=== PATIENT | female | born 1965 | race Caucasian/White ===

== ENCOUNTER 2018-02-28 17:39 | Observation (INO) ==
--- NOTE | 2018-02-28 18:17 | Emergency Department Note ---
Disposition Clinical Impression: Abdominal distension, History of cirrhosis, Shortness of breath Disposition: Admitted As Inpatient Condition: Fair Referrals: Stepahni Garcia MD [Primary Care Provider] - Forms: ED Satisfaction Letter Time of Disposition: 20:27 SOB HPI - General Chief Complaint: ED Shortness of Breath/Dyspnea Stated Complaint: Extremities swelling/renal failure/chf Time Seen by Provider: 02/28/18 18:16 Source: patient Mode of arrival: ambulatory Limitations: no limitations Nursing Notes Reviewed: Yes Vital Signs Reviewed: Yes - History of Present Illness Patient is a 53-year-old female with past medical history of hypertension, hyperlipidemia, diabetes, previous VA, hepatitis, cirrhosis with history of multiple paracentesis. She was just recently discharged a few days ago from the hospital due to stay for SBP, hypokalemia, BERNARDA. According to noting, during that stay the patient required blood transfusion for anemia, had a GI evaluation and nephrology evaluation. She had improvement in her renal labs. She was treated with antibiotics for SBP. She was was recommended at that time to have hospice care for her worsening overall status. However, it was noted that the patient and refused home health services after discharge. She presents today due to concern for shortness of breath that is worse with exertion, lower extremity swelling. She says that this has occurred since Sunday. During that time she had a paracentesis and says that she also received IV fluids after having this procedure done. She thinks that maybe she was fluid overloaded during that time. Otherwise, and she denies any fevers, abdominal pain, overt chest pain, any calf pain, recent surgeries, any long car rides. She does state that she has worsened shortness breath when she is lying flat. She used to be on Lasix but states that it has been held recently. - Related Data Home Medications Medication Instructions Recorded Confirmed Metformin HCl [Metformin HCl ER] 500 mg PO QPM 10/06/16 02/12/18 TraZODone 50 - 100 mg PO HS 10/06/16 02/12/18 clonazePAM [Klonopin] 0.5 mg PO BID 10/06/16 02/12/18 Omeprazole [PriLOSEC] 40 mg PO DAILY 07/26/17 02/12/18 Ondansetron HCl [Zofran] 4 - 8 mg PO Q8H PRN 07/26/17 02/12/18 hydrOXYzine HCl [Hydroxyzine HCl] 50 mg PO QID 07/26/17 02/12/18 Buspirone HCl [Buspar] 5 mg PO TID PRN 09/07/17 02/12/18 Escitalopram [Lexapro] 20 mg PO DAILY 09/07/17 02/12/18 Atorvastatin [Lipitor] 40 mg PO HS 02/12/18 02/12/18 Ferrous Gluconate 240 mg PO DAILY 02/12/18 02/12/18 Lactulose 20 mg PO BID 02/12/18 02/12/18 Megestrol Acetate [Megace] 800 mg PO DAILY 02/12/18 02/12/18 Nadolol 20 mg PO DAILY 02/12/18 02/12/18 OxyCODONE Immed Rel [Roxicodone 5 5 mg PO BID PRN 02/12/18 02/12/18 MG] Tizanidine HCl 4 mg PO BID PRN 02/12/18 02/12/18 Allergies Allergy/AdvReac Type Severity Reaction Status Date / Time levofloxacin [From Levaquin] Allergy Hives Verified 02/12/18 10:32 Penicillins Allergy Rash Verified 02/12/18 10:32 Sulfa (Sulfonamide Allergy Rash Verified 02/12/18 10:32 Antibiotics) All systems ED: reviewed and negative except as stated. Constitutional: Denies: fever Cardiovascular: Reports: dyspnea on exertion. Denies: chest pain Respiratory: Reports: dyspnea Past Medical History - Past Medical History Attestation: Yes The following information was validated with the patient. Source: patient Medical history: Reports: cirrhosis, CHF, COPD, diabetes, hepatitis, hypertension, myocardial infarction, seizures Surgical history: Reports: Psychiatric history: Reports: anxiety, depression - Social History Smoking Status: Current every day smoker Smokeless Tobacco Status: No Alcohol use: Reports: none Drug use: Reports: none Physical Exam - General General appearance: cachectic, other (Mildly slow at answering questions, fatigued, but still awake and oriented 3) - Head Head exam: atraumatic, normocephalic, normal inspection - Eye Eye exam: Present: normal appearance, PERRL, EOMI - ENT ENT exam: normal exam, normal oropharynx, mucous membranes moist - Neck Neck exam: Present: normal inspection, full ROM, trachea midline - Chest Chest inspection: Present: normal inspection, symmetric chest wall rise - Respiratory Respiratory exam: Present: normal lung sounds bilaterally - Cardiovascular Cardiovascular exam: Present: regular rate, normal rhythm, normal heart sounds - Abdominal Exam Abdominal exam: Present: soft, Non-Tender, distention (generalize abd distention ). Absent: tenderness, guarding, rebound - Extremities Exam Extremities exam: Present: full ROM, pedal edema (pitting edema of bilateral LE up to knees; no erythema, calf pain). Absent: tenderness, calf tenderness - Neurological Exam Neurological exam: Present: alert, oriented X3 - Psychiatric Psychiatric exam: Present: normal affect, normal mood - Skin Skin exam: Present: warm, dry, intact, normal color Course Vital Signs Temperature 98.4 F 02/28/18 17:40 Pulse Rate 53 02/28/18 17:40 Respiratory Rate 18 02/28/18 17:40 Blood Pressure 111/71 02/28/18 17:40 O2 Sat by Pulse Oximetry 99 02/28/18 17:40 Temperature 98.4 F 02/28/18 17:40 Pulse Rate 52 02/28/18 19:04 Respiratory Rate 18 02/28/18 17:40 Blood Pressure 114/71 02/28/18 19:04 O2 Sat by Pulse Oximetry 99 02/28/18 19:04 Oxygen Delivery Oxygen Delivery Room Air Shortness of Breath/Dyspnea - [facility] Narrative Medical decision making narrative: Vitals are within normal limits at this time. Patient has significant abdominal distention but no pain with palpation. She does appear cachectic, somewhat answer questions. Family states that this is mildly worse from her baseline. Due to concern for possible worsening mental status, we will obtain an ammonia level. We will also check LFTs due to history of hepatitis and cirrhosis. Due to shortness of breath, we will obtain chest x-ray, troponin. EKG shows sinus bradycardia with low voltage. Otherwise no acute ST changes. Bedside ultrasound was performed due to low voltage and shortness of breath to assess for anything like pericardial effusion. Bedside ultrasound was negative for pericardial effusion. After lab results come back, patient will need to be admitted for shortness of breath, need for an additional paracentesis, shortness of breath, confusion above baseline. 20:20 labs are near baseline for the patient. No elevation white blood cell count. Chronic kidney disease is baseline for the patient. Ammonia level was not elevated. EKG shows no acute ST changes. No elevation in troponin leve. Chest x-ray shows no signs of any advocate edema. I discussed the findings with the hospitalist who is accepted the patient. Patient will require paracentesis, further workup for shortness of breath. Likely related to significant abd distention secondary to cirrhosis but ACS is not ruled out at this time. - Medical Records Medical records reviewed: Yes I reviewed the patient's medical records. - Lab Data Lab results reviewed: Yes I reviewed the patient's lab results. Result diagrams: 02/28/18 18:59 02/28/18 18:59 Lab Results 02/28/18 02/28/18 02/28/18 Range/Units 18:59 18:59 18:59 WBC 6.7 (4.3-11.1) K/mcL RBC 3.19 L (3.82-4.97) M/mcL Hgb 9.1 L (11.5-15.4) g/dL Hct 28.4 L (35.3-44.9) % MCV 89.0 (83.0-100.0) fL MCH 28.5 (28.0-33.3) pg MCHC 32.0 (31.6-35.5) g/dL RDW 15.8 H (11.5-14.5) % Plt Count 189 (140-400) K/mcL MPV 9.8 (9.4-12.4) fL Immature Gran % 0.4 (0-4) % Seg Neutrophils % 61.6 % Lymphocytes % 25.2 % Monocytes % 11.6 % Eosinophils % 0.0 % Basophils % 1.2 % Neutrophils # 4.1 (1.6-8.9) K/mcL Lymphocytes # 1.7 (0.6-4.6) K/mcL Monocytes # 0.8 (0.0-1.3) K/mcL Eosinophils # 0.0 (0.0-0.6) K/mcL Basophils # 0.1 (0.0-0.2) K/mcL Sodium 138 (136-145) mEq/L Potassium 3.3 L (3.5-5.1) mEq/L Chloride 115 H (98-107) mEq/L Carbon Dioxide 18 L (23-29) mEq/L BUN 36 H (6-20) mg/dL Creatinine 2.31 H (0.60-1.20) mg/dL Est GFR ( Amer) 27 L (> 60) Est GFR (Non-Af Amer) 22 L (> 60) BUN/Creatinine Ratio 16 (6-26) Glucose 120 H (70-105) mg/dL Calculated Osmolality 296 (280-300) Lactic Acid 1.6 (0.5-2.2) mmol/L Calcium 8.9 (8.6-10.3) mg/dL Total Bilirubin 0.4 (0.3-1.0) mg/dL Direct Bilirubin 0.2 (0.0-0.2) mg/dL Indirect Bilirubin 0.2 (0.0-1.2) mg/dL AST 56 H (13-39) Units/L ALT 39 (7-52) Units/L Alkaline Phosphatase 117 H (34-104) Units/L Ammonia (16-53) mcmol/L Troponin I < 0.03 (< 0.04) ng/mL Serum Total Protein 5.9 L (6.4-8.9) g/dL Albumin 4.1 (3.5-5.7) g/dL Globulin 1.8 L (2.4-3.5) g/dL Albumin/Globulin Ratio 2.3 H (1.1-2.2) Lipase 25 (11-82) Units/L // Range/Units 19:02 WBC (4.3-11.1) K/mcL RBC (3.82-4.97) M/mcL Hgb (11.5-15.4) g/dL Hct (35.3-44.9) % MCV (83.0-100.0) fL MCH (28.0-33.3) pg MCHC (31.6-35.5) g/dL RDW (11.5-14.5) % Plt Count (140-400) K/mcL MPV (9.4-12.4) fL Immature Gran % (0-4) % Seg Neutrophils % % Lymphocytes % % Monocytes % % Eosinophils % % Basophils % % Neutrophils # (1.6-8.9) K/mcL Lymphocytes # (0.6-4.6) K/mcL Monocytes # (0.0-1.3) K/mcL Eosinophils # (0.0-0.6) K/mcL Basophils # (0.0-0.2) K/mcL Sodium (136-145) mEq/L Potassium (3.5-5.1) mEq/L Chloride (98-107) mEq/L Carbon Dioxide (23-29) mEq/L BUN (6-20) mg/dL Creatinine (0.60-1.20) mg/dL Est GFR ( Amer) (> 60) Est GFR (Non-Af Amer) (> 60) BUN/Creatinine Ratio (6-26) Glucose (70-105) mg/dL Calculated Osmolality (280-300) Lactic Acid (0.5-2.2) mmol/L Calcium (8.6-10.3) mg/dL Total Bilirubin (0.3-1.0) mg/dL Direct Bilirubin (0.0-0.2) mg/dL Indirect Bilirubin (0.0-1.2) mg/dL AST (13-39) Units/L ALT (7-52) Units/L Alkaline Phosphatase (34-104) Units/L Ammonia 38 (16-53) mcmol/L Troponin I (< 0.04) ng/mL Serum Total Protein (6.4-8.9) g/dL Albumin (3.5-5.7) g/dL Globulin (2.4-3.5) g/dL Albumin/Globulin Ratio (1.1-2.2) Lipase (11-82) Units/L - Radiology Data Radiology results reviewed: Yes I reviewed the patient's radiology results. Chest X-Ray 02/28/18 18:51 IMPRESSION: 1. No active pulmonary disease. D/ / Robbie Sanchez MD / Robbie Sanchez MD Interpreting Provider: Robbie Sanchez MD - EKG Data EKG attestation: Yes I reviewed and interpreted this EKG. EKG results narrative: 02/28/2018 18:20. Sinus bradycardia. Rate 57. KS 191. QRS 61. QTC 391. Normal axis. No acute ST elevation or depression.. Low voltage. S.B.A.R. - S.B.A.R. Situation: Demographics, MOA Background: Presenting Complaint, Relevant PMH, Meds, & Allergies Assessment: Vital Signs, Course and respsone to treatment, Exam Concerns, Patient/Family Expectation, Pertinant Lab Results Recommendation: Barrier(s) to disposition, Recommendation based on pending studies, treatments, or consults [email or web address] Report Given to: Dr. Niraj Person Repor Time: 20:26
--- NOTE | 2018-02-28 18:34 | Emergency Department Note ---
Disposition Clinical Impression: Abdominal distension, History of cirrhosis, Shortness of breath Disposition: Admitted As Inpatient Condition: Fair General Adult HPI - General Chief complaint: ED Shortness of Breath/Dyspnea Stated complaint: Extremities swelling/renal failure/chf Time Seen by Provider: 02/28/18 18:16 Source: patient Mode of arrival: ambulatory Limitations: no limitations - History of Present Illness Pain Scale: 8 - Related Data Home Medications Medication Instructions Recorded Confirmed Metformin HCl [Metformin HCl ER] 500 mg PO QPM 10/06/16 02/28/18 TraZODone 50 - 100 mg PO HS 10/06/16 02/28/18 clonazePAM [Klonopin] 0.5 mg PO BID 10/06/16 02/28/18 Omeprazole [PriLOSEC] 40 mg PO DAILY 07/26/17 02/28/18 Ondansetron HCl [Zofran] 4 - 8 mg PO Q8H PRN 07/26/17 02/28/18 hydrOXYzine HCl [Hydroxyzine HCl] 50 mg PO QID 07/26/17 02/28/18 Buspirone HCl [Buspar] 5 mg PO TID PRN 09/07/17 02/28/18 Escitalopram [Lexapro] 20 mg PO DAILY 09/07/17 02/28/18 Atorvastatin [Lipitor] 40 mg PO HS 02/12/18 02/28/18 Ferrous Gluconate 240 mg PO DAILY 02/12/18 02/28/18 Lactulose 20 mg PO BID 02/12/18 02/28/18 Megestrol Acetate [Megace] 800 mg PO DAILY 02/12/18 02/28/18 Nadolol 20 mg PO DAILY 02/12/18 02/28/18 OxyCODONE Immed Rel [Roxicodone 5 5 mg PO BID PRN 02/12/18 02/28/18 MG] Tizanidine HCl 4 mg PO BID PRN 02/12/18 02/28/18 Lactose-Reduced Food [Ensure High 1 bottle PO 2-3XD 02/28/18 02/28/18 Protein] Allergies Allergy/AdvReac Type Severity Reaction Status Date / Time levofloxacin [From Levaquin] Allergy Hives Verified 02/12/18 10:32 Penicillins Allergy Rash Verified 02/12/18 10:32 Sulfa (Sulfonamide Allergy Rash Verified 02/12/18 10:32 Antibiotics) Past Medical History - Past Medical History Medical history: Reports: cirrhosis, CHF, COPD, diabetes, hepatitis, hypertension, myocardial infarction, seizures Surgical history: Reports: Psychiatric history: Reports: anxiety, depression - Social History Smoking Status: Current every day smoker Smokeless Tobacco Status: No Alcohol use: Reports: none Drug use: Reports: none Physical Exam - General Limitations: no limitations General appearance: alert, in no apparent distress Course Vital Signs Temperature 98.4 F 02/28/18 17:40 Pulse Rate 53 02/28/18 17:40 Respiratory Rate 18 02/28/18 17:40 Blood Pressure 111/71 02/28/18 17:40 O2 Sat by Pulse Oximetry 99 02/28/18 17:40 Temperature 98.4 F 02/28/18 17:40 Pulse Rate 52 02/28/18 19:04 Respiratory Rate 18 02/28/18 17:40 Blood Pressure 114/71 02/28/18 19:04 O2 Sat by Pulse Oximetry 99 02/28/18 19:04 Oxygen Delivery Oxygen Delivery Room Air Medical Decision Making - Lab Data Result diagrams: 02/28/18 18:59 02/28/18 18:59 Lab Results 02/28/18 02/28/18 02/28/18 Range/Units 18:59 18:59 18:59 WBC 6.7 (4.3-11.1) K/mcL RBC 3.19 L (3.82-4.97) M/mcL Hgb 9.1 L (11.5-15.4) g/dL Hct 28.4 L (35.3-44.9) % MCV 89.0 (83.0-100.0) fL MCH 28.5 (28.0-33.3) pg MCHC 32.0 (31.6-35.5) g/dL RDW 15.8 H (11.5-14.5) % Plt Count 189 (140-400) K/mcL MPV 9.8 (9.4-12.4) fL Immature Gran % 0.4 (0-4) % Seg Neutrophils % 61.6 % Lymphocytes % 25.2 % Monocytes % 11.6 % Eosinophils % 0.0 % Basophils % 1.2 % Neutrophils # 4.1 (1.6-8.9) K/mcL Lymphocytes # 1.7 (0.6-4.6) K/mcL Monocytes # 0.8 (0.0-1.3) K/mcL Eosinophils # 0.0 (0.0-0.6) K/mcL Basophils # 0.1 (0.0-0.2) K/mcL PT (9.4-12.1) Seconds INR Sodium 138 (136-145) mEq/L Potassium 3.3 L (3.5-5.1) mEq/L Chloride 115 H (98-107) mEq/L Carbon Dioxide 18 L (23-29) mEq/L BUN 36 H (6-20) mg/dL Creatinine 2.31 H (0.60-1.20) mg/dL Est GFR ( Amer) 27 L (> 60) Est GFR (Non-Af Amer) 22 L (> 60) BUN/Creatinine Ratio 16 (6-26) Glucose 120 H (70-105) mg/dL Calculated Osmolality 296 (280-300) Lactic Acid 1.6 (0.5-2.2) mmol/L Calcium 8.9 (8.6-10.3) mg/dL Total Bilirubin 0.4 (0.3-1.0) mg/dL Direct Bilirubin 0.2 (0.0-0.2) mg/dL Indirect Bilirubin 0.2 (0.0-1.2) mg/dL AST 56 H (13-39) Units/L ALT 39 (7-52) Units/L Alkaline Phosphatase 117 H (34-104) Units/L Ammonia (16-53) mcmol/L Troponin I < 0.03 (< 0.04) ng/mL Serum Total Protein 5.9 L (6.4-8.9) g/dL Albumin 4.1 (3.5-5.7) g/dL Globulin 1.8 L (2.4-3.5) g/dL Albumin/Globulin Ratio 2.3 H (1.1-2.2) Lipase 25 (11-82) Units/L 02/28/18 02/28/18 Range/Units 18:59 19:02 WBC (4.3-11.1) K/mcL RBC (3.82-4.97) M/mcL Hgb (11.5-15.4) g/dL Hct (35.3-44.9) % MCV (83.0-100.0) fL MCH (28.0-33.3) pg MCHC (31.6-35.5) g/dL RDW (11.5-14.5) % Plt Count (140-400) K/mcL MPV (9.4-12.4) fL Immature Gran % (0-4) % Seg Neutrophils % % Lymphocytes % % Monocytes % % Eosinophils % % Basophils % % Neutrophils # (1.6-8.9) K/mcL Lymphocytes # (0.6-4.6) K/mcL Monocytes # (0.0-1.3) K/mcL Eosinophils # (0.0-0.6) K/mcL Basophils # (0.0-0.2) K/mcL PT 14.8 H (9.4-12.1) Seconds INR 1.4 Sodium (136-145) mEq/L Potassium (3.5-5.1) mEq/L Chloride (98-107) mEq/L Carbon Dioxide (23-29) mEq/L BUN (6-20) mg/dL Creatinine (0.60-1.20) mg/dL Est GFR ( Amer) (> 60) Est GFR (Non-Af Amer) (> 60) BUN/Creatinine Ratio (6-26) Glucose (70-105) mg/dL Calculated Osmolality (280-300) Lactic Acid (0.5-2.2) mmol/L Calcium (8.6-10.3) mg/dL Total Bilirubin (0.3-1.0) mg/dL Direct Bilirubin (0.0-0.2) mg/dL Indirect Bilirubin (0.0-1.2) mg/dL AST (13-39) Units/L ALT (7-52) Units/L Alkaline Phosphatase (34-104) Units/L Ammonia 38 (16-53) mcmol/L Troponin I (< 0.04) ng/mL Serum Total Protein (6.4-8.9) g/dL Albumin (3.5-5.7) g/dL Globulin (2.4-3.5) g/dL Albumin/Globulin Ratio (1.1-2.2) Lipase (11-82) Units/L Attestation Statement - Attestation Attestation: I examined this patient and my medical decision-making was reviewed with the DROSOPHERE OPERATOR/PA/Advanced Practice Nurse/Resident Physician. I agree with the documented findings, disposition and treatment plan as described except to the extent set forth below. The patient does have a history of multiple medical problems and I did review her records and she presents because of swelling and also shortness of breath. Had some abdominal pain earlier which is now resolved. She is cachectic in appearance a chronically ill in appearance and was just discharged from the hospital 2 days ago. Did have paracentesis 2 while she was here. Workup will be initiated, I do not think she has spontaneous bacterial peritonitis that she has no fever or abdominal pain and her exam is benign. She denies any fever or use of antipyretics recently. EKG did not was done which does locate a poor tracing with some artifact although possibly low voltage and we will do a bedside cardiac ultrasound to further evaluate for pericardial effusion or tamponade. Labs will be started. 1833 Bedside cardiac ultrasound did not show evidence of significant pericardial effusion or any evidence of pericardial tamponade. Patient will be admitted. 2019
[2018-02-28 19:16] LABS: Basophils # 0.1 K/mcL (0.0-0.2); Basophils % 1.2 %; Hematocrit 28.4 % (35.3-44.9); Hemoglobin 9.1 g/dL (11.5-15.4); Immature Granulocytes % 0.4 % (0-4); Lymphocytes # 1.7 K/mcL (0.6-4.6); Lymphocytes % 25.2 %; Mean Corpuscular Hemoglobin 28.5 pg (28.0-33.3); Mean Platelet Volume 9.8 fL (9.4-12.4); Monocytes # 0.8 K/mcL (0.0-1.3); Monocytes % 11.6 %; Neutrophils # 4.1 K/mcL (1.6-8.9); Platelet Count 189 K/mcL (140-400); Red Blood Count 3.19 M/mcL (3.82-4.97); Red Cell Distribution Width 15.8 % (11.5-14.5); Segmented Neutrophils % 61.6 %
[2018-02-28 19:35] LABS: Alanine Aminotransferase 39 Units/L (7-52); Albumin 4.1 g/dL (3.5-5.7); Albumin/Globulin Ratio 2.3 (1.1-2.2); Alkaline Phosphatase 117 Units/L (34-104); Aspartate Amino Transferase 56 Units/L (13-39); BUN/Creatinine Ratio 16 (6-26); Bilirubin,Direct 0.2 mg/dL (0.0-0.2); Bilirubin,Indirect 0.2 mg/dL (0.0-1.2); Bilirubin,Total 0.4 mg/dL (0.3-1.0); Blood Urea Nitrogen 36 mg/dL (6-20); Calcium 8.9 mg/dL (8.6-10.3); Carbon Dioxide 18 mEq/L (23-29); Chloride 115 mEq/L (98-107); Globulin 1.8 g/dL (2.4-3.5); Glucose 120 mg/dL (70-105); Lipase 25 Units/L (11-82); Osmolality,Calculated 296 (280-300); Potassium 3.3 mEq/L (3.5-5.1); Sodium 138 mEq/L (136-145); Total Protein 5.9 g/dL (6.4-8.9); Troponin I < 0.03 ng/mL (< 0.04); eGFR For African Americans 27 (> 60); eGFR For Non-African Americans 22 (> 60)
[2018-02-28] MEDS ORDERED: Naloxone 0.4 MG/ML INJ IVP PRN (20:27)
[2018-02-28] MEDS ORDERED: traMADol 50 MG TABLET PO PRN (20:30)
--- NOTE | 2018-02-28 20:40 | Internal Med History&Physical ---
Date of Encounter: 02/28/18 Time of Encounter: 20:32 Internal Medicine - H&P: HPI Chief complaint: Shortness of breath Admitted From: Emergency Dept Plans for Post Hospital Care: Home History of present illness: Ms. De Paz is a 53 year old female with PMH of liver cirrhosis, hepatitis C, DM, CKD, COPD, HTN, anxiety and depression who was admitted last month into earlier this month and discharged a couple days ago after stay for which she was treated for BERNARDA suspected to be secondary to hepatorenal syndrome versus some volume loss from large volume paracentesis, and was treated for SBP, and had multiple paracentesis done during her stay. She also required PRBCs transfusion while she was hospitalized with GI evaluating the patient and recommending outpatient follow-up. The patient was also evaluated by palliative and her CODE STATUS was changed to DNR CCA. Throughout her stay she was being followed by nephrology as well and they did not think that she was a candidate for HD given her overall comorbidities. Of note, I know this patient while she was here and took care of her for a few days and at that time while talking to her family including her sister was a nurse and was told that the patient was given a prognosis for about one year because of her liver cirrhosis. Either way she comes back with abdominal distention and shortness of breath. She also has significant lower extremity swelling that was not present when she was here according to the mother. The patient "feels suffocating" from her abdominal distention. As I mentioned the patient was only discharged a couple days ago and the day prior to her discharge on 02/25 she had a 6.3 L paracentesis done. 5 days prior to that she had another paracentesis where 6.4 L. Prior to that on 02/11 she had a paracentesis where 4.25 L were drained. For the most part the patient has been getting periodic paracentesis since January 2017. In the emergency department she was hemodynamically stable. She was satting 99% on room air. Labs were mostly unremarkable with her anemia stable with a hemoglobin of 9.1. Her creatinine is 2.31 and is actually better than her discharge creatinine of 2.53. Her creatinine was as high as 4.94 back with 02/11. Potassium was 3.3. AST and alkaline phosphatase are mildly elevated. Patient reports abdominal pain. Denies fever, chills, headache, blurry vision, nausea, vomiting, chest pain, urinary symptoms, or neurological symptoms. Past Med Surg Social Fam HX - Past Medical History Medical history: cirrhosis, CHF, COPD, diabetes, hepatitis, hypertension, myocardial infarction, seizures Psychiatric history: anxiety, depression - Past Surgical History Surgical History: - Social History Smoking Status: Current every day smoker Smokeless Tobacco Status: No Alcohol use: none Drug use: none - Family History Father Living Status: Hx Family Cardiac Disorders: Yes Hx Family Respiratory Disorders: No Hx Family Cancer: Yes Hx Family GI Disorders: No Hx Family Endocrine Disorder: No Hx Family Neuromuscular Disorders: No Hx Family Neurologic Disorders: No Hx Family HEENT Disorders: No Hx Family Autoimmune Disorders: No Mother Living Status: Still Living Hx Family Respiratory Disorders: Yes Hx Family Endocrine Disorder: Yes (diabetes) Brother Hx Family Endocrine Disorder: Yes (diabetes) Internal Medicine - H&P: Meds Metformin HCl [Metformin HCl ER] 500 mg PO QPM 10/06/16 [History] TraZODone 50 - 100 mg PO HS 10/06/16 [History] clonazePAM [Klonopin] 0.5 mg PO BID 10/06/16 [History] Omeprazole [PriLOSEC] 40 mg PO DAILY 07/26/17 [History] Ondansetron HCl [Zofran] 4 - 8 mg PO Q8H PRN 07/26/17 [History] hydrOXYzine HCl [Hydroxyzine HCl] 50 mg PO QID 07/26/17 [History] Buspirone HCl [Buspar] 5 mg PO TID PRN 09/07/17 [History] Escitalopram [Lexapro] 20 mg PO DAILY 09/07/17 [History] Atorvastatin [Lipitor] 40 mg PO HS 02/12/18 [History] Ferrous Gluconate 240 mg PO DAILY 02/12/18 [History] Lactulose 20 mg PO BID 02/12/18 [History] Megestrol Acetate [Megace] 800 mg PO DAILY 02/12/18 [History] Nadolol 20 mg PO DAILY 02/12/18 [History] OxyCODONE Immed Rel [Roxicodone 5 MG] 5 mg PO BID PRN 02/12/18 [History] Tizanidine HCl 4 mg PO BID PRN 02/12/18 [History] Lactose-Reduced Food [Ensure High Protein] 1 bottle PO 2-3XD 02/28/18 [History] 3 Allergy/AdvReac Type Severity Reaction Status Date / Time levofloxacin [From Levaquin] Allergy Hives Verified 02/12/18 10:32 Penicillins Allergy Rash Verified 02/12/18 10:32 Sulfa (Sulfonamide Allergy Rash Verified 02/12/18 10:32 Antibiotics) All Systems PM: A 10-system review of systems was performed and is negative for pertinent findings except as documented above in the HPI. Review of systems: All systems reviewed are negative except for as mentioned above - Constitutional Vitals: Temp Pulse Resp BP Pulse Ox 98.4 F 52 18 114/71 99 02/28/18 17:40 02/28/18 19:04 02/28/18 17:40 02/28/18 19:04 02/28/18 19:04 Exam: GEN: NAD, cachectic HEENT: AT, NC, No cyanosis, oral mucosa is moist, No JVD Lymphatics: No lymphadenoapthy Eyes: Extrocular muscles intact, anicteric CVS:RRR. S1, S2, No m/r/g RESP: CTAB ABD: Soft, mild flank tenderness, abdominal distention noted and to the back. + BS EXT: 2+ edema, No rashes, 2+ DP NEURO: Nonfocal, CN II-XII intact, No focal motor or sensory deficits Psych: Cooperative, Not anxious or depressed Internal Med - H&P Results - Labs CBC & Chem 7: 02/28/18 18:59 02/28/18 18:59 Labs: Short CBC 02/28/18 Range/Units 18:59 WBC 6.7 (4.3-11.1) K/mcL Hgb 9.1 L (11.5-15.4) g/dL Hct 28.4 L (35.3-44.9) % Plt Count 189 (140-400) K/mcL Neutrophils # 4.1 (1.6-8.9) K/mcL BMP 02/28/18 18:59 Sodium 138 Potassium 3.3 L Chloride 115 H Carbon Dioxide 18 L BUN 36 H Creatinine 2.31 H Glucose 120 H Calcium 8.9 Cardiac Enzymes 02/28/18 Range/Units 18:59 Troponin I < 0.03 (< 0.04) ng/mL Liver Function 02/28/18 Range/Units 18:59 Total Bilirubin 0.4 (0.3-1.0) mg/dL Direct Bilirubin 0.2 (0.0-0.2) mg/dL AST 56 H (13-39) Units/L ALT 39 (7-52) Units/L Alkaline Phosphatase 117 H (34-104) Units/L Albumin 4.1 (3.5-5.7) g/dL - Impressions ITS Impressions Chest X-Ray 02/28/18 18:51 IMPRESSION: 1. No active pulmonary disease. D/ / Robbie Sanchez MD / Robbie Sanchez MD Interpreting Provider: Robbie Sanchez MD - Assessment and plan (1) Ascites Current Visit: Yes Status: Acute Assessment and plan: This is recurrent. I see that the patient was not discharged on spironolactone/ Lasix. I presume this was done to prevent worsening kidney function. Will put the patient in for a paracentesis tomorrow. albumin to be given after paracentesis. I will give the patient 40 mg of IV Lasix now for some symptom relief and she feels short of breath and has a feeling of suffocation. Consider adding Lasix/spironolactone to prevent further accumulation of ascites in the future although I am not so sure that this would help completely. Also if we do that we may have to consider worsening kidney function in the future as well. Overall the a poor prognosis and a vicious cycle that we are in. Possibly need to have another discussion with the patient/family about hospice. She refused hospice last stay. Qualifiers: Ascites type: other type Qualified Code(s): R18.8 - Other ascites (2) Lower extremity edema Current Visit: Yes Status: Acute Assessment and plan: 40 mg IV Lasix now. Consider re-adding Lasix at discharge as explained above. (3) CKD (chronic kidney disease) stage 3, GFR 30-59 ml/min Current Visit: Yes Status: Acute Assessment and plan: This is stable and actually better than her discharge a couple days ago. We will continue to monitor. She may have some worsening of her kidney function after paracentesis. (4) Cirrhosis Current Visit: No Status: Chronic Assessment and plan: The patient's overall prognosis is poor. Follows up with GI. Qualifiers: Hepatic cirrhosis type: other cirrhosis Qualified Code(s): K74.69 - Other cirrhosis of liver (5) Diabetes Current Visit: No Status: Chronic Assessment and plan: Insulin sliding scale. Accu-Cheks. Qualifiers: Diabetes mellitus type: type 2 Diabetes mellitus residential insulin use: without residential use Diabetes mellitus complication status: with kidney complications Diabetes mellitus complication detail: with chronic kidney disease Chronic kidney disease stage: unspecified stage Qualified Code(s): E11.22 - Type 2 diabetes mellitus with diabetic chronic kidney disease (6) Severe protein-calorie malnutrition Current Visit: No Status: Acute Assessment and plan: Dietary consult. (7) DVT prophylaxis Current Visit: No Status: Acute Assessment and plan: SCDs - Time Spent With Patient Total time spent is greater than 50% in coordination of care (as documented) at patient's floor/unit and/or counseling patient:
[2018-02-28] MEDS ORDERED: Dextrose Gel 15 GM/37.5 ML TUBE PO PRN ×2 (20:41)
[2018-02-28] MEDS ORDERED: D5% in Water 1,000 ML IVC PRN (20:41)
[2018-02-28] MEDS ORDERED: *HR* Dextrose 50 % in Water (Syg) 50 ML SYRINGE IVP PRN (20:41)
[2018-02-28] MEDS ORDERED: tiZANidine 4 MG TABLET PO PRN (20:45)
[2018-02-28 20:47] LABS: INR 1.4; Prothrombin Time 14.8 Seconds (9.4-12.1)
[2018-02-28] MEDS ORDERED: Furosemide 40 MG/4 ML VIAL IVP ONE (21:02)
[2018-02-28] MEDS ORDERED: Albumin 25% 25gram/100mL 25 GM/100 ML IV.SOLN IVPB ONE ×2 (21:03→21:04)
[2018-02-28] MEDS: hydrOXYzine pamoate 25 MG CAPSULE PO SCH (22:53)
[2018-02-28] MEDS: traZODone 50 MG TABLET PO SCH (22:53)
[2018-02-28] MEDS: clonazePAM 0.5 MG TABLET PO SCH (22:53)
[2018-02-28] MEDS: Insulin LISPRO 300 UNITS/3 ML VIAL SQ SCH (22:53)
[2018-02-28] MEDS: *HR* OxyCODONE Immed Rel 5 MG TABLET PO PRN (23:05)
[2018-03-01 05:14] LABS: Basophils # 0.1 K/mcL (0.0-0.2); Basophils % 1.8 %; Hematocrit 27.8 % (35.3-44.9); Hemoglobin 8.9 g/dL (11.5-15.4); Immature Granulocytes % 0.4 % (0-4); Lymphocytes # 1.6 K/mcL (0.6-4.6); Lymphocytes % 27.6 %; Mean Corpuscular Hemoglobin 27.9 pg (28.0-33.3); Mean Corpuscular Volume 87.1 fL (83.0-100.0); Mean Platelet Volume 9.8 fL (9.4-12.4); Monocytes # 0.7 K/mcL (0.0-1.3); Neutrophils # 3.3 K/mcL (1.6-8.9); Platelet Count 189 K/mcL (140-400); Red Blood Count 3.19 M/mcL (3.82-4.97); Red Cell Distribution Width 15.8 % (11.5-14.5); Segmented Neutrophils % 58.2 %
[2018-03-01 05:32] LABS: Calcium 8.9 mg/dL (8.6-10.3); Magnesium 1.3 mg/dL (1.6-2.6); Potassium 3.5 mEq/L (3.5-5.1)
[2018-03-01] MEDS: Insulin LISPRO 300 UNITS/3 ML VIAL SQ SCH ×4 (07:51→21:11)
[2018-03-01] MEDS ORDERED: Albumin 25% 25gram/100mL 25 GM/100 ML IV.SOLN IVPB SCH (08:00)
[2018-03-01] MEDS: hydrOXYzine pamoate 25 MG CAPSULE PO SCH ×4 (08:27→23:37)
[2018-03-01] MEDS: Spironolactone 25 MG TABLET PO SCH (08:28)
[2018-03-01] MEDS: clonazePAM 0.5 MG TABLET PO SCH ×2 (08:28→22:23)
[2018-03-01] MEDS: Furosemide 20 MG TABLET PO SCH ×2 (08:28→17:17)
[2018-03-01] MEDS: Megestrol Acetate 400 MG/10 ML UDC PO SCH (08:30)
[2018-03-01] MEDS: *HR* OxyCODONE Immed Rel 5 MG TABLET PO PRN (11:29)
--- NOTE | 2018-03-01 12:44 | Palliative - Consult Note ---
Date of Encounter: 03/01/18 Time of Encounter: 11:00 - Assessment and Plan (1) Cirrhosis Current Visit: No Status: Chronic Assessment and plan: Chronic condition related to hep c and alcohol. Overall prognosis is poor. Patient is eligible for hospice should she decide to accept the service; patient refusing at this time. Qualifiers: Hepatic cirrhosis type: other cirrhosis Qualified Code(s): K74.69 - Other cirrhosis of liver (2) Abdominal distension Current Visit: Yes Status: Acute Assessment and plan: Abdominal distension present. Gastroenterology and IR working to place pleural catheter to allow for continued drainage post hospital stay. (3) History of cirrhosis Current Visit: Yes Status: Acute Assessment and plan: Continued poor prognosis; GI managing. (4) Shortness of breath Current Visit: Yes Status: Acute Assessment and plan: Patient not exhibiting shortness of breath during assessment. Patient reports shortness of breath due to edema; Lasix and Spirolactone has been reordered for edema management. (5) CKD (chronic kidney disease) stage 3, GFR 30-59 ml/min Current Visit: Yes Status: Acute (6) Ascites Current Visit: Yes Status: Acute Assessment and plan: GI plans to place Pleural catheter to manage recurrent Ascites. Lasix and Spironolactone ordered to prevent further accumulation of ascites in the future. Qualifiers: Ascites type: other type Qualified Code(s): R18.8 - Other ascites (7) Lower extremity edema Current Visit: Yes Status: Acute Assessment and plan: Patient remains edematous 3+ BLE. Lasix and Spironolactone has been reordered. Patient voiding at end of assessment. (8) Goals of care, counseling/discussion Current Visit: No Status: Acute Assessment and plan: Spoke with patient and Alejandrina, sister/secondary MPOA, regarding plan of care at discharge. Patient wishes to return home and family care for. Expressed concern over family's ability to care for and monitor new pleural catheter. Explained need to monitor for new s/s of infection to reduce returns to hospital. Verbalized understanding. Patient continues to refuse HH and Hospice ; however, Alejandrina verbalizes understanding of necessity for ensuring adequate supplies and will discuss with primary MPOA and patient to decide HH versus Hospice post discharge. Explained benefits of both, Alejandrina acknowledged. Alejandrina expressed concern over previous poor experience with other family members with hospice; Alejandrina also reports she is POLICE RESERVES COMMANDER with IV certification and patient's mother was a MEMBERSHIP COORDINATOR. Alejandrina was unsure why family could not care for; expressed concern for new issues that may come up after hours and unable to contact providers to get care and would have to return to hospital. Alejandrina verbalized understanding and expresses desire to continue discussing HH versus Hospice over the weekend. Will follow up on Sunday. Palliative-CN HPI - Data of Consult Patient: known to practice within the last 3 years Consult date: 03/01/18 Requesting Physician: Marce Gomes MD Primary Care Provider: Stephani Garcia, - Consult Narrative Palliative Care/Comfort Measures: Palliative care Reason for consult: Evaluation for hospice care. History of present illness: Ms. De Paz is a 53 year old female presenting to [place] ER for significant water extremity swelling and abdominal distention; patient reports feeling of suffocation. Frequent rehospitalizations occurring due to hepatorenal syndrome requiring multiple paracentesis. Patient discharged from [facility] 2 days ago per patient report. Patient has past medical history of liver cirrhosis, hepatitis C, diabetes mellitus, chronic kidney disease, COPD, hypertension, anxiety and depression. Liver cirrhosis chronic condition occurring for the last 2-3 years. Regarding hep C patient took her hervonie for 12 months and recheck was told gone, previous alcohol consumption ceased 3 years ago. During last day palliative consult completed by Dr. Yi and CODE STATUS changed to DNR CCA. Patient lying in bed looking over at sister Alejandrina during time of assessment. Patient remained very distant during conversation/assessment. Patient agitated regarding NPO status and asked gastroenterology doctor when she could eat during her evaluation. Patient reported bilateral leg pain to be currently an 8 out of 10, reports pain worsens when walking. Pain is described as intermittent but on able to describe quality. Patient is requesting pain medication at this time, Anjelica FORD was notified and is bringing pain medication at this time. Patient has had 1 dose Roxicodone 5 mg in last 24 hours, 0 doses of tizanidine, and 0 doses of Ultram. Patient also reports increased shortness of breath when lying flat, reports last night's dose of Lasix in ER assisted and shortness of breath management. Alejandrina reports at last hospital stay order for Lasix was discontinued, feels that may have been cause of increasing fluid resulting in this visit. Patient reports had not been able to void while at home and just continued to swell. New order has been written for Lasix 20 mg by mouth twice a day by primary team. Denies anxiety, nausea, or any other needs at time of assessment. Confirmed current CODE STATUS with patient acknowledged understanding, no change to CODE STATUS. Alejandrina reports plan to put pleural catheter and to decrease returns to Hospital. Patient reports increased shortness of breath prior to coming to hospital and resulting chest pain; patient would not right chest pain on scale as reported cause is shortness of breath. Patient has been cared for by patient's mother and sister. Patient's MPOA is Catie Sauer mother, secondary is Alejandrina sister. Alejandrina reports 2 previous poor experiences with hospice from other family members; family remains hesitant to discuss bringing another hospice agency into the home. Alejandrina shares that she is a POLICE RESERVES COMMANDER with IV therapy certification and mother is home health aide and is able to perform vital signs , family is unsure of need for additional nursing personnel to home. Explain necessity if receiving new pleural drain for continued assessment of drain, medical supplies, and monitoring for new signs of infection post hospital discharge and necessary training for family to care for drain. Discussed advantages of hospice and home health, patient refuses both at this time; however, family is willing to consider over the coming days. Alejandrina reports she is going to talk to her mother regarding additional supportive care in the home for after patient's discharged. CC: Marce Gomes MD Past Med Surg Social Fam HX - Past Medical History Medical history: cirrhosis, CHF, COPD, diabetes, hepatitis, hypertension, myocardial infarction, seizures Psychiatric history: anxiety, depression - Past Surgical History Surgical History: - Social History Smoking Status: Current every day smoker Packs per day: 0.5 Smokeless Tobacco Status: No Alcohol use: none Drug use: none - Family History Father Living Status: Hx Family Cardiac Disorders: Yes Hx Family Respiratory Disorders: No Hx Family Cancer: Yes Hx Family GI Disorders: No Hx Family Endocrine Disorder: No Hx Family Neuromuscular Disorders: No Hx Family Neurologic Disorders: No Hx Family HEENT Disorders: No Hx Family Autoimmune Disorders: No Mother Living Status: Still Living Hx Family Respiratory Disorders: Yes Hx Family Endocrine Disorder: Yes (diabetes) Brother Hx Family Endocrine Disorder: Yes (diabetes) Medications and Allergies Metformin HCl [Metformin HCl ER] 500 mg PO QPM 10/06/16 [History] TraZODone 50 - 100 mg PO HS 10/06/16 [History] clonazePAM [Klonopin] 0.5 mg PO BID 10/06/16 [History] Omeprazole [PriLOSEC] 40 mg PO DAILY 07/26/17 [History] Ondansetron HCl [Zofran] 4 - 8 mg PO Q8H PRN 07/26/17 [History] hydrOXYzine HCl [Hydroxyzine HCl] 50 mg PO QID 07/26/17 [History] Buspirone HCl [Buspar] 5 mg PO TID PRN 09/07/17 [History] Escitalopram [Lexapro] 20 mg PO DAILY 09/07/17 [History] Atorvastatin [Lipitor] 40 mg PO HS 02/12/18 [History] Ferrous Gluconate 240 mg PO DAILY 02/12/18 [History] Lactulose 20 mg PO BID 02/12/18 [History] Megestrol Acetate [Megace] 800 mg PO DAILY 02/12/18 [History] Nadolol 20 mg PO DAILY 02/12/18 [History] OxyCODONE Immed Rel [Roxicodone 5 MG] 5 mg PO BID PRN 02/12/18 [History] Tizanidine HCl 4 mg PO BID PRN 02/12/18 [History] Lactose-Reduced Food [Ensure High Protein] 1 bottle PO 2-3XD 02/28/18 [History] 3 Allergy/AdvReac Type Severity Reaction Status Date / Time levofloxacin [From Levaquin] Allergy Hives Verified 02/12/18 10:32 Penicillins Allergy Rash Verified 02/12/18 10:32 Sulfa (Sulfonamide Allergy Rash Verified 02/12/18 10:32 Antibiotics) - Constitutional Constitutional ROS PAL: as per HPI, no fever(s), no frequent falls - Cardiovascular Cardiovascular ROS: chest pain, edema, leg edema - Respiratory Respiratory: dyspnea - Gastrointestinal Gastrointestinal: abdominal pain, bloating, no change in bowel habits, no change in stool character, no coffee ground emesis, no diarrhea, no loose stools - Genitourinary Palliative ROS female: difficulty voiding, dysuria, no urinary frequency, no urinary hesitancy, no urinary incontinence, no urinary urgency - Neurological Neurological ROS: no abnormal movements, no abnormal speech - Psychiatric Psychiatric general PM: irritability Palliative Care-Exam - Constitutional Vitals: Temp Pulse Resp BP Pulse Ox 98.3 F 53 12 112/69 96 03/01/18 11:02 03/01/18 11:02 03/01/18 11:02 03/01/18 11:02 03/01/18 11:02 General appearance: Present: disheveled, mild distress - Head Head Exam: Present: atraumatic, normal inspection - Eye Eye exam: Present: normal appearance. Absent: nystagmus - ENT ENT exam: Present: mucous membranes dry, normal external ear exam - Neck Neck exam: Present: full ROM, normal inspection - Respiratory Respiratory exam: Present: wheezes. Absent: accessory muscle use - Expanded Respiratory Exam Location: wheezes: Right, Upper - Cardiovascular Cardiovascular exam: Present: +S1, +S2 - GI/Abdominal Exam GI/Abdominal exam: Present: distended, firm, normal bowel sounds - Expanded GI/Abdominal Exam GI/Abdominal exam: Present: ascites - Rectal Rectal exam: Present: deferred - Extremities Exam Extremities exam: Present: calf tenderness, pedal edema, tenderness - Neurological Exam Neurological exam: Present: alert, oriented X3. Absent: facial droop, speech deficit - Expanded Neurological Exam Coma Scale Eye Opening: Spontaneous Coma Scale Motor Response: Obeys Commands Coma Scale Verbal Response: Oriented Coma Scale Total: 15 - Psychiatric Psychiatric exam: Present: agitated, flat affect - Skin Skin exam: Present: intact Internal Medicine - CN: Reslt - Labs CBC & Chem 7: 03/01/18 04:38 03/01/18 04:38 Labs: Short CBC 03/01/18 Range/Units 04:38 WBC 5.7 (4.3-11.1) K/mcL Hgb 8.9 L (11.5-15.4) g/dL Hct 27.8 L (35.3-44.9) % Plt Count 189 (140-400) K/mcL Neutrophils # 3.3 (1.6-8.9) K/mcL BMP 03/01/18 04:38 Sodium 139 Potassium 3.5 Chloride 110 H Carbon Dioxide 19 L BUN 37 H Creatinine 2.27 H Glucose 74 Calcium 8.9 - ABG Interpretation ABG results: PT/INR, D-dimer PT 14.8 Seconds (9.4-12.1) H 02/28/18 18:59 Consult Discharge Plan - Plan Referrals: Stephani Garcia MD [Primary Care Provider] - 03/04/18 2:20 pm Palliative Quality Palliative Quality: Screen for Code Status: Yes, Screen for Goals of Care: Yes, Screen for Pain: Yes, If Pain Regimen Started, Initiate Bowel Regimen: NA, Screen for Nausea/Vomitting: Yes
--- NOTE | 2018-03-01 12:50 | Gastroenterology Consult Note ---
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 Patient with moderate to severe recurrent ascites requiring recurrent large volume drainage. -After prolonged discussion with patient and her sister who is at the bedside, we made the decision to place a peritoneal catheter to make drainage of ascitic fluid more convenient. We discussed patient's poor prognosis. All questions were answered and concerns were addressed. -IR has been consulted for peritoneal catheter placement. -Palliative is on board with home health planning. Qualifiers: Hepatic cirrhosis type: other cirrhosis Qualified Code(s): K74.69 - Other cirrhosis of liver (2) Ascites Status: Acute Assessment and plan: See management as per above. Qualifiers: Ascites type: other type Qualified Code(s): R18.8 - Other ascites - Time Spent With Patient Total time spent is greater than 50% in coordination of care (as documented) at patient's floor/unit and/or counseling patient: GI History of Present Illness - Data of Consult Patient: known to practice within the last 3 years Consult date: 03/01/18 Requesting Physician: Marce Gomes MD - Consult Narrative Reason for consult: liver failure, recurrent ascites History of present illness: Ms. De Paz is a 53 year old female with PMHx of hep C, alcoholic cirrhosis, esophageal varices, s/p TIPS procedure September 2017, DM2, COPD, HTN, and CKD presenting to [facility] on 03/01/2018 with complaints of feeling like she is suffocating, bilateral lower extremity edema, and abdominal pain and swelling. Patient was recently discharged home 3 days ago. At that time, her aldactone and lasix were held secondary to worsening kidney function. Patient is well known to our clinic and service for liver failure and Child class C cirrhosis. During last hospitalization, discussions were initiated with patient, her sister , and her mother regarding her assisted prognosis and hospice care. Patient reports abstinence from alcohol for 3 years. She reports completing [facility] treatment for Hepatitis C. She denies recent fevers, chills, night sweats, or, palpitations. She denies melena, hematochezia, or hemetemesis. She does report chronic weight loss. She states her shortness of breath is alleviated by sitting upwards. Last EGD in July of 2017 with non-bleeding esophageal varices. Patient has been undergoing large volume drainage of ascitis fluid during hospitalization and as an outpatient. EGD: June 2017 Past Med Surg Social Fam HX - Past Medical History Attestation: Yes The following information was validated with the patient. Source: patient, old records reviewed, obtained from family Medical history: cirrhosis, CHF, COPD, diabetes, hepatitis, hypertension, myocardial infarction, seizures Psychiatric history: anxiety, depression - Past Surgical History Surgical History: - Social History Smoking Status: Current every day smoker Packs per day: 0.5 Smokeless Tobacco Status: No Alcohol use: none Drug use: none - Family History Father Living Status: Hx Family Cardiac Disorders: Yes Hx Family Respiratory Disorders: No Hx Family Cancer: Yes Hx Family GI Disorders: No Hx Family Endocrine Disorder: No Hx Family Neuromuscular Disorders: No Hx Family Neurologic Disorders: No Hx Family HEENT Disorders: No Hx Family Autoimmune Disorders: No Mother Living Status: Still Living Hx Family Respiratory Disorders: Yes Hx Family Endocrine Disorder: Yes (diabetes) Brother Hx Family Endocrine Disorder: Yes (diabetes) - Gastrointestinal Gastrointestinal: Present: abdominal pain. Absent: bloating, change in bowel habits, coffee ground emesis, constipation, diarrhea, hematemesis, hematochezia , melena, nausea, vomiting - Constitutional Constitutional: fatigue, weight loss, no fever(s) - EENT Nose, mouth and throat: Absent: hoarseness - Cardiovascular Cardiovascular ROS: Absent: chest pain, irregular heart rhythm, palpitations - Respiratory Respiratory IM: Absent: cough, dyspnea - Genitourinary Genitourinary: Absent: Urinary frequency - Neurological ROS Neurological GI: Absent: confusion, headache(s) - Hematologic/Lymphatic Hematologic/Lymphatic pediatric: Absent: easy bleeding - Musculoskeletal Musculoskeletal ROS GI: Absent: back pain - Integumentary Integumentary GI: Absent: jaundice, pruritis, rash - Psychiatric ROS Psychiatric GI: Present: depression - Constitutional Vitals: Temp Pulse Resp BP Pulse Ox 98.3 F 53 12 112/69 96 03/01/18 11:02 03/01/18 11:02 03/01/18 11:02 03/01/18 11:02 03/01/18 11:02 General appearance: Present: cachectic, cooperative, A&O X 3, thin, answers questions appropriately - Head Head exam: Present: atraumatic - Eye Eye exam: Present: normal appearance, sclera anicteric - Neck Neck exam general surgery: Present: normal inspection, trachea midline - Respiratory Respiratory exam: Present: CTAB - Cardiovascular Cardiovascular exam: Present: RRR, +S1, +S2 - GI/Abdominal GI/Abdominal exam: Present: normal bowel sounds, soft, tenderness (mild diffuse) , no peritoneal signs. Absent: guarding - Expanded GI/Abdominal Exam GI/Abdominal exam expanded: Present: ascites - Rectal Rectal exam: Present: deferred - Extremities Exam Extremities exam: Present: pedal edema (2+ pitting), warm. Absent: calf tenderness - Neurological Exam Neurological exam: Present: no focal deficits - Psychiatric Psychiatric exam: Present: depressed, normal mood - Skin Skin exam: Present: dry, intact, normal color, warm Results - Labs CBC & Chem 7: 03/01/18 04:38 03/01/18 04:38 Labs: Last Result Calcium 8.9 mg/dL (8.6-10.3) 03/01/18 04:38 Troponin I < 0.03 ng/mL (< 0.04) 02/28/18 18:59 Entire Visit Hgb 8.9 g/dL (11.5-15.4) L 03/01/18 04:38 Hct 27.8 % (35.3-44.9) L 03/01/18 04:38 PT 14.8 Seconds (9.4-12.1) H 02/28/18 18:59 Total Bilirubin 0.4 mg/dL (0.3-1.0) 02/28/18 18:59 AST 56 Units/L (13-39) H 02/28/18 18:59 ALT 39 Units/L (7-52) 02/28/18 18:59 Ammonia 38 mcmol/L (16-53) 02/28/18 19:02 Lipase 25 Units/L (11-82) 02/28/18 18:59 - ABG ABG results: PT/INR, D-dimer PT 14.8 Seconds (9.4-12.1) H 02/28/18 18:59 Consult Discharge Plan - Plan Instructions: Heart Failure (DC), Cirrhosis (DC), Chronic Kidney Disease (DC), Cigarette Smoking and Your Health (GEN), Diabetes Mellitus Type 2 in Adults (DC) Additional Instructions: Please follow up with your primary care physician within five days after your discharge from the hospital. Please follow up with GI and nephrology within one to two weeks after your discharge from the hospital. Lasix and spironolactone have been added to your home medications. Please take these medications as prescribed. Please closely monitor your Heart rate at home. Hold your home dose of Nodalol for heart rate less than 50. Resume all other home medications as prescribed by your primary care physician. Referrals: Stephani Garcia MD [Primary Care Provider] - 03/04/18 2:20 pm <Michele Stephens - Last Filed: 03/20/18 05:19> Date of Encounter: 03/01/18 - Time Spent With Patient Total time spent is greater than 50% in coordination of care (as documented) at patient's floor/unit and/or counseling patient: GI History of Present Illness - Data of Consult Requesting Physician: Marce Gomes MD - Consult Narrative History of present illness: Ms. De Paz is a 53 year old female - Constitutional Vitals: Temp Pulse Resp BP Pulse Ox 98.5 F 48 16 112/68 97 03/03/18 11:30 03/03/18 11:30 03/03/18 11:30 03/03/18 11:30 03/03/18 11:30 Results - Labs CBC & Chem 7: 03/03/18 03:57 03/03/18 03:57 Labs: Last Result Calcium 8.5 mg/dL (8.6-10.3) L 03/03/18 03:57 Troponin I < 0.03 ng/mL (< 0.04) 02/28/18 18:59 Entire Visit Hgb 8.4 g/dL (11.5-15.4) L 03/03/18 03:57 Hct 25.9 % (35.3-44.9) L 03/03/18 03:57 PT 14.8 Seconds (9.4-12.1) H 02/28/18 18:59 Total Bilirubin 0.4 mg/dL (0.3-1.0) 02/28/18 18:59 AST 56 Units/L (13-39) H 02/28/18 18:59 ALT 39 Units/L (7-52) 18 18:59 Ammonia 38 mcmol/L (16-53) 02/28/18 19:02 Lipase 25 Units/L (11-82) 02/28/18 18:59 - ABG ABG results: PT/INR, D-dimer PT 14.8 Seconds (9.4-12.1) H 02/28/18 18:59 - Attending Attestation Very unfortunate 53 year old lady with advanced decompensated cirrhosis and attendant complications with terminal disease and marked wasting. We have discussed with patient and sister. Hospice care is most appropriate at this time. I examined this patient and my medical decision-making was reviewed with the Resident Physician. I agree with the documented findings, disposition and treatment plan as described except to the extent set forth below.
--- NOTE | 2018-03-01 13:17 | Internal Med Progress Note ---
Date of Encounter: 03/01/18 Time of Encounter: 15:10 - Assessment and plan (1) Diabetes Current Visit: Yes Status: Chronic Qualifiers: Diabetes mellitus type: type 2 Diabetes mellitus rat exterminator insulin use: without rat exterminator use Diabetes mellitus complication status: with kidney complications Diabetes mellitus complication detail: with chronic kidney disease Chronic kidney disease stage: unspecified stage Qualified Code(s): E11.22 - Type 2 diabetes mellitus with diabetic chronic kidney disease (2) DVT prophylaxis Current Visit: No Status: Acute (3) Severe protein-calorie malnutrition Current Visit: No Status: Acute (4) Cirrhosis Current Visit: Yes Status: Chronic Qualifiers: Hepatic cirrhosis type: other cirrhosis Qualified Code(s): K74.69 - Other cirrhosis of liver (5) CKD (chronic kidney disease) stage 3, GFR 30-59 ml/min Current Visit: Yes Status: Acute (6) Ascites Current Visit: Yes Status: Acute Qualifiers: Ascites type: other type Qualified Code(s): R18.8 - Other ascites (7) Lower extremity edema Current Visit: Yes Status: Acute - Time Spent With Patient Total time spent is greater than 50% in coordination of care (as documented) at patient's floor/unit and/or counseling patient: - Subjective Interval history: Patient seen and examined with family present at bedside. Pt is s/p abdominal pleurx catheter placement and paracentesis with 4.5L ascites fluid removed. Pt reports of improvement in her symptoms. Will restart low dose lasix and spironolactone. - Assessment and plan (1) Ascites Current Visit: Yes Status: Acute Assessment and plan: GI input appreciated s/p abdominal pleurx catheter placement by IR with drainage of 4.5L ascites fluid pt's family educated on care of the pleurx catheter pt tolerated the procedure and reports of improvement in her symptoms from previous day Qualifiers: Ascites type: other type Qualified Code(s): R18.8 - Other ascites (2) Lower extremity edema Current Visit: Yes Status: Acute Assessment and plan: started lasix 40mg PO BID and spironolactone (3) CKD (chronic kidney disease) stage 3, GFR 30-59 ml/min Current Visit: Yes Status: Acute Assessment and plan: renal function improved from previous day nephrology input appreciated started on lasix and spironolactone will closely monitor renal function (4) Cirrhosis Current Visit: No Status: Chronic Assessment and plan: GI input appreciated overall prognosis remains poor Qualifiers: Hepatic cirrhosis type: other cirrhosis Qualified Code(s): K74.69 - Other cirrhosis of liver (5) Diabetes Current Visit: No Status: Chronic Assessment and plan: Insulin sliding scale. monitor FS and BG ADA diet Qualifiers: Diabetes mellitus type: type 2 Diabetes mellitus skilled nursing insulin use: without rat exterminator use Diabetes mellitus complication status: with kidney complications Diabetes mellitus complication detail: with chronic kidney disease Chronic kidney disease stage: unspecified stage Qualified Code(s): E11.22 - Type 2 diabetes mellitus with diabetic chronic kidney disease (6) Severe protein-calorie malnutrition Current Visit: No Status: Acute Assessment and plan: Dietary consult requested (7) DVT prophylaxis Current Visit: No Status: Acute Assessment and plan: SCDs (8) Hypomagensemia Current Visit: No Status: Acute Mg supplemented continue to monitor electrolytes and replace as needed - Constitutional Vitals: Temp Pulse Resp BP Pulse Ox 98.3 F 53 12 112/69 96 03/01/18 11:02 03/01/18 11:02 03/01/18 11:02 03/01/18 11:02 03/01/18 11:02 General appearance: Present: cachectic, A&O X 3, no acute distress - Head Head exam: Present: atraumatic, normocephalic - Eye Eye exam: Present: conjuntiva pink, sclera anicteric - Respiratory Respiratory exam: Absent: respiratory distress, wheezes Additional comments: minimal bibasilar rales - Cardiovascular Cardiovascular exam: Present: RRR, +S1, +S2. Absent: diastolic murmur, gallop, rubs, systolic murmur - GI/Abdominal GI/Abdominal exam: Present: distended (ascites, pleurx cath in place), normal bowel sounds, soft, no peritoneal signs. Absent: tenderness - Extremities Exam Extremities exam: Present: warm, radial pulses palpable and symmetrical. Absent : calf tenderness - Neurological Exam Neurological exam: Present: oriented X3 Internal Medicine: Result - Labs CBC & Chem 7: 03/01/18 04:38 03/01/18 04:38 Labs: Short CBC 03/01/18 Range/Units 04:38 WBC 5.7 (4.3-11.1) K/mcL Hgb 8.9 L (11.5-15.4) g/dL Hct 27.8 L (35.3-44.9) % Plt Count 189 (140-400) K/mcL Neutrophils # 3.3 (1.6-8.9) K/mcL BMP 03/01/18 04:38 Sodium 139 Potassium 3.5 Chloride 110 H Carbon Dioxide 19 L BUN 37 H Creatinine 2.27 H Glucose 74 Calcium 8.9 - ABG Interpretation ABG results: PT/INR, D-dimer PT 14.8 Seconds (9.4-12.1) H 02/28/18 18:59 Consult Discharge Plan - Plan Referrals: Stephani Garcia MD [Primary Care Provider] - 03/04/18 2:20 pm
[2018-03-01] MEDS ORDERED: *HR* FentaNYL (PF) 100 MCG/2 ML VIAL IVP ONE (13:48)
[2018-03-01] MEDS ORDERED: *HR* Midazolam HCl 2 MG/2 ML VIAL IVP ONE (13:48)
[2018-03-01] MEDS ORDERED: Clindamycin 600 MG/50 ML 600 MG/50 ML IV.SOLN IVPB STA (13:48)
--- NOTE | 2018-03-01 13:48 | Nephrology Consult Note ---
Date of Encounter: 03/01/18 Time of Encounter: 13:48 Assessment and Plan (1) BERNARDA (acute kidney injury) Current Visit: No Status: Acute Patient's Cr on last discharge was 2.53 which was 3 days prior to this admission. On this admission her Cr continues to improve. BERNARDA is likely resolving, and occurred in the setting of Cirrhosis/ascites. Will continue to monitor renal function. GATHERING WORKER not recommended at this time. Patient receiving PleurX today, and will have paracentesis. - avoid nephrotoxins if possible - renal dosing - renal diet - strict I/O (2) Ascites Current Visit: Yes Status: Acute per primary team Qualifiers: Ascites type: other type Qualified Code(s): R18.8 - Other ascites (3) Cirrhosis Current Visit: Yes Status: Chronic per primary team Qualifiers: Hepatic cirrhosis type: other cirrhosis Qualified Code(s): K74.69 - Other cirrhosis of liver (4) Diabetes Current Visit: Yes Status: Chronic per primary team Qualifiers: Diabetes mellitus type: type 2 Diabetes mellitus penitentiary insulin use: without intermission coordinator use Diabetes mellitus complication status: with kidney complications Diabetes mellitus complication detail: with chronic kidney disease Chronic kidney disease stage: unspecified stage Qualified Code(s): E11.22 - Type 2 diabetes mellitus with diabetic chronic kidney disease (5) Abdominal distension Current Visit: Yes Status: Acute per primary team History of Present Illness - Reason for Consult Consult date: 03/01/18 Acute Kidney Injury (t) Requesting physician: Marce Gomes - Chief Complaint cirrhosis/ascites - History of Present Illness Ms De Paz is a 53 yo F w/ pmh of liver cirrhosis, hep c, DM, CKD, COPD, HTN, and recent hospitalization with 17 L of fluid drained within a 5 day period d/c' ed 2 days prior to this admission. Patient presents with abdominal distension which has caused her to feel like she's "suffocating". Patient was seen and examined in the IR right before she was to get a PleurX. Patient admits to SOB , and abd pain but denies CP, f, c, n, v. Past Med Surg Social Fam HX - Past Medical History Medical history: cirrhosis, CHF, COPD, diabetes, hepatitis, hypertension, myocardial infarction, seizures Psychiatric history: anxiety, depression - Past Surgical History Surgical History: - Social History Smoking Status: Current every day smoker Packs per day: 0.5 Smokeless Tobacco Status: No Alcohol use: none Drug use: none - Family History Father Living Status: Hx Family Cardiac Disorders: Yes Hx Family Respiratory Disorders: No Hx Family Cancer: Yes Hx Family GI Disorders: No Hx Family Endocrine Disorder: No Hx Family Neuromuscular Disorders: No Hx Family Neurologic Disorders: No Hx Family HEENT Disorders: No Hx Family Autoimmune Disorders: No Mother Living Status: Still Living Hx Family Respiratory Disorders: Yes Hx Family Endocrine Disorder: Yes (diabetes) Brother Hx Family Endocrine Disorder: Yes (diabetes) Medications and Allergies Metformin HCl [Metformin HCl ER] 500 mg PO QPM 10/06/16 [History] TraZODone 50 - 100 mg PO HS 10/06/16 [History] clonazePAM [Klonopin] 0.5 mg PO BID 10/06/16 [History] Omeprazole [PriLOSEC] 40 mg PO DAILY 07/26/17 [History] Ondansetron HCl [Zofran] 4 - 8 mg PO Q8H PRN 07/26/17 [History] hydrOXYzine HCl [Hydroxyzine HCl] 50 mg PO QID 07/26/17 [History] Buspirone HCl [Buspar] 5 mg PO TID PRN 09/07/17 [History] Escitalopram [Lexapro] 20 mg PO DAILY 09/07/17 [History] Atorvastatin [Lipitor] 40 mg PO HS 02/12/18 [History] Ferrous Gluconate 240 mg PO DAILY 02/12/18 [History] Lactulose 20 mg PO BID 02/12/18 [History] Megestrol Acetate [Megace] 800 mg PO DAILY 02/12/18 [History] Nadolol 20 mg PO DAILY 02/12/18 [History] OxyCODONE Immed Rel [Roxicodone 5 MG] 5 mg PO BID PRN 02/12/18 [History] Tizanidine HCl 4 mg PO BID PRN 02/12/18 [History] Lactose-Reduced Food [Ensure High Protein] 1 bottle PO 2-3XD 02/28/18 [History] 3 Allergy/AdvReac Type Severity Reaction Status Date / Time levofloxacin [From Levaquin] Allergy Hives Verified 02/12/18 10:32 Penicillins Allergy Rash Verified 02/12/18 10:32 Sulfa (Sulfonamide Allergy Rash Verified 02/12/18 10:32 Antibiotics) Review of Systems All Systems: reviewed and no additional remarkable complaints except as stated Exam - Vital Signs Vital signs: Initial Vital Signs Temp Pulse Resp BP Pulse Ox 98.4 F 53 18 111/71 99 02/28/18 17:40 02/28/18 17:40 02/28/18 17:40 02/28/18 17:40 02/28/18 17:40 Vital Signs - Last 8 Hours Temp Pulse Resp BP Pulse Ox 03/01/18 11:02 98.3 F 53 12 112/69 96 03/01/18 06:42 98.7 F 53 12 93/54 95 Intake and Output 02/28/18 03/01/18 03/01/18 23:59 07:59 15:59 Intake Total 0 / 0 0 / 0 Output Total 0 / 0 Balance 0 / 0 0 / 0 Intake: Oral 0 / 0 0 / 0 Output: Urine 0 / 0 Other: Meal npo Percent of Meal Consumed 0% # Voids 0 Weight 53.07 kg Blood Glucose* 88 70 78 - General Appearance General appearance: appears started age, moderate distress, chronically ill, fatigue Neck: supple Cardiology: edema, regular rate, regular rhythm Gastrointestinal: tenderness, distended Neurologic: alert and oriented x3 Results - Lab Results 03/01/18 04:38 03/01/18 04:38 Most recent lab results Calcium 8.9 mg/dL (8.6-10.3) 03/01/18 04:38 Magnesium 1.3 mg/dL (1.6-2.6) L 03/01/18 04:38 Consult Discharge Plan - Plan Referrals: Stephani Garcia MD [Primary Care Provider] - 03/04/18 2:20 pm
[2018-03-01] MEDS ORDERED: 0.9 % Sodium Chloride 500 ML ONE (13:53)
--- NOTE | 2018-03-01 14:15 | IR Procedure Note ---
Date of procedure: 03/01/18 Consent Obtained: Verbal consent, Written consent Timeout: Correct patient and procedure verified, Correct site verified, Time out performed, Skin prep completed Local anesthetic: Lidocaine 1% Indications: Recurrent abdominal ascites Procedure Performed: Tunneled Pleurx catheter insertion Was there an expanded function dental assistant present: No Site/Technique: Tunneled abdominal pleurx catheter placed Results/Findings: Catheter in place Estimated blood loss (cc): 2 Complications: None; Tolerated procedure well Post Procedure Treatment Plan: May use Pleurx catheter now Specimen: Moderate ascites
[2018-03-01] MEDS: traZODone 50 MG TABLET PO SCH (22:23)
[2018-03-02] MEDS: *HR* OxyCODONE Immed Rel 5 MG TABLET PO PRN (05:31)
--- NOTE | 2018-03-02 07:41 | Palliative Progress Note ---
<Cynthia Michelle - Last Filed: 03/02/18 07:36> Date of Encounter: 03/02/18 Time of Encounter: 07:36 - Assessment and plan (1) Goals of care, counseling/discussion Current Visit: No Status: Acute Assessment and plan: Had extensive conversation with patient regarding goals of care. 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 She states that she has been upset recently because her mother has been making remarks with regards to taking care of her, and patient feels as if her mother is not as willing to take care of her and she expressed before. I brought up the option of hospice and home health again. I expressed to her that she will need more help at home as she continues to debilitate, and will come to a point where she will need 24/7 care. Patient expressed that her ultimate goal is to go back to her own home and live by herself. However, I stated that this was likely never going to be an option with her worsening health. Plan: patient expressed that at the very least she is willing to go home with home health, however, she will take the rest of the day to think about hospice and we will talk about this again tomorrow. I educated her on the different hospice services that are available in this area. 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 Was told this past May that she had about a one year life expectancy. Qualifiers: Hepatic cirrhosis type: other cirrhosis Qualified Code(s): K74.69 - Other cirrhosis of liver (6) Abdominal distension Current Visit: Yes Status: Acute Assessment and plan: s/P placement of pleurx catheter - Time Spent With Patient Total time spent is greater than 50% in coordination of care (as documented) at patient's floor/unit and/or counseling patient: - Subjective Interval history: 53-year-old female evaluated at bedside. She denies nausea, vomiting. Reports diarrhea. Denies fevers, chills, chest pain, shortness of breath. No new problems today. - Constitutional Vitals: Abnormal lab results RBC 3.19 M/mcL (3.82-4.97) L 03/01/18 04:38 Hgb 8.9 g/dL (11.5-15.4) L 03/01/18 04:38 Hct 27.8 % (35.3-44.9) L 03/01/18 04:38 MCH 27.9 pg (28.0-33.3) L 03/01/18 04:38 RDW 15.8 % (11.5-14.5) H 03/01/18 04:38 PT 14.8 Seconds (9.4-12.1) H 02/28/18 18:59 Chloride 110 mEq/L (98-107) H 03/01/18 04:38 Carbon Dioxide 19 mEq/L (23-29) L 03/01/18 04:38 BUN 37 mg/dL (6-20) H 03/01/18 04:38 Creatinine 2.27 mg/dL (0.60-1.20) H 03/01/18 04:38 Est GFR ( Amer) 27 (> 60) L 03/01/18 04:38 Est GFR (Non-Af Amer) 22 (> 60) L 03/01/18 04:38 POC Glucose 65 mg/dL (70-99) L 03/01/18 10:58 Magnesium 1.3 mg/dL (1.6-2.6) L 03/01/18 04:38 AST 56 Units/L (13-39) H 02/28/18 18:59 Alkaline Phosphatase 117 Units/L (34-104) H 02/28/18 18:59 Serum Total Protein 5.9 g/dL (6.4-8.9) L 02/28/18 18:59 Globulin 1.8 g/dL (2.4-3.5) L 02/28/18 18:59 Albumin/Globulin Ratio 2.3 (1.1-2.2) H 02/28/18 18:59 General appearance: Present: thin Exam: Patient sitting up in bed in no acute distress, appears comfortable. She is very thin and frail, appears malnourished - Head Head exam: Present: atraumatic, normocephalic - Respiratory Respiratory exam: Present: decreased breath sounds, wheezes (Inspiratory weasing present.) - Cardiovascular Cardiovascular exam: Present: RRR, +S1, +S2 - GI/Abdominal Additional comments: Soft, distended, tenderness present diffusely. pleurx catheter in place with gauze over it. - Extremities Exam Additional comments: +1 bilateral lower extremity pitting edema - Neurological Exam Neurological exam: Present: alert, oriented X3, no focal deficits - Psychiatric Psychiatric exam: Present: depressed Palliative Quality Palliative Quality: Screen for Code Status: Yes, Screen for Goals of Care: Yes, Screen for Pain: Yes, If Pain Regimen Started, Initiate Bowel Regimen: NA, Screen for Nausea/Vomitting: Yes - Labs CBC & Chem 7: 03/01/18 04:38 03/01/18 04:38 Labs: Laboratory Results - last 24 hr 02/28/18 03/01/18 03/01/18 22:31 06:46 10:58 POC Glucose 88 70 65 L - Impressions Impressions Guidance Needle Placement Ultrasound 03/01/18 00:00 IMPRESSION: Placement of a tunneled abdominal PleurX catheter secondary to recurrent abdominal ascites. No immediate complications. D/ / 03/01/2018 14:55:17 Edward Salinas MD / eva Interpreting Provider: Edward Salinas MD Insertion Tunneled Catheter 03/01/18 08:49 IMPRESSION: Placement of a tunneled abdominal PleurX catheter secondary to recurrent abdominal ascites. No immediate complications. D/ / 03/01/2018 14:55:17 Edward Salinas MD / eva Interpreting Provider: Edward Salinas MD - ABG Interpretation ABG results: PT/INR, D-dimer PT 14.8 Seconds (9.4-12.1) H 02/28/18 18:59 Consult Discharge Plan - Plan Referrals: Stephani Garcia MD [Primary Care Provider] - 03/04/18 2:20 pm <Trace Yi L - Last Filed: 03/02/18 07:59> Date of Encounter: 03/02/18 - Time Spent With Patient Total time spent is greater than 50% in coordination of care (as documented) at patient's floor/unit and/or counseling patient: - Constitutional Vitals: Abnormal lab results RBC 3.19 M/mcL (3.82-4.97) L 03/01/18 04:38 Hgb 8.9 g/dL (11.5-15.4) L 03/01/18 04:38 Hct 27.8 % (35.3-44.9) L 03/01/18 04:38 MCH 27.9 pg (28.0-33.3) L 03/01/18 04:38 RDW 15.8 % (11.5-14.5) H 03/01/18 04:38 PT 14.8 Seconds (9.4-12.1) H 02/28/18 18:59 Chloride 110 mEq/L (98-107) H 03/01/18 04:38 Carbon Dioxide 19 mEq/L (23-29) L 03/01/18 04:38 BUN 37 mg/dL (6-20) H 03/01/18 04:38 Creatinine 2.27 mg/dL (0.60-1.20) H 03/01/18 04:38 Est GFR ( Amer) 27 (> 60) L 03/01/18 04:38 Est GFR (Non-Af Amer) 22 (> 60) L 03/01/18 04:38 Magnesium 1.3 mg/dL (1.6-2.6) L 03/01/18 04:38 AST 56 Units/L (13-39) H 02/28/18 18:59 Alkaline Phosphatase 117 Units/L (34-104) H 02/28/18 18:59 Serum Total Protein 5.9 g/dL (6.4-8.9) L 02/28/18 18:59 Globulin 1.8 g/dL (2.4-3.5) L 02/28/18 18:59 Albumin/Globulin Ratio 2.3 (1.1-2.2) H 04/05/18 18:59 - Attending Attestation I examined this patient and my medical decision-making was reviewed with the Resident Physician. I agree with the documented findings, disposition and treatment plan as described except to the extent set forth below. - Labs CBC & Chem 7: 03/01/18 04:38 03/01/18 04:38 Labs: Laboratory Results - last 24 hr 02/28/18 03/01/18 03/01/18 22:31 06:46 10:58 POC Glucose 88 70 65 L 03/01/18 03/01/18 12:51 16:16 POC Glucose 78 84 - Impressions Impressions Guidance Needle Placement Ultrasound 03/01/18 00:00 IMPRESSION: Placement of a tunneled abdominal PleurX catheter secondary to recurrent abdominal ascites. No immediate complications. D/ / 03/01/2018 14:55:17 Edward Salinas MD / eva Interpreting Provider: Edward Salinas MD Insertion Tunneled Catheter 03/01/18 08:49
[2018-03-02] MEDS: Megestrol Acetate 400 MG/10 ML UDC PO SCH ×2 (08:21→08:26)
[2018-03-02] MEDS: hydrOXYzine pamoate 25 MG CAPSULE PO SCH ×4 (08:21→21:31)
[2018-03-02] MEDS: clonazePAM 0.5 MG TABLET PO SCH ×2 (08:21→21:31)
[2018-03-02] MEDS: Spironolactone 25 MG TABLET PO SCH (08:22)
[2018-03-02] MEDS: Furosemide 20 MG TABLET PO SCH ×2 (08:22→16:18)
[2018-03-02] MEDS: Insulin LISPRO 300 UNITS/3 ML VIAL SQ SCH ×4 (08:22→21:18)
[2018-03-02 09:21] LABS: Basophils # 0.1 K/mcL (0.0-0.2); Basophils % 0.9 %; Hematocrit 27.9 % (35.3-44.9); Hemoglobin 9.1 g/dL (11.5-15.4); Immature Granulocytes % 0.4 % (0-4); Lymphocytes # 1.5 K/mcL (0.6-4.6); Lymphocytes % 19.7 %; Mean Corpuscular HGB Conc 32.6 g/dL (31.6-35.5); Mean Corpuscular Hemoglobin 28.5 pg (28.0-33.3); Mean Corpuscular Volume 87.5 fL (83.0-100.0); Mean Platelet Volume 9.9 fL (9.4-12.4); Monocytes # 0.8 K/mcL (0.0-1.3); Monocytes % 10.8 %; Neutrophils # 5.2 K/mcL (1.6-8.9); Platelet Count 205 K/mcL (140-400); Red Blood Count 3.19 M/mcL (3.82-4.97); Red Cell Distribution Width 15.5 % (11.5-14.5); Segmented Neutrophils % 68.2 %
[2018-03-02 09:38] LABS: Calcium 8.6 mg/dL (8.6-10.3); Magnesium 1.6 mg/dL (1.6-2.6); Phosphorous 3.8 mg/dL (2.7-4.5); Potassium 4.1 mEq/L (3.5-5.1)
--- NOTE | 2018-03-02 10:34 | Nephrology Progress Note ---
Date of Encounter: 03/02/18 Time of Encounter: 10:32 - Assessment and Plan (1) CKD (chronic kidney disease) stage 3, GFR 30-59 ml/min Current Visit: Yes Status: Acute Patient with BERNARDA and a creatinine that is improving. Will continue to monitor. s/p paracentesis. Renal function improving with diuretics. (2) Ascites Current Visit: Yes Status: Acute s/p paracentesis. Qualifiers: Ascites type: other type Qualified Code(s): R18.8 - Other ascites Subjective Principal diagnosis: Cirrhosis Interval history: Patient seen, but she was asleep. Objective - Vital Signs Vital signs: Vital Signs Temp Pulse Resp BP Pulse Ox 03/02/18 07:15 98.5 F 54 18 121/62 97 03/02/18 04:25 98.8 F 54 16 102/58 95 03/01/18 23:54 98.9 F 54 16 91/55 96 03/01/18 18:53 98.6 F 55 16 96/57 98 03/01/18 16:13 97.9 F 54 15 102/61 96 03/01/18 14:05 53 15 117/60 99 03/01/18 11:02 98.3 F 53 12 112/69 96 Intake and Output 03/01/18 03/02/18 03/02/18 23:59 07:59 15:59 Intake Total 300 / 300 360 / 360 Output Total 900 / 900 Balance -600 / -600 360 / 360 Intake: Oral 300 / 300 360 / 360 Output: Urine 900 / 900 Other: Meal Breakfast Percent of Meal Consumed 100% Weight 46.901 kg Blood Glucose* 158 111 Patient Weight 03/02/18 23:59 Weight 46.901 kg - General Appearance General appearance: Present: well-developed, chronically ill, frail Cardiology: Present: regular rate - Lab 03/02/18 08:58 03/02/18 08:58 Most recent lab results Calcium 8.6 mg/dL (8.6-10.3) 03/02/18 08:58 Phosphorus 3.8 mg/dL (2.7-4.5) 03/02/18 08:58 Magnesium 1.6 mg/dL (1.6-2.6) 03/02/18 08:58 Consult Discharge Plan - Plan Referrals: Stephani Garcia MD [Primary Care Provider] - 03/04/18 2:20 pm
--- NOTE | 2018-03-02 12:26 | Internal Med Progress Note ---
Date of Encounter: 03/02/18 Time of Encounter: 12:15 - Assessment and plan (1) Diabetes Current Visit: Yes Status: Chronic Qualifiers: Diabetes mellitus type: type 2 Diabetes mellitus terminal manager insulin use: without terminal manager use Diabetes mellitus complication status: with kidney complications Diabetes mellitus complication detail: with chronic kidney disease Chronic kidney disease stage: unspecified stage Qualified Code(s): E11.22 - Type 2 diabetes mellitus with diabetic chronic kidney disease (2) DVT prophylaxis Current Visit: No Status: Acute (3) Severe protein-calorie malnutrition Current Visit: No Status: Acute (4) Cirrhosis Current Visit: Yes Status: Chronic Qualifiers: Hepatic cirrhosis type: other cirrhosis Qualified Code(s): K74.69 - Other cirrhosis of liver (5) CKD (chronic kidney disease) stage 3, GFR 30-59 ml/min Current Visit: Yes Status: Acute (6) Ascites Current Visit: Yes Status: Acute Qualifiers: Ascites type: other type Qualified Code(s): R18.8 - Other ascites (7) Lower extremity edema Current Visit: Yes Status: Acute - Time Spent With Patient Total time spent is greater than 50% in coordination of care (as documented) at patient's floor/unit and/or counseling patient: - Subjective Interval history: Patient seen and examined at bedside. Resting in bed eating lunch. Denies any discomfort at this time. Pt reports of living with her mother however there is a concern if the mother would like to continue with pt's caretaking. preparation room worker evaluation requested. Pt refusing ECF placement (which was the same during her last hospitalization) however does not have home health services. Tentative d/c in am once discharge disposition is arranged (will communicate with family about discharge planning) - Assessment and plan (1) Ascites Current Visit: Yes Status: Acute Assessment and plan: GI input appreciated s/p abdominal pleurx catheter placement by IR with drainage of 4.5L ascites fluid (03/01/18) pt's family educated on care of the pleurx catheter awaiting home health and nursing care services arrangement tentative d/c in am Qualifiers: Ascites type: other type Qualified Code(s): R18.8 - Other ascites (2) Lower extremity edema Current Visit: Yes Status: Acute Assessment and plan: continue lasix 40mg PO BID and spironolactone (3) CKD (chronic kidney disease) stage 3, GFR 30-59 ml/min Current Visit: Yes Status: Acute Assessment and plan: renal function improved from previous day nephrology input appreciated continue lasix and spironolactone will closely monitor renal function (4) Cirrhosis Current Visit: No Status: Chronic Assessment and plan: GI input appreciated overall prognosis remains poor Qualifiers: Hepatic cirrhosis type: other cirrhosis Qualified Code(s): K74.69 - Other cirrhosis of liver (5) Diabetes Current Visit: No Status: Chronic Assessment and plan: Insulin sliding scale. monitor FS and BG ADA diet Qualifiers: Diabetes mellitus type: type 2 Diabetes mellitus custodial insulin use: without terminal manager use Diabetes mellitus complication status: with kidney complications Diabetes mellitus complication detail: with chronic kidney disease Chronic kidney disease stage: unspecified stage Qualified Code(s): E11.22 - Type 2 diabetes mellitus with diabetic chronic kidney disease (6) Severe protein-calorie malnutrition Current Visit: No Status: Acute Assessment and plan: Dietary consult (7) DVT prophylaxis Current Visit: No Status: Acute Assessment and plan: SCDs (8) Hypomagensemia Current Visit: No Status: Acute Resolved continue to monitor electrolytes and replace as needed - Constitutional Vitals: Temp Pulse Resp BP Pulse Ox 99.0 F 52 16 114/59 98 03/02/18 11:28 03/02/18 11:28 03/02/18 11:28 03/02/18 11:28 03/02/18 11:28 General appearance: Present: cachectic, A&O X 3, no acute distress - Head Head exam: Present: atraumatic, normocephalic - Eye Eye exam: Present: conjuntiva pink, sclera anicteric - Respiratory Respiratory exam: Present: CTAB. Absent: respiratory distress, wheezes - Cardiovascular Cardiovascular exam: Present: RRR, +S1, +S2 - GI/Abdominal GI/Abdominal exam: Present: distended (ascites with abd pleurx cath in place( dressing intact around the catheter)), normal bowel sounds, soft. Absent: tenderness - Extremities Exam Extremities exam: Present: warm, radial pulses palpable and symmetrical. Absent : calf tenderness, tenderness - Neurological Exam Neurological exam: Present: oriented X3 Internal Medicine: Result - Labs CBC & Chem 7: 03/02/18 08:58 03/02/18 08:58 Labs: Short CBC 03/02/18 Range/Units 08:58 WBC 7.7 (4.3-11.1) K/mcL Hgb 9.1 L (11.5-15.4) g/dL Hct 27.9 L (35.3-44.9) % Plt Count 205 (140-400) K/mcL Neutrophils # 5.2 (1.6-8.9) K/mcL BMP 03/02/18 08:58 Sodium 137 Potassium 4.1 Chloride 110 H Carbon Dioxide 19 L BUN 36 H Creatinine 2.13 H Glucose 169 H Calcium 8.6 - ABG Interpretation ABG results: PT/INR, D-dimer PT 14.8 Seconds (9.4-12.1) H 02/28/18 18:59 - Impressions Impressions Guidance Needle Placement Ultrasound 03/01/18 00:00 IMPRESSION: Placement of a tunneled abdominal PleurX catheter secondary to recurrent abdominal ascites. No immediate complications. D/ : / 03/01/2018 14:55:17 Edward Salinas MD / eva Interpreting Provider: Edward Salinas MD Insertion Tunneled Catheter 03/01/18 08:49 IMPRESSION: Placement of a tunneled abdominal PleurX catheter secondary to recurrent abdominal ascites. No immediate complications. D/ / 03/01/2018 14:55:17 Edward Salinas MD / eva Interpreting Provider: Edward Salinas MD Consult Discharge Plan - Plan Referrals: Stephani Garcia MD [Primary Care Provider] - 03/04/18 2:20 pm
--- NOTE | 2018-03-02 13:17 | Electrocardiograph Report ---
[place] [id number] Test Date: 2018-02-28 Pat Name: Ivet De Paz Department: 102 Room: 2A24 Gender: F [employer] Reviewer: Alexandre : 1965 Requested By: Juan Jose Olivares Order Number: [id number] Reading MD: Fatou Ferris Measurements Intervals [place] Rate: 57 P: 74 MI: 191 QRS: 39 QRSD: 61 T: 94 QT: 398 QTc: 391 Interpretive Statements [employer] LIMITS INTERPRETATION RECOMMEND REPEAT ECG Electronically Signed On 03-02-2018 13:16:07 EDT by Fatou Ferris
[2018-03-02] MEDS: traZODone 50 MG TABLET PO SCH (21:31)
[2018-03-03 04:36] LABS: Basophils # 0.1 K/mcL (0.0-0.2); Basophils % 1.1 %; Hematocrit 25.9 % (35.3-44.9); Hemoglobin 8.4 g/dL (11.5-15.4); Immature Granulocytes % 0.3 % (0-4); Lymphocytes # 1.6 K/mcL (0.6-4.6); Lymphocytes % 25.8 %; Mean Corpuscular HGB Conc 32.4 g/dL (31.6-35.5); Mean Corpuscular Hemoglobin 27.7 pg (28.0-33.3); Mean Corpuscular Volume 85.5 fL (83.0-100.0); Mean Platelet Volume 10.3 fL (9.4-12.4); Monocytes # 0.9 K/mcL (0.0-1.3); Monocytes % 13.4 %; Neutrophils # 3.8 K/mcL (1.6-8.9); Platelet Count 182 K/mcL (140-400); Red Blood Count 3.03 M/mcL (3.82-4.97); Red Cell Distribution Width 15.3 % (11.5-14.5); Segmented Neutrophils % 59.4 %
[2018-03-03 04:48] LABS: Calcium 8.5 mg/dL (8.6-10.3); Magnesium 1.5 mg/dL (1.6-2.6); Phosphorous 3.7 mg/dL (2.7-4.5); Potassium 4.1 mEq/L (3.5-5.1)
--- NOTE | 2018-03-03 07:17 | Palliative Progress Note ---
<Cynthia Michelle - Last Filed: 03/03/18 07:20> Date of Encounter: 03/03/18 Time of Encounter: 07:15 - Assessment and plan (1) Goals of care, counseling/discussion Current Visit: No Status: Acute Assessment and plan: At this time, patient states that she is not interested in hospice. She is willing to do home health but states that she needs to talk with her mother regarding what days of the week are okay. (2) Lower extremity edema Current Visit: Yes Status: Acute Assessment and plan: Management per primary team (3) Ascites Current Visit: Yes Status: Acute Qualifiers: Ascites type: other type Qualified Code(s): R18.8 - Other ascites (4) CKD (chronic kidney disease) stage 3, GFR 30-59 ml/min Current Visit: Yes Status: Acute Assessment and plan: Suspect possible hepato renal syndrome (5) Cirrhosis Current Visit: Yes Status: Chronic Assessment and plan: Follows with gastroenterology outpatient. Was told this past May that she had about a one year life expectancy. Qualifiers: Hepatic cirrhosis type: other cirrhosis Qualified Code(s): K74.69 - Other cirrhosis of liver (6) Abdominal distension Current Visit: Yes Status: Acute Assessment and plan: s/P placement of pleurx catheter - Time Spent With Patient Total time spent is greater than 50% in coordination of care (as documented) at patient's floor/unit and/or counseling patient: - Subjective Interval history: 53-year-old female evaluated at bedside. she denies any new problems today. - Constitutional Vitals: Abnormal lab results RBC 3.03 M/mcL (3.82-4.97) L 03/03/18 03:57 Hgb 8.4 g/dL (11.5-15.4) L 03/03/18 03:57 Hct 25.9 % (35.3-44.9) L 03/03/18 03:57 MCH 27.7 pg (28.0-33.3) L 03/03/18 03:57 RDW 15.3 % (11.5-14.5) H 03/03/18 03:57 PT 14.8 Seconds (9.4-12.1) H 02/28/18 18:59 Chloride 112 mEq/L (98-107) H 03/03/18 03:57 Carbon Dioxide 19 mEq/L (23-29) L 03/03/18 03:57 BUN 35 mg/dL (6-20) H 03/03/18 03:57 Creatinine 2.06 mg/dL (0.60-1.20) H 03/03/18 03:57 Est GFR ( Amer) 30 (> 60) L 03/03/18 03:57 Est GFR (Non-Af Amer) 25 (> 60) L 03/03/18 03:57 Glucose 134 mg/dL (70-105) H 03/03/18 03:57 POC Glucose 144 mg/dL (70-99) H 03/02/18 16:38 Calcium 8.5 mg/dL (8.6-10.3) L 03/03/18 03:57 Magnesium 1.5 mg/dL (1.6-2.6) L 03/03/18 03:57 AST 56 Units/L (13-39) H 02/28/18 18:59 Alkaline Phosphatase 117 Units/L (34-104) H 02/28/18 18:59 Serum Total Protein 5.9 g/dL (6.4-8.9) L 02/28/18 18:59 Globulin 1.8 g/dL (2.4-3.5) L 02/28/18 18:59 Albumin/Globulin Ratio 2.3 (1.1-2.2) H 02/28/18 18:59 General appearance: Present: no acute distress, thin Exam: alert and oriented x3, pleasant, no acute distress, patient was resting in bed comfortably sleeping. - Head Head exam: Present: atraumatic - Respiratory Respiratory exam: Present: CTAB - Cardiovascular Cardiovascular exam: Present: RRR, +S1, +S2 - GI/Abdominal GI/Abdominal exam: Present: distended Additional comments: Distended, pleurx catheter in place. - Extremities Exam Extremities exam: Absent: pedal edema, tenderness - Neurological Exam Neurological exam: Present: alert, oriented X3, no focal deficits - Skin Skin exam: Absent: cyanosis Palliative Quality Palliative Quality: Screen for Code Status: Yes, Screen for Goals of Care: Yes, Screen for Pain: Yes, If Pain Regimen Started, Initiate Bowel Regimen: NA, Screen for Nausea/Vomitting: Yes - Labs CBC & Chem 7: 03/03/18 03:57 03/03/18 03:57 Labs: Laboratory Results - last 24 hr 03/01/18 03/01/18 03/01/18 06:46 10:58 12:51 WBC RBC Hgb Hct MCV MCH MCHC RDW Plt Count MPV Immature Gran % Seg Neutrophils % Lymphocytes % Monocytes % Eosinophils % Basophils % Neutrophils # Lymphocytes # Monocytes # Eosinophils # Basophils # Sodium Potassium Chloride Carbon Dioxide BUN Creatinine Est GFR ( Amer) Est GFR (Non-Af Amer) BUN/Creatinine Ratio Glucose POC Glucose 70 65 L 78 Calculated Osmolality Calcium Phosphorus Magnesium 03/01/18 03/01/18 03/02/18 16:16 21:09 07:17 WBC RBC Hgb Hct MCV MCH MCHC RDW Plt Count MPV Immature Gran % Seg Neutrophils % Lymphocytes % Monocytes % Eosinophils % Basophils % Neutrophils # Lymphocytes # Monocytes # Eosinophils # Basophils # Sodium Potassium Chloride Carbon Dioxide BUN Creatinine Est GFR ( Amer) Est GFR (Non-Af Amer) BUN/Creatinine Ratio Glucose POC Glucose 84 158 H 111 H Calculated Osmolality Calcium Phosphorus Magnesium 03/02/18 03/02/18 03/02/18 08:58 08:58 11:31 WBC 7.7 RBC 3.19 L Hgb 9.1 L Hct 27.9 L MCV 87.5 MCH 28.5 MCHC 32.6 RDW 15.5 H Plt Count 205 MPV 9.9 Immature Gran % 0.4 Seg Neutrophils % 68.2 Lymphocytes % 19.7 Monocytes % 10.8 Eosinophils % 0.0 Basophils % 0.9 Neutrophils # 5.2 Lymphocytes # 1.5 Monocytes # 0.8 Eosinophils # 0.0 Basophils # 0.1 Sodium 137 Potassium 4.1 Chloride 110 H Carbon Dioxide 19 L BUN 36 H Creatinine 2.13 H Est GFR ( Amer) 29 L Est GFR (Non-Af Amer) 24 L BUN/Creatinine Ratio 17 Glucose 169 H POC Glucose 138 H Calculated Osmolality 296 Calcium 8.6 Phosphorus 3.8 Magnesium 1.6 03/02/18 03/03/18 03/03/18 16:38 03:57 03:57 WBC 6.4 RBC 3.03 L Hgb 8.4 L Hct 25.9 L MCV 85.5 MCH 27.7 L MCHC 32.4 RDW 15.3 H Plt Count 182 MPV 10.3 Immature Gran % 0.3 Seg Neutrophils % 59.4 Lymphocytes % 25.8 Monocytes % 13.4 Eosinophils % 0.0 Basophils % 1.1 Neutrophils # 3.8 Lymphocytes # 1.6 Monocytes # 0.9 Eosinophils # 0.0 Basophils # 0.1 Sodium 138 Potassium 4.1 Chloride 112 H Carbon Dioxide 19 L BUN 35 H Creatinine 2.06 H Est GFR ( Amer) 30 L Est GFR (Non-Af Amer) 25 L BUN/Creatinine Ratio 17 Glucose 134 H POC Glucose 144 H Calculated Osmolality 296 Calcium 8.5 L Phosphorus 3.7 Magnesium 1.5 L - ABG Interpretation ABG results: PT/INR, D-dimer PT 14.8 Seconds (9.4-12.1) H 02/28/18 18:59 Consult Discharge Plan - Plan Referrals: Stephani Garcia MD [Primary Care Provider] - 03/04/18 2:20 pm <Trace Yi - Last Filed: 03/03/18 07:23> Date of Encounter: 03/03/18 - Time Spent With Patient Total time spent is greater than 50% in coordination of care (as documented) at patient's floor/unit and/or counseling patient: - Constitutional Vitals: Abnormal lab results RBC 3.03 M/mcL (3.82-4.97) L 03/03/18 03:57 Hgb 8.4 g/dL (11.5-15.4) L 03/03/18 03:57 Hct 25.9 % (35.3-44.9) L 03/03/18 03:57 MCH 27.7 pg (28.0-33.3) L 03/03/18 03:57 RDW 15.3 % (11.5-14.5) H 03/03/18 03:57 PT 14.8 Seconds (9.4-12.1) H 02/28/18 18:59 Chloride 112 mEq/L (98-107) H 03/03/18 03:57 Carbon Dioxide 19 mEq/L (23-29) L 03/03/18 03:57 BUN 35 mg/dL (6-20) H 03/03/18 03:57 Creatinine 2.06 mg/dL (0.60-1.20) H 03/03/18 03:57 Est GFR ( Amer) 30 (> 60) L 03/03/18 03:57 Est GFR (Non-Af Amer) 25 (> 60) L 03/03/18 03:57 Glucose 134 mg/dL (70-105) H 03/03/18 03:57 POC Glucose 144 mg/dL (70-99) H 03/02/18 16:38 Calcium 8.5 mg/dL (8.6-10.3) L 03/03/18 03:57 Magnesium 1.5 mg/dL (1.6-2.6) L 03/03/18 03:57 AST 56 Units/L (13-39) H 02/28/18 18:59 Alkaline Phosphatase 117 Units/L (34-104) H 02/28/18 18:59 Serum Total Protein 5.9 g/dL (6.4-8.9) L 02/28/18 18:59 Globulin 1.8 g/dL (2.4-3.5) L 02/28/18 18:59 Albumin/Globulin Ratio 2.3 (1.1-2.2) H 02/28/18 18:59 - Attending Attestation I examined this patient and my medical decision-making was reviewed with the Resident Physician. I agree with the documented findings, disposition and treatment plan as described except to the extent set forth below. - Labs CBC & Chem 7: 03/03/18 03:57 03/03/18 03:57 Labs: Laboratory Results - last 24 hr 03/01/18 03/01/18 03/01/18 06:46 10:58 12:51 WBC RBC Hgb Hct MCV MCH MCHC RDW Plt Count MPV Immature Gran % Seg Neutrophils % Lymphocytes % Monocytes % Eosinophils % Basophils % Neutrophils # Lymphocytes # Monocytes # Eosinophils # Basophils # Sodium Potassium Chloride Carbon Dioxide BUN Creatinine Est GFR ( Amer) Est GFR (Non-Af Amer) BUN/Creatinine Ratio Glucose POC Glucose 70 65 L 78 Calculated Osmolality Calcium Phosphorus Magnesium 03/01/18 03/01/18 03/02/18 16:16 21:09 07:17 WBC RBC Hgb Hct MCV MCH MCHC RDW Plt Count MPV Immature Gran % Seg Neutrophils % Lymphocytes % Monocytes % Eosinophils % Basophils % Neutrophils # Lymphocytes # Monocytes # Eosinophils # Basophils # Sodium Potassium Chloride Carbon Dioxide BUN Creatinine Est GFR ( Amer) Est GFR (Non-Af Amer) BUN/Creatinine Ratio Glucose POC Glucose 84 158 H 111 H Calculated Osmolality Calcium Phosphorus Magnesium 03/02/18 03/02/18 03/02/18 08:58 08:58 11:31 WBC 7.7 RBC 3.19 L Hgb 9.1 L Hct 27.9 L MCV 87.5 MCH 28.5 MCHC 32.6 RDW 15.5 H Plt Count 205 MPV 9.9 Immature Gran % 0.4 Seg Neutrophils % 68.2 Lymphocytes % 19.7 Monocytes % 10.8 Eosinophils % 0.0 Basophils % 0.9 Neutrophils # 5.2 Lymphocytes # 1.5 Monocytes # 0.8 Eosinophils # 0.0 Basophils # 0.1 Sodium 137 Potassium 4.1 Chloride 110 H Carbon Dioxide 19 L BUN 36 H Creatinine 2.13 H Est GFR ( Amer) 29 L Est GFR (Non-Af Amer) 24 L BUN/Creatinine Ratio 17 Glucose 169 H POC Glucose 138 H Calculated Osmolality 296 Calcium 8.6 Phosphorus 3.8 Magnesium 1.6 03/02/18 03/03/18 03/03/18 16:38 03:57 03:57 WBC 6.4 RBC 3.03 L Hgb 8.4 L Hct 25.9 L MCV 85.5 MCH 27.7 L MCHC 32.4 RDW 15.3 H Plt Count 182 MPV 10.3 Immature Gran % 0.3 Seg Neutrophils % 59.4 Lymphocytes % 25.8 Monocytes % 13.4 Eosinophils % 0.0 Basophils % 1.1 Neutrophils # 3.8 Lymphocytes # 1.6 Monocytes # 0.9 Eosinophils # 0.0 Basophils # 0.1 Sodium 138 Potassium 4.1 Chloride 112 H Carbon Dioxide 19 L BUN 35 H Creatinine 2.06 H Est GFR ( Amer) 30 L Est GFR (Non-Af Amer) 25 L BUN/Creatinine Ratio 17 Glucose 134 H POC Glucose 144 H Calculated Osmolality 296 Calcium 8.5 L Phosphorus 3.7 Magnesium 1.5 L - ABG Interpretation ABG results: PT/INR, D-dimer PT 14.8 Seconds (9.4-12.1) H 02/28/18 18:59
[2018-03-03] MEDS: clonazePAM 0.5 MG TABLET PO SCH (07:54)
[2018-03-03] MEDS: Insulin LISPRO 300 UNITS/3 ML VIAL SQ SCH ×2 (07:55→11:48)
[2018-03-03] MEDS: Spironolactone 25 MG TABLET PO SCH (07:55)
[2018-03-03] MEDS: hydrOXYzine pamoate 25 MG CAPSULE PO SCH ×2 (07:55→11:49)
[2018-03-03] MEDS: Furosemide 20 MG TABLET PO SCH (07:55)
[2018-03-03] MEDS: Megestrol Acetate 400 MG/10 ML UDC PO SCH (07:56)
--- NOTE | 2018-03-03 10:28 | Nephrology Progress Note ---
Date of Encounter: 03/03/18 Time of Encounter: 10:26 - Assessment and Plan (1) CKD (chronic kidney disease) stage 3, GFR 30-59 ml/min Current Visit: Yes Status: Acute Patient with BERNARDA and a creatinine that is improving. Will continue to monitor. s/p paracentesis. Renal function improving with diuretics. (2) Ascites Current Visit: Yes Status: Acute s/p paracentesis. Qualifiers: Ascites type: other type Qualified Code(s): R18.8 - Other ascites Subjective Principal diagnosis: Cirrhosis Interval history: Patient seen. She has no complaint. She wants to go home. Objective - Vital Signs Vital signs: Vital Signs Temp Pulse Resp BP Pulse Ox 03/03/18 07:44 98.8 F 54 16 104/60 95 03/03/18 03:49 98.4 F 55 16 101/36 96 03/03/18 00:24 98.5 F 58 16 97/59 95 03/02/18 19:23 98.3 F 58 16 107/62 96 03/02/18 16:35 99.5 F 56 16 104/57 99 03/02/18 11:28 99.0 F 52 16 114/59 98 Intake and Output 03/02/18 03/03/18 03/03/18 23:59 07:59 15:59 Other: Blood Glucose* 167 102 - General Appearance General appearance: Present: well-developed, chronically ill, frail Cardiology: Present: no edema Additional Comments: bradycardic and regular Gastrointestinal: Absent: distended Additional Comments: soft abdomen Integumentary: Present: warm and dry Neurologic: Present: alert and oriented x3 Psychiatric: Present: mood/affect appropriate - Lab 03/03/18 03:57 03/03/18 03:57 Most recent lab results Calcium 8.5 mg/dL (8.6-10.3) L 03/03/18 03:57 Phosphorus 3.7 mg/dL (2.7-4.5) 03/03/18 03:57 Magnesium 1.5 mg/dL (1.6-2.6) L 03/03/18 03:57 Consult Discharge Plan - Plan Referrals: Stephani Garcia MD [Primary Care Provider] - 03/04/18 2:20 pm
--- NOTE | 2018-03-03 11:25 | Discharge Summary ---
- NOTES TO OUTPATIENT PROVIDER Notes to Outpatient Provider: Patient was restarted on low dose of lasix and spironolactone. Titrate up therapy as per renal function. Date of Encounter: 03/03/18 Time of Encounter: 11:23 - Discharge Diagnosis (1) Diabetes Priority: Secondary Status: Chronic Qualifiers: Diabetes mellitus type: type 2 Diabetes mellitus local [employer] insulin use: without [facility] use Diabetes mellitus complication status: with kidney complications Diabetes mellitus complication detail: with chronic kidney disease Chronic kidney disease stage: unspecified stage Qualified Code(s): E11.22 - Type 2 diabetes mellitus with diabetic chronic kidney disease (2) DVT prophylaxis Priority: Secondary Status: Acute (3) Severe protein-calorie malnutrition Priority: Secondary Status: Chronic (4) Cirrhosis Priority: Secondary Status: Chronic Qualifiers: Hepatic cirrhosis type: other cirrhosis Qualified Code(s): K74.69 - Other cirrhosis of liver (5) Ascites Priority: Primary Status: Acute Qualifiers: Ascites type: other type Qualified Code(s): R18.8 - Other ascites (6) CKD (chronic kidney disease) stage 3, GFR 30-59 ml/min Priority: Secondary Status: Chronic (7) Shortness of breath Priority: Primary Status: Resolved Hospital course: Ms. De Paz is a 53 year old female with PMH of liver cirrhosis, hep C, DM, CKD , COPD, HTN, Anxiety who was admitted for shortness of breath secondary to diffuse ascites. Pt was recently hospitalized and was discharged after receiving therapeutic paracentesis. Given pt's poor prognosis, hospice care has been recommended to the patient but she has refused. She was evaluated by GI and decision to place a permanent abd pleurx catheter was made. Pt was also started on low dose lasix and spironolactone. Nephrology was involved due to recent history of hepatorenal syndrome due to which her home dose of lasix and spironolactone were discontinued. Pt tolerated the procedure well and is back to her baseline respiratory status. Her mother will be taking care of the patient after discharge and she has been educated on how to take care of the pleurx catheter. Pt's sister is also a nurse who will be helping the patient at home. Pt has continuously refused physical therapy and does not want any home health services after discharge. At this time, she is medically stable for her discharge to home with follow up with her pcp, GI, and nephrology. Discharge discussed with: patient, nurse - Time Spent with Patient Total time spent providing and/or coordinating discharge services: Greater than 30 minutes - Discharge Medications Prescriptions: RX: Furosemide [Lasix] 20 mg PO BIDDIURETIC #60 tablet RX: Spironolactone [Aldactone] 12.5 mg PO DAILY #30 tablet Home Medications: RX: Metformin HCl [Metformin HCl ER] 500 mg PO QPM 10/06/16 [History] RX: TraZODone 50 - 100 mg PO HS 10/06/16 [History] RX: clonazePAM [Klonopin] 0.5 mg PO BID 10/06/16 [History] RX: Omeprazole [PriLOSEC] 40 mg PO DAILY 07/26/17 [History] RX: Ondansetron HCl [Zofran] 4 - 8 mg PO Q8H PRN 07/26/17 [History] RX: hydrOXYzine HCl [Hydroxyzine HCl] 50 mg PO QID 07/26/17 [History] RX: Buspirone HCl [Buspar] 5 mg PO TID PRN 09/07/17 [History] RX: Escitalopram [Lexapro] 20 mg PO DAILY 09/07/17 [History] RX: Atorvastatin [Lipitor] 40 mg PO HS 02/12/18 [History] RX: Ferrous Gluconate 240 mg PO DAILY 02/12/18 [History] RX: Lactulose 20 mg PO BID 02/12/18 [History] RX: Megestrol Acetate [Megace] 800 mg PO DAILY 02/12/18 [History] RX: Nadolol 20 mg PO DAILY 02/12/18 [History] RX: OxyCODONE Immed Rel [Roxicodone 5 MG] 5 mg PO BID PRN 02/12/18 [History] RX: Tizanidine HCl 4 mg PO BID PRN 02/12/18 [History] RX: Lactose-Reduced Food [Ensure High Protein] 1 bottle PO 2-3XD 02/28/18 [ History] RX: Furosemide [Lasix] 20 mg PO BIDDIURETIC #60 tablet 03/03/18 [Rx] RX: Spironolactone [Aldactone] 12.5 mg PO DAILY #30 tablet 03/03/18 [Rx] Allergies/Adverse Reactions: 3 Allergy/AdvReac Type Severity Reaction Status Date / Time levofloxacin [From Levaquin] Allergy Hives Verified 02/12/18 10:32 Penicillins Allergy Rash Verified 02/12/18 10:32 Sulfa (Sulfonamide Allergy Rash Verified 02/12/18 10:32 Antibiotics) Date of admission: 02/28/18 20:59 Primary care physician: Stephani Garcia, Consults: 03/01/18 08:05 Consult to Nephrology [CONS] Routine Consulting Provider: [facility] Ledy/ABBIE/BETH/JEAN-PAUL Reason for Consult: CKD, recently treated for hepatorenal syndrome Call Completed: Yes Consult to Palliative Care [CONS] Routine Comment: Consulting Provider: [facility] [place] Reason for Consult: needs evaluation for hospice care Call Completed: Yes 03/01/18 08:49 Consult to Gastroenterology [CONS] Routine Consulting Provider: [facility] [place] Reason for Consult: liver failure, recurrent ascites Call Completed: Yes Consult to Interventional Radiology [CONS] Stat Consulting Provider: Radiology Interventional [place] Reason for Consult: paracentesis and peritoneal drainage catheter Call Completed: Yes Discharging clinician: Marce Gomes Anticipated date of discharge: 03/03/18 - Constitutional Vitals: Temp Pulse Resp BP Pulse Ox 98.8 F 54 16 104/60 95 03/03/18 07:44 03/03/18 07:44 03/03/18 07:44 03/03/18 07:44 03/03/18 07:44 General appearance: Present: cachectic, A&O X 3, no acute distress - Head Head exam: Present: atraumatic, normocephalic - Eye Eye exam: Present: conjuntiva pink, sclera anicteric - Respiratory Respiratory exam: Present: CTAB. Absent: respiratory distress, wheezes - Cardiovascular Cardiovascular exam: Present: bradycardia, +S1, +S2. Absent: diastolic murmur, gallop, rubs, systolic murmur - GI/Abdominal GI/Abdominal exam: Present: distended (ascites, abd pleurx catheter in place), normal bowel sounds, soft, no peritoneal signs. Absent: tenderness - Extremities Exam Extremities exam: Present: warm, radial pulses palpable and symmetrical. Absent : calf tenderness, tenderness - Neurological Exam Neurological exam: Present: oriented X3 - Patient Status Disposition: Home, Self-Care Condition: Good Functional capacity at discharge: uses cane/walker Overall status at discharge: patient is back to baseline - Discharge Instructions Follow Up With: Stephani Garcia MD [Primary Care Provider] - 03/04/18 2:20 pm Additional Instructions: Please follow up with your primary care physician within five days after your discharge from the hospital. Please follow up with GI and nephrology within one to two weeks after your discharge from the hospital. Lasix and spironolactone have been added to your home medications. Please take these medications as prescribed. Please closely monitor your Heart rate at home. Hold your home dose of Nodalol for heart rate less than 50. Resume all other home medications as prescribed by your primary care physician. - Diet and Activity Activity: increase activity as tolerated Diet: diabetic diet, low fat, low cholesterol, low salt diet
[2018-03-03 11:37] VITALS: BP 112/68
[2018-03-03] MEDS: *HR* OxyCODONE Immed Rel 5 MG TABLET PO PRN (11:48)
== END 2018-03-03 14:32 | disposition home or self-care (01) ==
LOC: EMEROO 17:39 → 2ANU 17:39
PROVIDERS: ADMIT Family Medicine; ATTEND Internal Medicine

== ENCOUNTER 2018-03-19 16:31 | Inpatient (IN) ==
[~2018-03-19 16:31] MED LIST: *HR* Etomidate 20 MG/10 ML AMPUL IVP ONE; *HR* Rocuronium Bromide 50 MG/5 ML VIAL IVC ONE
[2018-03-19] MEDS ORDERED: 0.9 % Sodium Chloride 1,000 ML IVC ONE (16:40)
[2018-03-19] MEDS ORDERED: *HR* FentaNYL (PF) 100 MCG/2 ML VIAL IVP ONE (16:52)
--- NOTE | 2018-03-19 16:52 | Emergency Department Note ---
Disposition Clinical Impression: Pneumonia Qualifiers: Pneumonia type: due to unspecified organism Laterality: left Lung location: unspecified part of lung Qualified Code(s): J18.9 - Pneumonia, unspecified organism Disposition: Admitted As Inpatient Condition: Good Referrals: Stephani Garcia MD [Primary Care Provider] - Forms: ED Satisfaction Letter, Work/School Release Time of Disposition: 18:33 SOB HPI - General Chief Complaint: ED Shortness of Breath/Dyspnea Stated Complaint: Shortness of Breath Time Seen by Provider: 03/19/18 16:32 - Related Data Home Medications Medication Instructions Recorded Confirmed Metformin HCl [Metformin HCl ER] 500 mg PO QPM 10/06/16 02/28/18 TraZODone 50 - 100 mg PO HS 10/06/16 02/28/18 clonazePAM [Klonopin] 0.5 mg PO BID 10/06/16 02/28/18 Omeprazole [PriLOSEC] 40 mg PO DAILY 07/26/17 02/28/18 Ondansetron HCl [Zofran] 4 - 8 mg PO Q8H PRN 07/26/17 02/28/18 hydrOXYzine HCl [Hydroxyzine HCl] 50 mg PO QID 07/26/17 02/28/18 Buspirone HCl [Buspar] 5 mg PO TID PRN 09/07/17 02/28/18 Escitalopram [Lexapro] 20 mg PO DAILY 09/07/17 02/28/18 Atorvastatin [Lipitor] 40 mg PO HS 02/12/18 02/28/18 Ferrous Gluconate 240 mg PO DAILY 02/12/18 02/28/18 Lactulose 20 mg PO BID 02/12/18 02/28/18 Megestrol Acetate [Megace] 800 mg PO DAILY 02/12/18 02/28/18 Nadolol 20 mg PO DAILY 02/12/18 02/28/18 OxyCODONE Immed Rel [Roxicodone 5 5 mg PO BID PRN 02/12/18 02/28/18 MG] Tizanidine HCl 4 mg PO BID PRN 02/12/18 02/28/18 Lactose-Reduced Food [Ensure High 1 bottle PO 2-3XD 02/28/18 02/28/18 Protein] Previous Rx's Medication Instructions Recorded Furosemide [Lasix] 20 mg PO BIDDIURETIC #60 tablet 03/03/18 Spironolactone [Aldactone] 12.5 mg PO DAILY #30 tablet 03/03/18 Allergies Allergy/AdvReac Type Severity Reaction Status Date / Time levofloxacin [From Levaquin] Allergy Hives Verified 02/12/18 10:32 Penicillins Allergy Rash Verified 02/12/18 10:32 Sulfa (Sulfonamide Allergy Rash Verified 02/12/18 10:32 Antibiotics) Past Medical History - Past Medical History Medical history: Reports: cirrhosis, CHF, COPD, diabetes, hepatitis, hypertension, myocardial infarction, seizures Surgical history: Reports: Psychiatric history: Reports: anxiety, depression - Social History Smoking Status: Current every day smoker Smokeless Tobacco Status: No Alcohol use: Reports: none Drug use: Reports: none Physical Exam - General General appearance: alert Course Vital Signs Temperature 100.1 F H 03/19/18 16:32 Pulse Rate 67 03/19/18 16:32 Respiratory Rate 26 03/19/18 16:32 Blood Pressure 125/64 03/19/18 16:32 O2 Sat by Pulse Oximetry 99 03/19/18 16:32 Temperature 100.1 F H 03/19/18 16:32 Pulse Rate 67 03/19/18 18:15 Respiratory Rate 22 03/19/18 18:15 Blood Pressure 119/76 03/19/18 18:15 O2 Sat by Pulse Oximetry 96 03/19/18 18:15 Oxygen Delivery Oxygen Delivery Nasal Cannula Shortness of Breath/Dyspnea - Lab Data Result diagrams: 03/19/18 16:46 03/19/18 16:46 Lab Results 03/19/18 03/19/18 03/19/18 Range/Units 16:46 16:46 16:46 WBC 35.4 H* D (4.3-11.1) K/mcL RBC 4.16 (3.82-4.97) M/mcL Hgb 11.5 (11.5-15.4) g/dL Hct 35.2 L (35.3-44.9) % MCV 84.6 (83.0-100.0) fL MCH 27.6 L (28.0-33.3) pg MCHC 32.7 (31.6-35.5) g/dL RDW 15.3 H (11.5-14.5) % Plt Count 313 (140-400) K/mcL MPV 10.1 (9.4-12.4) fL Immature Gran % 1.2 (0-4) % Seg Neutrophils % 93.1 % Lymphocytes % 1.7 % Monocytes % 3.8 % Eosinophils % 0.0 % Basophils % 0.2 % Neutrophils # 33.0 H (1.6-8.9) K/mcL Lymphocytes # 0.6 (0.6-4.6) K/mcL Monocytes # 1.4 H (0.0-1.3) K/mcL Eosinophils # 0.0 (0.0-0.6) K/mcL Basophils # 0.1 (0.0-0.2) K/mcL Platelet Estimate Normal (Normal) PT 11.6 (9.4-12.1) Seconds INR 1.1 APTT 31.4 (26.0-36.0) Seconds Sodium Cancelled Potassium Cancelled Chloride Cancelled Carbon Dioxide Cancelled BUN Cancelled Creatinine Cancelled Est GFR ( Amer) Cancelled Est GFR (Non-Af Amer) Cancelled BUN/Creatinine Ratio Cancelled Glucose Cancelled Calculated Osmolality Cancelled Lactic Acid (0.5-2.2) mmol/L Calcium Cancelled Phosphorus Cancelled Magnesium Cancelled Total Bilirubin Cancelled Direct Bilirubin Cancelled Indirect Bilirubin Cancelled AST Cancelled ALT Cancelled Alkaline Phosphatase Cancelled Troponin I < 0.03 (< 0.04) ng/mL Serum Total Protein Cancelled Albumin Cancelled Globulin Cancelled Albumin/Globulin Ratio Cancelled Urine Color (Yellow) Urine Clarity (Clear) Urine pH (5.0-8.0) pH Units Ur Specific [place] (1.010-1.025) Urine Protein (Neg-Trace) mg/dL Urine Glucose (UA) (Normal) mg/dL Urine Ketones (Negative) mg/dL Urine Blood (Negative) Urine Nitrite (Negative) Urine Bilirubin (Negative) Urine Urobilinogen (Normal) mg/dL Ur Leukocyte Esterase (Negative) Urine Microscopic RBC (0-3) per hpf Ur Squamous Epith Cells (None-Few) per lpf Urine Bacteria (None-Few) per hpf Hyaline Casts (None-Few) per lpf Ur Culture Indicated? (NO) Specimen Rejected 03/19/18 03/19/18 03/19/18 Range/Units 16:46 16:46 18:15 WBC (4.3-11.1) K/mcL RBC (3.82-4.97) M/mcL Hgb (11.5-15.4) g/dL Hct (35.3-44.9) % MCV (83.0-100.0) fL MCH (28.0-33.3) pg MCHC (31.6-35.5) g/dL RDW (11.5-14.5) % Plt Count (140-400) K/mcL MPV (9.4-12.4) fL Immature Gran % (0-4) % Seg Neutrophils % % Lymphocytes % % Monocytes % % Eosinophils % % Basophils % % Neutrophils # (1.6-8.9) K/mcL Lymphocytes # (0.6-4.6) K/mcL Monocytes # (0.0-1.3) K/mcL Eosinophils # (0.0-0.6) K/mcL Basophils # (0.0-0.2) K/mcL Platelet Estimate (Normal) PT (9.4-12.1) Seconds INR APTT (26.0-36.0) Seconds Sodium Potassium Chloride Carbon Dioxide BUN Creatinine Est GFR ( Amer) Est GFR (Non-Af Amer) BUN/Creatinine Ratio Glucose Calculated Osmolality Lactic Acid 2.0 (0.5-2.2) mmol/L Calcium Phosphorus Magnesium Total Bilirubin Direct Bilirubin Indirect Bilirubin AST ALT Alkaline Phosphatase Troponin I (< 0.04) ng/mL Serum Total Protein Albumin Globulin Albumin/Globulin Ratio Urine Color Yellow (Yellow) Urine Clarity Slightly Hazy (Clear) Urine pH 5.0 (5.0-8.0) pH Units Ur Specific [place] 1.023 (1.010-1.025) Urine Protein Negative (Neg-Trace) mg/dL Urine Glucose (UA) Normal (Normal) mg/dL Urine Ketones Negative (Negative) mg/dL Urine Blood Negative (Negative) Urine Nitrite Negative (Negative) Urine Bilirubin Negative (Negative) Urine Urobilinogen Normal (Normal) mg/dL Ur Leukocyte Esterase Negative (Negative) Urine Microscopic RBC 0-3 (0-3) per hpf Ur Squamous Epith Cells Many H (None-Few) per lpf Urine Bacteria None Seen (None-Few) per hpf Hyaline Casts None Seen (None-Few) per lpf Ur Culture Indicated? NO (NO) Specimen Rejected Hemolyzed Attestation Statement - Attestation Attestation: I examined this patient and my medical decision-making was reviewed with the Resident Physician. I agree with the documented findings, disposition and treatment plan as described except to the extent set forth below. 53 year old female presents to the ED with complaints per patient of shortness of breath, productive cough. She meets SIRS criteria and appears to have pneumonia on chest xr. Naz barreto She has refused hospice care and is DNR- CC. We will admit to medicine.
[2018-03-19 17:05] LABS: Basophils # 0.1 K/mcL (0.0-0.2); Basophils % 0.2 %; Hematocrit 35.2 % (35.3-44.9); Hemoglobin 11.5 g/dL (11.5-15.4); Immature Granulocytes % 1.2 % (0-4); Lymphocytes # 0.6 K/mcL (0.6-4.6); Lymphocytes % 1.7 %; Mean Corpuscular HGB Conc 32.7 g/dL (31.6-35.5); Mean Corpuscular Hemoglobin 27.6 pg (28.0-33.3); Mean Corpuscular Volume 84.6 fL (83.0-100.0); Mean Platelet Volume 10.1 fL (9.4-12.4); Monocytes # 1.4 K/mcL (0.0-1.3); Monocytes % 3.8 %; Platelet Count 313 K/mcL (140-400); Red Blood Count 4.16 M/mcL (3.82-4.97); Red Cell Distribution Width 15.3 % (11.5-14.5); Segmented Neutrophils % 93.1 %
[2018-03-19 17:11] LABS: INR 1.1; Prothrombin Time 11.6 Seconds (9.4-12.1)
[2018-03-19 17:13] LABS: Activated Partial Thrombo Time 31.4 Seconds (26.0-36.0)
[2018-03-19] MEDS ORDERED: Cefepime HCl 2,000 MG in Water for inj. (sterile) 20 ML IVP ONE (17:20)
[2018-03-19 17:26] LABS: Platelet Estimate Normal (Normal)
[2018-03-19 18:25] LABS: Bilirubin,Urine Negative (Negative); Blood,Urine Negative (Negative); Color,Urine Yellow (Yellow); Glucose,Urine (UA) Normal (Normal); Ketones,Urine Negative (Negative); Leukocyte Esterase,Urine Negative (Negative); Nitrite,Urine Negative (Negative); Protein,Urine Negative (Neg-Trace); Specific Gravity,Urine 1.023 (1.010-1.025); Urobilinogen,Urine Normal (Normal)
[2018-03-19 18:27] LABS: Bacteria,Urine None Seen per hpf (None-Few); Hyaline Casts,Urine None Seen per lpf (None-Few); RBC,Urine 0-3 per hpf (0-3); Squamous Epithelial Cell,Urine Many per lpf (None-Few)
[2018-03-19 18:28] LABS: Clarity,Urine Slightly Hazy (Clear)
--- NOTE | 2018-03-19 18:48 | Emergency Department Note ---
Disposition Clinical Impression: Healthcare-associated pneumonia, Decompensation of cirrhosis of liver, Hyperkalemia, Metabolic acidosis Acute renal failure Qualifiers: Acute renal failure type: unspecified Qualified Code(s): N17.9 - Acute kidney failure, unspecified Sepsis Qualifiers: Sepsis type: sepsis due to unspecified organism Qualified Code(s): A41.9 - Sepsis, unspecified organism Disposition: Admitted As Inpatient Condition: Critical Referrals: Stephani Garcia MD [Primary Care Provider] - Forms: ED Satisfaction Letter, Work/School Release Time of Disposition: 19:00 SOB HPI - General Chief Complaint: ED Shortness of Breath/Dyspnea Stated Complaint: Shortness of Breath Time Seen by Provider: 03/19/18 16:32 Source: patient, family Mode of arrival: private vehicle Limitations: altered mental status Nursing Notes Reviewed: Yes Vital Signs Reviewed: Yes - History of Present Illness 53-year-old female history of liver cirrhosis secondary to alcoholism and Hep C (reportedly completed treatment) presents to emergency department for difficulty breathing. We had to have staff come out to the car to place her on the stretcher to be evaluated in the emergency department. She is present with her sister and [id number] who assists with the history. Patient was recently admitted and discharged for her renal failure. She was seen by Dr. Leyva and was diagnosed with renal failure. On discharge patient was made do not resuscitate comfort care arrest. The sister verifies this. The patient lives at home with mother who is POA as well as with sister. They report in the past 24 hours patient has been gradually more short of breath with a productive cough. She is felt warm and had a temperature of 99.6. She follows with gastroenterology here and at [facility] and has been told that she is not a great candidate for liver transplant. At one point she was given 3 months to live. She was seen by palliative care and was offered hospice but patient refused. Patient has a low-grade temperature 100.1. She appears slightly confused. Septic workup initiated. Patient will likely require admission. Pt Subjective Complaint: shortness of breath - Related Data Home Medications Medication Instructions Recorded Confirmed Metformin HCl [Metformin HCl ER] 500 mg PO QPM 10/06/16 03/19/18 clonazePAM [Klonopin] 0.5 mg PO BID 10/06/16 03/19/18 Omeprazole [PriLOSEC] 40 mg PO DAILY 07/26/17 03/19/18 Ondansetron HCl [Zofran] 4 - 8 mg PO Q8H PRN 07/26/17 03/19/18 hydrOXYzine HCl [Hydroxyzine HCl] 50 mg PO QID 07/26/17 03/19/18 Buspirone HCl [Buspar] 5 mg PO TID PRN 09/07/17 03/19/18 Escitalopram [Lexapro] 20 mg PO DAILY 09/07/17 03/19/18 Atorvastatin [Lipitor] 40 mg PO HS 02/12/18 03/19/18 Ferrous Gluconate 240 mg PO DAILY 02/12/18 03/19/18 Nadolol 20 mg PO DAILY 02/12/18 03/19/18 OxyCODONE Immed Rel [Roxicodone 5 5 mg PO BID PRN 02/12/18 03/19/18 MG] Tizanidine HCl 4 mg PO BID PRN 02/12/18 03/19/18 Lactose-Reduced Food [Ensure High 1 bottle PO 2-3XD 02/28/18 03/19/18 Protein] Allergies Allergy/AdvReac Type Severity Reaction Status Date / Time levofloxacin [From Levaquin] Allergy Hives Verified 03/19/18 19:06 Penicillins Allergy Rash Verified 03/19/18 19:06 Sulfa (Sulfonamide Allergy Rash Verified 03/19/18 19:06 Antibiotics) All systems ED: reviewed and negative except as stated. Review of Systems: As Per HPI Constitutional: Reports: fever, weakness, weight change. Denies: chills ENT ED: Reports: congestion Cardiovascular: Denies: chest pain Respiratory: Reports: cough, dyspnea Gastrointestinal: Denies: abdominal pain, nausea, vomiting Genitourinary: Denies: urgency, dysuria Neurological: Reports: weakness. Denies: headache Past Medical History - Past Medical History Attestation: Yes The following information was validated with the patient. Source: patient, old records reviewed, obtained from family Medical history: Reports: cirrhosis, CHF, COPD, diabetes, hepatitis, hypertension, myocardial infarction, seizures Surgical history: Reports: Psychiatric history: Reports: anxiety, depression - Social History Smoking Status: Current every day smoker Smokeless Tobacco Status: No Alcohol use: Reports: none Drug use: Reports: none Physical Exam - General Limitations: altered mental status General appearance: alert, cachectic, other (Muscle wasting to the temporal region, slightly confused but knows where she is at her name) - Head Head exam: atraumatic, normocephalic, normal inspection - Eye Eye exam: Present: normal appearance, PERRL, EOMI, scleral icterus (mild) - ENT ENT exam: normal exam, normal oropharynx, mucous membranes dry - Neck Neck exam: Present: normal inspection, full ROM, trachea midline - Chest Chest inspection: Present: normal inspection, symmetric chest wall rise, other ( muscle wasting) - Respiratory Respiratory exam: Present: respiratory distress (Mild) - Expanded Respiratory Exam Location: rales: Left, Right (L > R) - Cardiovascular Cardiovascular exam: Present: regular rate, normal rhythm, normal heart sounds - Abdominal Exam Abdominal exam: Present: soft, tenderness, ascites, other (PleurX catheter in RUQ). Absent: distention, guarding, rebound, rigidity Abdominal tenderness: Present: diffuse - Extremities Exam Extremities exam: Present: normal inspection, full ROM, other (severe muscle wasting). Absent: tenderness, pedal edema - Neurological Exam Neurological exam: Present: alert - Expanded Neurological Exam Patient oriented to: Present: person, place. Absent: time (2012, she knows her birthday) - Psychiatric Psychiatric exam: Present: normal mood, flat affect - Skin Skin exam: Present: warm, dry, intact, other (jaundice) Course Course Narrative: On initial presentation patient is skipped tactic and appears weak. She has a low-grade temperature. She is not tachycardic or hypotensive. On examination she is answering questions appropriately. She has bilateral rails on auscultation. Her abdomen is mildly tender. She has a Pleurx catheter in place. Septic workup was initiated. Chest x-ray confirmed pneumonia in the left lung. She has a large leukocytosis 35. Lactate is too. She is not hypotensive to require aggressive fluid resuscitation at this time. The EKG had read acute MA but we disagree it appears to be sinus rhythm without ischemic changes. The chemistry is pending. Given these chest x-ray findings patient will require admission and IV antibiotics for healthcare associated pneumonia. Patient and family are in agreement with this plan. Given her allergies penicillin will treat her with finca myosin and cefepime. - Reevaluation(s) Reevaluation #1: Her initial chemistries had heme allies. The result showed creatinine of 8 as well as a potassium 6.5. Review of her prior EKG did not show PT waves or prolonged QRS, QRS duration 67. We will repeat the potassium but given the renal failure suspect this is likely accurate. Will treat her with continuous albuterol, bicarb, dextrose and insulin. Given the severity of her presentation she will require intensive care admission. At the request of the hospitalist I have spoke with the family to confirm code status. The power of business relationship manager is have been asked to stay with the patient until evaluated by the hospitalist. Impression is of care associated pneumonia, acute renal failure, hyperkalemia, history of liver cirrhosis, decompensated and metabolic acidosis. Patient will likely require palliative care consultation again on the floor to discuss further aggressive care including possible dialysis. - Consultations Consultation #1: Spoke with on-call hospitalist destiny Healy to admit for HCAP. No further orders at this time. I had a deep discussion with the patient and family present in the room regarding code status. On her initial evaluation the family had stated she was DNR comfort care. Review for records showed that she was DNR comfort care arrest. For further clarification had co-status discussion with the patient and the family. The patient was able to answer my questions appropriately and appear to have medical decision capability. She was able to reiterate that she has pneumonia and will require admission. Initially we talked about chest compressions which she wish to have done. I then spoke about possible intubation which she also wished to have done if needed. This was to the surprise of the mother and sister who are power of business relationship manager. I later with the presence of nurse had the discussion to confirm and she changed her mind. Given her septic appearance I believe she is too confused to make medical decisions. I said it was imperative that the mother and sister be with her to help make these decisions. At this time the patient is do not resuscitate comfort care arrest with the possibility of intubation if needed. The entire family is in agreement with this code status. Vital Signs Temperature 100.1 F H 03/19/18 16:32 Pulse Rate 67 03/19/18 16:32 Respiratory Rate 26 03/19/18 16:32 Blood Pressure 125/64 03/19/18 16:32 O2 Sat by Pulse Oximetry 99 03/19/18 16:32 Temperature 100.1 F H 03/19/18 16:32 Pulse Rate 62 03/19/18 20:04 Respiratory Rate 20 03/19/18 20:04 Blood Pressure 113/67 03/19/18 20:04 O2 Sat by Pulse Oximetry 96 03/19/18 20:04 Oxygen Delivery Oxygen Delivery Nasal Cannula Shortness of Breath/Dyspnea - MDM Narrative Medical decision making narrative: Patient was discussed with my attending physician who agrees with ED management and final disposition. They independently evaluated the patient. Please refer to their attestation to this encounter for additional information. This note was generated by [email or web address] voice recognition software and as a result grammatical or spelling errors may occur using this program. - Medical Records Medical records reviewed: Yes I reviewed the patient's medical records. - Lab Data Lab results reviewed: Yes I reviewed the patient's lab results. Result diagrams: 03/19/18 16:46 03/19/18 18:30 Lab Results 03/19/18 03/19/18 03/19/18 Range/Units 16:46 16:46 16:46 WBC 35.4 H* D (4.3-11.1) K/mcL RBC 4.16 (3.82-4.97) M/mcL Hgb 11.5 (11.5-15.4) g/dL Hct 35.2 L (35.3-44.9) % MCV 84.6 (83.0-100.0) fL MCH 27.6 L (28.0-33.3) pg MCHC 32.7 (31.6-35.5) g/dL RDW 15.3 H (11.5-14.5) % Plt Count 313 (140-400) K/mcL MPV 10.1 (9.4-12.4) fL Immature Gran % 1.2 (0-4) % Seg Neutrophils % 93.1 % Lymphocytes % 1.7 % Monocytes % 3.8 % Eosinophils % 0.0 % Basophils % 0.2 % Neutrophils # 33.0 H (1.6-8.9) K/mcL Lymphocytes # 0.6 (0.6-4.6) K/mcL Monocytes # 1.4 H (0.0-1.3) K/mcL Eosinophils # 0.0 (0.0-0.6) K/mcL Basophils # 0.1 (0.0-0.2) K/mcL Platelet Estimate Normal (Normal) PT 11.6 (9.4-12.1) Seconds INR 1.1 APTT 31.4 (26.0-36.0) Seconds Sodium Cancelled Potassium Cancelled Chloride Cancelled Carbon Dioxide Cancelled BUN Cancelled Creatinine Cancelled Est GFR ( Amer) Cancelled Est GFR (Non-Af Amer) Cancelled BUN/Creatinine Ratio Cancelled Glucose Cancelled Calculated Osmolality Cancelled Lactic Acid (0.5-2.2) mmol/L Calcium Cancelled Phosphorus Cancelled Magnesium Cancelled Total Bilirubin Cancelled Direct Bilirubin Cancelled Indirect Bilirubin Cancelled AST Cancelled ALT Cancelled Alkaline Phosphatase Cancelled Troponin I < 0.03 (< 0.04) ng/mL Serum Total Protein Cancelled Albumin Cancelled Globulin Cancelled Albumin/Globulin Ratio Cancelled Urine Color (Yellow) Urine Clarity (Clear) Urine pH (5.0-8.0) pH Units Ur Specific [place] (1.010-1.025) Urine Protein (Neg-Trace) mg/dL Urine Glucose (UA) (Normal) mg/dL Urine Ketones (Negative) mg/dL Urine Blood (Negative) Urine Nitrite (Negative) Urine Bilirubin (Negative) Urine Urobilinogen (Normal) mg/dL Ur Leukocyte Esterase (Negative) Urine Microscopic RBC (0-3) per hpf Ur Squamous Epith Cells (None-Few) per lpf Urine Bacteria (None-Few) per hpf Hyaline Casts (None-Few) per lpf Ur Culture Indicated? (NO) Specimen Rejected 03/19/18 03/19/18 03/19/18 Range/Units 16:46 16:46 18:15 WBC (4.3-11.1) K/mcL RBC (3.82-4.97) M/mcL Hgb (11.5-15.4) g/dL Hct (35.3-44.9) % MCV (83.0-100.0) fL MCH (28.0-33.3) pg MCHC (31.6-35.5) g/dL RDW (11.5-14.5) % Plt Count (140-400) K/mcL MPV (9.4-12.4) fL Immature Gran % (0-4) % Seg Neutrophils % % Lymphocytes % % Monocytes % % Eosinophils % % Basophils % % Neutrophils # (1.6-8.9) K/mcL Lymphocytes # (0.6-4.6) K/mcL Monocytes # (0.0-1.3) K/mcL Eosinophils # (0.0-0.6) K/mcL Basophils # (0.0-0.2) K/mcL Platelet Estimate (Normal) PT (9.4-12.1) Seconds INR APTT (26.0-36.0) Seconds Sodium Potassium Chloride Carbon Dioxide BUN Creatinine Est GFR ( Amer) Est GFR (Non-Af Amer) BUN/Creatinine Ratio Glucose Calculated Osmolality Lactic Acid 2.0 (0.5-2.2) mmol/L Calcium Phosphorus Magnesium Total Bilirubin Direct Bilirubin Indirect Bilirubin AST ALT Alkaline Phosphatase Troponin I (< 0.04) ng/mL Serum Total Protein Albumin Globulin Albumin/Globulin Ratio Urine Color Yellow (Yellow) Urine Clarity Slightly Hazy (Clear) Urine pH 5.0 (5.0-8.0) pH Units Ur Specific [place] 1.023 (1.010-1.025) Urine Protein Negative (Neg-Trace) mg/dL Urine Glucose (UA) Normal (Normal) mg/dL Urine Ketones Negative (Negative) mg/dL Urine Blood Negative (Negative) Urine Nitrite Negative (Negative) Urine Bilirubin Negative (Negative) Urine Urobilinogen Normal (Normal) mg/dL Ur Leukocyte Esterase Negative (Negative) Urine Microscopic RBC 0-3 (0-3) per hpf Ur Squamous Epith Cells Many H (None-Few) per lpf Urine Bacteria None Seen (None-Few) per hpf Hyaline Casts None Seen (None-Few) per lpf Ur Culture Indicated? NO (NO) Specimen Rejected Hemolyzed 03/19/18 Range/Units 18:30 WBC (4.3-11.1) K/mcL RBC (3.82-4.97) M/mcL Hgb (11.5-15.4) g/dL Hct (35.3-44.9) % MCV (83.0-100.0) fL MCH (28.0-33.3) pg MCHC (31.6-35.5) g/dL RDW (11.5-14.5) % Plt Count (140-400) K/mcL MPV (9.4-12.4) fL Immature Gran % (0-4) % Seg Neutrophils % % Lymphocytes % % Monocytes % % Eosinophils % % Basophils % % Neutrophils # (1.6-8.9) K/mcL Lymphocytes # (0.6-4.6) K/mcL Monocytes # (0.0-1.3) K/mcL Eosinophils # (0.0-0.6) K/mcL Basophils # (0.0-0.2) K/mcL Platelet Estimate (Normal) PT (9.4-12.1) Seconds INR APTT (26.0-36.0) Seconds Sodium 132 L Potassium 6.5 H* Chloride 105 Carbon Dioxide 9 L* BUN 91 H Creatinine 8.48 H Est GFR ( Amer) 6 L Est GFR (Non-Af Amer) 5 L BUN/Creatinine Ratio 11 Glucose 116 H Calculated Osmolality 303 H Lactic Acid (0.5-2.2) mmol/L Calcium 8.7 Phosphorus 9.7 H Magnesium 1.5 L Total Bilirubin 0.5 Direct Bilirubin 0.1 Indirect Bilirubin 0.4 AST 30 ALT 18 Alkaline Phosphatase 191 H Troponin I (< 0.04) ng/mL Serum Total Protein 6.6 Albumin 3.8 Globulin 2.8 Albumin/Globulin Ratio 1.4 Urine Color (Yellow) Urine Clarity (Clear) Urine pH (5.0-8.0) pH Units Ur Specific [place] (1.010-1.025) Urine Protein (Neg-Trace) mg/dL Urine Glucose (UA) (Normal) mg/dL Urine Ketones (Negative) mg/dL Urine Blood (Negative) Urine Nitrite (Negative) Urine Bilirubin (Negative) Urine Urobilinogen (Normal) mg/dL Ur Leukocyte Esterase (Negative) Urine Microscopic RBC (0-3) per hpf Ur Squamous Epith Cells (None-Few) per lpf Urine Bacteria (None-Few) per hpf Hyaline Casts (None-Few) per lpf Ur Culture Indicated? (NO) Specimen Rejected - Radiology Data Radiology results reviewed: Yes I reviewed the patient's radiology results. Chest X-Ray 03/19/18 16:40 IMPRESSION: Interval development of patchy alveolar densities left parahilar lung concerning for pneumonia. D/ / Clay Au / Clay Au Interpreting Provider: Clay Au - EKG Data EKG attestation: Yes I reviewed and interpreted this EKG. EKG results narrative: EKG performed 1641 sinus rhythm 65 beats per minute, baseline artifact, no ST elevation or depression, no STEMI. Compared to prior EKG performed 02/28/2018 shows similar consistent findings with baseline artifact. No acute ischemic changes.
[2018-03-19 19:20] LABS: Albumin 3.8 g/dL (3.5-5.7); Albumin/Globulin Ratio 1.4 (1.1-2.2); Bilirubin,Direct 0.1 mg/dL (0.0-0.2); Bilirubin,Indirect 0.4 mg/dL (0.0-1.2); Bilirubin,Total 0.5 mg/dL (0.3-1.0); Calcium 8.7 mg/dL (8.6-10.3); Globulin 2.8 g/dL (2.4-3.5); Magnesium 1.5 mg/dL (1.6-2.6); Phosphorous 9.7 mg/dL (2.7-4.5); Potassium 6.5 mEq/L (3.5-5.1); Total Protein 6.6 g/dL (6.4-8.9)
[2018-03-19] MEDS ORDERED: *HR* Dextrose 50 % in Water (Syg) 50 ML SYRINGE IVP ONE (20:01)
[2018-03-19] MEDS ORDERED: Sodium Bicarbonate 50 MEQ/50 ML VIAL IVP ONE (20:01)
[2018-03-19] MEDS ORDERED: Insulin Human Regular 10 UNIT in 0.9 % Sodium Chloride 10 ML IV ONE (20:02)
[2018-03-19] MEDS ORDERED: Albuterol 2.5 MG/3 ML NEBULIZER IH ONE (20:03)
--- NOTE | 2018-03-19 20:27 | Internal Med History&Physical ---
Date of Encounter: 03/19/18 Time of Encounter: 20:27 Internal Medicine - H&P: HPI Chief complaint: loss of consciousness Admitted From: Emergency Dept Plans for Post Hospital Care: Home History of present illness: Ms. De Paz is a 53 year old female Patient with history of IV drug abuse heroin use in the past but stopped about 5 years ago, hepatitis C, brain tumor underwent craniotomy 2006, cirrhosis an DM . Patient says following the brain tumor surgery has seizure two episode and has not had any more seizures since then. Patient has been feeling dizzy in the last 3-4 days patient apparently got up to go to the bathroom but then found on the floor sure how long patient was unresponsive and then brought to the emergency room awake and not confused no incontinence or tongue bite . had some neck stiffness when he arrived head CT which is unremarkable except for postsurgical changes blood pressure was 100/61 because increased d-dimer underwent VQ scan which showed low probability. Neck CT was also negative white count mildly elevated with acute kidney injury. Patient admitted for further evaluation denies any chest pain no prior cardiac event 2-D echo was done in the emergency room while I was thre which shows LV dysfunction EF probably 35% global right ventricle and left ventricular dysfunction Past Med Surg Social Fam HX - Past Medical History Medical history: cirrhosis, CHF, COPD, diabetes, hepatitis, hypertension, myocardial infarction, seizures Psychiatric history: anxiety, depression - Past Surgical History Surgical History: - Social History Smoking Status: Current every day smoker Smokeless Tobacco Status: No Alcohol use: none Drug use: none - Family History Father Living Status: Hx Family Cardiac Disorders: Yes Hx Family Respiratory Disorders: No Hx Family Cancer: Yes Hx Family GI Disorders: No Hx Family Endocrine Disorder: No Hx Family Neuromuscular Disorders: No Hx Family Neurologic Disorders: No Hx Family HEENT Disorders: No Hx Family Autoimmune Disorders: No Mother Living Status: Still Living Hx Family Respiratory Disorders: Yes Hx Family Endocrine Disorder: Yes (diabetes) Brother Hx Family Endocrine Disorder: Yes (diabetes) Internal Medicine - H&P: Meds Metformin HCl [Metformin HCl ER] 500 mg PO QPM 10/06/16 [History] clonazePAM [Klonopin] 0.5 mg PO BID 10/06/16 [History] Omeprazole [PriLOSEC] 40 mg PO DAILY 07/26/17 [History] Ondansetron HCl [Zofran] 4 - 8 mg PO Q8H PRN 07/26/17 [History] hydrOXYzine HCl [Hydroxyzine HCl] 50 mg PO QID 07/26/17 [History] Buspirone HCl [Buspar] 5 mg PO TID PRN 09/07/17 [History] Escitalopram [Lexapro] 20 mg PO DAILY 09/07/17 [History] Atorvastatin [Lipitor] 40 mg PO HS 02/12/18 [History] Ferrous Gluconate 240 mg PO DAILY 02/12/18 [History] Nadolol 20 mg PO DAILY 02/12/18 [History] OxyCODONE Immed Rel [Roxicodone 5 MG] 5 mg PO BID PRN 02/12/18 [History] Tizanidine HCl 4 mg PO BID PRN 02/12/18 [History] Lactose-Reduced Food [Ensure High Protein] 1 bottle PO 2-3XD 02/28/18 [History] 3 Allergy/AdvReac Type Severity Reaction Status Date / Time levofloxacin [From Levaquin] Allergy Hives Verified 03/19/18 19:06 Penicillins Allergy Rash Verified 03/19/18 19:06 Sulfa (Sulfonamide Allergy Rash Verified 03/19/18 19:06 Antibiotics) All Systems PM: A 10-system review of systems was performed and is negative for pertinent findings except as documented above in the HPI. - Constitutional Vitals: Temp Pulse Resp BP Pulse Ox 100.1 F H 62 20 113/67 96 03/19/18 16:32 03/19/18 20:04 03/19/18 20:04 03/19/18 20:04 03/19/18 20:04 - Head Head exam: Present: atraumatic, normocephalic - Eye Eye exam: Present: PERRL, conjuntiva pink, sclera anicteric Pupils: Present: PERRL - Neck Neck exam general surgery: Present: supple, trachea midline. Absent: lymphadenopathy - Respiratory Respiratory exam: Present: CTAB. Absent: accessory muscle use, rales, rhonchi, wheezes - Cardiovascular Cardiovascular exam: Present: RRR, +S1, +S2. Absent: diastolic murmur, gallop, rubs, systolic murmur - GI/Abdominal GI/Abdominal exam: Present: normal bowel sounds, soft, no peritoneal signs. Absent: distended, tenderness - Extremities Exam Extremities exam: Present: warm, radial pulses palpable and symmetrical. Absent : calf tenderness, cyanotic, pedal edema Internal Med - H&P Results - Labs CBC & Chem 7: 03/19/18 16:46 03/19/18 18:30 Labs: Short CBC 03/19/18 Range/Units 16:46 WBC 35.4 H* D (4.3-11.1) K/mcL Hgb 11.5 (11.5-15.4) g/dL Hct 35.2 L (35.3-44.9) % Plt Count 313 (140-400) K/mcL Neutrophils # 33.0 H (1.6-8.9) K/mcL BMP 03/19/18 03/19/18 16:46 18:30 Sodium Cancelled 132 L Potassium Cancelled 6.5 H* Chloride Cancelled 105 Carbon Dioxide Cancelled 9 L* BUN Cancelled 91 H Creatinine Cancelled 8.48 H Glucose Cancelled 116 H Calcium Cancelled 8.7 Cardiac Enzymes 03/19/18 Range/Units 16:46 Troponin I < 0.03 (< 0.04) ng/mL Liver Function 03/19/18 03/19/18 Range/Units 16:46 18:30 Total Bilirubin Cancelled 0.5 Direct Bilirubin Cancelled 0.1 AST Cancelled 30 ALT Cancelled 18 Alkaline Phosphatase Cancelled 191 H Albumin Cancelled 3.8 Urine 03/19/18 Range/Units 18:15 Urine Color Yellow (Yellow) Urine Clarity Slightly Hazy (Clear) Urine pH 5.0 (5.0-8.0) pH Units Ur Specific [place] 1.023 (1.010-1.025) Urine Protein Negative (Neg-Trace) mg/dL Urine Glucose (UA) Normal (Normal) mg/dL - Impressions ITS Impressions Chest X-Ray 03/19/18 16:40 IMPRESSION: Interval development of patchy alveolar densities left parahilar lung concerning for pneumonia. D/ / Clay Au / Clay Au Interpreting Provider: Clay Au
[2018-03-19 20:40] LABS: ABG Base Excess -15 mEq/L (-2 to 3); ABG HCO3 11 mEq/L (21-27); ABG Oxygen Saturation 85 % (95-98); ABG PCO2 27 mmHg (35-45); ABG PH 7.23 pH Units (7.32-7.45); ABG PO2 58 mmHg (85-104); ABG TCO2 12 mEq/L (20-26)
[2018-03-19] MEDS ORDERED: Sodium Bicarbonate 150 MEQ in D5% in Water 1,000 ML IVC SCH (21:15)
[2018-03-19] MEDS ORDERED: Naloxone 0.4 MG/ML INJ IVP PRN (21:16)
[2018-03-19] MEDS ORDERED: D5% in Water 1,000 ML IVC PRN (21:20)
[2018-03-19] MEDS ORDERED: Dextrose Gel 15 GM/37.5 ML TUBE PO PRN ×2 (21:20)
[2018-03-19] MEDS ORDERED: *HR* Dextrose 50 % in Water (Syg) 50 ML SYRINGE IVP PRN (21:20)
[2018-03-19] MEDS ORDERED: Lacri-Lube 3.5 GM TUBE BOTH EYES PRN (21:23)
[2018-03-19] MEDS ORDERED: Propofol 500 MG/50 ML INFUS..BTL ONE (21:25)
--- NOTE | 2018-03-19 21:27 | Internal Med History&Physical ---
<Brandon Saeed - Last Filed: 03/19/18 23:55> Date of Encounter: 03/19/18 Time of Encounter: 21:26 Assessment and Plan (1) Healthcare-associated pneumonia Current visit: Yes Status: Acute Recent admission to the hospital. Chest x-ray with left perihilar opacity. Leukocytosis greater than 30. Cover with vancomycin and cefepime. Blood cultures obtained. Legionella, strep pneumo and respiratory panel ordered. Continue mechanical ventilation. (2) Toxic metabolic encephalopathy Current visit: Yes Status: Acute Patient presents encephalopathic with the inability to guard her airway. Patient intubated. Elevated ammonia level with a history of cirrhosis. Suspect concomitant uremic encephalopathy. Discussed with nephrology. Potential dialysis if she does not improve with noninvasive management. (3) Hyperkalemia Current visit: No Status: Acute Initial potassium of 6.5 in the setting of renal insufficiency. Patient received 1 amp of bicarbonate, 10 units of insulin and 20 mg of albuterol upon presentation. Case discussed with nephrology. Patient placed on bicarbonate drip at 150 per hour. Kayexalate 30 mg given. Plan to repeat labs at midnight. Potential dialysis if refractory given her acidosis. (4) Leukocytosis Current visit: No Status: Acute Leukocytosis of 35. Continue broad-spectrum antibiotics. In the setting of healthcare associated pneumonia. Qualifiers: Leukocytosis type: unspecified Qualified Code(s): D72.829 - Elevated white blood cell count, unspecified (5) Metabolic acidosis Current visit: No Status: Acute Initial bicarbonate of 9. Anion gap of 18. Patient currently on bicarbonate infusion. Nephrology consulted. (6) Renal failure Current visit: No Status: Acute Presenting serum creatinine of 8.48. Hyperkalemia of 6.5. Follows with nephrology however no history of dialysis. Nephrology consulted recommended a bicarbonate drip and Kayexalate. Dialysis of refractory to medical management. Qualifiers: Renal failure chronicity: acute Acute renal failure type: unspecified Qualified Code(s): N17.9 - Acute kidney failure, unspecified (7) Diabetes Current visit: No Status: Chronic Sliding-scale insulin coverage Qualifiers: Diabetes mellitus type: type 2 Diabetes mellitus custodial insulin use: without custodial use Diabetes mellitus complication status: with kidney complications Diabetes mellitus complication detail: with chronic kidney disease Chronic kidney disease stage: unspecified stage Qualified Code(s): E11.22 - Type 2 diabetes mellitus with diabetic chronic kidney disease (8) 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 De Paz is a 53 year old female cirrhosis secondary to alcohol abuse with an indwelling tunneled catheter for drainage, hepatitis C, end-stage renal disease never previously on dialysis, hypertension, depression, diabetes who presented to the emergency department on 03/19/18 with a complaint of shortness of breath. History is obtained by family as the patient is encephalopathic and unable to provide history. They report that she has felt unwell lately. She has had a cough for the last few days. States today that she seemed like she was having more trouble breathing. It appears in the emergency department the patient had to be helped out of her vehicle and appeared ill upon arrival. It was confirmed at that time that the patient was DNR [facility]. Through discussion prior to my evaluation it was elected that the patient would want to be intubated however no compression should be performed. In the emergency department the patient's initial workup demonstrated a WBC 35, hemoglobin 11.5, platelets 313. INR 1.1. Noted to have multiple metabolic derangements with a potassium of 6.5, bicarbonate of 9, BUN/creatinine 91, creatinine 8.48. Initial lactic acid of 2.0. LFTs normal. Patient initially received 20 of albuterol, 50 mg once of bicarbonate, 10 units of insulin and an amp of D50. A recheck after homolysis confirmed a potassium of 6.3. EKG demonstrates sinus rhythm without ischemic changes nor findings of hyperacute T waves. She had a chest x-ray demonstrating left perihilar opacification concerning for pneumonia. Patient seen and examined at bedside in the emergency department. Upon examination she appears encephalopathic with concern that she is not able to guard her airway. It was determined at this time the patient would be intubated for airway securement in the setting of her encephalopathy. Also given her metabolic derangements I spoke emergently with the on-call firestopper installer and relayed concerns given her acidosis, renal failure and hyperkalemia. Recommendations at that time were made to start the patient on a sodium bicarbonate drip at 150 per hour as well as to give her a dose of Kayexalate. Should her treatment remain refractory to medical intervention I am to call nephrology back with plans for HD catheter placement and dialysis. Patient given vancomycin and cefepime in the emergency department after cultures obtained. Legionella, strep pneumo as well as respiratory panel added. The patient is admitted under the hospitalist service to the intensive care unit for further management and evaluation. Past Med Surg Social Fam HX - Past Medical History Attestation: Yes The following information was validated with the patient. Source: old records reviewed, obtained from family Medical history: cirrhosis, CHF, COPD, diabetes, hepatitis, hypertension, myocardial infarction, seizures Psychiatric history: anxiety, depression - Past Surgical History Surgical History: - Social History Smoking Status: Current every day smoker Smokeless Tobacco Status: No Alcohol use: none Drug use: none - Family History Father Living Status: Hx Family Cardiac Disorders: Yes Hx Family Respiratory Disorders: No Hx Family Cancer: Yes Hx Family GI Disorders: No Hx Family Endocrine Disorder: No Hx Family Neuromuscular Disorders: No Hx Family Neurologic Disorders: No Hx Family HEENT Disorders: No Hx Family Autoimmune Disorders: No Mother Living Status: Still Living Hx Family Respiratory Disorders: Yes Hx Family Endocrine Disorder: Yes (diabetes) Brother Hx Family Endocrine Disorder: Yes (diabetes) Internal Medicine - H&P: Meds Metformin HCl [Metformin HCl ER] 500 mg PO QPM 10/06/16 [History] clonazePAM [Klonopin] 0.5 mg PO BID 10/06/16 [History] Omeprazole [PriLOSEC] 40 mg PO DAILY 07/26/17 [History] Ondansetron HCl [Zofran] 4 - 8 mg PO Q8H PRN 07/26/17 [History] hydrOXYzine HCl [Hydroxyzine HCl] 50 mg PO QID 07/26/17 [History] Buspirone HCl [Buspar] 5 mg PO TID PRN 09/07/17 [History] Escitalopram [Lexapro] 20 mg PO DAILY 09/07/17 [History] Atorvastatin [Lipitor] 40 mg PO HS 02/12/18 [History] Ferrous Gluconate 240 mg PO DAILY 02/12/18 [History] Nadolol 20 mg PO DAILY 02/12/18 [History] OxyCODONE Immed Rel [Roxicodone 5 MG] 5 mg PO BID PRN 02/12/18 [History] Tizanidine HCl 4 mg PO BID PRN 02/12/18 [History] Lactose-Reduced Food [Ensure High Protein] 1 bottle PO 2-3XD 02/28/18 [History] 3 Allergy/AdvReac Type Severity Reaction Status Date / Time levofloxacin [From Levaquin] Allergy Hives Verified 03/19/18 19:06 Penicillins Allergy Rash Verified 03/19/18 19:06 Sulfa (Sulfonamide Allergy Rash Verified 03/19/18 19:06 Antibiotics) ROS unobtainable: due to endotracheal tube All Systems PM: A 10-system review of systems was performed and is negative for pertinent findings except as documented above in the HPI. - Constitutional Vitals: Temp Pulse Resp BP Pulse Ox 100.1 F H 71 16 110/65 100 03/19/18 16:32 03/19/18 21:06 03/19/18 21:06 03/19/18 21:06 03/19/18 21:06 General appearance: Present: cachectic Exam: Unable to obtain history. Encephalopathic. Labored breathing. - Head Head exam: Present: atraumatic, normal inspection - Eye Eye exam: Present: normal appearance - Neck Neck exam general surgery: Present: normal inspection - Respiratory Respiratory exam: Present: rhonchi (Course breath sounds bilaterally with moderate respiratory distress.) - Cardiovascular Cardiovascular exam: Present: RRR, +S1, +S2 - GI/Abdominal GI/Abdominal exam: Present: soft. Absent: guarding, tenderness Additional comments: There is a right sided tunneled catheter - Extremities Exam Extremities exam: Present: normal inspection - Neurological Exam Additional comments: Obtunded. Does not follow commands. Opens eyes to voice. - Skin Skin exam: Present: dry, intact Internal Med - H&P Results - Labs CBC & Chem 7: 03/19/18 16:46 03/19/18 20:10 Labs: Short CBC 03/19/18 Range/Units 16:46 WBC 35.4 H* D (4.3-11.1) K/mcL Hgb 11.5 (11.5-15.4) g/dL Hct 35.2 L (35.3-44.9) % Plt Count 313 (140-400) K/mcL Neutrophils # 33.0 H (1.6-8.9) K/mcL BMP 03/19/18 03/19/18 03/19/18 16:46 18:30 20:10 Sodium Cancelled 132 L Potassium Cancelled 6.5 H* 6.3 H Chloride Cancelled 105 Carbon Dioxide Cancelled 9 L* BUN Cancelled 91 H Creatinine Cancelled 8.48 H Glucose Cancelled 116 H Calcium Cancelled 8.7 Cardiac Enzymes 03/19/18 Range/Units 16:46 Troponin I < 0.03 (< 0.04) ng/mL Liver Function 03/19/18 03/19/18 Range/Units 16:46 18:30 Total Bilirubin Cancelled 0.5 Direct Bilirubin Cancelled 0.1 AST Cancelled 30 ALT Cancelled 18 Alkaline Phosphatase Cancelled 191 H Albumin Cancelled 3.8 Urine 03/19/18 Range/Units 18:15 Urine Color Yellow (Yellow) Urine Clarity Slightly Hazy (Clear) Urine pH 5.0 (5.0-8.0) pH Units Ur Specific [place] 1.023 (1.010-1.025) Urine Protein Negative (Neg-Trace) mg/dL Urine Glucose (UA) Normal (Normal) mg/dL - ABG Interpretation ABG results: 03/19/18 20:27 ABG pH 7.23 L ABG pCO2 27 L ABG pO2 58 L ABG HCO3 11 L ABG Total CO2 12 L ABG O2 Saturation 85 L ABG Base Excess -15 L - Impressions ITS Impressions Chest X-Ray 03/19/18 16:40 IMPRESSION: Interval development of patchy alveolar densities left parahilar lung concerning for pneumonia. D/ / Clay Au / Clay Au Interpreting Provider: Clay Au <Yann Velez - Last Filed: 03/20/18 01:10> Date of Encounter: 03/20/18 Internal Medicine - H&P: HPI History of present illness: Ms. De Paz is a 53 year old female All Systems PM: A 10-system review of systems was performed and is negative for pertinent findings except as documented above in the HPI. - Constitutional Vitals: Temp Pulse Resp BP Pulse Ox 98.6 F 68 19 126/76 91 03/20/18 00:00 03/20/18 01:00 03/20/18 01:00 03/20/18 01:00 03/20/18 01:00 Internal Med - H&P Results - Labs CBC & Chem 7: 03/19/18 23:55 03/19/18 23:55 Labs: Short CBC 03/19/18 Range/Units 23:55 WBC 51.5 H* (4.3-11.1) K/mcL Hgb 11.7 (11.5-15.4) g/dL Hct 36.9 (35.3-44.9) % Plt Count 379 (140-400) K/mcL Neutrophils # 39.1 H (1.6-8.9) K/mcL BMP 03/19/18 23:55 Sodium 135 L Potassium 5.6 H Chloride 103 Carbon Dioxide 14 L BUN 92 H Creatinine 8.48 H Glucose 191 H Calcium 8.7 - Attending Attestation I examined this patient and my medical decision-making was reviewed with the Resident Physician. I agree with the documented findings, disposition and treatment plan as described except to the extent set forth below.
[2018-03-19] MEDS: Propofol 500 MG/50 ML INFUS..BTL IVC SCH (21:30)
[2018-03-19] MEDS ORDERED: NON-FORMULARY MEDICATION 1 EACH EACH (Lactose-Reduced Food [Ensure High Protein] 1 BOTTLE) PO SCH (21:30)
[2018-03-19] MEDS ORDERED: *HR* Etomidate 40 MG/20 ML VIAL IVP ONE (22:12)
[2018-03-19] MEDS ORDERED: *HR* Rocuronium Bromide 50 MG/5 ML VIAL IVP ONE (22:13)
--- NOTE | 2018-03-19 22:30 | Emergency Department Note ---
Disposition Clinical Impression: Healthcare-associated pneumonia, Decompensation of cirrhosis of liver, Acute renal failure, Hyperkalemia, Sepsis, Metabolic acidosis Disposition: Admitted As Inpatient Condition: Critical General Adult HPI - General Chief complaint: ED Shortness of Breath/Dyspnea Stated complaint: Shortness of Breath Time Seen by Provider: 03/19/18 16:32 Source: patient, family Mode of arrival: private vehicle Limitations: altered mental status - History of Present Illness Pain Scale: 0 - Related Data Home Medications Medication Instructions Recorded Confirmed Metformin HCl [Metformin HCl ER] 500 mg PO QPM 10/06/16 03/19/18 clonazePAM [Klonopin] 0.5 mg PO BID 10/06/16 03/19/18 Omeprazole [PriLOSEC] 40 mg PO DAILY 07/26/17 03/19/18 Ondansetron HCl [Zofran] 4 - 8 mg PO Q8H PRN 07/26/17 03/19/18 hydrOXYzine HCl [Hydroxyzine HCl] 50 mg PO QID 07/26/17 03/19/18 Buspirone HCl [Buspar] 5 mg PO TID PRN 09/07/17 03/19/18 Escitalopram [Lexapro] 20 mg PO DAILY 09/07/17 03/19/18 Atorvastatin [Lipitor] 40 mg PO HS 02/12/18 03/19/18 Ferrous Gluconate 240 mg PO DAILY 02/12/18 03/19/18 Nadolol 20 mg PO DAILY 02/12/18 03/19/18 OxyCODONE Immed Rel [Roxicodone 5 5 mg PO BID PRN 02/12/18 03/19/18 MG] Tizanidine HCl 4 mg PO BID PRN 02/12/18 03/19/18 Lactose-Reduced Food [Ensure High 1 bottle PO 2-3XD 02/28/18 03/19/18 Protein] Allergies Allergy/AdvReac Type Severity Reaction Status Date / Time levofloxacin [From Levaquin] Allergy Hives Verified 03/19/18 19:06 Penicillins Allergy Rash Verified 03/19/18 19:06 Sulfa (Sulfonamide Allergy Rash Verified 03/19/18 19:06 Antibiotics) Constitutional: Reports: fever, weakness, weight change. Denies: chills ENT ED: Reports: congestion Cardiovascular: Denies: chest pain Respiratory: Reports: cough, dyspnea Gastrointestinal: Denies: abdominal pain, nausea, vomiting Genitourinary: Denies: urgency, dysuria Neurological: Reports: weakness. Denies: headache Past Medical History - Past Medical History Medical history: Reports: cirrhosis, CHF, COPD, diabetes, hepatitis, hypertension, myocardial infarction, seizures Surgical history: Reports: Psychiatric history: Reports: anxiety, depression - Social History Smoking Status: Current every day smoker Smokeless Tobacco Status: No Alcohol use: Reports: none Drug use: Reports: none Physical Exam - General Limitations: altered mental status General appearance: alert, cachectic, other (Muscle wasting to the temporal region, slightly confused but knows where she is at her name) Course Vital Signs Temperature 100.1 F H 03/19/18 16:32 Pulse Rate 67 03/19/18 16:32 Respiratory Rate 26 03/19/18 16:32 Blood Pressure 125/64 03/19/18 16:32 O2 Sat by Pulse Oximetry 99 03/19/18 16:32 Temperature 100.1 F H 03/19/18 16:32 Pulse Rate 85 03/19/18 21:36 Respiratory Rate 14 03/19/18 21:37 Blood Pressure 151/91 03/19/18 21:37 O2 Sat by Pulse Oximetry 98 03/19/18 21:37 Oxygen Delivery Oxygen Delivery Ventilator Procedures - Intubation sedative: Etomidate Mg Given: 20 paralytic: Rocuronium Mg Given: 50 Laryngoscope: Mk ET Tube Size: 7 ET Tube Uncuffed: No Tube Secured Depth (cm): 21 Tube Secured Location: lips Tube Placement Confirmation: visualized tube passing through cords, equal breath sounds bilaterally, no breath sounds over epigastrium, confirmation by capnometry Patient Tolerated Procedure: well Intubation Complications: none Medical Decision Making - Lab Data Result diagrams: 03/19/18 16:46 03/19/18 20:10 Lab Results 03/19/18 03/19/18 03/19/18 Range/Units 16:46 16:46 16:46 WBC 35.4 H* D (4.3-11.1) K/mcL RBC 4.16 (3.82-4.97) M/mcL Hgb 11.5 (11.5-15.4) g/dL Hct 35.2 L (35.3-44.9) % MCV 84.6 (83.0-100.0) fL MCH 27.6 L (28.0-33.3) pg MCHC 32.7 (31.6-35.5) g/dL RDW 15.3 H (11.5-14.5) % Plt Count 313 (140-400) K/mcL MPV 10.1 (9.4-12.4) fL Immature Gran % 1.2 (0-4) % Seg Neutrophils % 93.1 % Lymphocytes % 1.7 % Monocytes % 3.8 % Eosinophils % 0.0 % Basophils % 0.2 % Neutrophils # 33.0 H (1.6-8.9) K/mcL Lymphocytes # 0.6 (0.6-4.6) K/mcL Monocytes # 1.4 H (0.0-1.3) K/mcL Eosinophils # 0.0 (0.0-0.6) K/mcL Basophils # 0.1 (0.0-0.2) K/mcL Platelet Estimate Normal (Normal) PT 11.6 (9.4-12.1) Seconds INR 1.1 APTT 31.4 (26.0-36.0) Seconds Sample Site ABG pH (7.32-7.45) pH Units ABG pCO2 (35-45) mmHg ABG pO2 (85-104) mmHg ABG HCO3 (21-27) mEq/L ABG Total CO2 (20-26) mEq/L ABG O2 Saturation (95-98) % ABG Base Excess (-2 to 3) mEq/L Davide Test O2 Delivery Device Inspired O2 (1-15=lpm [id number]=%) Sodium Cancelled Potassium Cancelled Chloride Cancelled Carbon Dioxide Cancelled BUN Cancelled Creatinine Cancelled Est GFR ( Amer) Cancelled Est GFR (Non-Af Amer) Cancelled BUN/Creatinine Ratio Cancelled Glucose Cancelled Calculated Osmolality Cancelled Lactic Acid (0.5-2.2) mmol/L Calcium Cancelled Phosphorus Cancelled Magnesium Cancelled Total Bilirubin Cancelled Direct Bilirubin Cancelled Indirect Bilirubin Cancelled AST Cancelled ALT Cancelled Alkaline Phosphatase Cancelled Troponin I < 0.03 (< 0.04) ng/mL Serum Total Protein Cancelled Albumin Cancelled Globulin Cancelled Albumin/Globulin Ratio Cancelled Urine Color (Yellow) Urine Clarity (Clear) Urine pH (5.0-8.0) pH Units Ur Specific [place] (1.010-1.025) Urine Protein (Neg-Trace) mg/dL Urine Glucose (UA) (Normal) mg/dL Urine Ketones (Negative) mg/dL Urine Blood (Negative) Urine Nitrite (Negative) Urine Bilirubin (Negative) Urine Urobilinogen (Normal) mg/dL Ur Leukocyte Esterase (Negative) Urine Microscopic RBC (0-3) per hpf Ur Squamous Epith Cells (None-Few) per lpf Urine Bacteria (None-Few) per hpf Hyaline Casts (None-Few) per lpf Ur Culture Indicated? (NO) Specimen Rejected 03/19/18 03/19/18 03/19/18 Range/Units 16:46 16:46 18:15 WBC (4.3-11.1) K/mcL RBC (3.82-4.97) M/mcL Hgb (11.5-15.4) g/dL Hct (35.3-44.9) % MCV (83.0-100.0) fL MCH (28.0-33.3) pg MCHC (31.6-35.5) g/dL RDW (11.5-14.5) % Plt Count (140-400) K/mcL MPV (9.4-12.4) fL Immature Gran % (0-4) % Seg Neutrophils % % Lymphocytes % % Monocytes % % Eosinophils % % Basophils % % Neutrophils # (1.6-8.9) K/mcL Lymphocytes # (0.6-4.6) K/mcL Monocytes # (0.0-1.3) K/mcL Eosinophils # (0.0-0.6) K/mcL Basophils # (0.0-0.2) K/mcL Platelet Estimate (Normal) PT (9.4-12.1) Seconds INR APTT (26.0-36.0) Seconds Sample Site ABG pH (7.32-7.45) pH Units ABG pCO2 (35-45) mmHg ABG pO2 (85-104) mmHg ABG HCO3 (21-27) mEq/L ABG Total CO2 (20-26) mEq/L ABG O2 Saturation (95-98) % ABG Base Excess (-2 to 3) mEq/L Davide Test O2 Delivery Device Inspired O2 (1-15=lpm [id number]=%) Sodium Potassium Chloride Carbon Dioxide BUN Creatinine Est GFR ( Amer) Est GFR (Non-Af Amer) BUN/Creatinine Ratio Glucose Calculated Osmolality Lactic Acid 2.0 (0.5-2.2) mmol/L Calcium Phosphorus Magnesium Total Bilirubin Direct Bilirubin Indirect Bilirubin AST ALT Alkaline Phosphatase Troponin I (< 0.04) ng/mL Serum Total Protein Albumin Globulin Albumin/Globulin Ratio Urine Color Yellow (Yellow) Urine Clarity Slightly Hazy (Clear) Urine pH 5.0 (5.0-8.0) pH Units Ur Specific [place] 1.023 (1.010-1.025) Urine Protein Negative (Neg-Trace) mg/dL Urine Glucose (UA) Normal (Normal) mg/dL Urine Ketones Negative (Negative) mg/dL Urine Blood Negative (Negative) Urine Nitrite Negative (Negative) Urine Bilirubin Negative (Negative) Urine Urobilinogen Normal (Normal) mg/dL Ur Leukocyte Esterase Negative (Negative) Urine Microscopic RBC 0-3 (0-3) per hpf Ur Squamous Epith Cells Many H (None-Few) per lpf Urine Bacteria None Seen (None-Few) per hpf Hyaline Casts None Seen (None-Few) per lpf Ur Culture Indicated? NO (NO) Specimen Rejected Hemolyzed 03/19/18 03/19/18 03/19/18 Range/Units 18:30 20:10 20:27 WBC (4.3-11.1) K/mcL RBC (3.82-4.97) M/mcL Hgb (11.5-15.4) g/dL Hct (35.3-44.9) % MCV (83.0-100.0) fL MCH (28.0-33.3) pg MCHC (31.6-35.5) g/dL RDW (11.5-14.5) % Plt Count (140-400) K/mcL MPV (9.4-12.4) fL Immature Gran % (0-4) % Seg Neutrophils % % Lymphocytes % % Monocytes % % Eosinophils % % Basophils % % Neutrophils # (1.6-8.9) K/mcL Lymphocytes # (0.6-4.6) K/mcL Monocytes # (0.0-1.3) K/mcL Eosinophils # (0.0-0.6) K/mcL Basophils # (0.0-0.2) K/mcL Platelet Estimate (Normal) PT (9.4-12.1) Seconds INR APTT (26.0-36.0) Seconds Sample Site R Brach ABG pH 7.23 L (7.32-7.45) pH Units ABG pCO2 27 L (35-45) mmHg ABG pO2 58 L (85-104) mmHg ABG HCO3 11 L (21-27) mEq/L ABG Total CO2 12 L (20-26) mEq/L ABG O2 Saturation 85 L (95-98) % ABG Base Excess -15 L (-2 to 3) mEq/L Davide Test N/A O2 Delivery Device Cannula Inspired O2 32.0 (1-15=lpm [id number]=%) Sodium 132 L Potassium 6.5 H* 6.3 H Chloride 105 Carbon Dioxide 9 L* BUN 91 H Creatinine 8.48 H Est GFR ( Amer) 6 L Est GFR (Non-Af Amer) 5 L BUN/Creatinine Ratio 11 Glucose 116 H Calculated Osmolality 303 H Lactic Acid (0.5-2.2) mmol/L Calcium 8.7 Phosphorus 9.7 H Magnesium 1.5 L Total Bilirubin 0.5 Direct Bilirubin 0.1 Indirect Bilirubin 0.4 AST 30 ALT 18 Alkaline Phosphatase 191 H Troponin I (< 0.04) ng/mL Serum Total Protein 6.6 Albumin 3.8 Globulin 2.8 Albumin/Globulin Ratio 1.4 Urine Color (Yellow) Urine Clarity (Clear) Urine pH (5.0-8.0) pH Units Ur Specific [place] (1.010-1.025) Urine Protein (Neg-Trace) mg/dL Urine Glucose (UA) (Normal) mg/dL Urine Ketones (Negative) mg/dL Urine Blood (Negative) Urine Nitrite (Negative) Urine Bilirubin (Negative) Urine Urobilinogen (Normal) mg/dL Ur Leukocyte Esterase (Negative) Urine Microscopic RBC (0-3) per hpf Ur Squamous Epith Cells (None-Few) per lpf Urine Bacteria (None-Few) per hpf Hyaline Casts (None-Few) per lpf Ur Culture Indicated? (NO) Specimen Rejected
[2018-03-20] MEDS: Lacri-Lube 3.5 GM TUBE BOTH EYES SCH ×6 (00:04→20:39)
[2018-03-20] MEDS: Insulin LISPRO 300 UNITS/3 ML VIAL SQ SCH ×4 (00:05→17:18)
[2018-03-20 00:06] LABS: Nucleated Red Blood Cells 0.1 /100 WBC (0)
[2018-03-20 00:07] LABS: Hematocrit 36.9 % (35.3-44.9); Hemoglobin 11.7 g/dL (11.5-15.4); Mean Corpuscular HGB Conc 31.7 g/dL (31.6-35.5); Mean Corpuscular Hemoglobin 27.5 pg (28.0-33.3); Mean Corpuscular Volume 86.6 fL (83.0-100.0); Mean Platelet Volume 10.1 fL (9.4-12.4); Platelet Count 379 K/mcL (140-400); Red Blood Count 4.26 M/mcL (3.82-4.97); Red Cell Distribution Width 15.5 % (11.5-14.5)
[2018-03-20 00:08] LABS: VBG Ionized Calcium 1.01 mmol/L (1.15-1.35)
[2018-03-20 00:23] LABS: Calcium 8.7 mg/dL (8.6-10.3); Magnesium 1.7 mg/dL (1.6-2.6); Potassium 5.6 mEq/L (3.5-5.1)
[2018-03-20 00:41] LABS: Anisocytosis 1+ (Not Present); Lymphocytes # 6.2 K/mcL (0.6-4.6); Monocytes # 6.2 K/mcL (0.0-1.3); Neutrophils # 39.1 K/mcL (1.6-8.9); Platelet Estimate Normal (Normal)
[2018-03-20 00:42] LABS: Macrocytosis Present (Not Present); Microcytosis Present (Not Present)
[2018-03-20] MEDS: Sodium Bicarbonate 50 MEQ in D5% in Water 1,000 ML IVC SCH ×2 (02:05→08:40)
[2018-03-20 03:19] LABS: Adenovirus Not Detected (Not Detect); Bordetella Pertussis Not Detected (Not Detect); Chlamydophila pneumoniae Not Detected (Not Detect); Coronavirus 229E Not Detected (Not Detect); Coronavirus HKU1 Not Detected (Not Detect); Coronavirus NL63 Not Detected (Not Detect); Coronavirus OC43 Not Detected (Not Detect); Human Metapneumovirus Not Detected (Not Detect); Human Rhinovirus/Enterovirus Not Detected (Not Detect); Influenza A Subtype 2009 H1 Not Detected (Not Detect); Influenza A Untypeable Not Detected (Not Detect); Influenza B Not Detected (Not Detect); Mycoplasma pneumoniae Not Detected (Not Detect); Parainfluenza Virus 1 Not Detected (Not Detect); Parainfluenza Virus 2 Not Detected (Not Detect); Parainfluenza Virus 3 Not Detected (Not Detect); Parainfluenza Virus 4 Not Detected (Not Detect); Respiratory Syncytial Virus Not Detected (Not Detect)
--- NOTE | 2018-03-20 03:26 | Pulmonology Consult Note ---
<Brandon Saeed - Last Filed: 03/20/18 03:31> Date of Encounter: 03/20/18 Time of Encounter: 03:20 Assessment and Plan (1) Healthcare-associated pneumonia Current Visit: Yes Status: Acute The patient was most recently admitted for therefore meeting healthcare associated pneumonia criteria. Chest x-ray with findings of left perihilar opacification. Intubated for encephalopathy. Afebrile, hemodynamically stable without pressor requirement. Respiratory panel negative. Legionella, strep pneumo antigens ordered. Blood cultures obtained WBC 35. Received vancomycin and cefepime in the emergency department. Continue broad-spectrum antibiotics. [place] CPAP trial. (2) Toxic metabolic encephalopathy Current Visit: Yes Status: Acute Encephalopathy which is likely multifactorial from cirrhosis, uremia and metabolic acidosis. Intubated for altered mental status. Elevated ammonia level, plan to administer lactulose. Uremic encephalopathy secondary to renal failure. Nephrology consulted for likely dialysis today. (3) Hyperkalemia Current Visit: No Status: Acute Presented with potassium of 6.5 in the setting of renal failure. On bicarbonate drip initially at 150ml/hr now titrated to 50ml/hr. Nephrology following. Daily BMP. Likely will require dialysis. (4) Leukocytosis Current Visit: No Status: Acute WBC 51, previously 35. In the setting of healthcare associated pneumonia. Continue broad-spectrum antibiotics. [place] CBC. Qualifiers: Leukocytosis type: unspecified Qualified Code(s): D72.829 - Elevated white blood cell count, unspecified (5) Metabolic acidosis Current Visit: No Status: Acute Initial anion gap metabolic acidosis with a gap of 18. Presenting bicarbonate of 9, currently 14 on bicarbonate drip. Secondary to renal failure. Continue bicarbonate infusion at 50 mL/hr (6) Renal failure Current Visit: No Status: Acute Presenting be BUN of 91 and serum creatinine of 8.48. Patient previously evaluated by nephrology, poor candidate for dialysis given her cirrhosis. Presenting hyperkalemia currently being treated with bicarbonate infusion. Nephrology consulted. Decision for dialysis in the morning with nephrology. Qualifiers: Renal failure chronicity: acute Acute renal failure type: unspecified Qualified Code(s): N17.9 - Acute kidney failure, unspecified (7) Diabetes Current Visit: No Status: Chronic Sliding-scale insulin coverage. Qualifiers: Diabetes mellitus type: type 2 Diabetes mellitus senior living insulin use: without truck terminal manager use Diabetes mellitus complication status: with kidney complications Diabetes mellitus complication detail: with chronic kidney disease Chronic kidney disease stage: unspecified stage Qualified Code(s): E11.22 - Type 2 diabetes mellitus with diabetic chronic kidney disease (8) Hepatic cirrhosis due to chronic hepatitis C infection Current Visit: No Status: Chronic (9) DVT prophylaxis Current Visit: No Status: Acute Heparin 5000 units subcutaneous every 12 hours. History of Present Illness Consult date: 03/20/18 Requesting physician: Yann Velez Reason for consult: other (Vent management) Chief complaint: Respiratory failure, hyperkalemia, metabolic acidosis, renal failure History of present illness: Ms. De Paz is a 53-year-old female with a past medical history of alcoholic cirrhosis requiring tunneled catheter placement for paracentesis, hepatitis C, end-stage renal disease followed by nephrology however never on dialysis, hypertension, diabetes, depression who presented to the emergency department on 03/19/18 with family with a chief complaint of altered mental status and respiratory distress. History is obtained from documentation and family as the patient is encephalopathic and intubated. Per report the patient required assistance from her car earlier in the day when she arrived at the emergency department. Family reports that she had not felt well over the last several days. They report she had a cough for the last few days. They state that on the day of arrival she seemed to have more difficulty breathing. Initially the patient's CODE STATUS was DNR CCA however it was determined that the patient would want to be intubated should that be required when she arrived to the hospital. In the emergency department the patient's workup reveals a chest x-ray showing a left perihilar opacification concerning for pneumonia. She was noted to have a leukocytosis of 35, hemoglobin 11.5, platelets 313, INR 1.1 with normal LFTs. Chemistry panel demonstrated an initial potassium of 6.5, bicarbonate of 9, albumin of 91 and serum creatinine of 8.48. Initial lactate normal at 2.0. She initially received intervention for hyperkalemia with an amp of bicarbonate , 10 units of insulin with D50 as well as albuterol. EKG without ischemic findings or hyperacute T waves. The patient was intubated in the emergency department for altered mental status. I spoke with the on-call teacher counselor at the time of the patient's admission given her renal failure, acidosis and hyperkalemia. It was determined at that time that we would start a bicarbonate drip at 150 mL per hour and given a dose of Kayexalate. Upon reevaluation in the intensive care unit her hyperkalemia had improved with a potassium of 5.5 and her anion gap had closed. Case was rediscussed with nephrology who agreed with decreasing her bicarbonate infusion and no necessity for dialysis overnight. Past Med Surg Social Fam HX - Past Medical History Source: old records reviewed, obtained from family Medical history: cirrhosis, CHF, COPD, diabetes, hepatitis, hypertension, myocardial infarction, seizures Psychiatric history: anxiety, depression - Past Surgical History Surgical History: - Social History Smoking Status: Current every day smoker Smokeless Tobacco Status: No Alcohol use: none Drug use: none - Family History Father Living Status: Hx Family Cardiac Disorders: Yes Hx Family Respiratory Disorders: No Hx Family Cancer: Yes Hx Family GI Disorders: No Hx Family Endocrine Disorder: No Hx Family Neuromuscular Disorders: No Hx Family Neurologic Disorders: No Hx Family HEENT Disorders: No Hx Family Autoimmune Disorders: No Mother Living Status: Still Living Hx Family Respiratory Disorders: Yes Hx Family Endocrine Disorder: Yes (diabetes) Brother Hx Family Endocrine Disorder: Yes (diabetes) Medications and Allergies Metformin HCl [Metformin HCl ER] 500 mg PO QPM 10/06/16 [History] clonazePAM [Klonopin] 0.5 mg PO BID 10/06/16 [History] Omeprazole [PriLOSEC] 40 mg PO DAILY 07/26/17 [History] Ondansetron HCl [Zofran] 4 - 8 mg PO Q8H PRN 07/26/17 [History] hydrOXYzine HCl [Hydroxyzine HCl] 50 mg PO QID 07/26/17 [History] Buspirone HCl [Buspar] 5 mg PO TID PRN 09/07/17 [History] Escitalopram [Lexapro] 20 mg PO DAILY 09/07/17 [History] Atorvastatin [Lipitor] 40 mg PO HS 02/12/18 [History] Ferrous Gluconate 240 mg PO DAILY 02/12/18 [History] Nadolol 20 mg PO DAILY 02/12/18 [History] OxyCODONE Immed Rel [Roxicodone 5 MG] 5 mg PO BID PRN 02/12/18 [History] Tizanidine HCl 4 mg PO BID PRN 02/12/18 [History] Lactose-Reduced Food [Ensure High Protein] 1 bottle PO 2-3XD 02/28/18 [History] 3 Allergy/AdvReac Type Severity Reaction Status Date / Time levofloxacin [From Levaquin] Allergy Hives Verified 03/19/18 19:06 Penicillins Allergy Rash Verified 03/19/18 19:06 Sulfa (Sulfonamide Allergy Rash Verified 03/19/18 19:06 Antibiotics) ROS unobtainable: due to endotracheal tube All Systems: The remainder of the systems were reviewed and are negative Physical Examination Vital Signs: Vital Signs, Last 4 Hours Temp Pulse Resp BP Pulse Ox 03/20/18 03:00 68 17 114/75 100 03/20/18 02:00 67 20 120/77 86 03/20/18 01:21 18 125/83 91 03/20/18 01:00 68 19 126/76 91 03/20/18 00:00 98.6 F 71 17 130/83 91 03/19/18 23:45 16 129/75 91 General appearance: no acute distress, other (Intubated and sedated. Cachectic) Eyes: nonicteric ENT: other (ET tube in place) Neck: supple Effort: other (Mechanically ventilated) Inspection: normal Auscultation: bilateral: diminished breath sounds, rhonchi Cardiovascular: regular rate and rhythm Gastrointestinal: soft, non-distended, other (Right tunneled catheter in the mid abdomen) Integumentary: normal Extremities: no cyanosis, no edema Musculoskeletal: no deformities other (Sedated) Ventilator Settings Ventilator Settings: Ventilator Settings, Last 8 Hours Ventilator Mode A/C Ventilator Mode A/C Ventilator Mode A/C Ventilator Mode A/C Ventilator Mode A/C Ventilator Mode A/C Ventilator Mode A/C Ventilator Mode A/C Ventilator Tidal Volume 350 Setting Ventilator Tidal Volume 350 Setting Ventilator Tidal Volume 350 Setting Ventilator Tidal Volume 350 Setting Ventilator Tidal Volume 350 Setting Ventilator Tidal Volume 350 Setting Ventilator Tidal Volume 350 Setting Ventilator Tidal Volume 350 Setting Ventilator Respiratory Rate 14 Setting Ventilator Respiratory Rate 14 Setting Ventilator Respiratory Rate 14 Setting Ventilator Respiratory Rate 14 Setting Ventilator Respiratory Rate 14 Setting Ventilator Respiratory Rate 14 Setting Ventilator Respiratory Rate 14 Setting Ventilator Respiratory Rate 14 Setting Actual Respiratory Rate 17 Actual Respiratory Rate 20 Actual Respiratory Rate 18 Actual Respiratory Rate 19 Actual Respiratory Rate 17 Actual Respiratory Rate 16 Actual Respiratory Rate 15 Actual Respiratory Rate 14 Positive End Expiratory 5 Pressure Positive End Expiratory 5 Pressure Positive End Expiratory 5 Pressure Positive End Expiratory 5 Pressure Positive End Expiratory 5 Pressure Positive End Expiratory 5 Pressure Positive End Expiratory 5 Pressure Positive End Expiratory 5 Pressure Peak Inspiratory Airway 19 Pressure Peak Inspiratory Airway 24 Pressure Peak Inspiratory Airway 26 Pressure Peak Inspiratory Airway 26 Pressure Peak Inspiratory Airway 28 Pressure Peak Inspiratory Airway 28 Pressure Peak Inspiratory Airway 28 Pressure Peak Inspiratory Airway 29 Pressure Results - Laboratory Findings CBC and BMP: 03/19/18 23:55 03/19/18 23:55 ABG ABG pH 7.23 pH Units (7.32-7.45) L 03/19/18 20:27 ABG pCO2 27 mmHg (35-45) L 03/19/18 20:27 ABG pO2 58 mmHg (85-104) L 03/19/18 20:27 ABG O2 Saturation 85 % (95-98) L 03/19/18 20:27 PT/INR, D-dimer PT 11.6 Seconds (9.4-12.1) 03/19/18 16:46 Abnormal lab findings: Abnormal lab results WBC 51.5 K/mcL (4.3-11.1) H* 03/19/18 23:55 MCH 27.5 pg (28.0-33.3) L 03/19/18 23:55 RDW 15.5 % (11.5-14.5) H 03/19/18 23:55 Band Neutrophils % 14.0 % (0-4) H 03/19/18 23:55 Neutrophils # 39.1 K/mcL (1.6-8.9) H 03/19/18 23:55 Lymphocytes # 6.2 K/mcL (0.6-4.6) H 03/19/18 23:55 Monocytes # 6.2 K/mcL (0.0-1.3) H 03/19/18 23:55 Nucleated RBCs/100 WBC 0.1 /100 WBC (0) H 03/19/18 23:55 Anisocytosis 1+ (Not Present) A 03/19/18 23:55 Microcytosis Present (Not Present) A 03/19/18 23:55 Macrocytosis Present (Not Present) A 03/19/18 23:55 ABG pH 7.23 pH Units (7.32-7.45) L 03/19/18 20:27 ABG pCO2 27 mmHg (35-45) L 03/19/18 20:27 ABG pO2 58 mmHg (85-104) L 03/19/18 20:27 ABG HCO3 11 mEq/L (21-27) L 03/19/18 20:27 ABG Total CO2 12 mEq/L (20-26) L 03/19/18 20:27 ABG O2 Saturation 85 % (95-98) L 03/19/18 20:27 ABG Base Excess -15 mEq/L (-2 to 3) L 03/19/18 20:27 Sodium 135 mEq/L (136-145) L 03/19/18 23:55 Potassium 5.6 mEq/L (3.5-5.1) H 03/19/18 23:55 Carbon Dioxide 14 mEq/L (23-29) L 03/19/18 23:55 BUN 92 mg/dL (6-20) H 03/19/18 23:55 Creatinine 8.48 mg/dL (0.60-1.20) H 03/19/18 23:55 Est GFR ( Amer) 6 (> 60) L 03/19/18 23:55 Est GFR (Non-Af Amer) 5 (> 60) L 03/19/18 23:55 Glucose 191 mg/dL (70-105) H 03/19/18 23:55 POC Glucose 207 mg/dL (70-99) H 03/20/18 00:04 Calculated Osmolality 313 (280-300) H 03/19/18 23:55 Venous Ioniz Calcium 1.01 mmol/L (1.15-1.35) L 03/20/18 00:05 Phosphorus 10.8 mg/dL (2.7-4.5) H 03/19/18 23:55 Alkaline Phosphatase 191 Units/L (34-104) H 03/19/18 18:30 Ammonia 86 mcmol/L (16-53) H 03/19/18 22:42 Ur Squamous Epith Cells Many per lpf (None-Few) H 03/19/18 18:15 - Clinical Findings Intake & Output: Intake & Output 03/19/18 03/19/18 03/20/18 15:59 23:59 07:59 Intake Total 0 / 1280.1 650 / 650 Output Total 150 / 150 20 / 20 Balance -150 / 1130.1 630 / 630 Weight 39.9 kg Consult Discharge Plan - Plan Referrals: Stephani Garcia MD [Primary Care Provider] - <SanjumarlenaMike bess M - Last Filed: 03/20/18 12:05> Date of Encounter: 03/20/18 All Systems: The remainder of the systems were reviewed and are negative Physical Examination Vital Signs: Vital Signs, Last 4 Hours Pulse Resp BP Pulse Ox 03/20/18 11:43 21 94 03/20/18 10:30 57 18 92/56 96 03/20/18 09:30 55 20 88/56 93 03/20/18 09:05 16 100 03/20/18 08:40 65 19 110/68 100 Ventilator Settings Ventilator Settings: Ventilator Settings, Last 8 Hours Ventilator Mode VC+ Ventilator Mode VC+ Ventilator Mode VC+ Ventilator Mode VC+ Ventilator Mode VC+ Ventilator Mode VC+ Ventilator Mode VC+ Ventilator Mode VC+ Ventilator Mode VC+ Ventilator Mode VC+ Ventilator Mode VC+ Ventilator Tidal Volume 420 Setting Ventilator Tidal Volume 420 Setting Ventilator Tidal Volume 420 Setting Ventilator Tidal Volume 420 Setting Ventilator Tidal Volume 420 Setting Ventilator Tidal Volume 420 Setting Ventilator Tidal Volume 420 Setting Ventilator Tidal Volume 420 Setting Ventilator Tidal Volume 420 Setting Ventilator Tidal Volume 350 Setting Ventilator Tidal Volume 350 Setting Ventilator Tidal Volume 350 Setting Ventilator Respiratory Rate 16 Setting Ventilator Respiratory Rate 16 Setting Ventilator Respiratory Rate 12 Setting Ventilator Respiratory Rate 16 Setting Ventilator Respiratory Rate 12 Setting Ventilator Respiratory Rate 16 Setting Ventilator Respiratory Rate 16 Setting Ventilator Respiratory Rate 16 Setting Ventilator Respiratory Rate 20 Setting Ventilator Respiratory Rate 20 Setting Ventilator Respiratory Rate 14 Setting Ventilator Respiratory Rate 14 Setting Actual Respiratory Rate 21 Actual Respiratory Rate 20 Actual Respiratory Rate 20 Actual Respiratory Rate 19 Actual Respiratory Rate 19 Actual Respiratory Rate 18 Actual Respiratory Rate 19 Actual Respiratory Rate 19 Actual Respiratory Rate 28 Actual Respiratory Rate 28 Actual Respiratory Rate 25 Positive End Expiratory 5 Pressure Positive End Expiratory 5 Pressure Positive End Expiratory 5 Pressure Positive End Expiratory 5 Pressure Positive End Expiratory 5 Pressure Positive End Expiratory 5 Pressure Positive End Expiratory 5 Pressure Positive End Expiratory 5 Pressure Positive End Expiratory 5 Pressure Positive End Expiratory 5 Pressure Positive End Expiratory 5 Pressure Positive End Expiratory 5 Pressure Peak Inspiratory Airway 12 Pressure Peak Inspiratory Airway 12 Pressure Peak Inspiratory Airway 11 Pressure Peak Inspiratory Airway 12 Pressure Peak Inspiratory Airway 23 Pressure Peak Inspiratory Airway 13 Pressure Peak Inspiratory Airway 13 Pressure Peak Inspiratory Airway 14 Pressure Peak Inspiratory Airway 12 Pressure Peak Inspiratory Airway 20 Pressure Peak Inspiratory Airway 13 Pressure Results - Laboratory Findings CBC and BMP: 03/20/18 04:08 03/20/18 04:08 ABG ABG pH 7.08 pH Units (7.32-7.45) L* 03/20/18 04:41 ABG pCO2 59 mmHg (35-45) H 03/20/18 04:41 ABG pO2 78 mmHg (85-104) L 03/20/18 04:41 ABG O2 Saturation 89 % (95-98) L 03/20/18 04:41 PT/INR, D-dimer PT 11.6 Seconds (9.4-12.1) 03/19/18 16:46 Abnormal lab findings: Abnormal lab results WBC 51.5 K/mcL (4.3-11.1) H* 03/20/18 04:08 MCH 27.9 pg (28.0-33.3) L 03/20/18 04:08 RDW 15.5 % (11.5-14.5) H 03/20/18 04:08 Band Neutrophils % 14.0 % (0-4) H 03/19/18 23:55 Neutrophils # 39.1 K/mcL (1.6-8.9) H 03/19/18 23:55 Lymphocytes # 6.2 K/mcL (0.6-4.6) H 03/19/18 23:55 Monocytes # 6.2 K/mcL (0.0-1.3) H 03/19/18 23:55 Nucleated RBCs/100 WBC 0.1 /100 WBC (0) H 03/19/18 23:55 Anisocytosis 1+ (Not Present) A 03/19/18 23:55 Microcytosis Present (Not Present) A 03/19/18 23:55 Macrocytosis Present (Not Present) A 03/19/18 23:55 ABG pH 7.08 pH Units (7.32-7.45) L* 03/20/18 04:41 ABG pCO2 59 mmHg (35-45) H 03/20/18 04:41 ABG pO2 78 mmHg (85-104) L 03/20/18 04:41 ABG HCO3 18 mEq/L (21-27) L 03/20/18 04:41 ABG Total CO2 19 mEq/L (20-26) L 03/20/18 04:41 ABG O2 Saturation 89 % (95-98) L 03/20/18 04:41 ABG Base Excess -13 mEq/L (-2 to 3) L 03/20/18 04:41 Sodium 134 mEq/L (136-145) L 03/20/18 04:08 Potassium 5.6 mEq/L (3.5-5.1) H 03/20/18 04:08 Carbon Dioxide 15 mEq/L (23-29) L 03/20/18 04:08 BUN 92 mg/dL (6-20) H 03/20/18 04:08 Creatinine 8.20 mg/dL (0.60-1.20) H 03/20/18 04:08 Est GFR ( Amer) 6 (> 60) L 03/20/18 04:08 Est GFR (Non-Af Amer) 5 (> 60) L 03/20/18 04:08 Glucose 203 mg/dL (70-105) H 03/20/18 04:08 POC Glucose 207 mg/dL (70-99) H 03/20/18 00:04 Calculated Osmolality 312 (280-300) H 03/20/18 04:08 Venous Ioniz Calcium 0.99 mmol/L (1.15-1.35) L 03/20/18 04:39 Phosphorus 11.1 mg/dL (2.7-4.5) H 03/20/18 04:08 Alkaline Phosphatase 192 Units/L (34-104) H 03/20/18 04:08 Ammonia 86 mcmol/L (16-53) H 03/19/18 22:42 Ur Squamous Epith Cells Many per lpf (None-Few) H 03/19/18 18:15 - Microbiology Findings Microbiology Findings: Microbiology, Last 48 Hours 03/20/18 01:33 Legionella Antigen - Final Urine,Catheterized Streptococcus pneumoniae Antigen (M - Final - Clinical Findings Intake & Output: Intake & Output 03/19/18 03/20/18 03/20/18 23:59 07:59 15:59 Intake Total 0 / 1280.1 730 / 730 1070 / 1070 Output Total 150 / 150 70 / 70 Balance -150 / 1130.1 660 / 660 1070 / 1070 Weight 39.9 kg - Attending Attestation I examined this patient and my medical decision-making was reviewed with the Resident Physician. I agree with the documented findings, disposition and treatment plan as described except to the extent set forth below. Patient seen and examined. Labs, radiology, chart personally reviewed. Agree with resident's history and physical, assessment, plan with following comments: CHIEF INVESTIGATOR: Patient does not follows commands, Pulmonary: Patient with evidence of auto PEEP and made some changes on the ventilator with increasing tidal volume on lowering respiratory rate with some improvement in the intrinsic PEEP. Patient has poor prognosis and it might be difficult to get her off the ventilator. Palliative care consulted. Cardiovascular: Patient with multiple comorbidities and suspect her BP is low at baseline. GI: Nutrition per dietary and GI prophylaxis per routine. Patient with underlying liver disease and some other poor prognostic for her. Heme: DVT prophylaxis per routine. Mechanical ID: Continue antibiotics and plan to de-escalation Renal; nephrology assessment for hemodialysis Endorcine: blood glucose is monitored Lines: all lines checked and no evidence of infections Skin: skin care to prevent pressure ulcers per nursing routine care I spent 35 min of Critical Care time with this patient. It involved decision making of high complexity to assess, manipulate, and support vital organ system failure and/or to prevent further life threatening deterioration of the patient' s condition. The time involved in the performance of separately reportable procedures was not counted toward critical care time.
[2018-03-20 04:35] LABS: Mean Corpuscular Hemoglobin 27.9 pg (28.0-33.3); Red Cell Distribution Width 15.5 % (11.5-14.5)
[2018-03-20 04:36] LABS: Hematocrit 36.4 % (35.3-44.9); Hemoglobin 11.7 g/dL (11.5-15.4); Mean Corpuscular HGB Conc 32.1 g/dL (31.6-35.5); Mean Corpuscular Volume 86.7 fL (83.0-100.0); Mean Platelet Volume 10.3 fL (9.4-12.4); Platelet Count 397 K/mcL (140-400)
[2018-03-20 04:48] LABS: ABG Base Excess -13 mEq/L (-2 to 3); ABG HCO3 18 mEq/L (21-27); ABG Oxygen Saturation 89 % (95-98); ABG PCO2 59 mmHg (35-45); ABG PH 7.08 pH Units (7.32-7.45); ABG PO2 78 mmHg (85-104); ABG TCO2 19 mEq/L (20-26); Blood Gas Modality VC; Blood Gas PEEP 5 cm H2O; Blood Gas Respiration Rate 14; Blood Gas VT 350 cc
[2018-03-20 04:51] LABS: Albumin 3.8 g/dL (3.5-5.7); Albumin/Globulin Ratio 1.3 (1.1-2.2); Bilirubin,Direct 0.2 mg/dL (0.0-0.2); Bilirubin,Indirect 0.3 mg/dL (0.0-1.2); Bilirubin,Total 0.5 mg/dL (0.3-1.0); Calcium 8.7 mg/dL (8.6-10.3); Globulin 2.9 g/dL (2.4-3.5); Magnesium 1.6 mg/dL (1.6-2.6); Phosphorous 11.1 mg/dL (2.7-4.5); Potassium 5.6 mEq/L (3.5-5.1); Total Protein 6.7 g/dL (6.4-8.9)
[2018-03-20 05:11] LABS: VBG Ionized Calcium 0.99 mmol/L (1.15-1.35)
[2018-03-20] MEDS: *HR* Heparin 5,000 UNIT/ML VIAL SQ SCH ×2 (05:53→17:12)
[2018-03-20] MEDS ORDERED: Vancomycin 500 MG in 0.9 % Sodium Chloride 250 ML IVPB SCH (06:00)
[2018-03-20] MEDS ORDERED: Cefepime HCl 2,000 MG in Water for inj. (sterile) 20 ML 20 ML IVPB SCH (06:00)
[2018-03-20] MEDS ORDERED: Famotidine 20 MG/2 ML VIAL IVP SCH (06:00)
--- NOTE | 2018-03-20 07:57 | Palliative - Consult Note ---
Date of Encounter: 03/20/18 Time of Encounter: 07:35 - Assessment and Plan (1) Acute hepatic encephalopathy Current Visit: No Status: Acute Assessment and plan: She was showing signs of acute encephalopathy prior to intubation. Patient is now intubated and sedated and cannot be assessed. Liver does appear that this is related back to her renal and hepatic failure. No with nephrology they are recommending dialysis is starting today. Of note patient's outpatient labs indicated the patient has needed dialysis for some time now, she has been trying patient come in for evaluation and dialysis and apparently has refused in the past. (2) BERNARDA (acute kidney injury) Current Visit: No Status: Acute Assessment and plan: Since kidney function is much worse now than it has been. Her creatinine clearance is at 4.9. She may very well require dialysis. We will discuss with family when they are available. Have spoken with the patient's mother who is the primary medical power of commercial real estate attorney. Mom states she has not discussed with the patient whether not she would want dialysis or not. The case with the b2b sales professional apparently the patient's sister who is the secondary power of commercial real estate attorney so is a licensed practical nurse has stated that the patient did not wish to have dialysis. I informed the patient's mother that nephrology would be calling her today with regard to dialysis. That I believe that the patient was given require dialysis weekly today. I have now confirmed that with nephrology they do recommend dialysis starts today. Without dialysis it is my opinion that the patient has no hope recovery whatsoever. (3) Metabolic acidosis Current Visit: No Status: Acute Assessment and plan: Actually appears to be worsening by the most recent blood gas. PH is 7.08 this was done around 0 400 this morning. Nephrology is actively involved, however they have not yet seen the patient. Will require dialysis. (4) Goals of care, counseling/discussion Current Visit: No Status: Acute Assessment and plan: During last hospitalization patient was refused hospice care. Letter her mother to be her medical power of commercial real estate attorney and did fill out [facility] paperwork. And decided to be DNR CCA and intubation being okay. Patient was clear that short-term intubation was okay and the patient is now intubated. I am told with the nursing staff that there was some concern about whether or not she would or would not want dialysis. Discussed with the family when they come in. Mom is the primary medical power of commercial real estate attorney with sister who is an CHAIR CAR ATTENDANT as the secondary medical power of commercial real estate attorney. They do help taking care of her. Patient was and still is hospice eligible. He does not wish to elect for aggressive care during the last hospitalization patient did not wish to try stephy herself of the liver transplant if that were available. I am to whether nursing staff family has announced that she is not a candidate for liver transplant or the transplant team. I discussed the case with the patient's mother this morning. The primary medical power of commercial real estate attorney and she states that not herself discussed dialysis with the patient. Discussed the case with Dr. Rory Leyva who is the patient 's b2b sales professional, he has been trying to reach the patient for a couple days to get her in for dialysis. She tells me that the patient's sister who is an CHAIR CAR ATTENDANT and is the secondary medical power of commercial real estate attorney stated that her patient has stated she did not want to have dialysis. Discussing with the patient's mom I did tell her that for oncology would be calling today guard to need for dialysis. Regard to the liver transplant is is on hold pending her getting stronger. I did inform her mom that this was a major setback along those lines. As already noted above the patient is full for hospice at any time. And if it is elected to withdraw care patient can certainly go inpatient hospice here at [facility]. (Pending hospice approval) Palliative-CN HPI - Data of Consult Patient: known to practice within the last 3 years Requesting Physician: Arben Hammond MD Primary Care Provider: Stephani Garcia, - Consult Narrative Palliative Care/Comfort Measures: Palliative care Reason for consult: Goals of care History of present illness: Ms. De Paz is a 53 year old female The patient is well known to the palliative care service from recent hospitalization she has end-stage liver disease as well as acute on chronic renal disease. In the last hospitalization patient was informed of hospice option and turned it down. CC: Arben Hammond MD Altered mental status, shortness of breath Past Med Surg Social Fam HX - Past Medical History Medical history: cirrhosis, CHF, COPD, diabetes, hepatitis, hypertension, myocardial infarction, seizures Psychiatric history: anxiety, depression - Past Surgical History Surgical History: - Social History Smoking Status: Current every day smoker Smokeless Tobacco Status: No Alcohol use: none Drug use: none - Family History Father Living Status: Hx Family Cardiac Disorders: Yes Hx Family Respiratory Disorders: No Hx Family Cancer: Yes Hx Family GI Disorders: No Hx Family Endocrine Disorder: No Hx Family Neuromuscular Disorders: No Hx Family Neurologic Disorders: No Hx Family HEENT Disorders: No Hx Family Autoimmune Disorders: No Mother Living Status: Still Living Hx Family Respiratory Disorders: Yes Hx Family Endocrine Disorder: Yes (diabetes) Brother Hx Family Endocrine Disorder: Yes (diabetes) Medications and Allergies Metformin HCl [Metformin HCl ER] 500 mg PO QPM 10/06/16 [History] clonazePAM [Klonopin] 0.5 mg PO BID 10/06/16 [History] Omeprazole [PriLOSEC] 40 mg PO DAILY 07/26/17 [History] Ondansetron HCl [Zofran] 4 - 8 mg PO Q8H PRN 07/26/17 [History] hydrOXYzine HCl [Hydroxyzine HCl] 50 mg PO QID 07/26/17 [History] Buspirone HCl [Buspar] 5 mg PO TID PRN 09/07/17 [History] Escitalopram [Lexapro] 20 mg PO DAILY 09/07/17 [History] Atorvastatin [Lipitor] 40 mg PO HS 02/12/18 [History] Ferrous Gluconate 240 mg PO DAILY 02/12/18 [History] Nadolol 20 mg PO DAILY 02/12/18 [History] OxyCODONE Immed Rel [Roxicodone 5 MG] 5 mg PO BID PRN 02/12/18 [History] Tizanidine HCl 4 mg PO BID PRN 02/12/18 [History] Lactose-Reduced Food [Ensure High Protein] 1 bottle PO 2-3XD 02/28/18 [History] 3 Allergy/AdvReac Type Severity Reaction Status Date / Time levofloxacin [From Levaquin] Allergy Hives Verified 03/19/18 19:06 Penicillins Allergy Rash Verified 03/19/18 19:06 Sulfa (Sulfonamide Allergy Rash Verified 03/19/18 19:06 Antibiotics) ROS unobtainable: due to mental status Palliative Care-Exam - Constitutional Vitals: Temp Pulse Resp BP Pulse Ox 97.5 F L 56 19 100/63 94 03/20/18 07:32 03/20/18 07:45 03/20/18 07:45 03/20/18 07:45 03/20/18 07:45 General appearance: Present: no acute distress (Sedated on vent) - Head Head Exam: Present: atraumatic, normal inspection - Eye Eye exam: Present: normal appearance - Respiratory Respiratory exam: Present: decreased breath sounds (Rhonchi on ventilator) - Cardiovascular Cardiovascular exam: Present: RRR - GI/Abdominal Exam GI/Abdominal exam: Present: diminished bowel sounds, soft. Absent: tenderness - Catheter Type: Urethral (Howard) - Neurological Exam Neurological exam: Present: altered (Sedated on ventilator) - Psychiatric Psychiatric exam: Absent: agitated, anxious (Sedated on ventilator) - Skin Skin exam: Present: dry, warm Internal Medicine - CN: Reslt - Labs CBC & Chem 7: 03/20/18 04:08 03/20/18 04:08 Labs: Short CBC 03/19/18 03/20/18 Range/Units 23:55 04:08 WBC 51.5 H* 51.5 H* (4.3-11.1) K/mcL Hgb 11.7 11.7 (11.5-15.4) g/dL Hct 36.9 36.4 (35.3-44.9) % Plt Count 379 397 (140-400) K/mcL Neutrophils # 39.1 H (1.6-8.9) K/mcL BMP 03/19/18 03/20/18 23:55 04:08 Sodium 135 L 134 L Potassium 5.6 H 5.6 H Chloride 103 102 Carbon Dioxide 14 L 15 L BUN 92 H 92 H Creatinine 8.48 H 8.20 H Glucose 191 H 203 H Calcium 8.7 8.7 Liver Function 03/20/18 Range/Units 04:08 Total Bilirubin 0.5 (0.3-1.0) mg/dL Direct Bilirubin 0.2 (0.0-0.2) mg/dL AST 32 (13-39) Units/L ALT 20 (7-52) Units/L Alkaline Phosphatase 192 H (34-104) Units/L Albumin 3.8 (3.5-5.7) g/dL - ABG Interpretation ABG results: ABG ABG pH 7.08 pH Units (7.32-7.45) L* 03/20/18 04:41 ABG pCO2 59 mmHg (35-45) H 03/20/18 04:41 ABG pO2 78 mmHg (85-104) L 03/20/18 04:41 ABG O2 Saturation 89 % (95-98) L 03/20/18 04:41 PT/INR, D-dimer PT 11.6 Seconds (9.4-12.1) 03/19/18 16:46 - Impressions Impressions Chest X-Ray 03/20/18 04:00 IMPRESSION: No substantial change in left lung heterogeneous airspace disease. Endotracheal tube terminates 2 cm superior to the malinda. D/ / Howie Arriaza / Howie Arriaza Interpreting Provider: Howie Arriaza Consult Discharge Plan - Plan Referrals: Stephani Garcia MD [Primary Care Provider] - Palliative Quality Palliative Quality: Screen for Code Status: Yes, Screen for Goals of Care: Yes, Screen for Pain: Yes, If Pain Regimen Started, Initiate Bowel Regimen: Yes, Screen for Nausea/Vomitting: Yes
[2018-03-20] MEDS: Chlorhexidine Rinse 15 ML MOUTHWASH MM SCH ×2 (09:22→20:37)
[2018-03-20] MEDS: Propofol 500 MG/50 ML INFUS..BTL IVC SCH ×2 (10:21→19:32)
[2018-03-20] MEDS ORDERED: Sodium Bicarbonate 150 MEQ in D5% in Water 1,000 ML IVC SCH (10:30)
--- NOTE | 2018-03-20 10:34 | Nephrology Consult Note ---
Date of Encounter: 03/20/18 Time of Encounter: 10:34 Assessment and Plan (1) BERNARDA (acute kidney injury) Current Visit: No Status: Acute Scr is 8.2 GFR is 8, worsening from baseline labs. BERNARDA is likely due to Hepatorenal failure. I will order Albumin and Midodrine. Baseline GFR is 20-25 so initially she was CKD stage 4. Patient could benefit from HD or CRRT, but family at bedside states she would not want that. Pt's mother is NOK, so we need to hear from her whether we need to place HD line. (2) Hyperkalemia Current Visit: Yes Status: Acute Continue to trend. Current K is 5.6, will monitor closely. Did receive kayexalate in ED last night, and was started on a sodium bicarb gtt. Spoke with ICU resident and asked him to change next bag of sodium bicarb to 150 meqs and to run at 60/hr. (3) Healthcare-associated pneumonia Current Visit: Yes Status: Acute At this point, it considered source of sepsis. Per primary team. (4) Sepsis Current Visit: Yes Status: Acute Per primary team. Continue to avoid nephrotoxins if able. Qualifiers: Qualified Code(s): A41.9 - Sepsis, unspecified organism History of Present Illness - Reason for Consult Consult date: 03/19/18 Acute Kidney Injury, hyperkalemia - Chief Complaint Shortness of breath - History of Present Illness Ms. De Paz is a 53 year old female that is known to the group, Dr. Leyva manages her CKD. Has had a few recent hospitalizations and when she completed outpatient labs, she was in acute renal failure. Dr. Leyva urgently called her and recommended she go to the ED on 03/18/18. She did present last night to the ED for shortness of breath. HPI is limited because of ventilator, per ER records Pertinent PMH: cirrhosis, CHF, COPD, diabetes, hepatitis, hypertension, myocardial infarction and seizures. I have reviewed the labs, medications, progress notes, imaging, and vitals for this patient. Past Med Surg Social Fam HX - Past Medical History Medical history: cirrhosis, CHF, COPD, diabetes, hepatitis, hypertension, myocardial infarction, seizures Psychiatric history: anxiety, depression - Past Surgical History Surgical History: - Social History Smoking Status: Current every day smoker Smokeless Tobacco Status: No Alcohol use: none Drug use: none - Family History Father Living Status: Hx Family Cardiac Disorders: Yes Hx Family Respiratory Disorders: No Hx Family Cancer: Yes Hx Family GI Disorders: No Hx Family Endocrine Disorder: No Hx Family Neuromuscular Disorders: No Hx Family Neurologic Disorders: No Hx Family HEENT Disorders: No Hx Family Autoimmune Disorders: No Mother Living Status: Still Living Hx Family Respiratory Disorders: Yes Hx Family Endocrine Disorder: Yes (diabetes) Brother Hx Family Endocrine Disorder: Yes (diabetes) Medications and Allergies Metformin HCl [Metformin HCl ER] 500 mg PO QPM 10/06/16 [History] clonazePAM [Klonopin] 0.5 mg PO BID 10/06/16 [History] Omeprazole [PriLOSEC] 40 mg PO DAILY 07/26/17 [History] Ondansetron HCl [Zofran] 4 - 8 mg PO Q8H PRN 07/26/17 [History] hydrOXYzine HCl [Hydroxyzine HCl] 50 mg PO QID 07/26/17 [History] Buspirone HCl [Buspar] 5 mg PO TID PRN 09/07/17 [History] Escitalopram [Lexapro] 20 mg PO DAILY 09/07/17 [History] Atorvastatin [Lipitor] 40 mg PO HS 02/12/18 [History] Ferrous Gluconate 240 mg PO DAILY 02/12/18 [History] Nadolol 20 mg PO DAILY 02/12/18 [History] OxyCODONE Immed Rel [Roxicodone 5 MG] 5 mg PO BID PRN 02/12/18 [History] Tizanidine HCl 4 mg PO BID PRN 02/12/18 [History] Lactose-Reduced Food [Ensure High Protein] 1 bottle PO 2-3XD 02/28/18 [History] 3 Allergy/AdvReac Type Severity Reaction Status Date / Time levofloxacin [From Levaquin] Allergy Hives Verified 03/19/18 19:06 Penicillins Allergy Rash Verified 03/19/18 19:06 Sulfa (Sulfonamide Allergy Rash Verified 03/19/18 19:06 Antibiotics) Review of Systems ROS unobtainable: due to endotracheal tube Exam - Vital Signs Vital signs: Initial Vital Signs Temp Pulse Resp BP Pulse Ox 100.1 F H 67 26 125/64 99 03/19/18 16:32 03/19/18 16:32 03/19/18 16:32 03/19/18 16:32 03/19/18 16:32 Vital Signs - Last 8 Hours Temp Pulse Resp BP Pulse Ox 03/20/18 09:30 55 20 88/56 93 03/20/18 09:05 16 100 03/20/18 08:40 65 19 110/68 100 03/20/18 07:45 56 19 100/63 94 03/20/18 07:37 20 93 03/20/18 07:32 97.5 F L 03/20/18 06:00 56 17 103/64 100 03/20/18 05:37 27 103/65 100 03/20/18 05:00 59 25 100/74 100 03/20/18 04:00 98.4 F 63 22 105/70 100 03/20/18 03:32 18 113/75 100 03/20/18 03:00 68 17 114/75 100 Intake and Output 03/19/18 03/20/18 03/20/18 23:59 07:59 15:59 Intake Total 0 / 1280.1 730 / 730 1070 / 1070 Output Total 150 / 150 70 / 70 Balance -150 / 1130.1 660 / 660 1070 / 1070 Intake: IV Fluids 730 / 730 1070 / 1070 Diprivan 500 mg In 50 ml @ 5 30 / 30 20 / 20 MCG/KG/MIN 1.21 mls/hr IVC . Q24H KATY Rx#:[id number] Sodium Bicarbonate 50 MEQ In 650 / 650 1050 / 1050 Dextrose 5% 1,000 ML @ 150 mls/ hr IVC .Q7H KATY Rx#:[id number] Magnesium Sulfate Premix 2gm/ 50 / 50 50mL 2 gm In 50 ml @ 50 mls/hr IVPB Q6H PRN Rx#:[id number] Oral 0 / 0 0 / 0 Output: Catheter 150 / 150 70 / 70 Other: Weight 39.9 kg Blood Glucose* 169 207 - General Appearance General appearance: cachectic, chronically ill, sedated on ventilator (sedated with Propofol. ), intubated, frail EENT: ATNC, mucous membranes dry Neck: no JVD Respiratory: clear Cardiology: no edema, normal S1, normal S2 Gastrointestinal: hypoactive bowel sounds, no tenderness, no guarding, obese, distended Integumentary: no rash, warm and dry Neurologic: no asterixis Additional Comments: Sedated on Propofol. Results - Lab Results 03/20/18 04:08 03/20/18 04:08 Most recent lab results ABG pH 7.08 pH Units (7.32-7.45) L* 03/20/18 04:41 ABG pCO2 59 mmHg (35-45) H 03/20/18 04:41 ABG pO2 78 mmHg (85-104) L 03/20/18 04:41 ABG HCO3 18 mEq/L (21-27) L 03/20/18 04:41 ABG O2 Saturation 89 % (95-98) L 03/20/18 04:41 Calcium 8.7 mg/dL (8.6-10.3) 03/20/18 04:08 Phosphorus 11.1 mg/dL (2.7-4.5) H 03/20/18 04:08 Magnesium 1.6 mg/dL (1.6-2.6) 03/20/18 04:08 Consult Discharge Plan - Plan Referrals: Stephani Garica MD [Primary Care Provider] -
[2018-03-20] MEDS: Ipratropium/Albuterol Neb 3 ML IH SCH ×4 (11:43→23:32)
[2018-03-20] MEDS ORDERED: Albumin 25% 25gram/100mL 25 GM/100 ML IV.SOLN IVPB SCH (13:15)
[2018-03-20] MEDS: Cefepime HCl 1,000 MG in Water for inj. (sterile) 20 ML 10 ML IVPB SCH (17:12)
--- NOTE | 2018-03-20 17:45 | Event Note ---
Date of Encounter: 03/20/18 Time of Encounter: 10:45 Family Meeting I met with the POA, the pt's mother, who I know as she has brought the pt to most of her prior CKD outpt appt's over the last year +. I sat with her, the sisters and brothers and the pt's son. I reviewed that she has worsened renal failure, multi-organ dysfunction and has a poor prognosis d/t the HRS. Options included aggressive interventions with placement of a temporary HD catheter and to start ASSOCIATE DEAN such as Sherrie. Pt had told the mother, sister and brother that she would not have wanted to have "another central line" ever placed. The pt's mother/POA asked all the siblings their input and agreed to hold off on HD and proceed with a comfortable approach. I spent about 34 min with the family.
[2018-03-20 19:50] LABS: Calcium 8.7 mg/dL (8.6-10.3); Potassium 5.1 mEq/L (3.5-5.1)
[2018-03-20] MEDS ORDERED: Vancomycin 500 MG in 0.9 % Sodium Chloride Mini Bag 100 ML IVPB ONE (20:30)
[2018-03-20] MEDS: Lactulose Oral Soln 20 GM/30 ML UDC PO SCH (20:37)
[2018-03-20 21:04] LABS: Nucleated Red Blood Cells 0.1 /100 WBC (0); Red Blood Count 4.26 M/mcL (3.82-4.97)
[2018-03-20 21:05] LABS: Basophils # 0.1 K/mcL (0.0-0.2); Basophils % 0.3 %; Hematocrit 34.2 % (35.3-44.9); Hemoglobin 11.8 g/dL (11.5-15.4); Immature Granulocytes % 1.6 % (0-4); Lymphocytes # 1.3 K/mcL (0.6-4.6); Lymphocytes % 3.2 %; Mean Corpuscular HGB Conc 34.5 g/dL (31.6-35.5); Mean Corpuscular Hemoglobin 27.7 pg (28.0-33.3); Mean Corpuscular Volume 80.3 fL (83.0-100.0); Mean Platelet Volume 11.1 fL (9.4-12.4); Monocytes # 1.2 K/mcL (0.0-1.3); Platelet Count 251 K/mcL (140-400); Segmented Neutrophils % 91.9 %
[2018-03-21] MEDS: Insulin LISPRO 300 UNITS/3 ML VIAL SQ SCH ×4 (00:45→19:03)
[2018-03-21] MEDS: Lacri-Lube 3.5 GM TUBE BOTH EYES SCH ×6 (00:45→21:06)
[2018-03-21] MEDS: Ipratropium/Albuterol Neb 3 ML IH SCH ×6 (03:45→23:30)
[2018-03-21 04:12] LABS: Hemoglobin 11.2 g/dL (11.5-15.4); Immature Platelets 4.5 % (1.1-6.1); Mean Corpuscular HGB Conc 33.9 g/dL (31.6-35.5); Mean Corpuscular Hemoglobin 27.9 pg (28.0-33.3); Mean Corpuscular Volume 82.3 fL (83.0-100.0); Mean Platelet Volume 10.9 fL (9.4-12.4); Nucleated Red Blood Cells 0.1 /100 WBC (0); Platelet Count 261 K/mcL (140-400); Red Blood Count 4.01 M/mcL (3.82-4.97); Red Cell Distribution Width 15.1 % (11.5-14.5)
[2018-03-21 04:26] LABS: Calcium 8.7 mg/dL (8.6-10.3); Potassium 4.7 mEq/L (3.5-5.1)
[2018-03-21 05:19] LABS: ABG Base Excess -8 mEq/L (-2 to 3); ABG HCO3 16 mEq/L (21-27); ABG Oxygen Saturation 96 % (95-98); ABG PCO2 28 mmHg (35-45); ABG PH 7.37 pH Units (7.32-7.45); ABG PO2 83 mmHg (85-104); ABG TCO2 17 mEq/L (20-26); Blood Gas Modality ASSIST CONTROL; Blood Gas PEEP 5 cm H2O; Blood Gas Respiration Rate 16; Blood Gas VT 420 cc
[2018-03-21 05:39] LABS: Platelet Estimate Normal (Normal)
[2018-03-21 05:41] LABS: Lymphocytes # 1.7 K/mcL (0.6-4.6); Monocytes # 2.5 K/mcL (0.0-1.3); Neutrophils # 36.3 K/mcL (1.6-8.9)
[2018-03-21] MEDS: Famotidine 20 MG/2 ML VIAL IVP SCH (06:20)
[2018-03-21] MEDS: *HR* Heparin 5,000 UNIT/ML VIAL SQ SCH ×2 (06:20→19:08)
[2018-03-21] MEDS ORDERED: Aminoglycoside Consult 1 EACH MC ONE (07:03)
--- NOTE | 2018-03-21 07:47 | Palliative Progress Note ---
Date of Encounter: 03/21/18 Time of Encounter: 07:30 - Assessment and plan (1) Acute hepatic encephalopathy Current Visit: No Status: Acute Assessment and plan: Labs are much better today. The metabolic acidosis is really improved. In the function continues to be extremely poor however the patient does seem to be responding to conservative therapy. (2) BERNARDA (acute kidney injury) Current Visit: No Status: Acute Assessment and plan: The patient does not wish to have any dialysis. Any function is stable to slightly worse. In output approximately 320 mL for the day yesterday. (3) Metabolic acidosis Current Visit: No Status: Acute Assessment and plan: This is turned around quite well with the carb drip the patient was on. (4) Goals of care, counseling/discussion Current Visit: No Status: Acute Assessment and plan: Patient is currently DNR CCA and the family no dialysis. Is tolerating CPAP fairly well at this point in time and the plan per the ICU team is to plan on extubation and its medically appropriate. They do wish to understand what the plan is going to be with regard to the tube going back in or not. I will attempt to discuss with the family although the family deep-seated objection to hospice care as there has been some friend in the past fared poorly with hospice care, and the family's perception. Will attempt to discuss her we go after extubation. I have expressed to the ICU team with the family will discuss with me and we will continue to coordinate care if they wish I will sign off the case. - Time Spent With Patient Total time spent is greater than 50% in coordination of care (as documented) at patient's floor/unit and/or counseling patient: - Subjective Interval history: Events of yesterday noted. Per nephrology patient has elected no dialysis. Her nursing staff after the meeting family wish to keep her intubated as the patient had desired short-term intubation. The patient is tolerating CPAP well plan per ICU is to try to extubate in a normal fashion wish to know with post extubation plans are. Per nursing staff conversation after the meeting they discussed with the family whether or not they would like to have palliative combined to discuss care type options. Family opined that palliative care only pushed hospice and hospice kills people. I had discussed his case at fair length yesterday morning around 922 9:30 in the morning and had gotten no sense of that at all. - Constitutional Vitals: Abnormal lab results WBC 41.3 K/mcL (4.3-11.1) H* 03/21/18 03:46 Hgb 11.2 g/dL (11.5-15.4) L 03/21/18 03:46 Hct 33.0 % (35.3-44.9) L 03/21/18 03:46 MCV 82.3 fL (83.0-100.0) L 03/21/18 03:46 MCH 27.9 pg (28.0-33.3) L 03/21/18 03:46 RDW 15.1 % (11.5-14.5) H 03/21/18 03:46 Band Neutrophils % 18.0 % (0-4) H 03/21/18 03:46 Metamyelocytes % 2.0 % (0) H 03/21/18 03:46 Neutrophils # 36.3 K/mcL (1.6-8.9) H 03/21/18 03:46 Monocytes # 2.5 K/mcL (0.0-1.3) H 03/21/18 03:46 Nucleated RBCs/100 WBC 0.1 /100 WBC (0) H 03/21/18 03:46 Anisocytosis 1+ (Not Present) A 03/19/18 23:55 Microcytosis Present (Not Present) A 03/19/18 23:55 Macrocytosis Present (Not Present) A 03/19/18 23:55 ABG pCO2 28 mmHg (35-45) L 03/21/18 05:16 ABG pO2 83 mmHg (85-104) L 03/21/18 05:16 ABG HCO3 16 mEq/L (21-27) L 03/21/18 05:16 ABG Total CO2 17 mEq/L (20-26) L 03/21/18 05:16 ABG Base Excess -8 mEq/L (-2 to 3) L 03/21/18 05:16 Sodium 133 mEq/L (136-145) L 03/21/18 03:46 Chloride 97 mEq/L (98-107) L 03/21/18 03:46 Carbon Dioxide 16 mEq/L (23-29) L 03/21/18 03:46 BUN 91 mg/dL (6-20) H 03/21/18 03:46 Creatinine 7.52 mg/dL (0.60-1.20) H 03/21/18 03:46 Est GFR ( Amer) 7 (> 60) L 03/21/18 03:46 Est GFR (Non-Af Amer) 6 (> 60) L 03/21/18 03:46 Calculated Osmolality 304 (280-300) H 03/21/18 03:46 Venous Ioniz Calcium 0.99 mmol/L (1.15-1.35) L 03/20/18 04:39 Phosphorus 11.1 mg/dL (2.7-4.5) H 03/20/18 04:08 Alkaline Phosphatase 192 Units/L (34-104) H 03/20/18 04:08 Ammonia 86 mcmol/L (16-53) H 03/19/18 22:42 Ur Squamous Epith Cells Many per lpf (None-Few) H 03/19/18 18:15 General appearance: Present: no acute distress (On CPAP) - Respiratory Respiratory exam: Present: decreased breath sounds - Cardiovascular Cardiovascular exam: Present: RRR - GI/Abdominal GI/Abdominal exam: Present: diminished bowel sounds, soft. Absent: tenderness - Extremities Exam Extremities exam: Present: normal inspection. Absent: pedal edema, tenderness - Neurological Exam Neurological exam: Present: altered (Does awaken to voice) - Psychiatric Psychiatric exam: Absent: agitated, anxious - Skin Skin exam: Present: dry, warm Palliative Quality Palliative Quality: Screen for Code Status: Yes, Screen for Goals of Care: Yes, Screen for Pain: Yes, If Pain Regimen Started, Initiate Bowel Regimen: Yes, Screen for Nausea/Vomitting: Yes - Labs CBC & Chem 7: 03/21/18 03:46 03/21/18 03:46 Labs: Laboratory Results - last 24 hr 03/20/18 03/20/18 03/20/18 05:46 11:49 17:14 WBC RBC Hgb Hct MCV MCH MCHC RDW Plt Count MPV Immature Gran % Seg Neutrophils % Band Neutrophils % Lymphocytes % Monocytes % Eosinophils % Basophils % Metamyelocytes % Neutrophils # Lymphocytes # Monocytes # Eosinophils # Basophils # Nucleated RBCs/100 WBC Platelet Estimate Immature Plt Fraction Sample Site ABG pH ABG pCO2 ABG pO2 ABG HCO3 ABG Total CO2 ABG O2 Saturation ABG Base Excess Davide Test Respiration Rate O2 Delivery Device Blood Gas Modality Inspired O2 Tidal Volume PEEP Sodium Potassium Chloride Carbon Dioxide BUN Creatinine Est GFR ( Amer) Est GFR (Non-Af Amer) BUN/Creatinine Ratio Glucose POC Glucose 207 H 184 H 61 L Calculated Osmolality Calcium Random Vancomycin Specimen Rejected 03/20/18 03/20/18 03/20/18 18:43 18:47 18:47 WBC RBC Hgb Hct MCV MCH MCHC RDW Plt Count MPV Immature Gran % Seg Neutrophils % Band Neutrophils % Lymphocytes % Monocytes % Eosinophils % Basophils % Metamyelocytes % Neutrophils # Lymphocytes # Monocytes # Eosinophils # Basophils # Nucleated RBCs/100 WBC Platelet Estimate Immature Plt Fraction Sample Site ABG pH ABG pCO2 ABG pO2 ABG HCO3 ABG Total CO2 ABG O2 Saturation ABG Base Excess Davide Test Respiration Rate O2 Delivery Device Blood Gas Modality Inspired O2 Tidal Volume PEEP Sodium 135 L Potassium 5.1 Chloride 99 Carbon Dioxide 17 L BUN 89 H Creatinine 7.57 H Est GFR ( Amer) 7 L Est GFR (Non-Af Amer) 6 L BUN/Creatinine Ratio 12 Glucose 89 POC Glucose 103 H Calculated Osmolality 307 H Calcium 8.7 Random Vancomycin 11 Specimen Rejected 03/20/18 03/20/18 03/21/18 20:04 20:34 00:10 WBC 41.3 H* RBC 4.26 Hgb 11.8 Hct 34.2 L MCV 80.3 L D MCH 27.7 L MCHC 34.5 RDW 15.0 H Plt Count 251 MPV 11.1 Immature Gran % 1.6 Seg Neutrophils % 91.9 Band Neutrophils % Lymphocytes % 3.2 Monocytes % 3.0 Eosinophils % 0.0 Basophils % 0.3 Metamyelocytes % Neutrophils # 38.0 H Lymphocytes # 1.3 Monocytes # 1.2 Eosinophils # 0.0 Basophils # 0.1 Nucleated RBCs/100 WBC 0.1 H Platelet Estimate Immature Plt Fraction Sample Site ABG pH ABG pCO2 ABG pO2 ABG HCO3 ABG Total CO2 ABG O2 Saturation ABG Base Excess Davide Test Respiration Rate O2 Delivery Device Blood Gas Modality Inspired O2 Tidal Volume PEEP Sodium Potassium Chloride Carbon Dioxide BUN Creatinine Est GFR ( Amer) Est GFR (Non-Af Amer) BUN/Creatinine Ratio Glucose POC Glucose 98 Calculated Osmolality Calcium Random Vancomycin Specimen Rejected MCV Delta 03/21/18 03/21/18 03/21/18 03:46 03:46 05:16 WBC 41.3 H* RBC 4.01 Hgb 11.2 L Hct 33.0 L MCV 82.3 L MCH 27.9 L MCHC 33.9 RDW 15.1 H Plt Count 261 MPV 10.9 Immature Gran % Seg Neutrophils % 70.0 Band Neutrophils % 18.0 H Lymphocytes % 4.0 Monocytes % 6.0 Eosinophils % Basophils % Metamyelocytes % 2.0 H Neutrophils # 36.3 H Lymphocytes # 1.7 Monocytes # 2.5 H Eosinophils # Basophils # Nucleated RBCs/100 WBC 0.1 H Platelet Estimate Normal Immature Plt Fraction 4.5 Sample Site R Brach ABG pH 7.37 ABG pCO2 28 L ABG pO2 83 L ABG HCO3 16 L ABG Total CO2 17 L ABG O2 Saturation 96 ABG Base Excess -8 L Davide Test N/A Respiration Rate 16 O2 Delivery Device Adult Vent Blood Gas Modality ASSIST CONTROL Inspired O2 50.0 Tidal Volume 420 PEEP 5 Sodium 133 L Potassium 4.7 Chloride 97 L Carbon Dioxide 16 L BUN 91 H Creatinine 7.52 H Est GFR ( Amer) 7 L Est GFR (Non-Af Amer) 6 L BUN/Creatinine Ratio 12 Glucose 94 POC Glucose Calculated Osmolality 304 H Calcium 8.7 Random Vancomycin Specimen Rejected - ABG Interpretation ABG results: ABG ABG pH 7.37 pH Units (7.32-7.45) 03/21/18 05:16 ABG pCO2 28 mmHg (35-45) L 03/21/18 05:16 ABG pO2 83 mmHg (85-104) L 03/21/18 05:16 ABG O2 Saturation 96 % (95-98) 03/21/18 05:16 PT/INR, D-dimer PT 11.6 Seconds (9.4-12.1) 03/19/18 16:46 Consult Discharge Plan - Plan Referrals: Stephani Garcia MD [Primary Care Provider] -
--- NOTE | 2018-03-21 08:40 | Pulmonology Progress Note ---
<Mike Echevarria M - Last Filed: 03/21/18 16:17> Date of Encounter: 03/21/18 Assessment and Plan (1) Acute respiratory failure with hypoxia Current Visit: Yes Status: Acute Objective PUL Vital signs: Last Vital Signs Temp 98.4 F 03/21/18 08:00 Pulse 62 03/21/18 11:00 Resp 16 03/21/18 11:00 BP 89/57 03/21/18 11:00 Pulse Ox 98 03/21/18 11:00 Ventilator Settings Ventilator Settings: Ventilator Settings, Last 8 Hours Ventilator Mode VC+ Ventilator Mode CPAP Ventilator Mode VC+ Ventilator Mode VC+ Ventilator Mode VC+ Ventilator Mode VC+ Ventilator Mode VC+ Ventilator Tidal Volume 420 Setting Ventilator Tidal Volume 420 Setting Ventilator Tidal Volume 420 Setting Ventilator Tidal Volume 420 Setting Ventilator Tidal Volume 420 Setting Ventilator Tidal Volume 420 Setting Ventilator Respiratory Rate 16 Setting Ventilator Respiratory Rate 16 Setting Ventilator Respiratory Rate 16 Setting Ventilator Respiratory Rate 16 Setting Ventilator Respiratory Rate 16 Setting Ventilator Respiratory Rate 16 Setting Actual Respiratory Rate 17 Actual Respiratory Rate 17 Actual Respiratory Rate 18 Actual Respiratory Rate 18 Actual Respiratory Rate 18 Actual Respiratory Rate 18 Positive End Expiratory 5 Pressure Positive End Expiratory 5 Pressure Positive End Expiratory 5 Pressure Positive End Expiratory 5 Pressure Positive End Expiratory 5 Pressure Positive End Expiratory 5 Pressure Peak Inspiratory Airway 11 Pressure Peak Inspiratory Airway 11 Pressure Peak Inspiratory Airway 11 Pressure Peak Inspiratory Airway 11 Pressure Peak Inspiratory Airway 11 Pressure Peak Inspiratory Airway 11 Pressure Results - Laboratory Findings CBC and BMP: 03/21/18 03:46 03/21/18 03:46 ABG ABG pH 7.37 pH Units (7.32-7.45) 03/21/18 05:16 ABG pCO2 28 mmHg (35-45) L 03/21/18 05:16 ABG pO2 83 mmHg (85-104) L 03/21/18 05:16 ABG O2 Saturation 96 % (95-98) 03/21/18 05:16 PT/INR, D-dimer PT 11.6 Seconds (9.4-12.1) 03/19/18 16:46 Abnormal lab findings: Abnormal lab results WBC 41.3 K/mcL (4.3-11.1) H* 03/21/18 03:46 Hgb 11.2 g/dL (11.5-15.4) L 03/21/18 03:46 Hct 33.0 % (35.3-44.9) L 03/21/18 03:46 MCV 82.3 fL (83.0-100.0) L 03/21/18 03:46 MCH 27.9 pg (28.0-33.3) L 03/21/18 03:46 RDW 15.1 % (11.5-14.5) H 03/21/18 03:46 Band Neutrophils % 18.0 % (0-4) H 03/21/18 03:46 Metamyelocytes % 2.0 % (0) H 03/21/18 03:46 Neutrophils # 36.3 K/mcL (1.6-8.9) H 03/21/18 03:46 Monocytes # 2.5 K/mcL (0.0-1.3) H 03/21/18 03:46 Nucleated RBCs/100 WBC 0.1 /100 WBC (0) H 03/21/18 03:46 Anisocytosis 1+ (Not Present) A 03/19/18 23:55 Microcytosis Present (Not Present) A 03/19/18 23:55 Macrocytosis Present (Not Present) A 03/19/18 23:55 ABG pCO2 28 mmHg (35-45) L 03/21/18 05:16 ABG pO2 83 mmHg (85-104) L 03/21/18 05:16 ABG HCO3 16 mEq/L (21-27) L 03/21/18 05:16 ABG Total CO2 17 mEq/L (20-26) L 03/21/18 05:16 ABG Base Excess -8 mEq/L (-2 to 3) L 03/21/18 05:16 Sodium 133 mEq/L (136-145) L 03/21/18 03:46 Chloride 97 mEq/L (98-107) L 03/21/18 03:46 Carbon Dioxide 16 mEq/L (23-29) L 03/21/18 03:46 BUN 91 mg/dL (6-20) H 03/21/18 03:46 Creatinine 7.52 mg/dL (0.60-1.20) H 03/21/18 03:46 Est GFR ( Amer) 7 (> 60) L 03/21/18 03:46 Est GFR (Non-Af Amer) 6 (> 60) L 03/21/18 03:46 Calculated Osmolality 304 (280-300) H 03/21/18 03:46 Venous Ioniz Calcium 0.99 mmol/L (1.15-1.35) L 03/20/18 04:39 Phosphorus 11.1 mg/dL (2.7-4.5) H 03/20/18 04:08 Alkaline Phosphatase 192 Units/L (34-104) H 03/20/18 04:08 Ammonia 86 mcmol/L (16-53) H 03/19/18 22:42 Ur Squamous Epith Cells Many per lpf (None-Few) H 03/19/18 18:15 - Microbiology Findings Microbiology Findings: Microbiology, Last 48 Hours 03/20/18 01:33 Legionella Antigen - Final Urine,Catheterized Streptococcus pneumoniae Antigen (M - Final - Clinical Findings Intake & Output: Intake & Output 03/20/18 03/21/18 03/21/18 23:59 07:59 15:59 Intake Total 60 / 60 47 / 47 Output Total 150 / 150 75 / 75 Balance -90 / -90 -28 / -28 Weight 42.9 kg Consult Discharge Plan - Plan Referrals: Stephani Garcia MD [Primary Care Provider] - - Attending Attestation I examined this patient and my medical decision-making was reviewed with the Resident Physician. I agree with the documented findings, disposition and treatment plan as described except to the extent set forth below. Patient seen and examined. Labs, radiology, chart personally reviewed. Agree with resident's history and physical, assessment, plan with following comments: FORMULATION CHEMIST: Patient follows simple commands, however she is lethargic Pulmonary: Acceptable oxygenation and ventilation. Patient is tolerating spontaneous breathing trials and discussed with palliative care service regarding line after extubation. Patient has extremely poor prognosis. I will not recommend reintubation. Cardiovascular: Patient blood pressure relatively in the low side and map of 60 mmHg is acceptable. GI: Nutrition per dietary and GI prophylaxis per routine Heme: Mechanical DVT prophylaxis Renal; urine out put and renal funtion reviewed Endorcine: blood glucose is monitored Lines: all lines checked and no evidence of infections Skin: skin care to prevent pressure ulcers per nursing routine care <Dom Marie - Last Filed: 03/21/18 18:46> Date of Encounter: 03/21/18 Time of Encounter: 08:38 Assessment and Plan (1) Healthcare-associated pneumonia Current Visit: Yes Status: Acute The patient was most recently admitted for therefore meeting HCAP criteria CXR on 03/19/18: Interval development of patchy alveolar densities L parahilar lung concerning for PNA - White count remains elevated at 41.3 - Blood cultures are pending ABGs: - 7.23/27/58/11/ - 7.08/59/78// - 7.37//83// Plan: - Cefepime 1000 mg IV every 24 hours - DuoNeb 3 mL inhaled every 4 scheduled - Albuterol inhaler 2 puffs inhaled every 2 when necessary (2) Toxic metabolic encephalopathy Current Visit: Yes Status: Acute Encephalopathy which is likely multifactorial from cirrhosis, uremia and metabolic acidosis - Intubated for AMS - Elevated ammonia level, plan to administer lactulose - Currently sedated on propofol - Uremic encephalopathy secondary to renal failure - Nephrology consulted; initial plan was to start dialysis. Patients family refuses - Palliative is on board; would appreciate recommendations (3) Hyperkalemia Current Visit: Yes Status: Acute - Patient initially presented with an elevated potassium level - Has since resolved - Nephrology on board (4) Leukocytosis Current Visit: No Status: Acute - Patients white count continues to be elevated at 41.3 - In the setting of healthcare associated pneumonia - Continue IV antibiotics - Nan CBC Qualifiers: Leukocytosis type: unspecified Qualified Code(s): D72.829 - Elevated white blood cell count, unspecified (5) Renal failure Current Visit: No Status: Acute - Presented with BUN of 91 and serum creatinine of 8.48. - Patient previously evaluated by nephrology, poor candidate for dialysis given her cirrhosis. - Resenting hyperkalemia was treated with a bicarbonate infusion - Nephrology was consulted - Patients family does not want dialysis; palliative care is onboard Qualifiers: Renal failure chronicity: acute Acute renal failure type: unspecified Qualified Code(s): N17.9 - Acute kidney failure, unspecified (6) Diabetes Current Visit: No Status: Chronic - Sliding scale insulin, low-dose corrective schedule Qualifiers: Diabetes mellitus type: type 2 Diabetes mellitus longterm insulin use: without longterm use Diabetes mellitus complication status: with kidney complications Diabetes mellitus complication detail: with chronic kidney disease Chronic kidney disease stage: unspecified stage Qualified Code(s): E11.22 - Type 2 diabetes mellitus with diabetic chronic kidney disease (7) DVT prophylaxis Current Visit: No Status: Acute - Heparin 5000 units subcutaneous every 12 hours Subjective Principal diagnosis: Healthcare associated pneumonia Interval history: Patient was seen and examined at bedside this morning. Currently intubated and sedated. Per palliative, patient is currently DNR CCA and family does not want dialysis. She is tolerating CPAP well. Plan is to extubate when medically appropriate. Objective PUL Vital signs: Last Vital Signs Temp 98.4 F 03/21/18 08:00 Pulse 65 03/21/18 08:00 Resp 17 03/21/18 08:02 BP 86/57 03/21/18 08:02 Pulse Ox 96 03/21/18 08:02 General appearance: no acute distress, asleep Neck: supple Effort: normal Auscultation: bilateral: diminished breath sounds Cardiovascular: regular rate and rhythm Integumentary: normal Ventilator Settings Ventilator Settings: Ventilator Settings, Last 8 Hours Ventilator Mode VC+ Ventilator Mode CPAP Ventilator Mode VC+ Ventilator Mode VC+ Ventilator Mode VC+ Ventilator Mode VC+ Ventilator Mode VC+ Ventilator Mode VC+ Ventilator Mode VC+ Ventilator Mode VC+ Ventilator Mode VC+ Ventilator Mode VC+ Ventilator Tidal Volume 420 Setting Ventilator Tidal Volume 420 Setting Ventilator Tidal Volume 420 Setting Ventilator Tidal Volume 420 Setting Ventilator Tidal Volume 420 Setting Ventilator Tidal Volume 420 Setting Ventilator Tidal Volume 420 Setting Ventilator Tidal Volume 420 Setting Ventilator Tidal Volume 420 Setting Ventilator Tidal Volume 420 Setting Ventilator Tidal Volume 420 Setting Ventilator Respiratory Rate 16 Setting Ventilator Respiratory Rate 16 Setting Ventilator Respiratory Rate 16 Setting Ventilator Respiratory Rate 16 Setting Ventilator Respiratory Rate 16 Setting Ventilator Respiratory Rate 16 Setting Ventilator Respiratory Rate 16 Setting Ventilator Respiratory Rate 16 Setting Ventilator Respiratory Rate 16 Setting Ventilator Respiratory Rate 16 Setting Ventilator Respiratory Rate 16 Setting Actual Respiratory Rate 17 Actual Respiratory Rate 17 Actual Respiratory Rate 18 Actual Respiratory Rate 18 Actual Respiratory Rate 18 Actual Respiratory Rate 18 Actual Respiratory Rate 19 Actual Respiratory Rate 22 Actual Respiratory Rate 22 Actual Respiratory Rate 24 Actual Respiratory Rate 23 Positive End Expiratory 5 Pressure Positive End Expiratory 5 Pressure Positive End Expiratory 5 Pressure Positive End Expiratory 5 Pressure Positive End Expiratory 5 Pressure Positive End Expiratory 5 Pressure Positive End Expiratory 5 Pressure Positive End Expiratory 5 Pressure Positive End Expiratory 5 Pressure Positive End Expiratory 5 Pressure Positive End Expiratory 5 Pressure Peak Inspiratory Airway 11 Pressure Peak Inspiratory Airway 11 Pressure Peak Inspiratory Airway 11 Pressure Peak Inspiratory Airway 11 Pressure Peak Inspiratory Airway 11 Pressure Peak Inspiratory Airway 11 Pressure Peak Inspiratory Airway 13 Pressure Peak Inspiratory Airway 14 Pressure Peak Inspiratory Airway 13 Pressure Peak Inspiratory Airway 12 Pressure Peak Inspiratory Airway 12 Pressure Results - Laboratory Findings CBC and BMP: 03/21/18 03:46 03/21/18 03:46 ABG ABG pH 7.37 pH Units (7.32-7.45) 03/21/18 05:16 ABG pCO2 28 mmHg (35-45) L 03/21/18 05:16 ABG pO2 83 mmHg (85-104) L 03/21/18 05:16 ABG O2 Saturation 96 % (95-98) 03/21/18 05:16 PT/INR, D-dimer PT 11.6 Seconds (9.4-12.1) 03/19/18 16:46 Abnormal lab findings: Abnormal lab results WBC 41.3 K/mcL (4.3-11.1) H* 03/21/18 03:46 Hgb 11.2 g/dL (11.5-15.4) L 03/21/18 03:46 Hct 33.0 % (35.3-44.9) L 03/21/18 03:46 MCV 82.3 fL (83.0-100.0) L 03/21/18 03:46 MCH 27.9 pg (28.0-33.3) L 03/21/18 03:46 RDW 15.1 % (11.5-14.5) H 03/21/18 03:46 Band Neutrophils % 18.0 % (0-4) H 03/21/18 03:46 Metamyelocytes % 2.0 % (0) H 03/21/18 03:46 Neutrophils # 36.3 K/mcL (1.6-8.9) H 03/21/18 03:46 Monocytes # 2.5 K/mcL (0.0-1.3) H 03/21/18 03:46 Nucleated RBCs/100 WBC 0.1 /100 WBC (0) H 03/21/18 03:46 Anisocytosis 1+ (Not Present) A 03/19/18 23:55 Microcytosis Present (Not Present) A 03/19/18 23:55 Macrocytosis Present (Not Present) A 03/19/18 23:55 ABG pCO2 28 mmHg (35-45) L 03/21/18 05:16 ABG pO2 83 mmHg (85-104) L 03/21/18 05:16 ABG HCO3 16 mEq/L (21-27) L 03/21/18 05:16 ABG Total CO2 17 mEq/L (20-26) L 03/21/18 05:16 ABG Base Excess -8 mEq/L (-2 to 3) L 03/21/18 05:16 Sodium 133 mEq/L (136-145) L 03/21/18 03:46 Chloride 97 mEq/L (98-107) L 03/21/18 03:46 Carbon Dioxide 16 mEq/L (23-29) L 03/21/18 03:46 BUN 91 mg/dL (6-20) H 03/21/18 03:46 Creatinine 7.52 mg/dL (0.60-1.20) H 03/21/18 03:46 Est GFR ( Amer) 7 (> 60) L 03/21/18 03:46 Est GFR (Non-Af Amer) 6 (> 60) L 03/21/18 03:46 Calculated Osmolality 304 (280-300) H 03/21/18 03:46 Venous Ioniz Calcium 0.99 mmol/L (1.15-1.35) L 03/20/18 04:39 Phosphorus 11.1 mg/dL (2.7-4.5) H 03/20/18 04:08 Alkaline Phosphatase 192 Units/L (34-104) H 03/20/18 04:08 Ammonia 86 mcmol/L (16-53) H 03/19/18 22:42 Ur Squamous Epith Cells Many per lpf (None-Few) H 03/19/18 18:15 - Microbiology Findings Microbiology Findings: Microbiology, Last 48 Hours 03/20/18 01:33 Legionella Antigen - Final Urine,Catheterized Streptococcus pneumoniae Antigen (M - Final - Clinical Findings Intake & Output: Intake & Output 03/20/18 03/21/18 03/21/18 23:59 07:59 15:59 Intake Total 60 / 60 47 / 47 Output Total 150 / 150 75 / 75 Balance -90 / -90 - / -28 Weight 42.9 kg
[2018-03-21] MEDS: Chlorhexidine Rinse 15 ML MOUTHWASH MM SCH ×2 (08:43→21:06)
[2018-03-21] MEDS: Lactulose Oral Soln 20 GM/30 ML UDC PO SCH ×2 (08:43→21:06)
--- NOTE | 2018-03-21 09:45 | Event Note ---
Date of Encounter: 03/21/18 Time of Encounter: 07:20 Called, and spoke with patient's mother her medical power of figure model area gave her a update on the patient's status. That the metabolic acidosis was much improved, and that she was tolerating CPAP at this time. I also informed her that the plan was for extubation when medically appropriate per the ICU team possibly as early as today or tomorrow if the patient continues to tolerate CPAP well. I did tell her that the ICU team would need to know if the patient would wish to have the tube replaced or not. If so, this would be the end of the short-term intubation and will require trach and PEG. He described this to the mom, and she will discuss with her family as to what she believes her daughter would want. Obviously, after extubation the patient may be able to weigh in on this hour ever with the metabolic encephalopathy that preceded the intubation have to plan on discussion with family. Of note, despite the comments made yesterday about not wishing to discuss things with palliative due to problems in the past with hospice I encountered no difficulty with this conversation.I did make it clear to the mom I was available to come over and discuss with them if they wished in the intensive care unit.
--- NOTE | 2018-03-21 09:48 | Nephrology Progress Note ---
Date of Encounter: 03/21/18 Time of Encounter: 09:45 - Assessment and Plan (1) BERNARDA (acute kidney injury) Current Visit: No Status: Acute Per meeting with family and Dr. 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 Sodium bicarb, Albumin were d/evan yesterday to avoid more fluid overload, which were recommended for acidosis and HRS. (2) Hyperkalemia Current Visit: Yes Status: Acute Has resolved. (3) Healthcare-associated pneumonia Current Visit: Yes Status: Acute Continue per ICU team. Agree on palliative and primary team to continue to work on code status and determine if patient does get extubated, will they reintubate? Avoid nephrotoxins if able. (4) Sepsis Current Visit: Yes Status: Acute Qualifiers: Qualified Code(s): A41.9 - Sepsis, unspecified organism Subjective Principal diagnosis: Healthcare associated pneumonia Interval history: Patient seen and examined in ICU. Family at bedside. Objective - Vital Signs Vital signs: Vital Signs Temp Pulse Resp BP Pulse Ox 03/21/18 09:00 64 17 86/56 96 03/21/18 08:02 17 86/57 96 03/21/18 08:00 98.4 F 65 17 86/54 96 03/21/18 07:00 64 17 89/58 96 03/21/18 06:00 63 18 83/53 98 03/21/18 05:19 18 98 03/21/18 05:00 64 18 75/49 99 03/21/18 04:30 68 18 97/64 96 03/21/18 04:00 68 03/21/18 03:47 22 78/54 94 03/21/18 03:32 66 24 78/54 95 03/21/18 03:28 98.7 F 03/21/18 02:00 73 22 84/53 90 03/21/18 01:22 26 90/56 90 03/21/18 01:00 71 23 90/56 91 03/21/18 00:18 98.9 F 03/21/18 00:00 67 23 89/55 93 03/20/18 23:34 26 91/56 90 03/20/18 23:00 68 25 86/60 91 03/20/18 22:00 68 24 100/58 91 03/20/18 21:27 23 98/60 91 03/20/18 21:00 67 28 98/60 92 03/20/18 20:30 69 03/20/18 20:00 65 23 105/64 93 03/20/18 19:53 20 94/59 91 03/20/18 19:36 97.0 F L 03/20/18 19:30 61 21 94/59 93 03/20/18 18:30 63 21 90/49 96 03/20/18 17:30 60 20 89/53 97 03/20/18 17:03 20 94 03/20/18 16:58 99.5 F 03/20/18 16:30 61 18 94/65 97 03/20/18 16:10 19 94 03/20/18 15:30 61 21 98/57 94 03/20/18 14:30 59 22 100/59 94 03/20/18 13:44 20 95 03/20/18 13:30 57 19 88/62 94 03/20/18 12:30 58 17 85/53 95 03/20/18 12:08 97.0 F L 03/20/18 11:43 21 94 03/20/18 11:30 56 21 94/43 94 03/20/18 10:30 57 18 92/56 96 Intake and Output 03/20/18 03/21/18 03/21/18 23:59 07:59 15:59 Intake Total 60 / 60 47 / 47 Output Total 150 / 150 75 / 75 Balance -90 / -90 -28 / -28 Intake: IV Fluids 60 / 60 47 / 47 Diprivan 500 mg In 50 ml @ 5 50 / 50 47 / 47 MCG/KG/MIN 1.21 mls/hr IVC . Q24H [facility] Rx#:[id number] Maxipime 1,000 MG In Water for inj. (sterile) 10 ML @ 150 mls/ hr IVPB Q24H [facility] Rx#:[id number] Output: Catheter 150 / 150 75 / 75 Gastric Drainage 0 / 0 Other: Weight 42.9 kg Blood Glucose* 103 98 Patient Weight 03/21/18 23:59 Weight 42.9 kg - General Appearance General appearance: Present: cachectic, chronically ill, intubated, frail EENT: Present: ATNC Neck: Present: supple Respiratory: Present: clear Cardiology: Present: no edema, normal S1, normal S2 Gastrointestinal: Present: normoactive bowel sounds, no tenderness, no guarding , distended Additional Comments: With + fluid wave. Integumentary: Present: no rash, warm and dry Additional Comments: Patient is not sedated, but much less alert upon examination than yesterday. - Lab 03/21/18 03:46 03/21/18 03:46 Most recent lab results ABG pH 7.37 pH Units (7.32-7.45) 03/21/18 05:16 ABG pCO2 28 mmHg (35-45) L 03/21/18 05:16 ABG pO2 83 mmHg (85-104) L 03/21/18 05:16 ABG HCO3 16 mEq/L (21-27) L 03/21/18 05:16 ABG O2 Saturation 96 % (95-98) 03/21/18 05:16 Calcium 8.7 mg/dL (8.6-10.3) 03/21/18 03:46 Phosphorus 11.1 mg/dL (2.7-4.5) H 03/20/18 04:08 Magnesium 1.6 mg/dL (1.6-2.6) 03/20/18 04:08 Consult Discharge Plan - Plan Referrals: Stephani Garcia MD [Primary Care Provider] -
--- NOTE | 2018-03-21 16:31 | Event Note ---
Date of Encounter: 03/21/18 Time of Encounter: 16:00 I met with pt mother, sister, son, as well as other extended family members. Discussed goals of care at length including dialysis, reintubation after extubation, and issue of artificial nutrition. They have already decided against dialysis. Upon taking some time to contemplate re-intubation, family decided to not reintubate and focus on comfort care after she is extubated. I did discuss that it is likely she may not be able to safely eat and drink after extubation, depending on mental status and swallow, and that she is most likely not a candidate for feeding tube or artificial nutrition. They verbalized understanding. Mother states that she is still hoping for a miracle. They are hoping that pt can at least live long enough to attend or by the web - take part in her son's graduation. Patient's mother has been very against discussing hospice care r/t a negative experience in 2003. We discussed that experience and I asked her to keep an open mind regarding hospice, as she states that if pt lives to leave hospital, she will not be placed in a longterm, and they would take her home. Discussed that hospice would be the best option to get Ivet the support and medications she may need, and they could also be instrumental in assisting she can take part in her son's graduation. Stated she could even utilize and speak with a different agency, and see if she felt more comfortable with them prior to agreeing and enrolling patient. Plan on re-meeting with family at 1100 tomorrow. D/W Dr. Echevarria and primary nurse Mary. Will D/W palliative team in am.
[2018-03-21] MEDS: Cefepime HCl 1,000 MG in Water for inj. (sterile) 20 ML 10 ML IVPB SCH (19:07)
[2018-03-21] MEDS ORDERED: Vancomycin 500 MG in 0.9 % Sodium Chloride Mini Bag 100 ML IVPB ONE (20:00)
[2018-03-22] MEDS: Lacri-Lube 3.5 GM TUBE BOTH EYES SCH ×6 (00:37→20:40)
[2018-03-22] MEDS: Insulin LISPRO 300 UNITS/3 ML VIAL SQ SCH ×4 (00:37→18:09)
[2018-03-22 03:41] LABS: Basophils % 0.3 %; Lymphocytes % 2.4 %
[2018-03-22 03:43] LABS: Basophils # 0.1 K/mcL (0.0-0.2); Hemoglobin 9.7 g/dL (11.5-15.4); Immature Granulocytes % 0.8 % (0-4); Mean Corpuscular HGB Conc 34.6 g/dL (31.6-35.5); Mean Corpuscular Volume 80.7 fL (83.0-100.0); Mean Platelet Volume 10.7 fL (9.4-12.4); Monocytes # 1.3 K/mcL (0.0-1.3); Monocytes % 3.2 %; Platelet Count 213 K/mcL (140-400); Red Blood Count 3.47 M/mcL (3.82-4.97); Segmented Neutrophils % 93.3 %
[2018-03-22] MEDS: Ipratropium/Albuterol Neb 3 ML IH SCH ×6 (03:45→23:20)
[2018-03-22 03:47] LABS: Potassium 4.9 mEq/L (3.5-5.1)
[2018-03-22 03:51] LABS: Lymphocytes # 0.9 K/mcL (0.6-4.6); Neutrophils # 36.6 K/mcL (1.6-8.9)
[2018-03-22 04:02] LABS: Platelet Estimate Normal (Normal); Reactive Lymphocytes Present (Not Present); Toxic Granulation Present (Not Present)
[2018-03-22 05:02] LABS: ABG Base Excess -7 mEq/L (-2 to 3); ABG HCO3 18 mEq/L (21-27); ABG Oxygen Saturation 99 % (95-98); ABG PCO2 31 mmHg (35-45); ABG PH 7.37 pH Units (7.32-7.45); ABG PO2 120 mmHg (85-104); ABG TCO2 19 mEq/L (20-26); Blood Gas Modality ASSIST CONTROL; Blood Gas PEEP 5 cm H2O; Blood Gas Respiration Rate 16; Blood Gas VT 420 cc
[2018-03-22] MEDS: Famotidine 20 MG/2 ML VIAL IVP SCH (05:50)
[2018-03-22] MEDS: *HR* Heparin 5,000 UNIT/ML VIAL SQ SCH ×2 (05:51→18:44)
--- NOTE | 2018-03-22 08:08 | Palliative Progress Note ---
Date of Encounter: 03/22/18 Time of Encounter: 07:05 - Assessment and plan (1) Acute hepatic encephalopathy Current Visit: No Status: Acute Assessment and plan: White count continues to improve, blood gas continues to improve kidney function is worse. (2) BERNARDA (acute kidney injury) Current Visit: No Status: Acute Assessment and plan: The patient does not wish to have any dialysis. Kidney function is no better probably a little bit worse 200 mL total output yesterday (3) Metabolic acidosis Current Visit: No Status: Acute Assessment and plan: This is turned around quite well with the carb drip the patient was on. This has resolved (4) Goals of care, counseling/discussion Current Visit: No Status: Acute Assessment and plan: Patient is currently DNR CCA and the family no dialysis. Is tolerating CPAP fairly well at this point in time and the plan per the ICU team is to plan on extubation and its medically appropriate. Family discussion with nurse practitioner yesterday, patient would not wish to be reintubated at least at this time. Lantus for extubation today after 11:00 Meg still very undecided and leaning against hospice care renal function is still extremely poor. Overall plan is for the patient to go home with family try to encourage home health. The patient was in is still eligible for hospice care if the patient and family so desires, it had a bad experience in the past are considering options currently. - Time Spent With Patient Total time spent is greater than 50% in coordination of care (as documented) at patient's floor/unit and/or counseling patient: - Subjective Interval history: Events of yesterday noted. She is tolerating CPAP well probable extubation today. per notes in the record no reintubation is anticipated. - Constitutional Vitals: Abnormal lab results WBC 39.2 K/mcL (4.3-11.1) H* 03/22/18 03:15 RBC 3.47 M/mcL (3.82-4.97) L 03/22/18 03:15 Hgb 9.7 g/dL (11.5-15.4) L D 03/22/18 03:15 Hct 28.0 % (35.3-44.9) L 03/22/18 03:15 MCV 80.7 fL (83.0-100.0) L 03/22/18 03:15 RDW 15.0 % (11.5-14.5) H 03/22/18 03:15 Band Neutrophils % 18.0 % (0-4) H 03/21/18 03:46 Metamyelocytes % 2.0 % (0) H 03/21/18 03:46 Neutrophils # 36.6 K/mcL (1.6-8.9) H 03/22/18 03:15 Nucleated RBCs/100 WBC 0.1 /100 WBC (0) H 03/21/18 03:46 Reactive Lymphocytes Present (Not Present) A 03/22/18 03:15 Toxic Granulation Present (Not Present) A 03/22/18 03:15 Anisocytosis 1+ (Not Present) A 03/19/18 23:55 Microcytosis Present (Not Present) A 03/19/18 23:55 Macrocytosis Present (Not Present) A 03/19/18 23:55 ABG pCO2 31 mmHg (35-45) L 03/22/18 04:59 ABG pO2 120 mmHg (85-104) H 03/22/18 04:59 ABG HCO3 18 mEq/L (21-27) L 03/22/18 04:59 ABG Total CO2 19 mEq/L (20-26) L 03/22/18 04:59 ABG O2 Saturation 99 % (95-98) H 03/22/18 04:59 ABG Base Excess -7 mEq/L (-2 to 3) L 03/22/18 04:59 Sodium 134 mEq/L (136-145) L 03/22/18 03:15 Carbon Dioxide 16 mEq/L (23-29) L 03/22/18 03:15 BUN 105 mg/dL (6-20) H 03/22/18 03:15 Creatinine 7.71 mg/dL (0.60-1.20) H 03/22/18 03:15 Est GFR ( Amer) 7 (> 60) L 03/22/18 03:15 Est GFR (Non-Af Amer) 5 (> 60) L 03/22/18 03:15 Glucose 138 mg/dL (70-105) H 03/22/18 03:15 POC Glucose 115 mg/dL (70-99) H 03/22/18 00:32 Calculated Osmolality 313 (280-300) H 03/22/18 03:15 Venous Ioniz Calcium 0.99 mmol/L (1.15-1.35) L 03/20/18 04:39 Phosphorus 11.1 mg/dL (2.7-4.5) H 03/20/18 04:08 Alkaline Phosphatase 192 Units/L (34-104) H 03/20/18 04:08 Ammonia 86 mcmol/L (16-53) H 03/19/18 22:42 Ur Squamous Epith Cells Many per lpf (None-Few) H 03/19/18 18:15 General appearance: Present: no acute distress - Respiratory Respiratory exam: Present: decreased breath sounds, rhonchi - Cardiovascular Cardiovascular exam: Present: RRR - GI/Abdominal GI/Abdominal exam: Present: normal bowel sounds, soft. Absent: tenderness ( Does feel little distended drain in place) - Extremities Exam Extremities exam: Absent: pedal edema, tenderness - Neurological Exam Neurological exam: Present: altered (Seems to respond to voice) - Psychiatric Psychiatric exam: Absent: agitated, anxious - Skin Skin exam: Present: dry, warm Palliative Quality Palliative Quality: Screen for Code Status: Yes, Screen for Goals of Care: Yes, Screen for Pain: Yes, If Pain Regimen Started, Initiate Bowel Regimen: Yes, Screen for Nausea/Vomitting: Yes - Labs CBC & Chem 7: 03/22/18 03:15 03/22/18 03:15 Labs: Laboratory Results - last 24 hr 03/21/18 03/21/18 03/21/18 11:53 16:24 17:13 WBC RBC Hgb Hct MCV MCH MCHC RDW Plt Count MPV Immature Gran % Seg Neutrophils % Lymphocytes % Monocytes % Eosinophils % Basophils % Neutrophils # Lymphocytes # Monocytes # Eosinophils # Basophils # Reactive Lymphocytes Toxic Granulation Platelet Estimate ABG pH ABG pCO2 ABG pO2 ABG HCO3 ABG Total CO2 ABG O2 Saturation ABG Base Excess Davide Test Respiration Rate O2 Delivery Device Blood Gas Modality Inspired O2 Tidal Volume PEEP Sodium Potassium Chloride Carbon Dioxide BUN Creatinine Est GFR ( Amer) Est GFR (Non-Af Amer) BUN/Creatinine Ratio Glucose POC Glucose 118 H 125 H Calculated Osmolality Calcium Random Vancomycin 12 03/22/18 03/22/18 03/22/18 00:32 03:15 03:15 WBC 39.2 H* RBC 3.47 L Hgb 9.7 L D Hct 28.0 L MCV 80.7 L MCH 28.0 MCHC 34.6 RDW 15.0 H Plt Count 213 MPV 10.7 Immature Gran % 0.8 Seg Neutrophils % 93.3 Lymphocytes % 2.4 Monocytes % 3.2 Eosinophils % 0.0 Basophils % 0.3 Neutrophils # 36.6 H Lymphocytes # 0.9 Monocytes # 1.3 Eosinophils # 0.0 Basophils # 0.1 Reactive Lymphocytes Present A Toxic Granulation Present A Platelet Estimate Normal ABG pH ABG pCO2 ABG pO2 ABG HCO3 ABG Total CO2 ABG O2 Saturation ABG Base Excess Davide Test Respiration Rate O2 Delivery Device Blood Gas Modality Inspired O2 Tidal Volume PEEP Sodium 134 L Potassium 4.9 Chloride 99 Carbon Dioxide 16 L BUN 105 H Creatinine 7.71 H Est GFR ( Amer) 7 L Est GFR (Non-Af Amer) 5 L BUN/Creatinine Ratio 14 Glucose 138 H POC Glucose 115 H Calculated Osmolality 313 H Calcium 9.0 Random Vancomycin 03/22/18 04:59 WBC RBC Hgb Hct MCV MCH MCHC RDW Plt Count MPV Immature Gran % Seg Neutrophils % Lymphocytes % Monocytes % Eosinophils % Basophils % Neutrophils # Lymphocytes # Monocytes # Eosinophils # Basophils # Reactive Lymphocytes Toxic Granulation Platelet Estimate ABG pH 7.37 ABG pCO2 31 L ABG pO2 120 H ABG HCO3 18 L ABG Total CO2 19 L ABG O2 Saturation 99 H ABG Base Excess -7 L Davide Test N/A Respiration Rate 16 O2 Delivery Device Adult Vent Blood Gas Modality ASSIST CONTROL Inspired O2 45.0 Tidal Volume 420 PEEP 5 Sodium Potassium Chloride Carbon Dioxide BUN Creatinine Est GFR ( Amer) Est GFR (Non-Af Amer) BUN/Creatinine Ratio Glucose POC Glucose Calculated Osmolality Calcium Random Vancomycin - ABG Interpretation ABG results: ABG ABG pH 7.37 pH Units (7.32-7.45) 03/22/18 04:59 ABG pCO2 31 mmHg (35-45) L 03/22/18 04:59 ABG pO2 120 mmHg (85-104) H 03/22/18 04:59 ABG O2 Saturation 99 % (95-98) H 03/22/18 04:59 PT/INR, D-dimer PT 11.6 Seconds (9.4-12.1) 03/19/18 16:46 Consult Discharge Plan - Plan Referrals: Stephani Garcia MD [Primary Care Provider] -
--- NOTE | 2018-03-22 08:22 | Pulmonology Progress Note ---
Date of Encounter: 03/22/18 Time of Encounter: 07:00 Assessment and Plan (1) Acute respiratory failure with hypoxia Current Visit: Yes Status: Resolved Patient is tolerating CPAP now and discussed with palliative care regarding the plan of care and family to come today and will decide about extubation. Very poor prognosis and she has renal failure and HD on hold and nutrition is major issue and she is not a candidate for PEG tube. Will consider draining of ascites. D/C Vancomycin. Subjective Principal diagnosis: Healthcare associated pneumonia Interval history: Patient is tolerating CPAP for now Objective PUL Vital signs: Last Vital Signs Temp 98.2 F 03/22/18 07:35 Pulse 64 03/22/18 08:08 Resp 15 03/22/18 08:00 BP 106/65 03/22/18 08:00 Pulse Ox 96 03/22/18 08:00 General appearance: no acute distress Neck: supple Effort: normal Auscultation: bilateral: diminished breath sounds Cardiovascular: regular rate and rhythm Gastrointestinal: hypoactive bowel sounds, soft Extremities: no cyanosis, edema unable to assess due to mental status Ventilator Settings Ventilator Settings: Ventilator Settings, Last 8 Hours Ventilator Mode VC+ Ventilator Mode CPAP Ventilator Mode VC+ Ventilator Mode VC+ Ventilator Mode VC+ Ventilator Mode VC+ Ventilator Mode VC+ Ventilator Mode VC+ Ventilator Mode VC+ Ventilator Mode VC+ Ventilator Mode VC+ Ventilator Mode VC+ Ventilator Mode VC+ Ventilator Tidal Volume 420 Setting Ventilator Tidal Volume 420 Setting Ventilator Tidal Volume 420 Setting Ventilator Tidal Volume 420 Setting Ventilator Tidal Volume 420 Setting Ventilator Tidal Volume 420 Setting Ventilator Tidal Volume 420 Setting Ventilator Tidal Volume 420 Setting Ventilator Tidal Volume 420 Setting Ventilator Tidal Volume 420 Setting Ventilator Tidal Volume 420 Setting Ventilator Tidal Volume 420 Setting Ventilator Respiratory Rate 12 Setting Ventilator Respiratory Rate 12 Setting Ventilator Respiratory Rate 16 Setting Ventilator Respiratory Rate 16 Setting Ventilator Respiratory Rate 16 Setting Ventilator Respiratory Rate 16 Setting Ventilator Respiratory Rate 16 Setting Ventilator Respiratory Rate 16 Setting Ventilator Respiratory Rate 16 Setting Ventilator Respiratory Rate 16 Setting Ventilator Respiratory Rate 16 Setting Ventilator Respiratory Rate 16 Setting Actual Respiratory Rate 15 Actual Respiratory Rate 16 Actual Respiratory Rate 12 Actual Respiratory Rate 18 Actual Respiratory Rate 21 Actual Respiratory Rate 18 Actual Respiratory Rate 21 Actual Respiratory Rate 22 Actual Respiratory Rate 20 Actual Respiratory Rate 18 Actual Respiratory Rate 19 Actual Respiratory Rate 18 Positive End Expiratory 5 Pressure Positive End Expiratory 5 Pressure Positive End Expiratory 5 Pressure Positive End Expiratory 5 Pressure Positive End Expiratory 5 Pressure Positive End Expiratory 5 Pressure Positive End Expiratory 5 Pressure Positive End Expiratory 5 Pressure Positive End Expiratory 5 Pressure Positive End Expiratory 5 Pressure Positive End Expiratory 5 Pressure Positive End Expiratory 5 Pressure Positive End Expiratory 5 Pressure Peak Inspiratory Airway 11 Pressure Peak Inspiratory Airway 14 Pressure Peak Inspiratory Airway 19 Pressure Peak Inspiratory Airway 16 Pressure Peak Inspiratory Airway 11 Pressure Peak Inspiratory Airway 11 Pressure Peak Inspiratory Airway 15 Pressure Peak Inspiratory Airway 13 Pressure Peak Inspiratory Airway 13 Pressure Peak Inspiratory Airway 11 Pressure Results - Laboratory Findings CBC and BMP: 03/22/18 03:15 03/22/18 03:15 ABG ABG pH 7.37 pH Units (7.32-7.45) 03/22/18 04:59 ABG pCO2 31 mmHg (35-45) L 03/22/18 04:59 ABG pO2 120 mmHg (85-104) H 03/22/18 04:59 ABG O2 Saturation 99 % (95-98) H 03/22/18 04:59 PT/INR, D-dimer PT 11.6 Seconds (9.4-12.1) 03/19/18 16:46 Abnormal lab findings: Abnormal lab results WBC 39.2 K/mcL (4.3-11.1) H* 03/22/18 03:15 RBC 3.47 M/mcL (3.82-4.97) L 03/22/18 03:15 Hgb 9.7 g/dL (11.5-15.4) L D 03/22/18 03:15 Hct 28.0 % (35.3-44.9) L 03/22/18 03:15 MCV 80.7 fL (83.0-100.0) L 03/22/18 03:15 RDW 15.0 % (11.5-14.5) H 03/22/18 03:15 Band Neutrophils % 18.0 % (0-4) H 03/21/18 03:46 Metamyelocytes % 2.0 % (0) H 03/21/18 03:46 Neutrophils # 36.6 K/mcL (1.6-8.9) H 03/22/18 03:15 Nucleated RBCs/100 WBC 0.1 /100 WBC (0) H 03/21/18 03:46 Reactive Lymphocytes Present (Not Present) A 03/22/18 03:15 Toxic Granulation Present (Not Present) A 03/22/18 03:15 Anisocytosis 1+ (Not Present) A 03/19/18 23:55 Microcytosis Present (Not Present) A 03/19/18 23:55 Macrocytosis Present (Not Present) A 03/19/18 23:55 ABG pCO2 31 mmHg (35-45) L 03/22/18 04:59 ABG pO2 120 mmHg (85-104) H 03/22/18 04:59 ABG HCO3 18 mEq/L (21-27) L 03/22/18 04:59 ABG Total CO2 19 mEq/L (20-26) L 03/22/18 04:59 ABG O2 Saturation 99 % (95-98) H 03/22/18 04:59 ABG Base Excess -7 mEq/L (-2 to 3) L 03/22/18 04:59 Sodium 134 mEq/L (136-145) L 03/22/18 03:15 Carbon Dioxide 16 mEq/L (23-29) L 03/22/18 03:15 BUN 105 mg/dL (6-20) H 03/22/18 03:15 Creatinine 7.71 mg/dL (0.60-1.20) H 03/22/18 03:15 Est GFR ( Amer) 7 (> 60) L 03/22/18 03:15 Est GFR (Non-Af Amer) 5 (> 60) L 03/22/18 03:15 Glucose 138 mg/dL (70-105) H 03/22/18 03:15 POC Glucose 115 mg/dL (70-99) H 03/22/18 00:32 Calculated Osmolality 313 (280-300) H 03/22/18 03:15 Venous Ioniz Calcium 0.99 mmol/L (1.15-1.35) L 03/20/18 04:39 Phosphorus 11.1 mg/dL (2.7-4.5) H 03/20/18 04:08 Alkaline Phosphatase 192 Units/L (34-104) H 03/20/18 04:08 Ammonia 86 mcmol/L (16-53) H 03/19/18 22:42 Ur Squamous Epith Cells Many per lpf (None-Few) H 03/19/18 18:15 - Clinical Findings Intake & Output: Intake & Output 03/21/18 03/22/18 03/22/18 23:59 07:59 15:59 Intake Total 110 / 110 Output Total 75 / 75 225 / 225 Balance 35 / 35 -225 / -225 Weight 43.3 kg Consult Discharge Plan - Plan Referrals: Stephani Garcia MD [Primary Care Provider] -
[2018-03-22] MEDS: Chlorhexidine Rinse 15 ML MOUTHWASH MM SCH ×2 (08:42→20:41)
[2018-03-22] MEDS: Lactulose Oral Soln 20 GM/30 ML UDC PO SCH ×2 (08:42→20:41)
[2018-03-22] MEDS: *HR* FentaNYL (PF) 100 MCG/2 ML VIAL IVP PRN (13:40)
--- NOTE | 2018-03-22 14:34 | Nephrology Progress Note ---
Date of Encounter: 03/22/18 Time of Encounter: 14:31 - Assessment and Plan (1) Acute renal failure Current Visit: Yes Status: Acute The patient has acute renal failure with a creatinine that is relatively stable. The patient expressed not wanting dialysis and the family is supporting her decision. As the patient seems to be going towards palliative care although the family has not chosen hospice we will sign off. If additional assistance is warranted for management of her acute kidney injury please reconsult and we would be happy to help. Qualifiers: Qualified Code(s): N17.9 - Acute kidney failure, unspecified Subjective Principal diagnosis: Healthcare associated pneumonia Interval history: Patient was seen this morning. She was intubated and comfortable. Review of systems was unobtainable Objective - Vital Signs Vital signs: Vital Signs Temp Pulse Resp BP Pulse Ox 03/22/18 13:40 12 109/67 98 03/22/18 13:00 60 15 99/65 98 03/22/18 12:04 97.8 F 03/22/18 12:00 64 13 105/68 99 03/22/18 11:17 59 03/22/18 11:08 13 98/62 96 03/22/18 11:00 60 12 98/62 96 03/22/18 10:00 60 12 111/63 97 03/22/18 09:57 14 105/68 97 03/22/18 09:00 61 12 101/65 98 03/22/18 08:08 64 03/22/18 08:00 65 15 106/65 96 03/22/18 07:55 13 104/61 97 03/22/18 07:35 98.2 F 03/22/18 07:00 63 12 103/66 97 03/22/18 06:00 66 18 109/68 98 03/22/18 05:31 19 95/60 98 03/22/18 05:00 61 16 95/60 98 03/22/18 04:00 98.2 F 68 21 118/75 100 03/22/18 03:47 22 100 03/22/18 03:00 67 20 87/52 100 03/22/18 02:00 66 18 90/54 100 03/22/18 01:30 78 19 103/66 100 03/22/18 01:12 20 102/67 98 03/22/18 00:15 68 03/22/18 00:00 98.4 F 68 18 100/60 98 03/21/18 23:32 21 96 03/21/18 23:00 70 18 94/59 97 03/21/18 22:00 71 20 96/61 99 03/21/18 21:42 16 92/54 100 03/21/18 21:00 70 14 103/65 100 03/21/18 20:00 97.2 F L 62 13 97/59 100 03/21/18 19:40 14 100 03/21/18 19:00 60 14 92/61 100 03/21/18 18:23 15 101/57 99 03/21/18 18:00 60 15 101/57 98 03/21/18 17:00 60 14 91/57 98 03/21/18 16:00 97.7 F 61 14 88/53 98 03/21/18 15:46 13 85/55 98 03/21/18 15:00 62 14 88/54 98 Intake and Output 03/21/18 03/22/18 03/22/18 23:59 07:59 15:59 Intake Total 110 / 110 Output Total 75 / 75 225 / 225 50 / 50 Balance 35 / 35 -225 / -225 -50 / -50 Intake: IV Fluids 110 / 110 Maxipime 1,000 MG In Water for 10 10 inj. (sterile) 10 ML @ 150 mls/ hr IVPB Q24H [facility] Rx#:[id number] Vancocin 500 MG In 0.9 % Sodium 100 / 100 Chloride (Mini-Bag +) 100 ML @ 100 mls/hr IVPB ONCE ONE Rx#: [id number] Output: Catheter 75 / 75 175 / 175 50 / 50 Urethral ([place]) 0 / 0 Gastric Drainage 0 / 0 50 / 50 Other: Weight 43.3 kg Blood Glucose* 125 115 132 Patient Weight 03/22/18 23:59 Weight 43.3 kg - General Appearance General appearance: Present: chronically ill, intubated, frail Respiratory: Present: clear Cardiology: Present: no edema Integumentary: Present: warm and dry - Lab 03/22/18 03:15 03/22/18 03:15 Most recent lab results ABG pH 7.37 pH Units (7.32-7.45) 03/22/18 04:59 ABG pCO2 31 mmHg (35-45) L 03/22/18 04:59 ABG pO2 120 mmHg (85-104) H 03/22/18 04:59 ABG HCO3 18 mEq/L (21-27) L 03/22/18 04:59 ABG O2 Saturation 99 % (95-98) H 03/22/18 04:59 Calcium 9.0 mg/dL (8.6-10.3) 03/22/18 03:15 Phosphorus 11.1 mg/dL (2.7-4.5) H 03/20/18 04:08 Magnesium 1.6 mg/dL (1.6-2.6) 03/20/18 04:08 Consult Discharge Plan - Plan Referrals: Stephani Garcia MD [Primary Care Provider] -
[2018-03-22] MEDS: Cefepime HCl 1,000 MG in Water for inj. (sterile) 20 ML 10 ML IVPB SCH (18:44)
--- NOTE | 2018-03-22 19:06 | Electrocardiograph Report ---
[place] [address] Test Date: 2018-03-19 Pat Name: Ivet De Paz Department: 103 Room: [facility] Gender: F Quality Review Trainer: : 1965 Requested By: Silvio Marshall Order Number: [id number] Reading MD: Jil Stone Measurements Intervals [place] Rate: 65 P: -24 MO: 158 QRS: 77 QRSD: 67 T: 102 QT: 358 QTc: 369 Interpretive Statements SIGNIFICANT BASELINE ARTIFACT RECOMMEND REPEAT EKG Electronically Signed On 03-22-2018 19:04:48 EDT by Jil Stone
[2018-03-22] MEDS: Propofol 500 MG/50 ML INFUS..BTL IVC SCH (20:42)
[2018-03-22] MEDS: Neosporin OINT 15 GM TUBE TP SCH (20:54)
[2018-03-23] MEDS: Ipratropium/Albuterol Neb 3 ML IH SCH ×6 (03:30→23:51)
[2018-03-23 04:37] LABS: Basophils % 0.3 %; Hemoglobin 9.7 g/dL (11.5-15.4); Lymphocytes % 5.1 %; Mean Corpuscular Hemoglobin 27.7 pg (28.0-33.3)
[2018-03-23 04:39] LABS: Basophils # 0.1 K/mcL (0.0-0.2); Hematocrit 28.6 % (35.3-44.9); Immature Granulocytes % 1.1 % (0-4); Lymphocytes # 1.4 K/mcL (0.6-4.6); Mean Corpuscular HGB Conc 33.9 g/dL (31.6-35.5); Mean Corpuscular Volume 81.7 fL (83.0-100.0); Mean Platelet Volume 10.5 fL (9.4-12.4); Monocytes # 2.3 K/mcL (0.0-1.3); Monocytes % 8.2 %; Neutrophils # 23.5 K/mcL (1.6-8.9); Nucleated Red Blood Cells 0.1 /100 WBC (0); Platelet Count 185 K/mcL (140-400); Red Cell Distribution Width 15.1 % (11.5-14.5); Segmented Neutrophils % 85.3 %
[2018-03-23 04:53] LABS: Calcium 8.9 mg/dL (8.6-10.3); Magnesium 2.3 mg/dL (1.6-2.6); Potassium 4.8 mEq/L (3.5-5.1)
[2018-03-23 05:05] LABS: Platelet Estimate Normal (Normal)
[2018-03-23] MEDS: Lacri-Lube 3.5 GM TUBE BOTH EYES SCH ×5 (05:44→21:27)
[2018-03-23] MEDS: Insulin LISPRO 300 UNITS/3 ML VIAL SQ SCH ×4 (05:45→18:40)
[2018-03-23] MEDS: *HR* Heparin 5,000 UNIT/ML VIAL SQ SCH ×2 (06:10→18:09)
[2018-03-23] MEDS: Famotidine 20 MG/2 ML VIAL IVP SCH (06:11)
--- NOTE | 2018-03-23 07:50 | Pulmonology Progress Note ---
<Brandon Saeed - Last Filed: 03/23/18 08:28> Date of Encounter: 03/23/18 Time of Encounter: 08:28 Assessment and Plan (1) Healthcare-associated pneumonia Current Visit: Yes Status: Acute Initial chest x-ray with left perihilar opacity. Vancomycin discontinued, remain on cefepime. Legionella, strep pneumo and respiratory panel negative. (2) Failure to thrive in adult Current Visit: Yes Status: Acute Patient currently has a BMI of 15.7 Current mentation exclude her from oral intake. Ascites precludes her from PEG tube placement. Poor renal function precludes her from TPN. Discuss with family about poor outcome and inability to provide nutritional supplementation. (3) Toxic metabolic encephalopathy Current Visit: Yes Status: Acute Multifactorial in etiology secondary to uremic encephalopathy, end-stage liver disease. Patient is not a candidate for dialysis at this time. Plan for paracentesis today given ascites. Consider adding rectal lactulose. (4) Hyperkalemia Current Visit: No Status: Resolved Resolved. Daily BMP. (5) Leukocytosis Current Visit: No Status: Acute Leukocytosis of 27.6, trending down. Afebrile. In the setting of healthcare associated pneumonia. Continue cefepime. Qualifiers: Leukocytosis type: unspecified Qualified Code(s): D72.829 - Elevated white blood cell count, unspecified (6) Metabolic acidosis Current Visit: No Status: Acute Initial bicarbonate of 16. Anion gap of 18. Nephrology consulted, patient not felt to be a viable candidate for dialysis.. (7) Renal failure Current Visit: No Status: Acute Presenting creatinine of 8.48. Nephrology consulted and following. Given her severe liver disease she is not a candidate for dialysis. Qualifiers: Renal failure chronicity: acute Acute renal failure type: unspecified Qualified Code(s): N17.9 - Acute kidney failure, unspecified (8) Diabetes Current Visit: No Status: Chronic Sliding-scale insulin coverage Qualifiers: Diabetes mellitus type: type 2 Diabetes mellitus residential insulin use: without roasterman use Diabetes mellitus complication status: with kidney complications Diabetes mellitus complication detail: with chronic kidney disease Chronic kidney disease stage: unspecified stage Qualified Code(s): E11.22 - Type 2 diabetes mellitus with diabetic chronic kidney disease (9) Hepatic cirrhosis due to chronic hepatitis C infection Current Visit: No Status: Chronic Plan for paracentesis today. (10) DVT prophylaxis Current Visit: No Status: Acute Heparin every 12 hours Subjective Principal diagnosis: Healthcare associated pneumonia Interval history: No acute events overnight. Patient is on supplemental oxygen via nasal cannula. She opens her eyes to voice but makes and coherent speech. Noted to have ascites this morning. Objective PUL Vital signs: Last Vital Signs Temp 97.8 F 03/23/18 04:41 Pulse 56 03/23/18 07:22 Resp 12 03/23/18 07:00 BP 109/64 03/23/18 07:00 Pulse Ox 97 03/23/18 07:00 General appearance: other (Somnolent) Eyes: nonicteric ENT: oropharynx dry Neck: supple Effort: mildly labored Auscultation: bilateral: diminished breath sounds Cardiovascular: regular rate and rhythm Gastrointestinal: soft, other (Ascites. Hepatomegaly.) Integumentary: normal Extremities: no cyanosis, no edema Musculoskeletal: no deformities other (Somnolent.) Results - Laboratory Findings CBC and BMP: 03/23/18 04:00 03/23/18 04:00 ABG ABG pH 7.37 pH Units (7.32-7.45) 03/22/18 04:59 ABG pCO2 31 mmHg (35-45) L 03/22/18 04:59 ABG pO2 120 mmHg (85-104) H 03/22/18 04:59 ABG O2 Saturation 99 % (95-98) H 03/22/18 04:59 PT/INR, D-dimer PT 11.6 Seconds (9.4-12.1) 03/19/18 16:46 Abnormal lab findings: Abnormal lab results WBC 27.6 K/mcL (4.3-11.1) H 03/23/18 04:00 RBC 3.50 M/mcL (3.82-4.97) L 03/23/18 04:00 Hgb 9.7 g/dL (11.5-15.4) L 03/23/18 04:00 Hct 28.6 % (35.3-44.9) L 03/23/18 04:00 MCV 81.7 fL (83.0-100.0) L 03/23/18 04:00 MCH 27.7 pg (28.0-33.3) L 03/23/18 04:00 RDW 15.1 % (11.5-14.5) H 03/23/18 04:00 Band Neutrophils % 18.0 % (0-4) H 03/21/18 03:46 Metamyelocytes % 2.0 % (0) H 03/21/18 03:46 Neutrophils # 23.5 K/mcL (1.6-8.9) H 03/23/18 04:00 Monocytes # 2.3 K/mcL (0.0-1.3) H 03/23/18 04:00 Nucleated RBCs/100 WBC 0.1 /100 WBC (0) H 03/23/18 04:00 Reactive Lymphocytes Present (Not Present) A 03/22/18 03:15 Toxic Granulation Present (Not Present) A 03/22/18 03:15 Anisocytosis 1+ (Not Present) A 03/19/18 23:55 Microcytosis Present (Not Present) A 03/19/18 23:55 Macrocytosis Present (Not Present) A 03/19/18 23:55 ABG pCO2 31 mmHg (35-45) L 03/22/18 04:59 ABG pO2 120 mmHg (85-104) H 03/22/18 04:59 ABG HCO3 18 mEq/L (21-27) L 03/22/18 04:59 ABG Total CO2 19 mEq/L (20-26) L 03/22/18 04:59 ABG O2 Saturation 99 % (95-98) H 03/22/18 04:59 ABG Base Excess -7 mEq/L (-2 to 3) L 03/22/18 04:59 Carbon Dioxide 16 mEq/L (23-29) L 03/23/18 04:00 BUN 110 mg/dL (6-20) H 03/23/18 04:00 Creatinine 7.60 mg/dL (0.60-1.20) H 03/23/18 04:00 Est GFR ( Amer) 7 (> 60) L 03/23/18 04:00 Est GFR (Non-Af Amer) 6 (> 60) L 03/23/18 04:00 Glucose 119 mg/dL (70-105) H 03/23/18 04:00 POC Glucose 117 mg/dL (70-99) H 03/22/18 23:49 Calculated Osmolality 318 (280-300) H 03/23/18 04:00 Venous Ioniz Calcium 0.99 mmol/L (1.15-1.35) L 03/20/18 04:39 Phosphorus 11.1 mg/dL (2.7-4.5) H 03/20/18 04:08 Alkaline Phosphatase 192 Units/L (34-104) H 03/20/18 04:08 Ammonia 86 mcmol/L (16-53) H 03/19/18 22:42 Ur Squamous Epith Cells Many per lpf (None-Few) H 03/19/18 18:15 - Clinical Findings Intake & Output: Intake & Output 03/22/18 03/22/18 03/23/18 15:59 23:59 07:59 Output Total 50 / 50 200 / 200 175 / 175 Balance -50 / -50 -200 / -200 -175 / -175 Weight 44.2 kg Consult Discharge Plan - Plan Referrals: Stephani Garcia MD [Primary Care Provider] - <Mike Echevarria - Last Filed: 03/23/18 08:48> Date of Encounter: 03/23/18 Assessment and Plan (1) Acute respiratory failure with hypoxia Current Visit: Yes Status: Resolved Objective PUL Vital signs: Last Vital Signs Temp 96.8 F L 03/23/18 08:10 Pulse 58 03/23/18 08:00 Resp 12 03/23/18 08:00 BP 112/63 03/23/18 08:00 Pulse Ox 96 03/23/18 08:00 Results - Laboratory Findings CBC and BMP: 03/23/18 04:00 03/23/18 04:00 ABG ABG pH 7.37 pH Units (7.32-7.45) 03/22/18 04:59 ABG pCO2 31 mmHg (35-45) L 03/22/18 04:59 ABG pO2 120 mmHg (85-104) H 03/22/18 04:59 ABG O2 Saturation 99 % (95-98) H 03/22/18 04:59 PT/INR, D-dimer PT 11.6 Seconds (9.4-12.1) 03/19/18 16:46 Abnormal lab findings: Abnormal lab results WBC 27.6 K/mcL (4.3-11.1) H 03/23/18 04:00 RBC 3.50 M/mcL (3.82-4.97) L 03/23/18 04:00 Hgb 9.7 g/dL (11.5-15.4) L 03/23/18 04:00 Hct 28.6 % (35.3-44.9) L 03/23/18 04:00 MCV 81.7 fL (83.0-100.0) L 03/23/18 04:00 MCH 27.7 pg (28.0-33.3) L 03/23/18 04:00 RDW 15.1 % (11.5-14.5) H 03/23/18 04:00 Band Neutrophils % 18.0 % (0-4) H 03/21/18 03:46 Metamyelocytes % 2.0 % (0) H 03/21/18 03:46 Neutrophils # 23.5 K/mcL (1.6-8.9) H 03/23/18 04:00 Monocytes # 2.3 K/mcL (0.0-1.3) H 03/23/18 04:00 Nucleated RBCs/100 WBC 0.1 /100 WBC (0) H 03/23/18 04:00 Reactive Lymphocytes Present (Not Present) A 03/22/18 03:15 Toxic Granulation Present (Not Present) A 03/22/18 03:15 Anisocytosis 1+ (Not Present) A 03/19/18 23:55 Microcytosis Present (Not Present) A 03/19/18 23:55 Macrocytosis Present (Not Present) A 03/19/18 23:55 ABG pCO2 31 mmHg (35-45) L 03/22/18 04:59 ABG pO2 120 mmHg (85-104) H 03/22/18 04:59 ABG HCO3 18 mEq/L (21-27) L 03/22/18 04:59 ABG Total CO2 19 mEq/L (20-26) L 03/22/18 04:59 ABG O2 Saturation 99 % (95-98) H 03/22/18 04:59 ABG Base Excess -7 mEq/L (-2 to 3) L 03/22/18 04:59 Carbon Dioxide 16 mEq/L (23-29) L 03/23/18 04:00 BUN 110 mg/dL (6-20) H 03/23/18 04:00 Creatinine 7.60 mg/dL (0.60-1.20) H 03/23/18 04:00 Est GFR ( Amer) 7 (> 60) L 03/23/18 04:00 Est GFR (Non-Af Amer) 6 (> 60) L 03/23/18 04:00 Glucose 119 mg/dL (70-105) H 03/23/18 04:00 POC Glucose 117 mg/dL (70-99) H 03/22/18 23:49 Calculated Osmolality 318 (280-300) H 03/23/18 04:00 Venous Ioniz Calcium 0.99 mmol/L (1.15-1.35) L 03/20/18 04:39 Phosphorus 11.1 mg/dL (2.7-4.5) H 03/20/18 04:08 Alkaline Phosphatase 192 Units/L (34-104) H 03/20/18 04:08 Ammonia 86 mcmol/L (16-53) H 03/19/18 22:42 Ur Squamous Epith Cells Many per lpf (None-Few) H 03/19/18 18:15 - Clinical Findings Intake & Output: Intake & Output 03/22/18 03/23/18 03/23/18 23:59 07:59 15:59 Intake Total 10 / 10 Output Total 200 / 200 175 / 175 100 / 100 Balance -200 / -200 -165 / -165 -100 / -100 Weight 44.2 kg - Attending Attestation I examined this patient and my medical decision-making was reviewed with the Resident Physician. I agree with the documented findings, disposition and treatment plan as described except to the extent set forth below. Patient seen and examined. Labs, radiology, chart personally reviewed. 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 My opinion comfort care is reasonable for this patient and tracheostomy is not and when family is available I will discuss that with them. Due to her comorbidities and her condition so fragile most likely she will come to ICU again for transfer out for that reason I would wait to have another discussion with the family before transferring out. Cardiovascular: stable GI: Nutrition per dietary and GI prophylaxis per routine. We will plan to drain ascitic fluid. Nutrition is a major problem at this time and she has not candidate for TPN or PEG tube. Heme: DVT prophylaxis per routine ID: Continue antibiotics and plan to de-escalation Renal; urine out put and renal funtion reviewed Endorcine: blood glucose is monitored Lines: all lines checked and no evidence of infections Skin: skin care to prevent pressure ulcers per nursing routine care Prognosis is poor
[2018-03-23] MEDS: Lactulose Oral Soln 20 GM/30 ML UDC PO SCH ×2 (07:51→21:27)
[2018-03-23] MEDS: Chlorhexidine Rinse 15 ML MOUTHWASH MM SCH ×2 (07:52→21:27)
[2018-03-23] MEDS: Neosporin OINT 15 GM TUBE TP SCH ×2 (07:58→21:30)
--- NOTE | 2018-03-23 09:16 | Palliative Progress Note ---
Date of Encounter: 03/23/18 Time of Encounter: 09:00 - Assessment and plan (1) Acute hepatic encephalopathy Current Visit: Yes Status: Acute Assessment and plan: Patient opens eyes to name but doesn't communicate verbally. Last ammonia 86 (). Lactulose ordered but no BMs noted. May need RC lactulose. Patient end- stage liver disease. (2) Abdominal pain Current Visit: No Status: Resolved Assessment and plan: Patient with ascites this AM. Tenderness to palpation noted by facial grimace. PRN Fentanyl IV. Had one dose in past 24 hours. Tolerating laying in bed with HOB elevated 30 degrees. Positioned for comfort. NC 3 L O2. Qualifiers: Abdominal location: left lower quadrant Qualified Code(s): R10.32 - Left lower quadrant pain (3) Ascites due to alcoholic cirrhosis Current Visit: Yes Status: Chronic Assessment and plan: Patient with end stage Liver failure. PleurX catheter in place. Will likely need paracentesis today. (4) Goals of care, counseling/discussion Current Visit: No Status: Acute Assessment and plan: Multiple family meetings have taken place over past couple of days. Mother remains medical decision make but patient also has son and sister who is an MANAGER INTERMEDIATE involved in discussions. Patient is frail and weak with overall poor prognosis. No po intake and is not candidate for PEG given ascites of catheter. Will attempt to touch base with family once again if they visit patient. Current plan is patient and family are not open to hospice care at this time but desires home health to assist. Patients BUN 110, Creatinine 7.60. Tolerating NC at 3L NC. No desire for dialysis. - Time Spent With Patient Total time spent is greater than 50% in coordination of care (as documented) at patient's floor/unit and/or counseling patient: 25 - 35 minutes - Subjective Interval history: Lying in bed. Opens eyes in response to name. Shakes head yes and no. Frail and weak. Denies complaints. Chart, labs and diagnostics reviewed. - Constitutional Vitals: Abnormal lab results WBC 27.6 K/mcL (4.3-11.1) H 03/23/18 04:00 RBC 3.50 M/mcL (3.82-4.97) L 03/23/18 04:00 Hgb 9.7 g/dL (11.5-15.4) L 03/23/18 04:00 Hct 28.6 % (35.3-44.9) L 03/23/18 04:00 MCV 81.7 fL (83.0-100.0) L 03/23/18 04:00 MCH 27.7 pg (28.0-33.3) L 03/23/18 04:00 RDW 15.1 % (11.5-14.5) H 03/23/18 04:00 Band Neutrophils % 18.0 % (0-4) H 03/21/18 03:46 Metamyelocytes % 2.0 % (0) H 03/21/18 03:46 Neutrophils # 23.5 K/mcL (1.6-8.9) H 03/23/18 04:00 Monocytes # 2.3 K/mcL (0.0-1.3) H 03/23/18 04:00 Nucleated RBCs/100 WBC 0.1 /100 WBC (0) H 03/23/18 04:00 Reactive Lymphocytes Present (Not Present) A 03/22/18 03:15 Toxic Granulation Present (Not Present) A 03/22/18 03:15 Anisocytosis 1+ (Not Present) A 03/19/18 23:55 Microcytosis Present (Not Present) A 03/19/18 23:55 Macrocytosis Present (Not Present) A 03/19/18 23:55 ABG pCO2 31 mmHg (35-45) L 03/22/18 04:59 ABG pO2 120 mmHg (85-104) H 03/22/18 04:59 ABG HCO3 18 mEq/L (21-27) L 03/22/18 04:59 ABG Total CO2 19 mEq/L (20-26) L 03/22/18 04:59 ABG O2 Saturation 99 % (95-98) H 03/22/18 04:59 ABG Base Excess -7 mEq/L (-2 to 3) L 03/22/18 04:59 Carbon Dioxide 16 mEq/L (23-29) L 03/23/18 04:00 BUN 110 mg/dL (6-20) H 03/23/18 04:00 Creatinine 7.60 mg/dL (0.60-1.20) H 03/23/18 04:00 Est GFR ( Amer) 7 (> 60) L 03/23/18 04:00 Est GFR (Non-Af Amer) 6 (> 60) L 03/23/18 04:00 Glucose 119 mg/dL (70-105) H 03/23/18 04:00 POC Glucose 117 mg/dL (70-99) H 03/22/18 23:49 Calculated Osmolality 318 (280-300) H 03/23/18 04:00 Venous Ioniz Calcium 0.99 mmol/L (1.15-1.35) L 03/20/18 04:39 Phosphorus 11.1 mg/dL (2.7-4.5) H 03/20/18 04:08 Alkaline Phosphatase 192 Units/L (34-104) H 03/20/18 04:08 Ammonia 86 mcmol/L (16-53) H 03/19/18 22:42 Ur Squamous Epith Cells Many per lpf (None-Few) H 03/19/18 18:15 - Head Head exam: Present: atraumatic, normal inspection - Eye Eye exam: Present: PERRL - ENT ENT exam: Present: mucous membranes dry - Neck Neck exam: Present: tenderness - Respiratory Respiratory exam: Present: decreased breath sounds - Expanded Respiratory Exam Location: decreased breath sounds: Left, Right, Lower - Cardiovascular Cardiovascular exam: Present: bradycardia, RRR, +S1, +S2 - GI/Abdominal GI/Abdominal exam: Present: distended, hypoactive bowel sounds, tenderness Additional comments: ascites - Expanded Abdominal Exam GI/Abdominal exam: Present: ascites - External exam: Present: normal external exam Additional comments: Howard catheter intact - Extremities Exam Extremities exam: Present: tenderness - Neurological Exam Neurological exam: Present: alert (opens eyes to name ) - Psychiatric Psychiatric exam: Present: flat affect - Skin Skin exam: Present: pallor Palliative Quality Palliative Quality: Screen for Code Status: Yes, Screen for Goals of Care: Yes, Screen for Pain: Yes, If Pain Regimen Started, Initiate Bowel Regimen: Yes, Screen for Nausea/Vomitting: Yes - Labs CBC & Chem 7: 03/23/18 04:00 03/23/18 04:00 Labs: Laboratory Results - last 24 hr 03/22/18 03/22/18 03/22/18 11:24 17:25 23:49 WBC RBC Hgb Hct MCV MCH MCHC RDW Plt Count MPV Immature Gran % Seg Neutrophils % Lymphocytes % Monocytes % Eosinophils % Basophils % Neutrophils # Lymphocytes # Monocytes # Eosinophils # Basophils # Nucleated RBCs/100 WBC Platelet Estimate Sodium Potassium Chloride Carbon Dioxide BUN Creatinine Est GFR ( Amer) Est GFR (Non-Af Amer) BUN/Creatinine Ratio Glucose POC Glucose 132 H 140 H 117 H Calculated Osmolality Calcium Magnesium 03/23/18 03/23/18 04:00 04:00 WBC 27.6 H RBC 3.50 L Hgb 9.7 L Hct 28.6 L MCV 81.7 L MCH 27.7 L MCHC 33.9 RDW 15.1 H Plt Count 185 MPV 10.5 Immature Gran % 1.1 Seg Neutrophils % 85.3 Lymphocytes % 5.1 Monocytes % 8.2 Eosinophils % 0.0 Basophils % 0.3 Neutrophils # 23.5 H Lymphocytes # 1.4 Monocytes # 2.3 H Eosinophils # 0.0 Basophils # 0.1 Nucleated RBCs/100 WBC 0.1 H Platelet Estimate Normal Sodium 136 Potassium 4.8 Chloride 102 Carbon Dioxide 16 L BUN 110 H Creatinine 7.60 H Est GFR ( Amer) 7 L Est GFR (Non-Af Amer) 6 L BUN/Creatinine Ratio 14 Glucose 119 H POC Glucose Calculated Osmolality 318 H Calcium 8.9 Magnesium 2.3 - ABG Interpretation ABG results: ABG ABG pH 7.37 pH Units (7.32-7.45) 03/22/18 04:59 ABG pCO2 31 mmHg (35-45) L 03/22/18 04:59 ABG pO2 120 mmHg (85-104) H 03/22/18 04:59 ABG O2 Saturation 99 % (95-98) H 03/22/18 04:59 PT/INR, D-dimer PT 11.6 Seconds (9.4-12.1) 03/19/18 16:46 Consult Discharge Plan - Plan Referrals: Stephani Garcia MD [Primary Care Provider] -
--- NOTE | 2018-03-23 16:45 | Event Note ---
<Brandon Saeed - Last Filed: 03/23/18 16:39> Date of Encounter: 03/23/18 Time of Encounter: 16:39 Reports throughout the day that the patient has been requesting to take something by mouth including broth and then candy bars. There was a family meeting earlier today where it was stressed to the family that she is incredibly ill and nutritionally deficient and that currently supplementing her nutrition is significantly complicated, confounded by her liver disease with ascites precluding her from PEG tube placement as well as her end-stage renal disease effectively limiting the use of TPN. Despite this, the family is adamant that she can take something by mouth and request that she receive broth or a candy bar. I discussed at length with family that there is no possible way that she could tolerate solid foods at this time. She has been able to tolerate sips of water intermittently. I also discussed with them that should we give her something by mouth there is a risk that she could decompensate, aspirate which could result in respiratory distress and necessitate her to be reintubated. They are aware of these risks and are willing to accept them if she is able to have something by mouth. I again discussed with them that she very well may aspirate and worsen her clinical scenario. They remarked that they were concerned after the family meeting because it sounded like she was going to be starved and that they would take her somewhere else before that happened. I assured them that our goal was not to starve her but to make sure that it is safe and in her best interest before she takes anything by mouth. At this time we will gently reintroduce oral intake with sips of broth. <Mike Echevarria - Last Filed: 03/23/18 19:38> Date of Encounter: 03/23/18 I examined this patient and my medical decision-making was reviewed with the Resident Physician. I agree with the documented findings, disposition and treatment plan as described except to the extent set forth below. This is very complicated case and extremely poor prognosis. Please refer to addendum to the progress note.
[2018-03-23] MEDS: Cefepime HCl 1,000 MG in Water for inj. (sterile) 20 ML 10 ML IVPB SCH (18:09)
[2018-03-23] MEDS: Propofol 500 MG/50 ML INFUS..BTL IVC SCH (21:28)
[2018-03-24] MEDS: Insulin LISPRO 300 UNITS/3 ML VIAL SQ SCH ×4 (00:22→18:15)
[2018-03-24] MEDS: Lacri-Lube 3.5 GM TUBE BOTH EYES SCH ×6 (00:22→20:15)
[2018-03-24] MEDS: Ipratropium/Albuterol Neb 3 ML IH SCH ×6 (03:51→23:37)
[2018-03-24 05:25] LABS: Basophils # 0.1 K/mcL (0.0-0.2); Basophils % 0.5 %; Hematocrit 29.2 % (35.3-44.9); Hemoglobin 9.9 g/dL (11.5-15.4); Immature Granulocytes % 1.4 % (0-4); Lymphocytes # 1.8 K/mcL (0.6-4.6); Lymphocytes % 6.9 %; Mean Corpuscular HGB Conc 33.9 g/dL (31.6-35.5); Mean Corpuscular Hemoglobin 27.6 pg (28.0-33.3); Mean Corpuscular Volume 81.3 fL (83.0-100.0); Mean Platelet Volume 10.5 fL (9.4-12.4); Monocytes # 2.8 K/mcL (0.0-1.3); Monocytes % 10.5 %; Neutrophils # 21.2 K/mcL (1.6-8.9); Platelet Count 169 K/mcL (140-400); Red Blood Count 3.59 M/mcL (3.82-4.97); Segmented Neutrophils % 80.7 %
[2018-03-24 05:30] LABS: INR 1.2; Prothrombin Time 13.4 Seconds (9.4-12.1)
[2018-03-24 05:44] LABS: Platelet Estimate Normal (Normal)
[2018-03-24 05:45] LABS: Albumin/Globulin Ratio 1.1 (1.1-2.2); Bilirubin,Total 0.8 mg/dL (0.3-1.0); Calcium 9.1 mg/dL (8.6-10.3); Globulin 2.7 g/dL (2.4-3.5); Potassium 5.1 mEq/L (3.5-5.1); Total Protein 5.7 g/dL (6.4-8.9)
[2018-03-24] MEDS: Famotidine 20 MG/2 ML VIAL IVP SCH (06:10)
[2018-03-24] MEDS: *HR* Heparin 5,000 UNIT/ML VIAL SQ SCH ×2 (06:10→18:15)
--- NOTE | 2018-03-24 07:29 | Pulmonology Progress Note ---
<SaraChay W - Last Filed: 03/24/18 14:38> Date of Encounter: 03/24/18 Objective PUL Vital signs: Last Vital Signs Temp 97.6 F 03/24/18 08:29 Pulse 59 03/24/18 13:00 Resp 14 03/24/18 13:00 BP 112/67 03/24/18 13:00 Pulse Ox 95 03/24/18 13:00 Results - Laboratory Findings CBC and BMP: 03/24/18 04:56 03/24/18 04:56 ABG ABG pH 7.37 pH Units (7.32-7.45) 03/22/18 04:59 ABG pCO2 31 mmHg (35-45) L 03/22/18 04:59 ABG pO2 120 mmHg (85-104) H 03/22/18 04:59 ABG O2 Saturation 99 % (95-98) H 03/22/18 04:59 PT/INR, D-dimer PT 13.4 Seconds (9.4-12.1) H 03/24/18 04:56 Abnormal lab findings: Abnormal lab results WBC 26.3 K/mcL (4.3-11.1) H 03/24/18 04:56 RBC 3.59 M/mcL (3.82-4.97) L 03/24/18 04:56 Hgb 9.9 g/dL (11.5-15.4) L 03/24/18 04:56 Hct 29.2 % (35.3-44.9) L 03/24/18 04:56 MCV 81.3 fL (83.0-100.0) L 03/24/18 04:56 MCH 27.6 pg (28.0-33.3) L 03/24/18 04:56 RDW 15.0 % (11.5-14.5) H 03/24/18 04:56 Band Neutrophils % 18.0 % (0-4) H 03/21/18 03:46 Metamyelocytes % 2.0 % (0) H 03/21/18 03:46 Neutrophils # 21.2 K/mcL (1.6-8.9) H 03/24/18 04:56 Monocytes # 2.8 K/mcL (0.0-1.3) H 03/24/18 04:56 Nucleated RBCs/100 WBC 0.1 /100 WBC (0) H 03/23/18 04:00 Reactive Lymphocytes Present (Not Present) A 03/22/18 03:15 Toxic Granulation Present (Not Present) A 03/22/18 03:15 Anisocytosis 1+ (Not Present) A 03/19/18 23:55 Microcytosis Present (Not Present) A 03/19/18 23:55 Macrocytosis Present (Not Present) A 03/19/18 23:55 PT 13.4 Seconds (9.4-12.1) H 03/24/18 04:56 ABG pCO2 31 mmHg (35-45) L 03/22/18 04:59 ABG pO2 120 mmHg (85-104) H 03/22/18 04:59 ABG HCO3 18 mEq/L (21-27) L 03/22/18 04:59 ABG Total CO2 19 mEq/L (20-26) L 03/22/18 04:59 ABG O2 Saturation 99 % (95-98) H 03/22/18 04:59 ABG Base Excess -7 mEq/L (-2 to 3) L 03/22/18 04:59 Sodium 135 mEq/L (136-145) L 03/24/18 04:56 Carbon Dioxide 17 mEq/L (23-29) L 03/24/18 04:56 BUN 113 mg/dL (6-20) H 03/24/18 04:56 Creatinine 6.90 mg/dL (0.60-1.20) H 03/24/18 04:56 Est GFR ( Amer) 8 (> 60) L 03/24/18 04:56 Est GFR (Non-Af Amer) 6 (> 60) L 03/24/18 04:56 Calculated Osmolality 315 (280-300) H 03/24/18 04:56 Venous Ioniz Calcium 0.99 mmol/L (1.15-1.35) L 03/20/18 04:39 Phosphorus 11.1 mg/dL (2.7-4.5) H 03/20/18 04:08 Alkaline Phosphatase 201 Units/L (34-104) H 03/24/18 04:56 Ammonia 86 mcmol/L (16-53) H 03/19/18 22:42 Serum Total Protein 5.7 g/dL (6.4-8.9) L 03/24/18 04:56 Albumin 3.0 g/dL (3.5-5.7) L 03/24/18 04:56 Ur Squamous Epith Cells Many per lpf (None-Few) H 03/19/18 18:15 - Clinical Findings Intake & Output: Intake & Output 03/23/18 03/24/18 03/24/18 23:59 07:59 15:59 Intake Total 20 / 20 60 / 60 Output Total 100 / 100 200 / 200 200 / 200 Balance -80 / -80 -140 / -140 -200 / -200 Weight 40.4 kg Consult Discharge Plan - Plan Referrals: Stephani Garcia MD [Primary Care Provider] - - Attending Attestation I examined this patient and my medical decision-making was reviewed with the Resident Physician. I agree with the documented findings, disposition and treatment plan as described except to the extent set forth below. We independently had [id number] contact with the patient Patient seen and examined at bedside Labs, radiology, chart personally reviewed. Management was reviewed during multidisciplinary critical care rounds. DEVELOPMENT EDUCATOR: Remains confused which I suspect is related to hepatic encephalopathy complicated by uremia. We will attempt to reintroduce lactulose once taking by mouth if possible Pulm: Acute respiratory failure status post vent now extubated tolerating nasal cannula oxygen high risk for needing reintubation Cards: Blood pressure monitored and stable FEN-GI: Patient has cirrhosis which is decompensated. We will introduce sips of liquid diet right now she is at high risk for aspiration probably is aware of this and they are adamant that she should continue to receive nutrition by mouth. Virtually anuric nutrition has been on hold because she is a poor candidate for TPN and cannot have PEG tube placement.. She has a drain placed for ascites which can be used as needed no current indication for drainage today Renal: Worsening renal function which is possibly related to hepatorenal syndrome nephrology following she is a poor candidate for renal replacement and that is not being pursued at this time ID: She is on antimicrobials for pneumonia with plan to de-escalate Heme/Onc: DVT prophylaxis given Endo: Glucose Monitored Integ/MSK: Skin Care per routine ICU Nursing Protocol to prevent ulcers. Lines: All lines examined without evidence of infection : Dispo: Remain in ICU because of possibility of decompensation c CODE: urrently if patient is okay per family for reintubation but would really need to transition to comfort measures I suspect the next 24-48 hours <Dom Marie - Last Filed: 03/24/18 17:08> Date of Encounter: 03/24/18 Time of Encounter: 07:27 Assessment and Plan (1) Healthcare-associated pneumonia Current Visit: Yes Status: Acute The patient was most recently admitted for therefore meeting HCAP criteria CXR on 03/19/18: Interval development of patchy alveolar densities L parahilar lung concerning for PNA - Leukocytosis is improving; 26.3 (27.6) - Blood cultures negative 2 ABGs: - 7.23/27/58/11// - 7.08/59/78/// - 7.37/28/83/16//96 - 7.37/31/120// Plan: - Cefepime 1000 mg IV every 24 hours - DuoNeb 3 mL inhaled every 4 scheduled - Albuterol inhaler 2 puffs inhaled every 2 when necessary (2) Nutritional deficiency Current Visit: Yes Status: Acute Per event note on 03/23/18: - Patient had been requesting something by mouth including broth and candy bars - Family meeting took place in which risks of giving patient solid food was discussed; end-stage renal disease limits the use of TPN - Family was adamant that patient could take something by mouth; requested the patient received solid food - Patient has been able to tolerate sips of water intermittently - Risks of aspiration were discussed with patients family - Family reported that they were concerned about patient starving, and that they would take her somewhere else before that happened - Plan at this time is to gently reintroduce oral intake with sips of broth (3) Failure to thrive in adult Current Visit: Yes Status: Acute Patient currently has a BMI of 15.7 - Current mentation exclude her from oral intake - Ascites precludes her from PEG tube placement - Poor renal function precludes her from TPN - Discuss with family about poor outcome and inability to provide nutritional supplementation - Nutrition is on board (4) Toxic metabolic encephalopathy Current Visit: Yes Status: Acute Encephalopathy which is likely multifactorial from cirrhosis, uremia and metabolic acidosis - Intubated for AMS - Elevated ammonia level, plan to administer lactulose - Uremic encephalopathy secondary to renal failure (5) Renal failure Current Visit: No Status: Acute Presented with BUN of 91 and serum creatinine of 8.48. - Patient previously evaluated by nephrology, poor candidate for dialysis given her cirrhosis. - Resenting hyperkalemia was treated with a bicarbonate infusion - Nephrology was consulted - Patients family does not want dialysis; palliative care is onboard - Creatinine today is 6.90 Qualifiers: Renal failure chronicity: acute Acute renal failure type: unspecified Qualified Code(s): N17.9 - Acute kidney failure, unspecified (6) Hepatic cirrhosis due to chronic hepatitis C infection Current Visit: No Status: Chronic - Patient had paracentesis - 500 mL of ascitic fluid has been drained (7) DVT prophylaxis Current Visit: No Status: Acute - Heparin 5000 units subcutaneous every 12 hours Subjective Principal diagnosis: Healthcare associated pneumonia Interval history: Patient was seen and examined at bedside this morning. Patient is currently asleep; difficult to arouse. Currently on oxygen via nasal cannula. Patient appears very thin. Palliative care is onboard. Family has refused dialysis. Objective PUL Vital signs: Last Vital Signs Temp 97.8 F 03/24/18 00:26 Pulse 51 03/24/18 06:00 Resp 15 03/24/18 06:00 BP 113/60 03/24/18 06:00 Pulse Ox 94 03/24/18 06:00 General appearance: no acute distress, other (Difficult to arouse; very thin) Eyes: nonicteric Auscultation: bilateral: diminished breath sounds Cardiovascular: regular rate and rhythm Gastrointestinal: normoactive bowel sounds, non-distended Integumentary: normal Extremities: no cyanosis, no edema, no clubbing Musculoskeletal: no deformities, ROM normal Results - Laboratory Findings CBC and BMP: 03/24/18 04:56 03/24/18 04:56 ABG ABG pH 7.37 pH Units (7.32-7.45) 03/22/18 04:59 ABG pCO2 31 mmHg (35-45) L 03/22/18 04:59 ABG pO2 120 mmHg (85-104) H 03/22/18 04:59 ABG O2 Saturation 99 % (95-98) H 03/22/18 04:59 PT/INR, D-dimer PT 13.4 Seconds (9.4-12.1) H 03/24/18 04:56 Abnormal lab findings: Abnormal lab results WBC 26.3 K/mcL (4.3-11.1) H 03/24/18 04:56 RBC 3.59 M/mcL (3.82-4.97) L 03/24/18 04:56 Hgb 9.9 g/dL (11.5-15.4) L 03/24/18 04:56 Hct 29.2 % (35.3-44.9) L 03/24/18 04:56 MCV 81.3 fL (83.0-100.0) L 03/24/18 04:56 MCH 27.6 pg (28.0-33.3) L 03/24/18 04:56 RDW 15.0 % (11.5-14.5) H 03/24/18 04:56 Band Neutrophils % 18.0 % (0-4) H 03/21/18 03:46 Metamyelocytes % 2.0 % (0) H 03/21/18 03:46 Neutrophils # 21.2 K/mcL (1.6-8.9) H 03/24/18 04:56 Monocytes # 2.8 K/mcL (0.0-1.3) H 03/24/18 04:56 Nucleated RBCs/100 WBC 0.1 /100 WBC (0) H 03/23/18 04:00 Reactive Lymphocytes Present (Not Present) A 03/22/18 03:15 Toxic Granulation Present (Not Present) A 03/22/18 03:15 Anisocytosis 1+ (Not Present) A 03/19/18 23:55 Microcytosis Present (Not Present) A 03/19/18 23:55 Macrocytosis Present (Not Present) A 03/19/18 23:55 PT 13.4 Seconds (9.4-12.1) H 03/24/18 04:56 ABG pCO2 31 mmHg (35-45) L 03/22/18 04:59 ABG pO2 120 mmHg (85-104) H 03/22/18 04:59 ABG HCO3 18 mEq/L (21-27) L 03/22/18 04:59 ABG Total CO2 19 mEq/L (20-26) L 03/22/18 04:59 ABG O2 Saturation 99 % (95-98) H 03/22/18 04:59 ABG Base Excess -7 mEq/L (-2 to 3) L 03/22/18 04:59 Sodium 135 mEq/L (136-145) L 03/24/18 04:56 Carbon Dioxide 17 mEq/L (23-29) L 03/24/18 04:56 BUN 113 mg/dL (6-20) H 03/24/18 04:56 Creatinine 6.90 mg/dL (0.60-1.20) H 03/24/18 04:56 Est GFR ( Amer) 8 (> 60) L 03/24/18 04:56 Est GFR (Non-Af Amer) 6 (> 60) L 03/24/18 04:56 Calculated Osmolality 315 (280-300) H 03/24/18 04:56 Venous Ioniz Calcium 0.99 mmol/L (1.15-1.35) L 03/20/18 04:39 Phosphorus 11.1 mg/dL (2.7-4.5) H 03/20/18 04:08 Alkaline Phosphatase 201 Units/L (34-104) H 03/24/18 04:56 Ammonia 86 mcmol/L (16-53) H 03/19/18 22:42 Serum Total Protein 5.7 g/dL (6.4-8.9) L 03/24/18 04:56 Albumin 3.0 g/dL (3.5-5.7) L 03/24/18 04:56 Ur Squamous Epith Cells Many per lpf (None-Few) H 03/19/18 18:15 - Clinical Findings Intake & Output: Intake & Output 03/23/18 03/23/18 03/24/18 15:59 23:59 07:59 Intake Total 10 / 10 60 / 60 Output Total 275 / 275 100 / 100 200 / 200 Balance -275 / -275 -90 / -90 -140 / -140 Weight 40.4 kg
[2018-03-24] MEDS: Lactulose Oral Soln 20 GM/30 ML UDC PO SCH ×2 (07:34→20:15)
[2018-03-24] MEDS: Chlorhexidine Rinse 15 ML MOUTHWASH MM SCH ×2 (07:34→20:15)
[2018-03-24] MEDS: Neosporin OINT 15 GM TUBE TP SCH ×2 (07:35→20:16)
--- NOTE | 2018-03-24 09:46 | Palliative Progress Note ---
Date of Encounter: 03/24/18 Time of Encounter: 09:15 - Assessment and plan (1) Acute hepatic encephalopathy Current Visit: Yes Status: Acute Assessment and plan: Patient opens eyes to name but doesn't communicate verbally. Last ammonia 86 (). Lactulose ordered but no BMs noted. May need RC lactulose. Patient end- stage liver disease. (2) Ascites due to alcoholic cirrhosis Current Visit: Yes Status: Chronic Assessment and plan: Patient with end stage Liver failure. PleurX catheter in place. Paracentesis done yesterday to remove 500 ml. Tolerated well. (3) Goals of care, counseling/discussion Current Visit: No Status: Acute Assessment and plan: Family meeting yesterday per Dr. Echevarria. Mother remains medical decision make but patient also has son and sister who is an APRON WORKER involved in discussions. Patient is frail and weak with overall poor prognosis. No po intake and is not candidate for PEG given ascites of catheter. Family desires patient to have po intake however, the patient is to weak to maintain alertness while taking po. Family agrees with overall poor prognosis and is ok with attempting po intake. Patient had 60 ml orally this AM. Current plan is patient and family are not open to hospice care at this time but desires home health to assist. Tolerating NC at 3L NC. No desire for dialysis. Goal is to slowly introduce po liquid and assess abilities. (4) Decompensation of cirrhosis of liver Current Visit: Yes Status: Acute - Time Spent With Patient Total time spent is greater than 50% in coordination of care (as documented) at patient's floor/unit and/or counseling patient: 25 - 35 minutes - Subjective Interval history: Lying in bed. Opens eyes in response to name. Shakes head yes and no. Frail and weak. Denies complaints. Chart, labs and diagnostics reviewed. - Constitutional Vitals: Abnormal lab results WBC 26.3 K/mcL (4.3-11.1) H 03/24/18 04:56 RBC 3.59 M/mcL (3.82-4.97) L 03/24/18 04:56 Hgb 9.9 g/dL (11.5-15.4) L 03/24/18 04:56 Hct 29.2 % (35.3-44.9) L 03/24/18 04:56 MCV 81.3 fL (83.0-100.0) L 03/24/18 04:56 MCH 27.6 pg (28.0-33.3) L 03/24/18 04:56 RDW 15.0 % (11.5-14.5) H 03/24/18 04:56 Band Neutrophils % 18.0 % (0-4) H 03/21/18 03:46 Metamyelocytes % 2.0 % (0) H 03/21/18 03:46 Neutrophils # 21.2 K/mcL (1.6-8.9) H 03/24/18 04:56 Monocytes # 2.8 K/mcL (0.0-1.3) H 03/24/18 04:56 Nucleated RBCs/100 WBC 0.1 /100 WBC (0) H 03/23/18 04:00 Reactive Lymphocytes Present (Not Present) A 03/22/18 03:15 Toxic Granulation Present (Not Present) A 03/22/18 03:15 Anisocytosis 1+ (Not Present) A 03/19/18 23:55 Microcytosis Present (Not Present) A 03/19/18 23:55 Macrocytosis Present (Not Present) A 03/19/18 23:55 PT 13.4 Seconds (9.4-12.1) H 03/24/18 04:56 ABG pCO2 31 mmHg (35-45) L 03/22/18 04:59 ABG pO2 120 mmHg (85-104) H 03/22/18 04:59 ABG HCO3 18 mEq/L (21-27) L 03/22/18 04:59 ABG Total CO2 19 mEq/L (20-26) L 03/22/18 04:59 ABG O2 Saturation 99 % (95-98) H 03/22/18 04:59 ABG Base Excess -7 mEq/L (-2 to 3) L 03/22/18 04:59 Sodium 135 mEq/L (136-145) L 03/24/18 04:56 Carbon Dioxide 17 mEq/L (23-29) L 03/24/18 04:56 BUN 113 mg/dL (6-20) H 03/24/18 04:56 Creatinine 6.90 mg/dL (0.60-1.20) H 03/24/18 04:56 Est GFR ( Amer) 8 (> 60) L 03/24/18 04:56 Est GFR (Non-Af Amer) 6 (> 60) L 03/24/18 04:56 Calculated Osmolality 315 (280-300) H 03/24/18 04:56 Venous Ioniz Calcium 0.99 mmol/L (1.15-1.35) L 03/20/18 04:39 Phosphorus 11.1 mg/dL (2.7-4.5) H 03/20/18 04:08 Alkaline Phosphatase 201 Units/L (34-104) H 03/24/18 04:56 Ammonia 86 mcmol/L (16-53) H 03/19/18 22:42 Serum Total Protein 5.7 g/dL (6.4-8.9) L 03/24/18 04:56 Albumin 3.0 g/dL (3.5-5.7) L 03/24/18 04:56 Ur Squamous Epith Cells Many per lpf (None-Few) H 03/19/18 18:15 - Head Head exam: Present: atraumatic, normal inspection - Eye Eye exam: Present: PERRL - ENT ENT exam: Present: mucous membranes moist - Respiratory Respiratory exam: Present: decreased breath sounds - Expanded Respiratory Exam Location: decreased breath sounds: Left, Right, Lower - Cardiovascular Cardiovascular exam: Present: bradycardia, RRR, +S1, +S2 - GI/Abdominal GI/Abdominal exam: Present: diminished bowel sounds, soft, tenderness - External exam: Present: normal external exam Additional comments: Howard with clear urine - Extremities Exam Extremities exam: Present: tenderness - Neurological Exam Neurological exam: Present: alert (falls asleep intermittently) - Psychiatric Psychiatric exam: Present: flat affect - Skin Skin exam: Present: pallor Palliative Quality Palliative Quality: Screen for Code Status: Yes, Screen for Goals of Care: Yes, Screen for Pain: Yes, If Pain Regimen Started, Initiate Bowel Regimen: Yes, Screen for Nausea/Vomitting: Yes - Labs CBC & Chem 7: 03/24/18 04:56 03/24/18 04:56 Labs: Laboratory Results - last 24 hr 03/23/18 03/23/18 03/23/18 11:20 18:17 23:48 WBC RBC Hgb Hct MCV MCH MCHC RDW Plt Count MPV Immature Gran % Seg Neutrophils % Lymphocytes % Monocytes % Eosinophils % Basophils % Neutrophils # Lymphocytes # Monocytes # Eosinophils # Basophils # Platelet Estimate PT INR Sodium Potassium Chloride Carbon Dioxide BUN Creatinine Est GFR ( Amer) Est GFR (Non-Af Amer) BUN/Creatinine Ratio Glucose POC Glucose 110 H 106 H 99 Calculated Osmolality Calcium Total Bilirubin AST ALT Alkaline Phosphatase Serum Total Protein Albumin Globulin Albumin/Globulin Ratio 03/24/18 03/24/18 03/24/18 04:56 04:56 04:56 WBC 26.3 H RBC 3.59 L Hgb 9.9 L Hct 29.2 L MCV 81.3 L MCH 27.6 L MCHC 33.9 RDW 15.0 H Plt Count 169 MPV 10.5 Immature Gran % 1.4 Seg Neutrophils % 80.7 Lymphocytes % 6.9 Monocytes % 10.5 Eosinophils % 0.0 Basophils % 0.5 Neutrophils # 21.2 H Lymphocytes # 1.8 Monocytes # 2.8 H Eosinophils # 0.0 Basophils # 0.1 Platelet Estimate Normal PT 13.4 H INR 1.2 Sodium 135 L Potassium 5.1 Chloride 102 Carbon Dioxide 17 L BUN 113 H Creatinine 6.90 H Est GFR ( Amer) 8 L Est GFR (Non-Af Amer) 6 L BUN/Creatinine Ratio 16 Glucose 92 POC Glucose Calculated Osmolality 315 H Calcium 9.1 Total Bilirubin 0.8 AST 25 ALT 30 Alkaline Phosphatase 201 H Serum Total Protein 5.7 L Albumin 3.0 L Globulin 2.7 Albumin/Globulin Ratio 1.1 - ABG Interpretation ABG results: ABG ABG pH 7.37 pH Units (7.32-7.45) 03/22/18 04:59 ABG pCO2 31 mmHg (35-45) L 03/22/18 04:59 ABG pO2 120 mmHg (85-104) H 03/22/18 04:59 ABG O2 Saturation 99 % (95-98) H 03/22/18 04:59 PT/INR, D-dimer PT 13.4 Seconds (9.4-12.1) H 03/24/18 04:56 Consult Discharge Plan - Plan Referrals: Stephani Garcia MD [Primary Care Provider] -
[2018-03-24] MEDS: *HR* FentaNYL (PF) 100 MCG/2 ML VIAL IVP PRN (11:52)
[2018-03-24] MEDS: Cefepime HCl 1,000 MG in Water for inj. (sterile) 20 ML 10 ML IVPB SCH (18:15)
[2018-03-24] MEDS: Propofol 500 MG/50 ML INFUS..BTL IVC SCH (20:15)
[2018-03-25] MEDS: Insulin LISPRO 300 UNITS/3 ML VIAL SQ SCH ×2 (00:13→06:21)
[2018-03-25] MEDS: Lacri-Lube 3.5 GM TUBE BOTH EYES SCH ×6 (00:13→19:50)
[2018-03-25] MEDS: Ipratropium/Albuterol Neb 3 ML IH SCH ×6 (04:00→23:30)
[2018-03-25] MEDS: Famotidine 20 MG/2 ML VIAL IVP SCH (06:21)
[2018-03-25] MEDS: *HR* Heparin 5,000 UNIT/ML VIAL SQ SCH ×2 (06:21→18:23)
--- NOTE | 2018-03-25 07:23 | Palliative Progress Note ---
Date of Encounter: 03/25/18 Time of Encounter: 07:05 - Assessment and plan (1) Acute hepatic encephalopathy Current Visit: Yes Status: Acute Assessment and plan: Is having bowel movements. However no lactulose the last 2 days. Not Being given rectally. (2) BERNARDA (acute kidney injury) Current Visit: No Status: Acute Assessment and plan: The patient does not wish to have any dialysis. Kidney function is still extremely poor. However the patient did have 500 mL out yesterday and the BUN BUN continues to climb, but creatinine has improved albeit still at a very poor level. (3) Metabolic acidosis Current Visit: No Status: Acute Assessment and plan: This is turned around quite well with the carb drip the patient was on. This has resolved Today in my gap is upper limit normal. (4) Goals of care, counseling/discussion Current Visit: No Status: Acute Assessment and plan: Patient is currently DNR CCA and the family dates no dialysis. He wishes for the patient eat however PEG tube is not an option due to the ascites. Patient has had 500 mL off over the course of the weekend from her Pleurx catheter. Patient is taking incredibly poor by mouth. It is at high aspiration risk. Attempt to discuss further with family today although's will be a slow process at this point the family his [place] repeatedly declined hospice services I would option against pushing hospice as the patient's family has had a poor experience and they have already declined it multiple times. They do understand that it is available. - Time Spent With Patient Total time spent is greater than 50% in coordination of care (as documented) at patient's floor/unit and/or counseling patient: - Subjective Interval history: Events of weekend noted. I have noted the patient has got no further by mouth other than the 60 mL attempted on yesterday. She opens eyes to voice and does not but does not speak. She shakes her head to pain and understands she can ask for pain meds. - Constitutional Vitals: Abnormal lab results WBC 26.3 K/mcL (4.3-11.1) H 03/24/18 04:56 RBC 3.59 M/mcL (3.82-4.97) L 03/24/18 04:56 Hgb 9.9 g/dL (11.5-15.4) L 03/24/18 04:56 Hct 29.2 % (35.3-44.9) L 03/24/18 04:56 MCV 81.3 fL (83.0-100.0) L 03/24/18 04:56 MCH 27.6 pg (28.0-33.3) L 03/24/18 04:56 RDW 15.0 % (11.5-14.5) H 03/24/18 04:56 Band Neutrophils % 18.0 % (0-4) H 03/21/18 03:46 Metamyelocytes % 2.0 % (0) H 03/21/18 03:46 Neutrophils # 21.2 K/mcL (1.6-8.9) H 03/24/18 04:56 Monocytes # 2.8 K/mcL (0.0-1.3) H 03/24/18 04:56 Nucleated RBCs/100 WBC 0.1 /100 WBC (0) H 03/23/18 04:00 Reactive Lymphocytes Present (Not Present) A 03/22/18 03:15 Toxic Granulation Present (Not Present) A 03/22/18 03:15 Anisocytosis 1+ (Not Present) A 03/19/18 23:55 Microcytosis Present (Not Present) A 03/19/18 23:55 Macrocytosis Present (Not Present) A 03/19/18 23:55 PT 13.4 Seconds (9.4-12.1) H 03/24/18 04:56 ABG pCO2 31 mmHg (35-45) L 03/22/18 04:59 ABG pO2 120 mmHg (85-104) H 03/22/18 04:59 ABG HCO3 18 mEq/L (21-27) L 03/22/18 04:59 ABG Total CO2 19 mEq/L (20-26) L 03/22/18 04:59 ABG O2 Saturation 99 % (95-98) H 03/22/18 04:59 ABG Base Excess -7 mEq/L (-2 to 3) L 03/22/18 04:59 Sodium 135 mEq/L (136-145) L 03/24/18 04:56 Carbon Dioxide 17 mEq/L (23-29) L 03/24/18 04:56 BUN 113 mg/dL (6-20) H 03/24/18 04:56 Creatinine 6.90 mg/dL (0.60-1.20) H 03/24/18 04:56 Est GFR ( Amer) 8 (> 60) L 03/24/18 04:56 Est GFR (Non-Af Amer) 6 (> 60) L 03/24/18 04:56 Calculated Osmolality 315 (280-300) H 03/24/18 04:56 Venous Ioniz Calcium 0.99 mmol/L (1.15-1.35) L 03/20/18 04:39 Phosphorus 11.1 mg/dL (2.7-4.5) H 03/20/18 04:08 Alkaline Phosphatase 201 Units/L (34-104) H 03/24/18 04:56 Ammonia 86 mcmol/L (16-53) H 03/19/18 22:42 Serum Total Protein 5.7 g/dL (6.4-8.9) L 03/24/18 04:56 Albumin 3.0 g/dL (3.5-5.7) L 03/24/18 04:56 Ur Squamous Epith Cells Many per lpf (None-Few) H 03/19/18 18:15 General appearance: Present: no acute distress - Respiratory Respiratory exam: Present: decreased breath sounds - Cardiovascular Cardiovascular exam: Present: bradycardia, RRR - GI/Abdominal GI/Abdominal exam: Present: distended (Slightly), hypoactive bowel sounds, soft - Extremities Exam Extremities exam: Present: normal inspection. Absent: pedal edema, tenderness - Neurological Exam Neurological exam: Present: alert (Response to voice but does not speak). Absent: oriented X3 - Psychiatric Psychiatric exam: Absent: agitated, anxious - Skin Skin exam: Present: dry, warm Palliative Quality Palliative Quality: Screen for Code Status: Yes, Screen for Goals of Care: Yes, Screen for Pain: Yes, If Pain Regimen Started, Initiate Bowel Regimen: Yes, Screen for Nausea/Vomitting: Yes - Labs CBC & Chem 7: 03/24/18 04:56 03/24/18 04:56 Labs: Laboratory Results - last 24 hr 03/24/18 03/24/18 03/24/18 11:58 18:14 23:57 POC Glucose 88 91 85 - ABG Interpretation ABG results: ABG ABG pH 7.37 pH Units (7.32-7.45) 03/22/18 04:59 ABG pCO2 31 mmHg (35-45) L 03/22/18 04:59 ABG pO2 120 mmHg (85-104) H 03/22/18 04:59 ABG O2 Saturation 99 % (95-98) H 03/22/18 04:59 PT/INR, D-dimer PT 13.4 Seconds (9.4-12.1) H 03/24/18 04:56 Consult Discharge Plan - Plan Referrals: Stephani Garcia MD [Primary Care Provider] -
[2018-03-25] MEDS: Chlorhexidine Rinse 15 ML MOUTHWASH MM SCH ×2 (07:40→19:50)
[2018-03-25] MEDS: Lactulose Oral Soln 20 GM/30 ML UDC PO SCH ×2 (07:41→19:50)
--- NOTE | 2018-03-25 08:44 | Pulmonology Progress Note ---
<Brandon Saeed - Last Filed: 03/25/18 11:44> Date of Encounter: 03/25/18 Time of Encounter: 08:39 Assessment and Plan (1) Healthcare-associated pneumonia Current Visit: Yes Status: Acute Initial chest x-ray with left perihilar opacity. Continues on cefepime. Legionella, strep pneumo and respiratory panel negative. (2) Renal failure Current Visit: No Status: Acute BUNs 113, serum creatinine 6.9. Suspect hepatorenal etiology given her underlying liver disease. Creatinine continues to marginally improved. Electrolytes within normal limits with a normal potassium. Nephrology consulted and following. Given her severe liver disease she is not a candidate for dialysis. Qualifiers: Renal failure chronicity: acute Acute renal failure type: unspecified Qualified Code(s): N17.9 - Acute kidney failure, unspecified (3) Failure to thrive in adult Current Visit: Yes Status: Acute Patient currently has a BMI of 14.6 Current mentation and weakness excludes her from oral intake. Ascites precludes her from PEG tube placement. Discuss with family about poor outcome and inability to provide nutritional supplementation. Discussed with dietitian about potential TPN formulation given her ESRD. Speech consult for swallow evaluation. In the interim we will place her on D5W for some nutrition. (4) Toxic metabolic encephalopathy Current Visit: Yes Status: Acute Multifactorial in etiology secondary to uremic encephalopathy, end-stage liver disease. Patient is not a candidate for dialysis at this time. Consider adding rectal lactulose. (5) Hyperkalemia Current Visit: No Status: Resolved Resolved. Daily BMP. (6) Leukocytosis Current Visit: No Status: Acute WBC 26.3, trending down.. Afebrile. In the setting of healthcare associated pneumonia. Continue cefepime. Qualifiers: Leukocytosis type: unspecified Qualified Code(s): D72.829 - Elevated white blood cell count, unspecified (7) Metabolic acidosis Current Visit: No Status: Acute Bicarbonate of 16. Anion gap of 16. Nephrology consulted, patient not felt to be a viable candidate for dialysis.. (8) Diabetes Current Visit: No Status: Chronic Sliding-scale insulin coverage Qualifiers: Diabetes mellitus type: type 2 Diabetes mellitus supervisor intermediates insulin use: without supervisor intermediates use Diabetes mellitus complication status: with kidney complications Diabetes mellitus complication detail: with chronic kidney disease Chronic kidney disease stage: unspecified stage Qualified Code(s): E11.22 - Type 2 diabetes mellitus with diabetic chronic kidney disease (9) Hepatic cirrhosis due to chronic hepatitis C infection Current Visit: No Status: Chronic Plan to add lactulose, however the patient refuses oral medication. (10) DVT prophylaxis Current Visit: No Status: Acute Heparin every 12 hours Subjective Principal diagnosis: Healthcare associated pneumonia Interval history: No acute events overnight. Patient refusing anything by mouth. Objective PUL Vital signs: Last Vital Signs Temp 97.1 F L 03/25/18 07:34 Pulse 51 03/25/18 07:30 Resp 16 03/25/18 08:27 BP 99/52 03/25/18 07:00 Pulse Ox 100 03/25/18 08:27 General appearance: no acute distress, alert, other (Cachectic) Eyes: nonicteric ENT: oropharynx dry Effort: normal Auscultation: bilateral: diminished breath sounds Cardiovascular: regular rate and rhythm Gastrointestinal: soft, non-tender, non-distended, other (Right catheter in place) Integumentary: normal Extremities: no cyanosis, no edema Musculoskeletal: no deformities other (Opens eyes spontaneously. Follows commands.) Results - Laboratory Findings CBC and BMP: 03/24/18 04:56 03/24/18 04:56 ABG ABG pH 7.37 pH Units (7.32-7.45) 03/22/18 04:59 ABG pCO2 31 mmHg (35-45) L 03/22/18 04:59 ABG pO2 120 mmHg (85-104) H 03/22/18 04:59 ABG O2 Saturation 99 % (95-98) H 03/22/18 04:59 PT/INR, D-dimer PT 13.4 Seconds (9.4-12.1) H 03/24/18 04:56 Abnormal lab findings: Abnormal lab results WBC 26.3 K/mcL (4.3-11.1) H 03/24/18 04:56 RBC 3.59 M/mcL (3.82-4.97) L 03/24/18 04:56 Hgb 9.9 g/dL (11.5-15.4) L 03/24/18 04:56 Hct 29.2 % (35.3-44.9) L 03/24/18 04:56 MCV 81.3 fL (83.0-100.0) L 03/24/18 04:56 MCH 27.6 pg (28.0-33.3) L 03/24/18 04:56 RDW 15.0 % (11.5-14.5) H 03/24/18 04:56 Band Neutrophils % 18.0 % (0-4) H 03/21/18 03:46 Metamyelocytes % 2.0 % (0) H 03/21/18 03:46 Neutrophils # 21.2 K/mcL (1.6-8.9) H 03/24/18 04:56 Monocytes # 2.8 K/mcL (0.0-1.3) H 03/24/18 04:56 Nucleated RBCs/100 WBC 0.1 /100 WBC (0) H 03/23/18 04:00 Reactive Lymphocytes Present (Not Present) A 03/22/18 03:15 Toxic Granulation Present (Not Present) A 03/22/18 03:15 Anisocytosis 1+ (Not Present) A 03/19/18 23:55 Microcytosis Present (Not Present) A 03/19/18 23:55 Macrocytosis Present (Not Present) A 03/19/18 23:55 PT 13.4 Seconds (9.4-12.1) H 03/24/18 04:56 ABG pCO2 31 mmHg (35-45) L 03/22/18 04:59 ABG pO2 120 mmHg (85-104) H 03/22/18 04:59 ABG HCO3 18 mEq/L (21-27) L 03/22/18 04:59 ABG Total CO2 19 mEq/L (20-26) L 03/22/18 04:59 ABG O2 Saturation 99 % (95-98) H 03/22/18 04:59 ABG Base Excess -7 mEq/L (-2 to 3) L 03/22/18 04:59 Sodium 135 mEq/L (136-145) L 03/24/18 04:56 Carbon Dioxide 17 mEq/L (23-29) L 03/24/18 04:56 BUN 113 mg/dL (6-20) H 03/24/18 04:56 Creatinine 6.90 mg/dL (0.60-1.20) H 03/24/18 04:56 Est GFR ( Amer) 8 (> 60) L 03/24/18 04:56 Est GFR (Non-Af Amer) 6 (> 60) L 03/24/18 04:56 Calculated Osmolality 315 (280-300) H 03/24/18 04:56 Venous Ioniz Calcium 0.99 mmol/L (1.15-1.35) L 03/20/18 04:39 Phosphorus 11.1 mg/dL (2.7-4.5) H 03/20/18 04:08 Alkaline Phosphatase 201 Units/L (34-104) H 03/24/18 04:56 Ammonia 86 mcmol/L (16-53) H 03/19/18 22:42 Serum Total Protein 5.7 g/dL (6.4-8.9) L 03/24/18 04:56 Albumin 3.0 g/dL (3.5-5.7) L 03/24/18 04:56 Ur Squamous Epith Cells Many per lpf (None-Few) H 03/19/18 18:15 - Clinical Findings Intake & Output: Intake & Output 03/24/18 03/25/18 03/25/18 23:59 07:59 15:59 Intake Total 0 / 0 Output Total 150 / 150 150 / 150 Balance -150 / -150 -150 / -150 Weight 41.1 kg Consult Discharge Plan - Plan Referrals: Stephani Garcia MD [Primary Care Provider] - <Eder Lockwood - Last Filed: 03/25/18 23:09> Date of Encounter: 03/25/18 Objective PUL Vital signs: Last Vital Signs Temp 97.5 F L 03/25/18 20:00 Pulse 61 03/25/18 22:00 Resp 12 03/25/18 22:00 BP 119/74 03/25/18 22:00 Pulse Ox 100 03/25/18 22:00 Results - Laboratory Findings CBC and BMP: 03/24/18 04:56 03/24/18 04:56 ABG ABG pH 7.37 pH Units (7.32-7.45) 03/22/18 04:59 ABG pCO2 31 mmHg (35-45) L 03/22/18 04:59 ABG pO2 120 mmHg (85-104) H 03/22/18 04:59 ABG O2 Saturation 99 % (95-98) H 03/22/18 04:59 PT/INR, D-dimer PT 13.4 Seconds (9.4-12.1) H 03/24/18 04:56 Abnormal lab findings: Abnormal lab results WBC 26.3 K/mcL (4.3-11.1) H 03/24/18 04:56 RBC 3.59 M/mcL (3.82-4.97) L 03/24/18 04:56 Hgb 9.9 g/dL (11.5-15.4) L 03/24/18 04:56 Hct 29.2 % (35.3-44.9) L 03/24/18 04:56 MCV 81.3 fL (83.0-100.0) L 03/24/18 04:56 MCH 27.6 pg (28.0-33.3) L 03/24/18 04:56 RDW 15.0 % (11.5-14.5) H 03/24/18 04:56 Band Neutrophils % 18.0 % (0-4) H 03/21/18 03:46 Metamyelocytes % 2.0 % (0) H 03/21/18 03:46 Neutrophils # 21.2 K/mcL (1.6-8.9) H 03/24/18 04:56 Monocytes # 2.8 K/mcL (0.0-1.3) H 03/24/18 04:56 Nucleated RBCs/100 WBC 0.1 /100 WBC (0) H 03/23/18 04:00 Reactive Lymphocytes Present (Not Present) A 03/22/18 03:15 Toxic Granulation Present (Not Present) A 03/22/18 03:15 Anisocytosis 1+ (Not Present) A 03/19/18 23:55 Microcytosis Present (Not Present) A 03/19/18 23:55 Macrocytosis Present (Not Present) A 03/19/18 23:55 PT 13.4 Seconds (9.4-12.1) H 03/24/18 04:56 ABG pCO2 31 mmHg (35-45) L 03/22/18 04:59 ABG pO2 120 mmHg (85-104) H 03/22/18 04:59 ABG HCO3 18 mEq/L (21-27) L 03/22/18 04:59 ABG Total CO2 19 mEq/L (20-26) L 03/22/18 04:59 ABG O2 Saturation 99 % (95-98) H 03/22/18 04:59 ABG Base Excess -7 mEq/L (-2 to 3) L 03/22/18 04:59 Sodium 135 mEq/L (136-145) L 03/24/18 04:56 Carbon Dioxide 17 mEq/L (23-29) L 03/24/18 04:56 BUN 113 mg/dL (6-20) H 03/24/18 04:56 Creatinine 6.90 mg/dL (0.60-1.20) H 03/24/18 04:56 Est GFR ( Amer) 8 (> 60) L 03/24/18 04:56 Est GFR (Non-Af Amer) 6 (> 60) L 03/24/18 04:56 Calculated Osmolality 315 (280-300) H 03/24/18 04:56 Venous Ioniz Calcium 0.99 mmol/L (1.15-1.35) L 03/20/18 04:39 Phosphorus 11.1 mg/dL (2.7-4.5) H 03/20/18 04:08 Alkaline Phosphatase 201 Units/L (34-104) H 03/24/18 04:56 Ammonia 86 mcmol/L (16-53) H 03/19/18 22:42 Serum Total Protein 5.7 g/dL (6.4-8.9) L 03/24/18 04:56 Albumin 3.0 g/dL (3.5-5.7) L 03/24/18 04:56 Ur Squamous Epith Cells Many per lpf (None-Few) H 03/19/18 18:15 - Clinical Findings Intake & Output: Intake & Output 03/25/18 03/25/18 03/25/18 07:59 15:59 23:59 Intake Total 0 / 0 250 / 250 Output Total 150 / 150 100 / 100 50 / 50 Balance -150 / -150 -100 / -100 200 / 200 Weight 41.1 kg - Attending Attestation I saw and evaluated this patient and my medical decision-making was reviewed with the Resident Physician. I agree with the documented findings, disposition and treatment plan as described except to the extent set forth below. We independently had [id number] contact with the patient. Patient seen and examined at bedside Labs, radiology, chart personally reviewed. Management was reviewed during multidisciplinary critical care rounds. INSPECTOR CONVEYOR LINE:Patient is conscious alert following commands patient has episodes of drowsiness secondary to hepatic encephalopathy and uremia is contributing to to the picture Pulm: Acute respiratory failure complicated by pneumonia to continue broad spectrum antibiotics will complete antibiotics by tomorrow Cards: Patient hemodynamicaly stable FEN-GI: Patient has poor appetite , cannot do GI access like PEG tube because of chronic ascites patient wont tolerate and NG tube will start with 10% dextrose with Multivitamins for now will need to attempt NG access at some point Renal:Hepatorrenal syndrome , patient is not a candidate for dialysis due to underlying chronic liver disease. ID: Blood cultures negative , To finish the course of broad spectrum antibiotics for possible pneumonia Heme/Onc: Labs reviewed Endo: Glucose Monitored Integ/MSK: Skin Care per routine ICU Nursing Protocol to prevent ulcers. Lines: All lines examined without evidence of infection : Dispo: Will transfer to step down /med tele depending upon the overnight course CODE: DNRA -I . Patient and family doesnt want hospice measures
[2018-03-25] MEDS: Neosporin OINT 15 GM TUBE TP SCH ×2 (09:01→19:54)
[2018-03-25] MEDS: D5 IVC SCH (15:31)
[2018-03-25] MEDS: WATER IVC SCH (15:31)
[2018-03-25] MEDS: MVI IVC SCH (15:31)
[2018-03-25] MEDS: VITAMIN K IVC SCH (15:31)
[2018-03-25] MEDS: DEXTROSE 50% IVC SCH (15:31)
[2018-03-25] MEDS: [UNRECOGNIZED DRUG - OTHER] IVC SCH (15:31)
[2018-03-25] MEDS: Cefepime HCl 1,000 MG in Water for inj. (sterile) 20 ML 10 ML IVPB SCH (18:23)
[2018-03-25] MEDS: Propofol 500 MG/50 ML INFUS..BTL IVC SCH (19:50)
[2018-03-26 03:36] LABS: Basophils # 0.1 K/mcL (0.0-0.2); Basophils % 0.6 %; Eosinophils # 0.5 K/mcL (0.0-0.6); Eosinophils % 2.6 %; Hematocrit 30.8 % (35.3-44.9); Hemoglobin 10.3 g/dL (11.5-15.4); Immature Granulocytes % 3.2 % (0-4); Lymphocytes # 2.9 K/mcL (0.6-4.6); Lymphocytes % 15.3 %; Mean Corpuscular HGB Conc 33.4 g/dL (31.6-35.5); Mean Corpuscular Hemoglobin 27.3 pg (28.0-33.3); Mean Corpuscular Volume 81.7 fL (83.0-100.0); Mean Platelet Volume 11.3 fL (9.4-12.4); Monocytes % 10.6 %; Neutrophils # 12.9 K/mcL (1.6-8.9); Platelet Count 165 K/mcL (140-400); Red Blood Count 3.77 M/mcL (3.82-4.97); Segmented Neutrophils % 67.7 %
[2018-03-26] MEDS: Ipratropium/Albuterol Neb 3 ML IH SCH ×6 (03:46→23:23)
[2018-03-26 03:52] LABS: Calcium 9.4 mg/dL (8.6-10.3); Magnesium 2.2 mg/dL (1.6-2.6); Phosphorous 7.1 mg/dL (2.7-4.5); Potassium 5.7 mEq/L (3.5-5.1)
[2018-03-26] MEDS: *HR* Heparin 5,000 UNIT/ML VIAL SQ SCH ×2 (06:01→17:09)
[2018-03-26] MEDS: Famotidine 20 MG/2 ML VIAL IVP SCH (06:01)
[2018-03-26] MEDS: Lactulose Oral Soln 20 GM/30 ML UDC PO SCH ×2 (07:30→21:09)
[2018-03-26] MEDS: Neosporin OINT 15 GM TUBE TP SCH (07:32)
--- NOTE | 2018-03-26 07:49 | Pulmonology Progress Note ---
<Brandon Saeed - Last Filed: 03/26/18 12:54> Date of Encounter: 03/26/18 Time of Encounter: 12:55 Assessment and Plan (1) Healthcare-associated pneumonia Current Visit: Yes Status: Acute Initial chest x-ray with left perihilar opacity. Continues on cefepime. Legionella, strep pneumo and respiratory panel negative. (2) Renal failure Current Visit: No Status: Acute BUNs 124, serum creatinine 6.41. Suspect hepatorenal etiology given her underlying liver disease. Creatinine continues to marginally improved. Nephrology evaluated, felt to be poor candidate for dialysis. Patient did not want dialysis Qualifiers: Renal failure chronicity: acute Acute renal failure type: unspecified Qualified Code(s): N17.9 - Acute kidney failure, unspecified (3) Failure to thrive in adult Current Visit: Yes Status: Acute Patient currently has a BMI of 15.1 Ascites precludes her from PEG tube placement. Discuss with family about poor outcome and inability to provide nutritional supplementation. Speech consult for swallow evaluation. Currently on D5W w/ vitamins (4) Toxic metabolic encephalopathy Current Visit: Yes Status: Acute Multifactorial in etiology secondary to uremic encephalopathy, end-stage liver disease. Patient is not a candidate for dialysis at this time. Continue lactulose. (5) Hyperkalemia Current Visit: No Status: Resolved 5.7 Daily BMP. (6) Leukocytosis Current Visit: No Status: Acute WBC 19, trending down.. Afebrile. In the setting of healthcare associated pneumonia. Continue cefepime. Qualifiers: Leukocytosis type: unspecified Qualified Code(s): D72.829 - Elevated white blood cell count, unspecified (7) Metabolic acidosis Current Visit: No Status: Acute Bicarbonate of 15. No gap Nephrology consulted, patient not felt to be a viable candidate for dialysis.. 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 (10) DVT prophylaxis Current Visit: No Status: Acute Heparin every 12 hours Subjective Principal diagnosis: Healthcare associated pneumonia Interval history: No acute events overnight. Patient refusing anything by mouth. Objective PUL Vital signs: Last Vital Signs Temp 97.4 F L 03/26/18 03:42 Pulse 54 03/26/18 07:00 Resp 16 03/26/18 07:25 BP 120/74 03/26/18 07:00 Pulse Ox 97 03/26/18 07:25 General appearance: no acute distress Eyes: nonicteric ENT: oropharynx dry Effort: normal Auscultation: bilateral: clear Cardiovascular: regular rate and rhythm Gastrointestinal: soft, non-tender, non-distended Integumentary: normal Extremities: no cyanosis, no edema Musculoskeletal: no deformities other (Alert, Opens eyes spontaneously. ) Results - Laboratory Findings CBC and BMP: 03/26/18 03:22 03/26/18 03:22 ABG ABG pH 7.37 pH Units (7.32-7.45) 03/22/18 04:59 ABG pCO2 31 mmHg (35-45) L 03/22/18 04:59 ABG pO2 120 mmHg (85-104) H 03/22/18 04:59 ABG O2 Saturation 99 % (95-98) H 03/22/18 04:59 PT/INR, D-dimer PT 13.4 Seconds (9.4-12.1) H 03/24/18 04:56 Abnormal lab findings: Abnormal lab results WBC 19.0 K/mcL (4.3-11.1) H 03/26/18 03:22 RBC 3.77 M/mcL (3.82-4.97) L 03/26/18 03:22 Hgb 10.3 g/dL (11.5-15.4) L 03/26/18 03:22 Hct 30.8 % (35.3-44.9) L 03/26/18 03:22 MCV 81.7 fL (83.0-100.0) L 03/26/18 03:22 MCH 27.3 pg (28.0-33.3) L 03/26/18 03:22 RDW 15.0 % (11.5-14.5) H 03/26/18 03:22 Band Neutrophils % 18.0 % (0-4) H 03/21/18 03:46 Metamyelocytes % 2.0 % (0) H 03/21/18 03:46 Neutrophils # 12.9 K/mcL (1.6-8.9) H 03/26/18 03:22 Monocytes # 2.0 K/mcL (0.0-1.3) H 03/26/18 03:22 Nucleated RBCs/100 WBC 0.1 /100 WBC (0) H 03/23/18 04:00 Reactive Lymphocytes Present (Not Present) A 03/22/18 03:15 Toxic Granulation Present (Not Present) A 03/22/18 03:15 Anisocytosis 1+ (Not Present) A 03/19/18 23:55 Microcytosis Present (Not Present) A 03/19/18 23:55 Macrocytosis Present (Not Present) A 03/19/18 23:55 PT 13.4 Seconds (9.4-12.1) H 03/24/18 04:56 ABG pCO2 31 mmHg (35-45) L 03/22/18 04:59 ABG pO2 120 mmHg (85-104) H 03/22/18 04:59 ABG HCO3 18 mEq/L (21-27) L 03/22/18 04:59 ABG Total CO2 19 mEq/L (20-26) L 03/22/18 04:59 ABG O2 Saturation 99 % (95-98) H 03/22/18 04:59 ABG Base Excess -7 mEq/L (-2 to 3) L 03/22/18 04:59 Potassium 5.7 mEq/L (3.5-5.1) H 03/26/18 03:22 Carbon Dioxide 15 mEq/L (23-29) L 03/26/18 03:22 BUN 124 mg/dL (6-20) H 03/26/18 03:22 Creatinine 6.41 mg/dL (0.60-1.20) H 03/26/18 03:22 Est GFR ( Amer) 8 (> 60) L 03/26/18 03:22 Est GFR (Non-Af Amer) 7 (> 60) L 03/26/18 03:22 Glucose 150 mg/dL (70-105) H 03/26/18 03:22 POC Glucose 151 mg/dL (70-99) H 03/25/18 23:15 Calculated Osmolality 325 (280-300) H 03/26/18 03:22 Venous Ioniz Calcium 0.99 mmol/L (1.15-1.35) L 03/20/18 04:39 Phosphorus 7.1 mg/dL (2.7-4.5) H 03/26/18 03:22 Alkaline Phosphatase 201 Units/L (34-104) H 03/24/18 04:56 Ammonia 86 mcmol/L (16-53) H 03/19/18 22:42 Serum Total Protein 5.7 g/dL (6.4-8.9) L 03/24/18 04:56 Albumin 3.0 g/dL (3.5-5.7) L 03/24/18 04:56 Ur Squamous Epith Cells Many per lpf (None-Few) H 03/19/18 18:15 - Clinical Findings Intake & Output: Intake & Output 03/25/18 03/25/18 03/26/18 15:59 23:59 07:59 Intake Total 250 / 250 0 / 0 Output Total 100 / 100 200 / 200 100 / 100 Balance -100 / -100 50 / 50 -100 / -100 Weight 42.3 kg Consult Discharge Plan - Plan Referrals: Stephani Garcia MD [Primary Care Provider] - <Eder Lockwood S - Last Filed: 03/27/18 00:44> Date of Encounter: 03/27/18 Objective PUL Vital signs: Last Vital Signs Temp 98.1 F 03/26/18 23:33 Pulse 63 03/26/18 23:33 Resp 18 03/26/18 23:33 BP 114/63 03/26/18 23:33 Pulse Ox 99 03/26/18 23:33 Results - Laboratory Findings CBC and BMP: 03/26/18 03:22 03/26/18 03:22 ABG ABG pH 7.37 pH Units (7.32-7.45) 03/22/18 04:59 ABG pCO2 31 mmHg (35-45) L 03/22/18 04:59 ABG pO2 120 mmHg (85-104) H 03/22/18 04:59 ABG O2 Saturation 99 % (95-98) H 03/22/18 04:59 PT/INR, D-dimer PT 13.4 Seconds (9.4-12.1) H 03/24/18 04:56 Abnormal lab findings: Abnormal lab results WBC 19.0 K/mcL (4.3-11.1) H 03/26/18 03:22 RBC 3.77 M/mcL (3.82-4.97) L 03/26/18 03:22 Hgb 10.3 g/dL (11.5-15.4) L 03/26/18 03:22 Hct 30.8 % (35.3-44.9) L 03/26/18 03:22 MCV 81.7 fL (83.0-100.0) L 03/26/18 03:22 MCH 27.3 pg (28.0-33.3) L 03/26/18 03:22 RDW 15.0 % (11.5-14.5) H 03/26/18 03:22 Band Neutrophils % 18.0 % (0-4) H 03/21/18 03:46 Metamyelocytes % 2.0 % (0) H 03/21/18 03:46 Neutrophils # 12.9 K/mcL (1.6-8.9) H 03/26/18 03:22 Monocytes # 2.0 K/mcL (0.0-1.3) H 03/26/18 03:22 Nucleated RBCs/100 WBC 0.1 /100 WBC (0) H 03/23/18 04:00 Reactive Lymphocytes Present (Not Present) A 03/22/18 03:15 Toxic Granulation Present (Not Present) A 03/22/18 03:15 Anisocytosis 1+ (Not Present) A 03/19/18 23:55 Microcytosis Present (Not Present) A 03/19/18 23:55 Macrocytosis Present (Not Present) A 03/19/18 23:55 PT 13.4 Seconds (9.4-12.1) H 03/24/18 04:56 ABG pCO2 31 mmHg (35-45) L 03/22/18 04:59 ABG pO2 120 mmHg (85-104) H 03/22/18 04:59 ABG HCO3 18 mEq/L (21-27) L 03/22/18 04:59 ABG Total CO2 19 mEq/L (20-26) L 03/22/18 04:59 ABG O2 Saturation 99 % (95-98) H 03/22/18 04:59 ABG Base Excess -7 mEq/L (-2 to 3) L 03/22/18 04:59 Potassium 5.7 mEq/L (3.5-5.1) H 03/26/18 03:22 Carbon Dioxide 15 mEq/L (23-29) L 03/26/18 03:22 BUN 124 mg/dL (6-20) H 03/26/18 03:22 Creatinine 6.41 mg/dL (0.60-1.20) H 03/26/18 03:22 Est GFR ( Amer) 8 (> 60) L 03/26/18 03:22 Est GFR (Non-Af Amer) 7 (> 60) L 03/26/18 03:22 Glucose 150 mg/dL (70-105) H 03/26/18 03:22 POC Glucose 160 mg/dL (70-99) H 03/26/18 12:34 Calculated Osmolality 325 (280-300) H 03/26/18 03:22 Venous Ioniz Calcium 0.99 mmol/L (1.15-1.35) L 03/20/18 04:39 Phosphorus 7.1 mg/dL (2.7-4.5) H 03/26/18 03:22 Alkaline Phosphatase 201 Units/L (34-104) H 03/24/18 04:56 Ammonia 86 mcmol/L (16-53) H 03/19/18 22:42 Serum Total Protein 5.7 g/dL (6.4-8.9) L 03/24/18 04:56 Albumin 3.0 g/dL (3.5-5.7) L 03/24/18 04:56 Ur Squamous Epith Cells Many per lpf (None-Few) H 03/19/18 18:15 - Clinical Findings Intake & Output: Intake & Output 03/26/18 03/26/18 03/27/18 15:59 23:59 07:59 Intake Total 700 / 700 10 / 10 Output Total 75 / 75 Balance 625 / 625 10 / 10 Weight 41.5 kg - Attending Attestation I saw and evaluated this patient and my medical decision-making was reviewed with the Resident Physician. I agree with the documented findings, disposition and treatment plan as described except to the extent set forth below. We independently had [id number] contact with the patient. Patient seen and examined at bedside Labs, radiology, chart personally reviewed. Management was reviewed during multidisciplinary critical care rounds. EMPLOYMENT SERVICE SPECIALIST:Patient is conscious alert following commands patient has episodes of drowsiness secondary to hepatic encephalopathy and uremia is contributing to to the picture Pulm: Acute respiratory failure complicated by pneumonia to deescalate antibiotics Cards: Patient hemodynamicaly stable FEN-GI: Patient has poor appetite , cannot do GI access like PEG tube because of chronic ascites patient wont tolerate and NG tube will start with 10% dextrose with Multivitamins for now will need to attempt NG access at some point Renal:Hepatorrenal syndrome , patient is not a candidate for dialysis due to underlying chronic liver disease. ID: Blood cultures negative , To descalate antibiotics Heme/Onc: Labs reviewed Endo: Glucose Monitored Integ/MSK: Skin Care per routine ICU Nursing Protocol to prevent ulcers. Lines: All lines examined without evidence of infection : Dispo: Will transfer down to Telemetry CODE: DNRA -I . Patient and family doesnt want hospice measures
--- NOTE | 2018-03-26 09:43 | Palliative Progress Note ---
Date of Encounter: 03/26/18 Time of Encounter: 09:15 - Assessment and plan (1) Acute hepatic encephalopathy Current Visit: Yes Status: Acute Assessment and plan: Is having bowel movements. Patient is actively refusing lactulose and has not had a dose in several days although the encephalopathy does seem to be clearing. (2) BERNARDA (acute kidney injury) Current Visit: No Status: Acute Assessment and plan: The patient does not wish to have any dialysis. Kidney function is still extremely poor. Urine output yesterday for 30 GFR is largely unchanged due to the fact that although creatinine is coming down the BUN continues to go up. Overall kidney functions about the same. (3) Metabolic acidosis Current Visit: No Status: Acute Assessment and plan: This is turned around quite well with the carb drip the patient was on. This has resolved anion gap is again within normal limits no recent lactates have been obtained. In the last pH was within normal limits at 7.37 (4) Goals of care, counseling/discussion Current Visit: No Status: Acute Assessment and plan: Patient is currently DNR CCA and the family dates no dialysis. The patient has passed a swallow evaluation for modified diet. However she is taking an extremely small amounts if any. The refusing things by mouth and visiting nurses efforts to feed her. Meg discussion has been for the patient to return home with family providing care and home health care. Status is DNR CCA short-term intubation is acceptable as the patient gets further and further out from her last intubation repeat intubation will be more tolerable. His family was okay with a trach if that was necessary. Attempted to reach the patient's mother medical power of admitted attorneys today I have been unsuccessful thus far I will try again later if possible - Time Spent With Patient Total time spent is greater than 50% in coordination of care (as documented) at patient's floor/unit and/or counseling patient: - Subjective Interval history: The patient was able to tell me this morning that she is in no pain, and that she is at least a little bit hungry. I discussed with her nurse there has been multiple episodes today trying to feed her and she is not eating. Take in very small amounts of food, she did pass a modified swallow screen for modified diet yesterday. - Constitutional Vitals: Abnormal lab results WBC 19.0 K/mcL (4.3-11.1) H 03/26/18 03:22 RBC 3.77 M/mcL (3.82-4.97) L 03/26/18 03:22 Hgb 10.3 g/dL (11.5-15.4) L 03/26/18 03:22 Hct 30.8 % (35.3-44.9) L 03/26/18 03:22 MCV 81.7 fL (83.0-100.0) L 03/26/18 03:22 MCH 27.3 pg (28.0-33.3) L 03/26/18 03:22 RDW 15.0 % (11.5-14.5) H 03/26/18 03:22 Band Neutrophils % 18.0 % (0-4) H 03/21/18 03:46 Metamyelocytes % 2.0 % (0) H 03/21/18 03:46 Neutrophils # 12.9 K/mcL (1.6-8.9) H 03/26/18 03:22 Monocytes # 2.0 K/mcL (0.0-1.3) H 03/26/18 03:22 Nucleated RBCs/100 WBC 0.1 /100 WBC (0) H 03/23/18 04:00 Reactive Lymphocytes Present (Not Present) A 03/22/18 03:15 Toxic Granulation Present (Not Present) A 03/22/18 03:15 Anisocytosis 1+ (Not Present) A 03/19/18 23:55 Microcytosis Present (Not Present) A 03/19/18 23:55 Macrocytosis Present (Not Present) A 03/19/18 23:55 PT 13.4 Seconds (9.4-12.1) H 03/24/18 04:56 ABG pCO2 31 mmHg (35-45) L 03/22/18 04:59 ABG pO2 120 mmHg (85-104) H 03/22/18 04:59 ABG HCO3 18 mEq/L (21-27) L 03/22/18 04:59 ABG Total CO2 19 mEq/L (20-26) L 03/22/18 04:59 ABG O2 Saturation 99 % (95-98) H 03/22/18 04:59 ABG Base Excess -7 mEq/L (-2 to 3) L 03/22/18 04:59 Potassium 5.7 mEq/L (3.5-5.1) H 03/26/18 03:22 Carbon Dioxide 15 mEq/L (23-29) L 03/26/18 03:22 BUN 124 mg/dL (6-20) H 03/26/18 03:22 Creatinine 6.41 mg/dL (0.60-1.20) H 03/26/18 03:22 Est GFR ( Amer) 8 (> 60) L 03/26/18 03:22 Est GFR (Non-Af Amer) 7 (> 60) L 03/26/18 03:22 Glucose 150 mg/dL (70-105) H 03/26/18 03:22 POC Glucose 151 mg/dL (70-99) H 03/25/18 23:15 Calculated Osmolality 325 (280-300) H 03/26/18 03:22 Venous Ioniz Calcium 0.99 mmol/L (1.15-1.35) L 03/20/18 04:39 Phosphorus 7.1 mg/dL (2.7-4.5) H 03/26/18 03:22 Alkaline Phosphatase 201 Units/L (34-104) H 03/24/18 04:56 Ammonia 86 mcmol/L (16-53) H 03/19/18 22:42 Serum Total Protein 5.7 g/dL (6.4-8.9) L 03/24/18 04:56 Albumin 3.0 g/dL (3.5-5.7) L 03/24/18 04:56 Ur Squamous Epith Cells Many per lpf (None-Few) H 03/19/18 18:15 General appearance: Present: no acute distress - Head Head exam: Absent: atraumatic, normal inspection (There is an abrasion on the left side of her cheek consistent with tape) - Respiratory Respiratory exam: Present: decreased breath sounds, CTAB - Cardiovascular Cardiovascular exam: Present: bradycardia, RRR - GI/Abdominal GI/Abdominal exam: Present: distended, hypoactive bowel sounds, soft. Absent: tenderness - Extremities Exam Extremities exam: Present: normal inspection. Absent: pedal edema, tenderness - Neurological Exam Neurological exam: Present: alert - Psychiatric Psychiatric exam: Absent: agitated, anxious - Skin Skin exam: Present: dry, warm Palliative Quality Palliative Quality: Screen for Code Status: Yes, Screen for Goals of Care: Yes, Screen for Pain: Yes, If Pain Regimen Started, Initiate Bowel Regimen: Yes, Screen for Nausea/Vomitting: Yes - Labs CBC & Chem 7: 03/26/18 03:22 03/26/18 03:22 Labs: Laboratory Results - last 24 hr 03/25/18 03/25/18 03/25/18 04:57 11:24 23:15 WBC RBC Hgb Hct MCV MCH MCHC RDW Plt Count MPV Immature Gran % Seg Neutrophils % Lymphocytes % Monocytes % Eosinophils % Basophils % Neutrophils # Lymphocytes # Monocytes # Eosinophils # Basophils # Sodium Potassium Chloride Carbon Dioxide BUN Creatinine Est GFR ( Amer) Est GFR (Non-Af Amer) BUN/Creatinine Ratio Glucose POC Glucose 84 93 151 H Calculated Osmolality Calcium Phosphorus Magnesium 03/26/18 03/26/18 03:22 03:22 WBC 19.0 H RBC 3.77 L Hgb 10.3 L Hct 30.8 L MCV 81.7 L MCH 27.3 L MCHC 33.4 RDW 15.0 H Plt Count 165 MPV 11.3 Immature Gran % 3.2 Seg Neutrophils % 67.7 Lymphocytes % 15.3 Monocytes % 10.6 Eosinophils % 2.6 Basophils % 0.6 Neutrophils # 12.9 H Lymphocytes # 2.9 Monocytes # 2.0 H Eosinophils # 0.5 Basophils # 0.1 Sodium 136 Potassium 5.7 H Chloride 106 Carbon Dioxide 15 L BUN 124 H Creatinine 6.41 H Est GFR ( Amer) 8 L Est GFR (Non-Af Amer) 7 L BUN/Creatinine Ratio 19 Glucose 150 H POC Glucose Calculated Osmolality 325 H Calcium 9.4 Phosphorus 7.1 H Magnesium 2.2 - ABG Interpretation ABG results: ABG ABG pH 7.37 pH Units (7.32-7.45) 03/22/18 04:59 ABG pCO2 31 mmHg (35-45) L 03/22/18 04:59 ABG pO2 120 mmHg (85-104) H 03/22/18 04:59 ABG O2 Saturation 99 % (95-98) H 03/22/18 04:59 PT/INR, D-dimer PT 13.4 Seconds (9.4-12.1) H 03/24/18 04:56 Consult Discharge Plan - Plan Referrals: Stephani Garcia MD [Primary Care Provider] -
[2018-03-26] MEDS: DEXTROSE 50% IVC SCH ×2 (11:04→14:45)
[2018-03-26] MEDS: [UNRECOGNIZED DRUG - OTHER] IVC SCH ×2 (11:04→14:45)
[2018-03-26] MEDS: VITAMIN K IVC SCH ×2 (11:04→14:45)
[2018-03-26] MEDS: WATER IVC SCH ×2 (11:04→14:45)
[2018-03-26] MEDS: MVI IVC SCH ×2 (11:04→14:45)
[2018-03-26] MEDS: D5 IVC SCH ×2 (11:04→14:45)
[2018-03-26] MEDS ORDERED: D5% in Water 1,000 ML IVC PRN (13:46)
[2018-03-26] MEDS ORDERED: WATER IVC SCH (13:46)
[2018-03-26] MEDS ORDERED: [UNRECOGNIZED DRUG - OTHER] IVC SCH (13:46)
[2018-03-26] MEDS ORDERED: DEXTROSE 50% IVC SCH (13:46)
[2018-03-26] MEDS ORDERED: *HR* FentaNYL (PF) 100 MCG/2 ML VIAL IVP PRN (13:46)
[2018-03-26] MEDS ORDERED: Dextrose Gel 15 GM/37.5 ML TUBE PO PRN ×2 (13:46)
[2018-03-26] MEDS ORDERED: *HR* Dextrose 50 % in Water (Syg) 50 ML SYRINGE IVP PRN (13:46)
[2018-03-26] MEDS ORDERED: MVI IVC SCH (13:46)
[2018-03-26] MEDS ORDERED: Naloxone 0.4 MG/ML INJ IVP PRN (13:46)
[2018-03-26] MEDS ORDERED: D5 IVC SCH (13:46)
[2018-03-26] MEDS ORDERED: VITAMIN K IVC SCH (13:46)
[2018-03-26] MEDS ORDERED: Cefepime HCl 1,000 MG in Water for inj. (sterile) 20 ML 10 ML IVPB SCH (18:00)
[2018-03-27] MEDS: Neosporin OINT 15 GM TUBE TP SCH ×3 (00:17→20:57)
[2018-03-27] MEDS: Ipratropium/Albuterol Neb 3 ML IH SCH ×6 (03:40→23:54)
[2018-03-27 05:59] LABS: Basophils # 0.1 K/mcL (0.0-0.2); Basophils % 0.4 %; Hematocrit 34.9 % (35.3-44.9); Hemoglobin 11.6 g/dL (11.5-15.4); Immature Granulocytes % 2.6 % (0-4); Lymphocytes # 1.4 K/mcL (0.6-4.6); Lymphocytes % 7.1 %; Mean Corpuscular HGB Conc 33.2 g/dL (31.6-35.5); Mean Corpuscular Hemoglobin 27.2 pg (28.0-33.3); Mean Corpuscular Volume 81.9 fL (83.0-100.0); Mean Platelet Volume 10.7 fL (9.4-12.4); Monocytes # 0.8 K/mcL (0.0-1.3); Monocytes % 3.9 %; Neutrophils # 17.3 K/mcL (1.6-8.9); Nucleated Red Blood Cells 0.2 /100 WBC (0); Platelet Count 149 K/mcL (140-400); Red Blood Count 4.26 M/mcL (3.82-4.97); Red Cell Distribution Width 15.2 % (11.5-14.5)
[2018-03-27 06:16] LABS: Calcium 9.2 mg/dL (8.6-10.3); Phosphorous 4.9 mg/dL (2.7-4.5); Potassium 4.6 mEq/L (3.5-5.1)
[2018-03-27] MEDS: Famotidine 20 MG/2 ML VIAL IVP SCH (06:49)
[2018-03-27] MEDS: *HR* Heparin 5,000 UNIT/ML VIAL SQ SCH ×3 (06:52→18:18)
--- NOTE | 2018-03-27 08:04 | Palliative Progress Note ---
Date of Encounter: 03/27/18 Time of Encounter: 07:15 - Assessment and plan (1) Acute hepatic encephalopathy Current Visit: Yes Status: Acute Assessment and plan: Is having bowel movements. Patient is actively refusing lactulose and has not had a dose in several days although the encephalopathy does seem to be clearing. The patient is clear in her speech today I suspect that this has cleared. (2) BERNARDA (acute kidney injury) Current Visit: No Status: Acute Assessment and plan: The patient does not wish to have any dialysis. Kidney function is still extremely poor. BUN is slightly better today and creatinine has continued to go down. Patient's creatinine clearance is 7.24 today up from a low of 5.57. Urine output was down yesterday to 275. Overall patient's any function is able but extremely poor. As already noted patient does not wish to have any dialysis. (3) Goals of care, counseling/discussion Current Visit: No Status: Acute Assessment and plan: Patient is currently DNR CCA and the family dates no dialysis. Patient is also able to confirm that she does not wish to have dialysis. Patient is able to eat having passed a modified swallow evaluation and she can have a pureed diet. However she is wanting to eat very very very little although when I ask her she agrees to eat. She is clearly hospice eligible although the family wants no part of it at this time we will pursue home health care for her. Do not feel this is the best care for her however this is what she and the family seem to wish. - Time Spent With Patient Total time spent is greater than 50% in coordination of care (as documented) at patient's floor/unit and/or counseling patient: - Subjective Interval history: The patient was able to tell me this morning that she is in no pain, he indicates that she will eat if assisted. Of note he has told me this before and eaten very very little if any. She states that she is looking forward to going home. sHe did not feel that she was particularly distended at this time and does not feel she needs to be drained in her abdomen. - Constitutional Vitals: Abnormal lab results WBC 20.1 K/mcL (4.3-11.1) H 03/27/18 05:41 Hct 34.9 % (35.3-44.9) L 03/27/18 05:41 MCV 81.9 fL (83.0-100.0) L 03/27/18 05:41 MCH 27.2 pg (28.0-33.3) L 03/27/18 05:41 RDW 15.2 % (11.5-14.5) H 03/27/18 05:41 Band Neutrophils % 18.0 % (0-4) H 03/21/18 03:46 Metamyelocytes % 2.0 % (0) H 03/21/18 03:46 Neutrophils # 17.3 K/mcL (1.6-8.9) H 03/27/18 05:41 Nucleated RBCs/100 WBC 0.2 /100 WBC (0) H 03/27/18 05:41 Reactive Lymphocytes Present (Not Present) A 03/22/18 03:15 Toxic Granulation Present (Not Present) A 03/22/18 03:15 Anisocytosis 1+ (Not Present) A 03/19/18 23:55 Microcytosis Present (Not Present) A 03/19/18 23:55 Macrocytosis Present (Not Present) A 03/19/18 23:55 PT 13.4 Seconds (9.4-12.1) H 03/24/18 04:56 ABG pCO2 31 mmHg (35-45) L 03/22/18 04:59 ABG pO2 120 mmHg (85-104) H 03/22/18 04:59 ABG HCO3 18 mEq/L (21-27) L 03/22/18 04:59 ABG Total CO2 19 mEq/L (20-26) L 03/22/18 04:59 ABG O2 Saturation 99 % (95-98) H 03/22/18 04:59 ABG Base Excess -7 mEq/L (-2 to 3) L 03/22/18 04:59 Carbon Dioxide 16 mEq/L (23-29) L 03/27/18 05:41 BUN 115 mg/dL (6-20) H 03/27/18 05:41 Creatinine 5.93 mg/dL (0.60-1.20) H 03/27/18 05:41 Est GFR ( Amer) 9 (> 60) L 03/27/18 05:41 Est GFR (Non-Af Amer) 7 (> 60) L 03/27/18 05:41 Glucose 197 mg/dL (70-105) H 03/27/18 05:41 POC Glucose 175 mg/dL (70-99) H 03/27/18 00:39 Calculated Osmolality 328 (280-300) H 03/27/18 05:41 Venous Ioniz Calcium 0.99 mmol/L (1.15-1.35) L 03/20/18 04:39 Phosphorus 4.9 mg/dL (2.7-4.5) H 03/27/18 05:41 Alkaline Phosphatase 201 Units/L (34-104) H 03/24/18 04:56 Ammonia 86 mcmol/L (16-53) H 03/19/18 22:42 Serum Total Protein 5.7 g/dL (6.4-8.9) L 03/24/18 04:56 Albumin 3.0 g/dL (3.5-5.7) L 03/24/18 04:56 Ur Squamous Epith Cells Many per lpf (None-Few) H 03/19/18 18:15 General appearance: Present: no acute distress, thin - Head Head exam: Present: atraumatic, normal inspection (Except for abrasion left cheek) - Respiratory Respiratory exam: Present: decreased breath sounds - Cardiovascular Cardiovascular exam: Present: RRR - GI/Abdominal GI/Abdominal exam: Present: diminished bowel sounds, soft. Absent: tenderness - Extremities Exam Extremities exam: Absent: pedal edema, tenderness - Neurological Exam Neurological exam: Present: alert - Psychiatric Psychiatric exam: Absent: agitated, anxious - Skin Skin exam: Present: dry, warm Palliative Quality Palliative Quality: Screen for Code Status: Yes, Screen for Goals of Care: Yes, Screen for Pain: Yes, If Pain Regimen Started, Initiate Bowel Regimen: Yes, Screen for Nausea/Vomitting: Yes - Labs CBC & Chem 7: 03/27/18 05:41 03/27/18 05:41 Labs: Laboratory Results - last 24 hr 03/26/18 03/26/18 03/27/18 11:17 12:34 00:39 WBC RBC Hgb Hct MCV MCH MCHC RDW Plt Count MPV Immature Gran % Seg Neutrophils % Lymphocytes % Monocytes % Eosinophils % Basophils % Neutrophils # Lymphocytes # Monocytes # Eosinophils # Basophils # Nucleated RBCs/100 WBC Sodium Potassium Chloride Carbon Dioxide BUN Creatinine Est GFR ( Amer) Est GFR (Non-Af Amer) BUN/Creatinine Ratio Glucose POC Glucose 161 H 160 H 175 H Calculated Osmolality Calcium Phosphorus Magnesium 03/27/18 03/27/18 05:41 05:41 WBC 20.1 H RBC 4.26 Hgb 11.6 Hct 34.9 L MCV 81.9 L MCH 27.2 L MCHC 33.2 RDW 15.2 H Plt Count 149 MPV 10.7 Immature Gran % 2.6 Seg Neutrophils % 86.0 Lymphocytes % 7.1 Monocytes % 3.9 Eosinophils % 0.0 Basophils % 0.4 Neutrophils # 17.3 H Lymphocytes # 1.4 Monocytes # 0.8 Eosinophils # 0.0 Basophils # 0.1 Nucleated RBCs/100 WBC 0.2 H Sodium 138 Potassium 4.6 Chloride 106 Carbon Dioxide 16 L BUN 115 H Creatinine 5.93 H Est GFR ( Amer) 9 L Est GFR (Non-Af Amer) 7 L BUN/Creatinine Ratio 19 Glucose 197 H POC Glucose Calculated Osmolality 328 H Calcium 9.2 Phosphorus 4.9 H Magnesium 2.0 - ABG Interpretation ABG results: ABG ABG pH 7.37 pH Units (7.32-7.45) 03/22/18 04:59 ABG pCO2 31 mmHg (35-45) L 03/22/18 04:59 ABG pO2 120 mmHg (85-104) H 03/22/18 04:59 ABG O2 Saturation 99 % (95-98) H 03/22/18 04:59 PT/INR, D-dimer PT 13.4 Seconds (9.4-12.1) H 03/24/18 04:56 Consult Discharge Plan - Plan Referrals: Stephani Garcia MD [Primary Care Provider] -
[2018-03-27] MEDS ORDERED: Nicotine 21 MG PATCH.TD24 TD SCH (09:00)
[2018-03-27] MEDS: Lactulose Oral Soln 20 GM/30 ML UDC PO SCH ×2 (09:34→20:56)
[2018-03-27] MEDS: D5 IVC SCH (14:40)
[2018-03-27] MEDS: [UNRECOGNIZED DRUG - OTHER] IVC SCH (14:40)
[2018-03-27] MEDS: DEXTROSE 50% IVC SCH (14:40)
[2018-03-27] MEDS: VITAMIN K IVC SCH (14:40)
[2018-03-27] MEDS: MVI IVC SCH (14:40)
[2018-03-27] MEDS: WATER IVC SCH (14:40)
--- NOTE | 2018-03-27 16:07 | Internal Med Progress Note ---
Date of Encounter: 03/27/18 Time of Encounter: 10:30 - Assessment and plan (1) Failure to thrive in adult Current Visit: Yes Status: Acute Assessment and plan: over all very poor prognosis with below mentioned comorbidities pt wants to go home with home health services do not wanted to go to ECF, do not wanted to get treated aggressively too Will talk to pt's mother about further care plan palliative care team on board (2) Healthcare-associated pneumonia Current Visit: Yes Status: Acute Assessment and plan: Finished her full course of abx Cefepime cont symptomatic and supportive care O2 PRN Duoneb PRN Need home O2 eval (3) Decompensation of cirrhosis of liver Current Visit: Yes Status: Acute Assessment and plan: cont symptomatic and supportive care (4) Hepatic cirrhosis due to chronic hepatitis C infection Current Visit: No Status: Chronic (5) ESRD (end stage renal disease) Current Visit: Yes Status: Acute Assessment and plan: Pt refusing for HD (6) Acute renal failure Current Visit: Yes Status: Acute Qualifiers: Qualified Code(s): N17.9 - Acute kidney failure, unspecified (7) Hyperkalemia Current Visit: Yes Status: Acute Assessment and plan: due to ESRD stable now (8) Metabolic acidosis Current Visit: Yes Status: Acute (9) Toxic metabolic encephalopathy Current Visit: Yes Status: Acute Assessment and plan: improved and stable (10) Cirrhosis Current Visit: No Status: Chronic Qualifiers: Hepatic cirrhosis type: alcoholic cirrhosis Qualified Code(s): K70.31 - Alcoholic cirrhosis of liver with ascites (11) Severe protein-calorie malnutrition Current Visit: No Status: Chronic Assessment and plan: appreciate blueprint blocker recommendations - Time Spent With Patient Total time spent is greater than 50% in coordination of care (as documented) at patient's floor/unit and/or counseling patient: - Subjective Interval history: Ms. De Paz is a 53 year old female cirrhosis secondary to alcohol abuse with an indwelling tunneled catheter for paracentesis, hepatitis C, end-stage renal disease never previously on dialysis, hypertension, depression, diabetes who presented to the emergency department on 03/19/18 with a complaint of shortness of breath. Pt was amditted into ICU with HCAP, Resp failure, severe failure to thrive and toxic metabolic encephalopathy. Pt renal function continue worsening. Pt and family decided not to go for any aggressive care, as well as HD. Pt was transferred to [facility] y/[facility] for further care. This morning she is alert, awake and O x 3. Denied any CP / SOB. Looks very cachectic and failure to thrive. - Constitutional Vitals: Temp Pulse Resp BP Pulse Ox 97.4 F L 66 20 131/84 95 03/27/18 15:53 03/27/18 15:53 03/27/18 15:53 03/27/18 15:53 03/27/18 15:53 General appearance: Present: cachectic, cooperative, mild distress, A&O X 3 - Head Head exam: Present: atraumatic, normal inspection - Neck Neck exam general surgery: Present: supple - Respiratory Respiratory exam: Present: decreased breath sounds. Absent: rales, respiratory distress, rhonchi, wheezes - Cardiovascular Cardiovascular exam: Present: RRR, +S1, +S2. Absent: tachycardia - GI/Abdominal GI/Abdominal exam: Present: normal bowel sounds, soft. Absent: rebound, rigid, tenderness - Extremities Exam Extremities exam: Absent: calf tenderness, pedal edema, tenderness - Back Exam Back exam: Absent: CVA tenderness (L), CVA tenderness (R) - Neurological Exam Neurological exam: Present: alert, oriented X3 - Psychiatric Psychiatric exam: Present: depressed - Skin Skin exam: Absent: rash Internal Medicine: Result - Labs CBC & Chem 7: 03/27/18 05:41 03/27/18 05:41 Labs: Short CBC 03/27/18 Range/Units 05:41 WBC 20.1 H (4.3-11.1) K/mcL Hgb 11.6 (11.5-15.4) g/dL Hct 34.9 L (35.3-44.9) % Plt Count 149 (140-400) K/mcL Neutrophils # 17.3 H (1.6-8.9) K/mcL BMP 03/27/18 05:41 Sodium 138 Potassium 4.6 Chloride 106 Carbon Dioxide 16 L BUN 115 H Creatinine 5.93 H Glucose 197 H Calcium 9.2 - ABG Interpretation ABG results: ABG ABG pH 7.37 pH Units (7.32-7.45) 03/22/18 04:59 ABG pCO2 31 mmHg (35-45) L 03/22/18 04:59 ABG pO2 120 mmHg (85-104) H 03/22/18 04:59 ABG O2 Saturation 99 % (95-98) H 03/22/18 04:59 PT/INR, D-dimer PT 13.4 Seconds (9.4-12.1) H 03/24/18 04:56 Consult Discharge Plan - Plan Referrals: Stephani Garcia MD [Primary Care Provider] -
[2018-03-28] MEDS: Ipratropium/Albuterol Neb 3 ML IH SCH ×6 (03:32→23:50)
[2018-03-28 05:24] LABS: Nucleated Red Blood Cells 0.1 /100 WBC (0)
[2018-03-28 05:25] LABS: Basophils # 0.1 K/mcL (0.0-0.2); Basophils % 0.5 %; Hematocrit 29.6 % (35.3-44.9); Hemoglobin 9.7 g/dL (11.5-15.4); Lymphocytes # 2.6 K/mcL (0.6-4.6); Lymphocytes % 9.2 %; Mean Corpuscular HGB Conc 32.8 g/dL (31.6-35.5); Mean Corpuscular Hemoglobin 26.4 pg (28.0-33.3); Mean Corpuscular Volume 80.7 fL (83.0-100.0); Monocytes # 1.9 K/mcL (0.0-1.3); Monocytes % 6.7 %; Platelet Count 120 K/mcL (140-400); Red Blood Count 3.67 M/mcL (3.82-4.97); Segmented Neutrophils % 81.6 %
[2018-03-28 05:42] LABS: Neutrophils # 22.9 K/mcL (1.6-8.9)
[2018-03-28 05:44] LABS: Platelet Estimate Decreased (Normal)
[2018-03-28 05:56] LABS: Calcium 9.1 mg/dL (8.6-10.3); Phosphorous 4.6 mg/dL (2.7-4.5); Potassium 4.1 mEq/L (3.5-5.1)
[2018-03-28] MEDS: *HR* Heparin 5,000 UNIT/ML VIAL SQ SCH ×2 (06:50→17:48)
[2018-03-28] MEDS: Famotidine 20 MG/2 ML VIAL IVP SCH (06:50)
--- NOTE | 2018-03-28 10:01 | Event Note ---
Date of Encounter: 03/28/18 Time of Encounter: 09:45 Visited patient at bedside this morning. Denies complaints of pain, nausea, anxiety. Appears in an improved mood today, per nursing report. Discussed worsening WBC count to 28.1; patient verbalized understanding that it could mean a worsening or new type of infection. Discussed plans for discharge, patient reports to follow patient's mother's wishes for discharge. Per chart review previous known wishes were to go home with [facility] following. Palliative Care will continue to follow from a distance.
[2018-03-28] MEDS: Lactulose Oral Soln 20 GM/30 ML UDC PO SCH ×2 (10:03→20:54)
[2018-03-28] MEDS: Neosporin OINT 15 GM TUBE TP SCH ×2 (10:04→20:56)
--- NOTE | 2018-03-28 16:46 | Internal Med Progress Note ---
Date of Encounter: 03/28/18 Time of Encounter: 12:00 - Assessment and plan (1) Failure to thrive in adult Current Visit: Yes Status: Acute Assessment and plan: over all very poor prognosis with below mentioned comorbidities Talked to pt's mother ( YULIANA ) at bed side last night and explained to her about current care, as well as overall very poor prognosis. Pt and her mother understands about her condition, they do not wanted to proceed with any aggressive care Her mother had some concerns about hospice care, which I answered all her questions, concerns and explained to her about hospice care. She would like to talk to rest of the family members about hospice care and will make decision today. So waiting on family meeting today Also mother expressed concern about loss of appetite will start her on Marinol (2) Healthcare-associated pneumonia Current Visit: Yes Status: Acute Assessment and plan: Finished her full course of abx Cefepime cont symptomatic and supportive care O2 PRN Duoneb PRN Need home O2 eval (3) Decompensation of cirrhosis of liver Current Visit: Yes Status: Acute Assessment and plan: cont symptomatic and supportive care (4) Hepatic cirrhosis due to chronic hepatitis C infection Current Visit: No Status: Chronic (5) ESRD (end stage renal disease) Current Visit: Yes Status: Acute Assessment and plan: Pt refusing for HD (6) Acute renal failure Current Visit: Yes Status: Acute Qualifiers: Qualified Code(s): N17.9 - Acute kidney failure, unspecified (7) Hyperkalemia Current Visit: Yes Status: Acute Assessment and plan: due to ESRD stable now (8) Metabolic acidosis Current Visit: Yes Status: Acute (9) Toxic metabolic encephalopathy Current Visit: Yes Status: Acute Assessment and plan: improved and stable (10) Cirrhosis Current Visit: No Status: Chronic Qualifiers: Hepatic cirrhosis type: alcoholic cirrhosis Qualified Code(s): K70.31 - Alcoholic cirrhosis of liver with ascites (11) Severe protein-calorie malnutrition Current Visit: No Status: Chronic Assessment and plan: appreciate active directory systems administrator recommendations - Time Spent With Patient Total time spent is greater than 50% in coordination of care (as documented) at patient's floor/unit and/or counseling patient: - Subjective Interval history: Ms. De Paz is a 53 year old female cirrhosis secondary to alcohol abuse with an indwelling tunneled catheter for paracentesis, hepatitis C, end-stage renal disease never previously on dialysis, hypertension, depression, diabetes who presented to the emergency department on 03/19/18 with a complaint of shortness of breath. Pt was admitted into ICU with HCAP, Resp failure, severe failure to thrive and toxic metabolic encephalopathy. Pt renal function continue worsening. Pt and family decided not to go for any aggressive care, as well as HD. Pt was transferred to [facility] y/d for further care. This morning she is alert, awake and O x 3. Denied any CP / SOB. Looks very cachectic and failure to thrive. Talked to pt and her mother at bed side last night about current care and explained to them about her rapid declining. - Constitutional Vitals: Temp Pulse Resp BP Pulse Ox 97.5 F L 60 16 114/68 96 03/28/18 15:26 03/28/18 15:26 03/28/18 15:26 03/28/18 15:26 03/28/18 15:26 General appearance: Present: cachectic, cooperative, mild distress, A&O X 3 - Head Head exam: Present: atraumatic, normal inspection - Neck Neck exam general surgery: Present: supple - Respiratory Respiratory exam: Present: decreased breath sounds. Absent: rales, respiratory distress, rhonchi, wheezes - Cardiovascular Cardiovascular exam: Present: RRR, +S1, +S2. Absent: tachycardia - GI/Abdominal GI/Abdominal exam: Present: normal bowel sounds, soft. Absent: rebound, rigid, tenderness - Extremities Exam Extremities exam: Absent: calf tenderness, pedal edema, tenderness - Back Exam Back exam: Absent: CVA tenderness (L), CVA tenderness (R) - Neurological Exam Neurological exam: Present: alert, altered - Psychiatric Psychiatric exam: Present: depressed - Skin Skin exam: Absent: rash Internal Medicine: Result - Labs CBC & Chem 7: 03/28/18 04:50 03/28/18 04:50 Labs: Short CBC 03/28/18 Range/Units 04:50 WBC 28.1 H (4.3-11.1) K/mcL Hgb 9.7 L D (11.5-15.4) g/dL Hct 29.6 L (35.3-44.9) % Plt Count 120 L (140-400) K/mcL Neutrophils # 22.9 H (1.6-8.9) K/mcL BMP 03/28/18 04:50 Sodium 136 Potassium 4.1 Chloride 107 Carbon Dioxide 15 L BUN 110 H Creatinine 5.21 H Glucose 133 H Calcium 9.1 - ABG Interpretation ABG results: ABG ABG pH 7.37 pH Units (7.32-7.45) 03/22/18 04:59 ABG pCO2 31 mmHg (35-45) L 03/22/18 04:59 ABG pO2 120 mmHg (85-104) H 03/22/18 04:59 ABG O2 Saturation 99 % (95-98) H 03/22/18 04:59 PT/INR, D-dimer PT 13.4 Seconds (9.4-12.1) H 03/24/18 04:56 Consult Discharge Plan - Plan Referrals: Stephani Garcia MD [Primary Care Provider] -
[2018-03-28] MEDS: [UNRECOGNIZED DRUG - OTHER] IVC SCH (20:54)
[2018-03-28] MEDS: DEXTROSE 50% IVC SCH (20:54)
[2018-03-28] MEDS: D5 IVC SCH (20:54)
[2018-03-28] MEDS: WATER IVC SCH (20:54)
[2018-03-28] MEDS: MVI IVC SCH (20:54)
[2018-03-28] MEDS: VITAMIN K IVC SCH (20:54)
[2018-03-29] MEDS: Ipratropium/Albuterol Neb 3 ML IH SCH ×6 (03:34→23:29)
[2018-03-29] MEDS: *HR* Heparin 5,000 UNIT/ML VIAL SQ SCH ×2 (06:05→19:21)
[2018-03-29 06:12] LABS: Basophils # 0.1 K/mcL (0.0-0.2); Basophils % 0.4 %; Hematocrit 28.1 % (35.3-44.9); Hemoglobin 9.4 g/dL (11.5-15.4); Immature Granulocytes % 2.4 % (0-4); Lymphocytes # 2.4 K/mcL (0.6-4.6); Lymphocytes % 9.6 %; Mean Corpuscular HGB Conc 33.5 g/dL (31.6-35.5); Mean Corpuscular Volume 80.7 fL (83.0-100.0); Mean Platelet Volume 12.5 fL (9.4-12.4); Monocytes # 2.2 K/mcL (0.0-1.3); Monocytes % 8.9 %; Nucleated Red Blood Cells 0.1 /100 WBC (0); Platelet Count 121 K/mcL (140-400); Red Blood Count 3.48 M/mcL (3.82-4.97); Red Cell Distribution Width 15.3 % (11.5-14.5); Segmented Neutrophils % 78.7 %
[2018-03-29 06:21] LABS: Neutrophils # 19.3 K/mcL (1.6-8.9)
[2018-03-29 06:31] LABS: Calcium 8.8 mg/dL (8.6-10.3); Magnesium 1.8 mg/dL (1.6-2.6); Phosphorous 5.5 mg/dL (2.7-4.5); Potassium 4.5 mEq/L (3.5-5.1)
--- NOTE | 2018-03-29 09:57 | Event Note ---
Date of Encounter: 03/29/18 Time of Encounter: 09:25 Spoke with patient this am. Patient is awake, alert and oriented times 3. No complaints reported. Patient stated her mother (NATALIIA) did not visit yesterday and hasn't discussed any discharge plans with her at this time. Dr. Healy to discuss potential hospice at discharge and notify Palliative care team. Patient reports mother to be here later today to let Dr. Healy know what she has decided. Patient reports just wants to do whatever her mother decides.
[2018-03-29] MEDS: Famotidine 20 MG TABLET PO SCH (10:10)
[2018-03-29] MEDS: Lactulose Oral Soln 20 GM/30 ML UDC PO SCH ×2 (10:10→20:56)
[2018-03-29] MEDS: Neosporin OINT 15 GM TUBE TP SCH ×2 (10:11→20:56)
--- NOTE | 2018-03-29 16:09 | Internal Med Progress Note ---
Date of Encounter: 03/29/18 Time of Encounter: 16:08 - Assessment and plan (1) Failure to thrive in adult Current Visit: Yes Status: Acute Assessment and plan: over all very poor prognosis with below mentioned comorbidities Talked to pt's mother ( YULIANA ) at bed side and explained to her about current care, as well as overall very poor prognosis. Pt and her mother understands about her condition, they do not wanted to proceed with any aggressive care Pt and mother both do not want hospice care however they would like to take her home, whenever they have hospital bed ready at home mean while recommend to continue current care will cont Marinol (2) Healthcare-associated pneumonia Current Visit: Yes Status: Acute Assessment and plan: Finished her full course of abx Cefepime cont symptomatic and supportive care O2 PRN Duoneb PRN Need home O2 eval WBC trending down Remained afebrile (3) Decompensation of cirrhosis of liver Current Visit: Yes Status: Acute Assessment and plan: cont symptomatic and supportive care (4) Hepatic cirrhosis due to chronic hepatitis C infection Current Visit: No Status: Chronic (5) ESRD (end stage renal disease) Current Visit: Yes Status: Acute Assessment and plan: Pt refusing for HD (6) Acute renal failure Current Visit: Yes Status: Acute Qualifiers: Qualified Code(s): N17.9 - Acute kidney failure, unspecified (7) Hyperkalemia Current Visit: Yes Status: Acute Assessment and plan: due to ESRD stable now (8) Metabolic acidosis Current Visit: Yes Status: Acute (9) Toxic metabolic encephalopathy Current Visit: Yes Status: Acute Assessment and plan: improved and stable (10) Cirrhosis Current Visit: No Status: Chronic Qualifiers: Hepatic cirrhosis type: alcoholic cirrhosis Qualified Code(s): K70.31 - Alcoholic cirrhosis of liver with ascites (11) Severe protein-calorie malnutrition Current Visit: No Status: Chronic Assessment and plan: appreciate technical information specialist recommendations Cont ensure with each meal - Time Spent With Patient Total time spent is greater than 50% in coordination of care (as documented) at patient's floor/unit and/or counseling patient: - Subjective Interval history: Ms. De Paz is a 53 year old female cirrhosis secondary to alcohol abuse with an indwelling tunneled catheter for paracentesis, hepatitis C, end-stage renal disease never previously on dialysis, hypertension, depression, diabetes who presented to the emergency department on 03/19/18 with a complaint of shortness of breath. Pt was admitted into ICU with HCAP, Resp failure, severe failure to thrive and toxic metabolic encephalopathy. Pt renal function continue worsening. Pt and family decided not to go for any aggressive care, as well as HD. Pt was transferred to [facility] for further care. This morning she looks more alert, awake and O x 3. Denied any CP / SOB. Looks very cachectic and failure to thrive. Talked to pt and her mother at bed side. No events over night. - Constitutional Vitals: Temp Pulse Resp BP Pulse Ox 97.9 F 67 18 133/76 100 03/29/18 15:26 03/29/18 15:26 03/29/18 15:26 03/29/18 15:26 03/29/18 15:26 General appearance: Present: cachectic, cooperative, A&O X 3 - Head Head exam: Present: atraumatic, normal inspection - Neck Neck exam general surgery: Present: supple - Respiratory Respiratory exam: Present: decreased breath sounds. Absent: rales, respiratory distress, rhonchi, wheezes - Cardiovascular Cardiovascular exam: Present: RRR, +S1, +S2. Absent: tachycardia - GI/Abdominal GI/Abdominal exam: Present: normal bowel sounds, soft. Absent: rebound, rigid, tenderness - Extremities Exam Extremities exam: Absent: calf tenderness, pedal edema, tenderness - Back Exam Back exam: Absent: CVA tenderness (L), CVA tenderness (R) - Neurological Exam Neurological exam: Present: alert, oriented X3 - Psychiatric Psychiatric exam: Present: depressed Internal Medicine: Result - Labs CBC & Chem 7: 03/29/18 05:32 03/29/18 05:32 Labs: Short CBC 03/29/18 Range/Units 05:32 WBC 24.5 H (4.3-11.1) K/mcL Hgb 9.4 L (11.5-15.4) g/dL Hct 28.1 L (35.3-44.9) % Plt Count 121 L (140-400) K/mcL Neutrophils # 19.3 H (1.6-8.9) K/mcL BMP 03/29/18 05:32 Sodium 131 L Potassium 4.5 Chloride 105 Carbon Dioxide 14 L BUN 100 H Creatinine 4.11 H Glucose 127 H Calcium 8.8 - ABG Interpretation ABG results: ABG ABG pH 7.37 pH Units (7.32-7.45) 03/22/18 04:59 ABG pCO2 31 mmHg (35-45) L 03/22/18 04:59 ABG pO2 120 mmHg (85-104) H 03/22/18 04:59 ABG O2 Saturation 99 % (95-98) H 03/22/18 04:59 PT/INR, D-dimer PT 13.4 Seconds (9.4-12.1) H 03/24/18 04:56 Consult Discharge Plan - Plan Referrals: Stephani Garcia MD [Primary Care Provider] -
[2018-03-29] MEDS: VITAMIN K IVC SCH (23:05)
[2018-03-29] MEDS: WATER IVC SCH (23:05)
[2018-03-29] MEDS: MVI IVC SCH (23:05)
[2018-03-29] MEDS: [UNRECOGNIZED DRUG - OTHER] IVC SCH (23:05)
[2018-03-29] MEDS: D5 IVC SCH (23:05)
[2018-03-29] MEDS: DEXTROSE 50% IVC SCH (23:05)
[2018-03-30] MEDS: Ipratropium/Albuterol Neb 3 ML IH SCH ×4 (03:25→16:16)
[2018-03-30] MEDS: *HR* Heparin 5,000 UNIT/ML VIAL SQ SCH ×2 (05:41→16:49)
--- NOTE | 2018-03-30 07:58 | Palliative Progress Note ---
Date of Encounter: 03/30/18 Time of Encounter: 07:10 - Assessment and plan (1) Acute hepatic encephalopathy Current Visit: Yes Status: Acute Assessment and plan: Is having bowel movements. The patient is taking at least some of her lactulose. I believe that this has cleared. (2) BERNARDA (acute kidney injury) Current Visit: No Status: Acute Assessment and plan: The patient does not wish to have any dialysis. Kidney function is still extremely poor.but it does continue to slowly improve. (3) Goals of care, counseling/discussion Current Visit: No Status: Acute Assessment and plan: Patient is currently DNR CCA and the family dates no dialysis. Patient is also able to confirm that she does not wish to have dialysis. Patient wishes to go home with home health care we are waiting for hospital bed to be placed. The patient does not wish to have hospice and is aware that hospice is available to her. I have discussed at length with the patient's mother who is her medical power of erisa attorney about hospice she is aware to and also does not wish to have it. I would recommend at this point that any further hospice discussions be phrased as he questions regarding hospice as opposed to in is that she would benefit by it. Been given these opinions in the past and she does not wish to have them further. At this point palliative is nothing further to offer on this patient she will be discharged from the hospital soon as a hospital bed is set up therefore palliative we will sign off please feel free to reconsult if we can help in any way - Time Spent With Patient Total time spent is greater than 50% in coordination of care (as documented) at patient's floor/unit and/or counseling patient: - Subjective Interval history: The patient was able to tell me this morning that she is in no pain she is drinking but states her appetite is about the same. Of note the patient does feel that she has made herself clear on the hospice issue and does not wish to have it. I understand from the notes that both patient and other have made this clear. Patient actually feels at this point that she is being entered about it. We discussed this at length and she understands hospice is available to her if she wishes to have it. - Constitutional Vitals: Abnormal lab results WBC 24.5 K/mcL (4.3-11.1) H 03/29/18 05:32 RBC 3.48 M/mcL (3.82-4.97) L 03/29/18 05:32 Hgb 9.4 g/dL (11.5-15.4) L 03/29/18 05:32 Hct 28.1 % (35.3-44.9) L 03/29/18 05:32 MCV 80.7 fL (83.0-100.0) L 03/29/18 05:32 MCH 27.0 pg (28.0-33.3) L 03/29/18 05:32 RDW 15.3 % (11.5-14.5) H 03/29/18 05:32 Plt Count 121 K/mcL (140-400) L 03/29/18 05:32 MPV 12.5 fL (9.4-12.4) H 03/29/18 05:32 Band Neutrophils % 18.0 % (0-4) H 03/21/18 03:46 Metamyelocytes % 2.0 % (0) H 03/21/18 03:46 Neutrophils # 19.3 K/mcL (1.6-8.9) H 03/29/18 05:32 Monocytes # 2.2 K/mcL (0.0-1.3) H 03/29/18 05:32 Nucleated RBCs/100 WBC 0.1 /100 WBC (0) H 03/29/18 05:32 Reactive Lymphocytes Present (Not Present) A 03/22/18 03:15 Toxic Granulation Present (Not Present) A 03/22/18 03:15 Platelet Estimate Decreased (Normal) L 03/28/18 04:50 Anisocytosis 1+ (Not Present) A 03/19/18 23:55 Microcytosis Present (Not Present) A 03/19/18 23:55 Macrocytosis Present (Not Present) A 03/19/18 23:55 PT 13.4 Seconds (9.4-12.1) H 03/24/18 04:56 ABG pCO2 31 mmHg (35-45) L 03/22/18 04:59 ABG pO2 120 mmHg (85-104) H 03/22/18 04:59 ABG HCO3 18 mEq/L (21-27) L 03/22/18 04:59 ABG Total CO2 19 mEq/L (20-26) L 03/22/18 04:59 ABG O2 Saturation 99 % (95-98) H 03/22/18 04:59 ABG Base Excess -7 mEq/L (-2 to 3) L 03/22/18 04:59 Sodium 131 mEq/L (136-145) L 03/29/18 05:32 Carbon Dioxide 14 mEq/L (23-29) L 03/29/18 05:32 BUN 100 mg/dL (6-20) H 03/29/18 05:32 Creatinine 4.11 mg/dL (0.60-1.20) H 03/29/18 05:32 Est GFR ( Amer) 14 (> 60) L 03/29/18 05:32 Est GFR (Non-Af Amer) 11 (> 60) L 03/29/18 05:32 Glucose 127 mg/dL (70-105) H 03/29/18 05:32 POC Glucose 135 mg/dL (70-99) H 03/29/18 07:09 Calculated Osmolality 305 (280-300) H 03/29/18 05:32 Venous Ioniz Calcium 0.99 mmol/L (1.15-1.35) L 03/20/18 04:39 Phosphorus 5.5 mg/dL (2.7-4.5) H 03/29/18 05:32 Alkaline Phosphatase 201 Units/L (34-104) H 03/24/18 04:56 Ammonia 86 mcmol/L (16-53) H 03/19/18 22:42 Serum Total Protein 5.7 g/dL (6.4-8.9) L 03/24/18 04:56 Albumin 3.0 g/dL (3.5-5.7) L 03/24/18 04:56 Ur Squamous Epith Cells Many per lpf (None-Few) H 03/19/18 18:15 General appearance: Present: no acute distress - Head Head exam: Absent: atraumatic, normal inspection - Respiratory Respiratory exam: Present: decreased breath sounds - Cardiovascular Cardiovascular exam: Present: RRR - GI/Abdominal GI/Abdominal exam: Present: distended, hypoactive bowel sounds, soft. Absent: tenderness - Extremities Exam Extremities exam: Absent: pedal edema, tenderness - Neurological Exam Neurological exam: Present: alert - Psychiatric Psychiatric exam: Absent: agitated, anxious - Skin Skin exam: Present: dry, warm Palliative Quality Palliative Quality: Screen for Code Status: Yes, Screen for Goals of Care: Yes, Screen for Pain: Yes, If Pain Regimen Started, Initiate Bowel Regimen: Yes, Screen for Nausea/Vomitting: Yes - Labs CBC & Chem 7: 03/29/18 05:32 03/29/18 05:32 Labs: Laboratory Results - last 24 hr 03/29/18 07:09 POC Glucose 135 H - ABG Interpretation ABG results: ABG ABG pH 7.37 pH Units (7.32-7.45) 03/22/18 04:59 ABG pCO2 31 mmHg (35-45) L 03/22/18 04:59 ABG pO2 120 mmHg (85-104) H 03/22/18 04:59 ABG O2 Saturation 99 % (95-98) H 03/22/18 04:59 PT/INR, D-dimer PT 13.4 Seconds (9.4-12.1) H 03/24/18 04:56 Consult Discharge Plan - Plan Referrals: Stephani Garcia MD [Primary Care Provider] -
[2018-03-30] MEDS: Lactulose Oral Soln 20 GM/30 ML UDC PO SCH ×2 (09:46→20:21)
[2018-03-30] MEDS: Famotidine 20 MG TABLET PO SCH (09:46)
[2018-03-30] MEDS: Neosporin OINT 15 GM TUBE TP SCH ×2 (09:47→20:22)
--- NOTE | 2018-03-30 10:20 | Internal Med Progress Note ---
Date of Encounter: 03/30/18 Time of Encounter: 10:18 - Assessment and plan (1) Failure to thrive in adult Current Visit: Yes Status: Acute Assessment and plan: over all very poor prognosis with below mentioned comorbidities Talked to pt's mother ( YULIANA ) at bed side and explained to her about current care, as well as overall very poor prognosis. Pt and her mother understands about her condition, they do not wanted to proceed with any aggressive care Pt and mother both do not want hospice care however they would like to take her home, whenever they have hospital bed ready at home mean while recommend to continue current care will cont Marinol for appetite (2) Healthcare-associated pneumonia Current Visit: Yes Status: Acute Assessment and plan: Finished full course of abx Cefepime cont symptomatic and supportive care O2 PRN Duoneb PRN Need home O2 eval WBC trending down Remained afebrile (3) Decompensation of cirrhosis of liver Current Visit: Yes Status: Acute Assessment and plan: cont symptomatic and supportive care (4) Hepatic cirrhosis due to chronic hepatitis C infection Current Visit: No Status: Chronic (5) ESRD (end stage renal disease) Current Visit: Yes Status: Acute Assessment and plan: Pt refusing for HD (6) Acute renal failure Current Visit: Yes Status: Acute Qualifiers: Qualified Code(s): N17.9 - Acute kidney failure, unspecified (7) Hyperkalemia Current Visit: Yes Status: Acute Assessment and plan: due to ESRD stable now (8) Metabolic acidosis Current Visit: Yes Status: Acute (9) Toxic metabolic encephalopathy Current Visit: Yes Status: Acute Assessment and plan: improved and stable (10) Cirrhosis Current Visit: No Status: Chronic Assessment and plan: cont supportive care cont Lactulose Qualifiers: Hepatic cirrhosis type: alcoholic cirrhosis Qualified Code(s): K70.31 - Alcoholic cirrhosis of liver with ascites (11) Severe protein-calorie malnutrition Current Visit: No Status: Chronic Assessment and plan: appreciate cd mixer recommendations Cont ensure with each meal - Time Spent With Patient Total time spent is greater than 50% in coordination of care (as documented) at patient's floor/unit and/or counseling patient: - Subjective Interval history: Ms. De Paz is a 53 year old female cirrhosis secondary to alcohol abuse with an indwelling tunneled catheter for paracentesis, hepatitis C, end-stage renal disease never previously on dialysis, hypertension, depression, diabetes who presented to the emergency department on 03/19/18 with a complaint of shortness of breath. Pt was admitted into ICU with HCAP, Resp failure, severe failure to thrive and toxic metabolic encephalopathy. Pt renal function continue worsening. Pt and family decided not to go for any aggressive care, as well as HD. Pt was transferred to [facility] for further care. This morning she looks more alert, awake and O x 3. Denied any CP / SOB. Looks very cachectic and failure to thrive. No events over night. - Constitutional Vitals: Temp Pulse Resp BP Pulse Ox 98.1 F 56 16 108/63 97 03/30/18 07:02 03/30/18 07:02 03/30/18 07:30 03/30/18 07:02 03/30/18 07:30 General appearance: Present: cachectic, cooperative, A&O X 3 - Head Head exam: Present: atraumatic, normal inspection - Neck Neck exam general surgery: Present: supple - Respiratory Respiratory exam: Present: decreased breath sounds, wheezes. Absent: rales, respiratory distress, rhonchi - Cardiovascular Cardiovascular exam: Present: RRR, +S1, +S2. Absent: tachycardia - GI/Abdominal GI/Abdominal exam: Present: normal bowel sounds, soft. Absent: rebound, rigid, tenderness - Extremities Exam Extremities exam: Absent: calf tenderness, pedal edema, tenderness - Back Exam Back exam: Absent: CVA tenderness (L), CVA tenderness (R) - Neurological Exam Neurological exam: Present: alert, oriented X3 - Psychiatric Psychiatric exam: Present: depressed - Skin Skin exam: Absent: rash Internal Medicine: Result - Labs CBC & Chem 7: 03/29/18 05:32 03/29/18 05:32 - ABG Interpretation ABG results: ABG ABG pH 7.37 pH Units (7.32-7.45) 03/22/18 04:59 ABG pCO2 31 mmHg (35-45) L 03/22/18 04:59 ABG pO2 120 mmHg (85-104) H 03/22/18 04:59 ABG O2 Saturation 99 % (95-98) H 03/22/18 04:59 PT/INR, D-dimer PT 13.4 Seconds (9.4-12.1) H 03/24/18 04:56 Consult Discharge Plan - Plan Referrals: Stephani Garcia MD [Primary Care Provider] -
[2018-03-31] MEDS: WATER IVC SCH ×2 (00:43→23:09)
[2018-03-31] MEDS: MVI IVC SCH ×2 (00:43→23:09)
[2018-03-31] MEDS: DEXTROSE 50% IVC SCH ×2 (00:43→23:09)
[2018-03-31] MEDS: VITAMIN K IVC SCH ×2 (00:43→23:09)
[2018-03-31] MEDS: [UNRECOGNIZED DRUG - OTHER] IVC SCH ×2 (00:43→23:09)
[2018-03-31] MEDS: D5 IVC SCH ×2 (00:43→23:09)
[2018-03-31 03:52] VITALS: BP 114/68
[2018-03-31] MEDS: *HR* Heparin 5,000 UNIT/ML VIAL SQ SCH ×2 (05:46→16:39)
[2018-03-31] MEDS: Famotidine 20 MG TABLET PO SCH ×2 (11:47→16:38)
[2018-03-31] MEDS: Lactulose Oral Soln 20 GM/30 ML UDC PO SCH ×3 (11:47→20:05)
--- NOTE | 2018-03-31 15:18 | Internal Med Progress Note ---
Date of Encounter: 03/31/18 Time of Encounter: 14:15 - Assessment and plan (1) Failure to thrive in adult Current Visit: Yes Status: Acute Assessment and plan: over all very poor prognosis with below mentioned comorbidities Pt do not wanted to check vitals and lab work she is still not able to decide about hospice care however she wants to go home and be comfortable will talk to pt's mother will cont Marinol for appetite possible d/c home in AM with home health If pt wants, we can arrange for home hospice care too (2) Healthcare-associated pneumonia Current Visit: Yes Status: Acute Assessment and plan: Finished full course of abx Cefepime cont symptomatic and supportive care O2 PRN Duoneb PRN Need home O2 eval Remained afebrile (3) Decompensation of cirrhosis of liver Current Visit: Yes Status: Acute Assessment and plan: cont symptomatic and supportive care (4) Hepatic cirrhosis due to chronic hepatitis C infection Current Visit: No Status: Chronic (5) ESRD (end stage renal disease) Current Visit: Yes Status: Acute Assessment and plan: Pt refusing for HD (6) Acute renal failure Current Visit: Yes Status: Acute Qualifiers: Qualified Code(s): N17.9 - Acute kidney failure, unspecified (7) Hyperkalemia Current Visit: Yes Status: Acute Assessment and plan: due to ESRD stable now (8) Metabolic acidosis Current Visit: Yes Status: Acute (9) Toxic metabolic encephalopathy Current Visit: Yes Status: Acute Assessment and plan: improved and stable (10) Cirrhosis Current Visit: No Status: Chronic Assessment and plan: cont supportive care cont Lactulose Qualifiers: Hepatic cirrhosis type: alcoholic cirrhosis Qualified Code(s): K70.31 - Alcoholic cirrhosis of liver with ascites (11) Severe protein-calorie malnutrition Current Visit: No Status: Chronic Assessment and plan: appreciate flight mechanic recommendations Cont ensure with each meal - Time Spent With Patient Total time spent is greater than 50% in coordination of care (as documented) at patient's floor/unit and/or counseling patient: - Subjective Interval history: Ms. De Paz is a 53 year old female cirrhosis secondary to alcohol abuse with an indwelling tunneled catheter for paracentesis, hepatitis C, end-stage renal disease never previously on dialysis, hypertension, depression, diabetes who presented to the emergency department on 03/19/18 with a complaint of shortness of breath. Pt was admitted into ICU with HCAP, Resp failure, severe failure to thrive and toxic metabolic encephalopathy. Pt renal function continue worsening. Pt and family decided not to go for any aggressive care, as well as HD. Pt was transferred to [facility] for further care. This morning she looks more alert, awake and O x 3. Denied any CP / SOB. Looks very cachectic and failure to thrive. No events over night. Today pt refusing for vitals and lab work. She does not wanted to check vitals. Would like to go home. - Constitutional Vitals: Temp Pulse Resp BP Pulse Ox 97.9 F 60 16 114/68 96 03/31/18 03:47 03/31/18 03:47 03/31/18 03:47 03/31/18 03:47 03/31/18 03:47 General appearance: Present: cachectic, cooperative, A&O X 3 - Head Head exam: Present: atraumatic, normal inspection - Neck Neck exam general surgery: Present: supple - Respiratory Respiratory exam: Present: decreased breath sounds, wheezes. Absent: rales, respiratory distress, rhonchi - Cardiovascular Cardiovascular exam: Present: +S1, +S2. Absent: tachycardia - GI/Abdominal GI/Abdominal exam: Present: normal bowel sounds, soft. Absent: rebound, rigid, tenderness - Extremities Exam Extremities exam: Absent: calf tenderness, pedal edema, tenderness - Back Exam Back exam: Absent: CVA tenderness (L), CVA tenderness (R) - Neurological Exam Neurological exam: Present: alert, oriented X3 - Psychiatric Psychiatric exam: Present: depressed Internal Medicine: Result - Labs CBC & Chem 7: 03/29/18 05:32 03/29/18 05:32 - ABG Interpretation ABG results: ABG ABG pH 7.37 pH Units (7.32-7.45) 03/22/18 04:59 ABG pCO2 31 mmHg (35-45) L 03/22/18 04:59 ABG pO2 120 mmHg (85-104) H 03/22/18 04:59 ABG O2 Saturation 99 % (95-98) H 03/22/18 04:59 PT/INR, D-dimer PT 13.4 Seconds (9.4-12.1) H 03/24/18 04:56 Consult Discharge Plan - Plan Referrals: Stephani Garcia MD [Primary Care Provider] -
[2018-03-31] MEDS: Neosporin OINT 15 GM TUBE TP SCH ×2 (16:50→20:05)
[2018-04-01] MEDS: *HR* Heparin 5,000 UNIT/ML VIAL SQ SCH ×2 (05:53→18:50)
[2018-04-01] MEDS: Lactulose Oral Soln 20 GM/30 ML UDC PO SCH (12:29)
[2018-04-01] MEDS: Famotidine 20 MG TABLET PO SCH (12:29)
[2018-04-01] MEDS: Neosporin OINT 15 GM TUBE TP SCH (12:29)
--- NOTE | 2018-04-01 13:34 | Discharge Summary ---
- NOTES TO OUTPATIENT PROVIDER Notes to Outpatient Provider: f/u with PCP in 5-7 days Date of Encounter: 04/01/18 Time of Encounter: 13:28 - Discharge Diagnosis (1) Failure to thrive in adult Priority: Primary Status: Acute (2) Healthcare-associated pneumonia Priority: Primary Status: Acute (3) Decompensation of cirrhosis of liver Priority: Primary Status: Acute (4) Hepatic cirrhosis due to chronic hepatitis C infection Priority: Primary Status: Chronic (5) ESRD (end stage renal disease) Priority: Primary Status: Acute (6) Acute renal failure Priority: Secondary Status: Acute Qualifiers: Qualified Code(s): N17.9 - Acute kidney failure, unspecified (7) Hyperkalemia Priority: Secondary Status: Acute (8) Metabolic acidosis Priority: Secondary Status: Acute (9) Toxic metabolic encephalopathy Priority: Secondary Status: Acute (10) Cirrhosis Priority: Secondary Status: Chronic Qualifiers: Hepatic cirrhosis type: alcoholic cirrhosis Qualified Code(s): K70.31 - Alcoholic cirrhosis of liver with ascites (11) Severe protein-calorie malnutrition Priority: Secondary Status: Chronic Hospital course: Ms. De Paz is a 53 year old female cirrhosis secondary to alcohol abuse with an indwelling tunneled catheter for paracentesis, hepatitis C, end-stage renal disease never previously on dialysis, hypertension, depression, diabetes who presented to the emergency department on 03/19/18 with a complaint of shortness of breath. Pt was admitted into ICU with HCAP, Resp failure, severe failure to thrive and toxic metabolic encephalopathy. Pt renal function continue worsening. Pt and family decided not to go for any aggressive care, as well as HD. Pt was transferred to telemetry for further care. Pt refused to go for HD and she does not wanted to proceed with any more aggressive care. She kept on refusing her care here since last 2 days. She wanted to go home with home health services. She does not wanted home hospice care. So we arranged for home health services and hospital bed. I performed face to face evaluation on her , she does need hospital bed for further supportive car, also she would get benefit with wheel walker. I provided the prescriptions for those to SW. I did talk to pt's mother and explained to her about pt's current care. I started her on Marinol here , however her appetite is still poor and PO intake diminished. We will d/c her home with home health services once we arranged hospital bed for her at home. Pt s alert, awake and O x 3 now, she does not wanted to continue any further medical care, she wants to go home and be comfortable at home. - Time Spent with Patient Total time spent providing and/or coordinating discharge services: Greater than 30 minutes (Spent 45 minutes on this patient's discharge summary due to complex medical problems and patient needed a lot of education regarding discharge instructions) - Discharge Medications Prescriptions: Dronabinol [Marinol] 5 mg PO BID 30 Days #60 capsule Lactulose 10 gm PO BID PRN #1000 ml PRN Reason: Constipation Home Medications: clonazePAM [Klonopin] 0.5 mg PO BID 10/06/16 [History] Omeprazole [PriLOSEC] 40 mg PO DAILY 07/26/17 [History] Ondansetron HCl [Zofran] 4 - 8 mg PO Q8H PRN 07/26/17 [History] hydrOXYzine HCl [Hydroxyzine HCl] 50 mg PO QID 07/26/17 [History] Buspirone HCl [Buspar] 5 mg PO TID PRN 09/07/17 [History] Escitalopram [Lexapro] 20 mg PO DAILY 09/07/17 [History] Ferrous Gluconate 240 mg PO DAILY 02/12/18 [History] Nadolol 20 mg PO DAILY 02/12/18 [History] OxyCODONE Immed Rel [Roxicodone 5 MG] 5 mg PO BID PRN 02/12/18 [History] Tizanidine HCl 4 mg PO BID PRN 02/12/18 [History] Lactose-Reduced Food [Ensure High Protein] 1 bottle PO 2-3XD 02/28/18 [History] Dronabinol [Marinol] 5 mg PO BID 30 Days #60 capsule 04/01/18 [Rx] Lactulose 10 gm PO BID PRN #1000 ml 04/01/18 [Rx] Anthony/Poly/Prashant OINT [Triple Antibiotic Ointment] 1 appl TP BID tube 04/01/18 [Rx] Allergies/Adverse Reactions: 3 Allergy/AdvReac Type Severity Reaction Status Date / Time levofloxacin [From Levaquin] Allergy Hives Verified 03/19/18 19:06 Penicillins Allergy Rash Verified 03/19/18 19:06 Sulfa (Sulfonamide Allergy Rash Verified 03/19/18 19:06 Antibiotics) Date of admission: 03/19/18 21:55 Primary care physician: Stephani Garcia, Consults: 03/20/18 03:06 Consult to Critical Care [CONS] Routine Consulting Provider: [facility] [place] Reason for Consult: vent management, ICU care Call Completed: No 03/20/18 11:40 Consult to Nutrition [CONS] Routine Comment: Consulting Provider: NUTRITION Reason for Dietary Consult: Tube Feed Start & Manage - Constitutional Vitals: Temp Pulse Resp BP Pulse Ox 97.9 F 60 16 114/68 96 03/31/18 03:47 03/31/18 03:47 03/31/18 03:47 03/31/18 03:47 03/31/18 03:47 General appearance: Present: cachectic, cooperative, A&O X 3, answers questions appropriately - Head Head exam: Present: atraumatic, normal inspection - Neck Neck exam general surgery: Present: supple - Respiratory Respiratory exam: Present: decreased breath sounds. Absent: rales, respiratory distress, rhonchi, wheezes - Cardiovascular Cardiovascular exam: Present: RRR, +S1, +S2. Absent: tachycardia - GI/Abdominal GI/Abdominal exam: Present: normal bowel sounds, soft. Absent: rebound, rigid, tenderness - Extremities Exam Extremities exam: Absent: calf tenderness, pedal edema, tenderness - Back Exam Back exam: Absent: CVA tenderness (L), CVA tenderness (R) - Neurological Exam Neurological exam: Present: alert, oriented X3 - Psychiatric Psychiatric exam: Present: depressed - Patient Status Disposition: Home Health Service Condition: Fair Overall status at discharge: patient is not back to baseline - Discharge Instructions Follow Up With: Stephani Garcia MD [Primary Care Provider] - - Diet and Activity Activity: increase activity as tolerated Diet: other (soft diet)
--- NOTE | 2018-04-01 13:37 | Physician Discharge Referral ---
Home Health/Hosp Referral Info Transfer to: Home Health Provider in Charge Post Discharge: PCP - Diagnosis (1) Failure to thrive in adult Status: Acute (2) Healthcare-associated pneumonia Status: Acute (3) Decompensation of cirrhosis of liver Status: Acute (4) Hepatic cirrhosis due to chronic hepatitis C infection Status: Chronic (5) ESRD (end stage renal disease) Status: Acute (6) Acute renal failure Status: Acute (7) Hyperkalemia Status: Acute (8) Metabolic acidosis Status: Acute (9) Toxic metabolic encephalopathy Status: Acute (10) Cirrhosis Status: Chronic (11) Severe protein-calorie malnutrition Status: Chronic - Respiratory Orders Smoking Cessation: Smoking cessation has been advised. For more information, call the [facility] Tobacco Quit Line at 0-204-HWDP-NOW. - Services Needed Following services are medically necessary services: Nursing, Home Health Aide, Physical Therapy, Occupational Therapy - Transfer Medications Prescriptions: Dronabinol [Marinol] 5 mg PO BID 30 Days #60 capsule Lactulose 10 gm PO BID PRN #1000 ml PRN Reason: Constipation Home Medications: clonazePAM [Klonopin] 0.5 mg PO BID 10/06/16 [History] Omeprazole [PriLOSEC] 40 mg PO DAILY 07/26/17 [History] Ondansetron HCl [Zofran] 4 - 8 mg PO Q8H PRN 07/26/17 [History] hydrOXYzine HCl [Hydroxyzine HCl] 50 mg PO QID 07/26/17 [History] Buspirone HCl [Buspar] 5 mg PO TID PRN 09/07/17 [History] Escitalopram [Lexapro] 20 mg PO DAILY 09/07/17 [History] Ferrous Gluconate 240 mg PO DAILY 02/12/18 [History] Nadolol 20 mg PO DAILY 02/12/18 [History] OxyCODONE Immed Rel [Roxicodone 5 MG] 5 mg PO BID PRN 02/12/18 [History] Tizanidine HCl 4 mg PO BID PRN 02/12/18 [History] Lactose-Reduced Food [Ensure High Protein] 1 bottle PO 2-3XD 02/28/18 [History] Dronabinol [Marinol] 5 mg PO BID 30 Days #60 capsule 04/01/18 [Rx] Lactulose 10 gm PO BID PRN #1000 ml 04/01/18 [Rx] Anthony/Poly/Prashant OINT [Triple Antibiotic Ointment] 1 appl TP BID tube 04/01/18 [Rx] Allergies/Adverse Reactions: 3 Allergy/AdvReac Type Severity Reaction Status Date / Time levofloxacin [From Levaquin] Allergy Hives Verified 03/19/18 19:06 Penicillins Allergy Rash Verified 03/19/18 19:06 Sulfa (Sulfonamide Allergy Rash Verified 03/19/18 19:06 Antibiotics) Certification: Further, I certify that my clinical findings support that this patient is homebound (i.e. absences from home require considerable and taxing effort and are for medical reasons or buddhist services or infrequently or short duration when for other reasons) because: Homebound Reason: Patient requires assistance of a person or device to safely leave home Attestation: My signature below is to certify that this patient is under my care and that I, or nurse practitioner, or a physician's assistant statistician working with me, has a face-to -face encounter with this patient.
== END 2018-04-01 19:20 | disposition home health service (06) | DRG 720 ==
LOC: EMEROO 16:31 → ICNU 21:55 → SUATTDRO 21:55 → ICNU 22:12 → 2ANU 03-26 12:14
PROVIDERS: ADMIT Emergency Medicine; ATTEND Family Medicine

== ENCOUNTER 2018-05-08 22:10 | Inpatient (IN) ==
[2018-05-08] MEDS ORDERED: 0.9 % Sodium Chloride 1,000 ML IVC ONE (22:46)
--- NOTE | 2018-05-08 22:55 | Emergency Department Note ---
Disposition Clinical Impression: Hepatic cirrhosis due to chronic hepatitis C infection, Ascites due to alcoholic cirrhosis, Hyperkalemia, Failure to thrive in adult, Severe protein- calorie malnutrition, ESRD (end stage renal disease) Disposition: Admitted As Inpatient Condition: Fair Time of Disposition: 03:00 General Adult HPI - General Chief complaint: ED Shortness of Breath/Dyspnea Stated complaint: sob Time Seen by Provider: 05/08/18 22:19 Nursing Notes Reviewed: Yes Vital Signs Reviewed: Yes - History of Present Illness HPI Narrative: 53-year-old chronically ill female with known history of cirrhosis arrives by private vehicle with complaint of possible pneumonia. She is accompanied by her sister who assist with history. Patient's sister mentions a were concerned for possible worsening pneumonia, due to patient's weakness. Patient's sister describes recent admission in the past month, and subsequently seen twice at [facility] last week and [facility] three days ago. She was placed on azirthomycin and then levaquin last week, and they had returned for rash that developed, and patient's mother described being switched to "clindamycin". Family was concern for possible reaction as patient has developed a rash , shortness, of breath, and also feel patient is not taking her oral meds. Sister also mentions her concern for a bedsore on patient's tailbone. Sister describes patient has a indwelling catheter for paracentesis, history of liver disease, recent diagnosis of pneumonia. Patient this with her mom, and sister helps with care but not daily. Patient does get home health. Patient is reported DNR CC. Currently patient denies any shortness of breath, cough, chest pain, abdominal pain, fever. Pain Scale: 0 - Related Data Home Medications Medication Instructions Recorded Confirmed Dronabinol [Marinol] 5 mg PO BID MDD 10 05/09/18 05/09/18 Escitalopram [Lexapro] 20 mg PO DAILY 05/09/18 05/09/18 Ferrous Gluconate 240 mg PO DAILY 05/09/18 05/09/18 Nadolol 20 mg PO DAILY 05/09/18 05/09/18 Omeprazole [PriLOSEC] 40 mg PO DAILY 05/09/18 05/09/18 Oxycodone HCl [Oxaydo] 5 mg PO BID PRN MDD 10mg 05/09/18 05/09/18 PredniSONE [Horace] 4 mg PO DAILY 05/09/18 Tizanidine HCl 4 mg PO BID PRN MDD 8mg 05/09/18 05/09/18 Allergies Allergy/AdvReac Type Severity Reaction Status Date / Time clindamycin Allergy Rash Verified 05/09/18 07:58 levofloxacin [From Levaquin] Allergy Hives Verified 05/09/18 07:58 Penicillins Allergy Rash Verified 05/09/18 07:58 Sulfa (Sulfonamide Allergy Rash Verified 05/09/18 07:58 Antibiotics) All systems ED: reviewed and negative except as stated. Review of Systems: As Per HPI Constitutional: Reports: as per HPI Eyes: Denies: eye pain ENT ED: Denies: throat pain Cardiovascular: Denies: chest pain Respiratory: Denies: cough, dyspnea Gastrointestinal: Denies: abdominal pain, nausea, vomiting Genitourinary: Denies: dysuria Musculoskeletal: Denies: back pain Integumentary: Reports: as per HPI Neurological: Reports: weakness Endocrine: Denies: fatigue Hematological/Lymphatic: Denies: easy bleeding Allergic/Immunologic: Denies: facial swelling Past Medical History - Past Medical History Medical history: Reports: cirrhosis, CHF, COPD, diabetes, hepatitis, hypertension, myocardial infarction, seizures Surgical history: Reports: Psychiatric history: Reports: anxiety, depression - Social History Smoking Status: Current every day smoker Smokeless Tobacco Status: No Alcohol use: Reports: none Drug use: Reports: none Physical Exam - General Limitations: no limitations General appearance: alert, cachectic - Head Head exam: normocephalic - Eye Eye exam: Present: EOMI - Expanded ENT Exam External ear exam: Present: normal external inspection Nose exam: negative: rhinorrhea Mouth exam: Present: other (white plaques along gingiva, muccal mucosa consistent with candidiasis;) Teeth exam: Present: other (top dentures in plac) - Neck Neck exam: Absent: tenderness - Chest Chest inspection: Present: symmetric chest wall rise - Respiratory Respiratory exam: Absent: respiratory distress, wheezes, stridor - Cardiovascular Cardiovascular exam: Present: regular rate, normal rhythm - Abdominal Exam Abdominal exam: Present: soft, Non-Tender, other (right sided cathter, dressings clean dry in place) - Extremities Exam Extremities exam: Present: normal capillary refill. Absent: tenderness - Expanded Lower Extremity Exam Foot/toe exam: Present: erythema (right heel) Gait: not tested/not observed - Back Exam Back exam: Absent: tenderness - Neurological Exam Neurological exam: Present: alert - Psychiatric Psychiatric exam: Present: normal affect, normal mood - Skin Skin exam: Present: warm, dry, other (skin breakdown on coccyx, slight erytehma on bilateral buttocks) Course Course Narrative: Patient is a chronically ill-appearing 53-year-old female. Review of EMR shows that she has known history of alcohol-induced cirrhosis, hepatitis C, end-stage renal disease, and diabetes. Recent admission notes from one month ago also mention respiratory failure, and severe failure to thrive. Patient arrives via private vehicle from home. Nursing notes mention that patient had presented with difficulty breathing, and concern for recurrent pneumonia in my discussion with patient. She denies cough, chest pain, shortness of breath. I did discuss patient via phone with her mother who apparently she lives with and is the primary care give. Pt's mother reports a one to patient to be evaluated in the hospital tonight, due to recent rash, possible pneumonia with patient noncompliant with her medications. Mother reports that she witnessed patient not taking her medications, and described patient has had difficulty swallowing. Family reports patinet mother and sister have power of research attorney. Pt is reported [facility] Initial vitals blood pressure 90/56, temp 98.4, HR 59, 97% on room air. On examination, she appears cachectic, chronically ill in no acute distress. she appears listless, but is alert does respond to questioning. Lungs clear to auscultation. No abdominal tenderness. Right-sided indwelling catheter for paracentesis in place. The dressing clean and dry. She does have a notable cocyx decubit ulcer, with skin breakdown, no concerning signs for cellulitis. She has some erythema possibly forming decubital ulcers, on her bilateral buttocks, and right calcaneas. She does have generalized purpura, over her extremities, abdomen, and back. Oropharynx appears well-hydrated, she does have upper dentures. She does have some white plaques on her tongue, around her gingiva and buccal mucosa consistent with oral candidiasis. Patient's family has described concern for possible recurrent pneumonia, shortness of breath. Workup initiated. Fluids ordered. - Reevaluation(s) Reevaluation #1: CXR showed middle lung persisting oval lesion, differentials would be scarring from pneumonia, however radiologist had advised for CT scan for possible neoplasm. Patient's blood pressure stable. I have ordered additional fluids. Hepatic panel lipase also pending. I discussed patient with Dr. Ruiz who also had face time with patient, and agrees for workup and admission for weakness, decreased by mouth, renal failure, and likely need for social work consult. Time: 00:54 Reevaluation #2: Patient discussed with and accepted by hospitalist Dr. Hammond, who also requested EKG, one dose of Kayexalate by mouth, IV hydrocortisone 100 mg, and telemetry bed. Time: 02:57 Vital Signs Temperature 98.4 F 05/08/18 22:11 Pulse Rate 59 05/08/18 22:11 Respiratory Rate 22 05/08/18 22:11 Blood Pressure 90/56 05/08/18 22:11 O2 Sat by Pulse Oximetry 97 05/08/18 22:11 Temperature 97.6 F 05/10/18 07:41 Pulse Rate 50 05/10/18 07:41 Respiratory Rate 18 05/10/18 07:41 Blood Pressure 79/49 05/10/18 07:41 O2 Sat by Pulse Oximetry 84 05/10/18 07:41 Oxygen Delivery Oxygen Delivery Room Air Medical Decision Making - [facility] Narrative Medical decision making narrative: Chest X-Ray 05/08/18 22:46 IMPRESSION: There is a persistent oval-shaped area of opacity within the left midlung. Although that may represent scarring from previous pneumonia, its persistence does at least raise the possibility of underlying neoplasm. Consequently, chest CT is recommended, preferably with intravenous contrast is possible. D/ / Dg Schmitt MD / Dg Schmitt MD Interpreting Provider: Dg Schmitt MD Chest CT 05/09/18 00:54 IMPRESSION: Hyperinflation/COPD. Lower airways inflammatory disease. Thick walled cavitary lesion right upper lobe. Additional thick walled cavitary lesion which communicates with bronchus of the left upper lobe. RECOMMENDATIONS: Recommend pulmonary consultation. D/ / Chema Mayers MD / Chema Mayers MD Interpreting Provider: Chema Mayers MD Laboratory Tests 05/08/18 05/08/18 05/08/18 22:45 22:58 22:58 WBC 17.4 H RBC 3.78 L Hgb 10.5 L Hct 32.5 L MCV 86.0 MCH 27.8 L MCHC 32.3 RDW 16.0 H Plt Count 154 MPV 11.5 Immature Gran % 1.4 Seg Neutrophils % 88.7 Lymphocytes % 7.2 Monocytes % 2.5 Eosinophils % 0.0 Basophils % 0.2 Neutrophils # 15.4 H Lymphocytes # 1.3 Monocytes # 0.4 Eosinophils # 0.0 Basophils # 0.0 Immature Plt Fraction 3.5 PT INR APTT Sodium 136 Potassium 6.1 H Chloride 108 H Carbon Dioxide 11 L BUN 130 H Creatinine 6.85 H Est GFR ( Amer) 8 L Est GFR (Non-Af Amer) 6 L BUN/Creatinine Ratio 19 Glucose 115 H POC Glucose Calculated Osmolality 325 H Lactic Acid Calcium 8.6 Magnesium Total Bilirubin 0.6 Direct Bilirubin 0.2 Indirect Bilirubin 0.4 AST 51 H ALT 31 Alkaline Phosphatase 236 H Creatine Kinase 28 L Troponin I 0.03 Serum Total Protein 6.1 L Albumin 2.5 L Globulin 3.6 H Albumin/Globulin Ratio 0.7 L Lipase 15 Urine Color Yellow Urine Clarity Turbid A Urine pH 5.5 Ur Specific Kosse 1.016 Urine Protein 100 H Urine Glucose (UA) Normal Urine Ketones Negative Urine Blood Large H Urine Nitrite Negative Urine Bilirubin Negative Urine Urobilinogen Normal Ur Leukocyte Esterase Large H Urine Microscopic RBC 5-15 H Urine Microscopic WBC TNTC H Ur Squamous Epith Cells Many H Urine Bacteria None Seen Urine Yeast Many H Ur Culture Indicated? NO. A Random Vancomycin 05/08/18 05/08/18 05/09/18 22:58 22:58 07:57 WBC RBC Hgb Hct MCV MCH MCHC RDW Plt Count MPV Immature Gran % Seg Neutrophils % Lymphocytes % Monocytes % Eosinophils % Basophils % Neutrophils # Lymphocytes # Monocytes # Eosinophils # Basophils # Immature Plt Fraction PT 12.6 H INR 1.2 APTT 34.4 Sodium Potassium Chloride Carbon Dioxide BUN Creatinine Est GFR ( Amer) Est GFR (Non-Af Amer) BUN/Creatinine Ratio Glucose POC Glucose 61 L Calculated Osmolality Lactic Acid 1.4 Calcium Magnesium Total Bilirubin Direct Bilirubin Indirect Bilirubin AST ALT Alkaline Phosphatase Creatine Kinase Troponin I Serum Total Protein Albumin Globulin Albumin/Globulin Ratio Lipase Urine Color Urine Clarity Urine pH Ur Specific Kosse Urine Protein Urine Glucose (UA) Urine Ketones Urine Blood Urine Nitrite Urine Bilirubin Urine Urobilinogen Ur Leukocyte Esterase Urine Microscopic RBC Urine Microscopic WBC Ur Squamous Epith Cells Urine Bacteria Urine Yeast Ur Culture Indicated? Random Vancomycin 05/09/18 05/10/18 05/10/18 13:55 05:35 05:35 WBC 14.3 H RBC 3.53 L Hgb 9.7 L Hct 30.1 L MCV 85.3 MCH 27.5 L MCHC 32.2 RDW 16.1 H Plt Count 94 L MPV 11.5 Immature Gran % 1.0 Seg Neutrophils % 80.2 Lymphocytes % 15.6 Monocytes % 3.1 Eosinophils % 0.0 Basophils % 0.1 Neutrophils # 11.5 H Lymphocytes # 2.2 Monocytes # 0.4 Eosinophils # 0.0 Basophils # 0.0 Immature Plt Fraction 3.5 PT INR APTT Sodium 144 Potassium 3.5 Chloride 117 H Carbon Dioxide 11 L BUN 120 H Creatinine 6.01 H Est GFR ( Amer) 9 L Est GFR (Non-Af Amer) 7 L BUN/Creatinine Ratio 20 Glucose 84 POC Glucose 124 H Calculated Osmolality 336 H Lactic Acid Calcium 8.1 L Magnesium 1.6 Total Bilirubin Direct Bilirubin Indirect Bilirubin AST ALT Alkaline Phosphatase Creatine Kinase Troponin I Serum Total Protein Albumin Globulin Albumin/Globulin Ratio Lipase Urine Color Urine Clarity Urine pH Ur Specific Kosse Urine Protein Urine Glucose (UA) Urine Ketones Urine Blood Urine Nitrite Urine Bilirubin Urine Urobilinogen Ur Leukocyte Esterase Urine Microscopic RBC Urine Microscopic WBC Ur Squamous Epith Cells Urine Bacteria Urine Yeast Ur Culture Indicated? Random Vancomycin 13 05/10/18 06:01 WBC RBC Hgb Hct MCV MCH MCHC RDW Plt Count MPV Immature Gran % Seg Neutrophils % Lymphocytes % Monocytes % Eosinophils % Basophils % Neutrophils # Lymphocytes # Monocytes # Eosinophils # Basophils # Immature Plt Fraction PT INR APTT Sodium Potassium Chloride Carbon Dioxide BUN Creatinine Est GFR ( Amer) Est GFR (Non-Af Amer) BUN/Creatinine Ratio Glucose POC Glucose 81 Calculated Osmolality Lactic Acid Calcium Magnesium Total Bilirubin Direct Bilirubin Indirect Bilirubin AST ALT Alkaline Phosphatase Creatine Kinase Troponin I Serum Total Protein Albumin Globulin Albumin/Globulin Ratio Lipase Urine Color Urine Clarity Urine pH Ur Specific Kosse Urine Protein Urine Glucose (UA) Urine Ketones Urine Blood Urine Nitrite Urine Bilirubin Urine Urobilinogen Ur Leukocyte Esterase Urine Microscopic RBC Urine Microscopic WBC Ur Squamous Epith Cells Urine Bacteria Urine Yeast Ur Culture Indicated? Random Vancomycin - Lab Data Lab results reviewed: Yes I reviewed the patient's lab results. Result diagrams: 05/10/18 05:35 05/10/18 05:35 Lab Results 05/08/18 05/08/18 05/08/18 Range/Units 22:45 22:58 22:58 WBC 17.4 H (4.3-11.1) K/mcL RBC 3.78 L (3.82-4.97) M/mcL Hgb 10.5 L (11.5-15.4) g/dL Hct 32.5 L (35.3-44.9) % MCV 86.0 (83.0-100.0) fL MCH 27.8 L (28.0-33.3) pg MCHC 32.3 (31.6-35.5) g/dL RDW 16.0 H (11.5-14.5) % Plt Count 154 (140-400) K/mcL MPV 11.5 (9.4-12.4) fL Immature Gran % 1.4 (0-4) % Seg Neutrophils % 88.7 % Lymphocytes % 7.2 % Monocytes % 2.5 % Eosinophils % 0.0 % Basophils % 0.2 % Neutrophils # 15.4 H (1.6-8.9) K/mcL Lymphocytes # 1.3 (0.6-4.6) K/mcL Monocytes # 0.4 (0.0-1.3) K/mcL Eosinophils # 0.0 (0.0-0.6) K/mcL Basophils # 0.0 (0.0-0.2) K/mcL Immature Plt Fraction 3.5 (1.1-6.1) % PT (9.4-12.1) Seconds INR APTT (26.0-36.0) Seconds Sodium 136 (136-145) mEq/L Potassium 6.1 H (3.5-5.1) mEq/L Chloride 108 H (98-107) mEq/L Carbon Dioxide 11 L (23-29) mEq/L BUN 130 H (6-20) mg/dL Creatinine 6.85 H (0.60-1.20) mg/dL Est GFR ( Amer) 8 L (> 60) Est GFR (Non-Af Amer) 6 L (> 60) BUN/Creatinine Ratio 19 (6-26) Glucose 115 H (70-105) mg/dL Calculated Osmolality 325 H (280-300) Lactic Acid (0.5-2.2) mmol/L Calcium 8.6 (8.6-10.3) mg/dL Total Bilirubin 0.6 (0.3-1.0) mg/dL Direct Bilirubin 0.2 (0.0-0.2) mg/dL Indirect Bilirubin 0.4 (0.0-1.2) mg/dL AST 51 H (13-39) Units/L ALT 31 (7-52) Units/L Alkaline Phosphatase 236 H (34-104) Units/L Creatine Kinase 28 L (30-223) Units/L Troponin I 0.03 (< 0.04) ng/mL Serum Total Protein 6.1 L (6.4-8.9) g/dL Albumin 2.5 L (3.5-5.7) g/dL Globulin 3.6 H (2.4-3.5) g/dL Albumin/Globulin Ratio 0.7 L (1.1-2.2) Lipase 15 (11-82) Units/L Urine Color Yellow (Yellow) Urine Clarity Turbid A (Clear) Urine pH 5.5 (5.0-8.0) pH Units Ur Specific Kosse 1.016 (1.010-1.025) Urine Protein 100 H (Neg-Trace) mg/dL Urine Glucose (UA) Normal (Normal) mg/dL Urine Ketones Negative (Negative) mg/dL Urine Blood Large H (Negative) Urine Nitrite Negative (Negative) Urine Bilirubin Negative (Negative) Urine Urobilinogen Normal (Normal) mg/dL Ur Leukocyte Esterase Large H (Negative) Urine Microscopic RBC 5-15 H (0-3) per hpf Urine Microscopic WBC TNTC H (0-3) per hpf Ur Squamous Epith Cells Many H (None-Few) per lpf Urine Bacteria None Seen (None-Few) per hpf Urine Yeast Many H (None Seen) per hpf Ur Culture Indicated? NO. A (NO) 05/08/18 05/08/18 Range/Units 22:58 22:58 WBC (4.3-11.1) K/mcL RBC (3.82-4.97) M/mcL Hgb (11.5-15.4) g/dL Hct (35.3-44.9) % MCV (83.0-100.0) fL MCH (28.0-33.3) pg MCHC (31.6-35.5) g/dL RDW (11.5-14.5) % Plt Count (140-400) K/mcL MPV (9.4-12.4) fL Immature Gran % (0-4) % Seg Neutrophils % % Lymphocytes % % Monocytes % % Eosinophils % % Basophils % % Neutrophils # (1.6-8.9) K/mcL Lymphocytes # (0.6-4.6) K/mcL Monocytes # (0.0-1.3) K/mcL Eosinophils # (0.0-0.6) K/mcL Basophils # (0.0-0.2) K/mcL Immature Plt Fraction (1.1-6.1) % PT 12.6 H (9.4-12.1) Seconds INR 1.2 APTT 34.4 (26.0-36.0) Seconds Sodium (136-145) mEq/L Potassium (3.5-5.1) mEq/L Chloride (98-107) mEq/L Carbon Dioxide (23-29) mEq/L BUN (6-20) mg/dL Creatinine (0.60-1.20) mg/dL Est GFR ( Amer) (> 60) Est GFR (Non-Af Amer) (> 60) BUN/Creatinine Ratio (6-26) Glucose (70-105) mg/dL Calculated Osmolality (280-300) Lactic Acid 1.4 (0.5-2.2) mmol/L Calcium (8.6-10.3) mg/dL Total Bilirubin (0.3-1.0) mg/dL Direct Bilirubin (0.0-0.2) mg/dL Indirect Bilirubin (0.0-1.2) mg/dL AST (13-39) Units/L ALT (7-52) Units/L Alkaline Phosphatase (34-104) Units/L Creatine Kinase (30-223) Units/L Troponin I (< 0.04) ng/mL Serum Total Protein (6.4-8.9) g/dL Albumin (3.5-5.7) g/dL Globulin (2.4-3.5) g/dL Albumin/Globulin Ratio (1.1-2.2) Lipase (11-82) Units/L Urine Color (Yellow) Urine Clarity (Clear) Urine pH (5.0-8.0) pH Units Ur Specific Kosse (1.010-1.025) Urine Protein (Neg-Trace) mg/dL Urine Glucose (UA) (Normal) mg/dL Urine Ketones (Negative) mg/dL Urine Blood (Negative) Urine Nitrite (Negative) Urine Bilirubin (Negative) Urine Urobilinogen (Normal) mg/dL Ur Leukocyte Esterase (Negative) Urine Microscopic RBC (0-3) per hpf Urine Microscopic WBC (0-3) per hpf Ur Squamous Epith Cells (None-Few) per lpf Urine Bacteria (None-Few) per hpf Urine Yeast (None Seen) per hpf Ur Culture Indicated? (NO) - Radiology Data Radiology results reviewed: Yes I reviewed the patient's radiology results.
[2018-05-08 23:07] LABS: Bilirubin,Urine Negative (Negative); Blood,Urine Large (Negative); Clarity,Urine Turbid (Clear); Color,Urine Yellow (Yellow); Glucose,Urine (UA) Normal (Normal); Ketones,Urine Negative (Negative); Leukocyte Esterase,Urine Large (Negative); Nitrite,Urine Negative (Negative); PH,Urine 5.5 pH Units (5.0-8.0); Protein,Urine 100 mg/dL (Neg-Trace); Specific Gravity,Urine 1.016 (1.010-1.025); Urobilinogen,Urine Normal (Normal)
[2018-05-08 23:11] LABS: Bacteria,Urine None Seen per hpf (None-Few); Squamous Epithelial Cell,Urine Many per lpf (None-Few); WBC,Urine TNTC per hpf (0-3)
[2018-05-08 23:17] LABS: Basophils % 0.2 %; Hematocrit 32.5 % (35.3-44.9); Hemoglobin 10.5 g/dL (11.5-15.4); Immature Granulocytes % 1.4 % (0-4); Immature Platelets 3.5 % (1.1-6.1); Lymphocytes # 1.3 K/mcL (0.6-4.6); Lymphocytes % 7.2 %; Mean Corpuscular HGB Conc 32.3 g/dL (31.6-35.5); Mean Corpuscular Hemoglobin 27.8 pg (28.0-33.3); Mean Platelet Volume 11.5 fL (9.4-12.4); Monocytes # 0.4 K/mcL (0.0-1.3); Monocytes % 2.5 %; Neutrophils # 15.4 K/mcL (1.6-8.9); Platelet Count 154 K/mcL (140-400); Red Blood Count 3.78 M/mcL (3.82-4.97); Segmented Neutrophils % 88.7 %
[2018-05-08 23:22] LABS: INR 1.2; Prothrombin Time 12.6 Seconds (9.4-12.1)
[2018-05-08 23:25] LABS: Yeast,Urine Many per hpf (None Seen)
[2018-05-08 23:25] LABS: Activated Partial Thrombo Time 34.4 Seconds (26.0-36.0)
[2018-05-08 23:40] LABS: Calcium 8.6 mg/dL (8.6-10.3); Potassium 6.1 mEq/L (3.5-5.1); Troponin I 0.03 ng/mL (< 0.04)
[2018-05-09] MEDS ORDERED: 0.9 % Sodium Chloride 1,000 ML IVC ONE (00:32)
--- NOTE | 2018-05-09 00:58 | Emergency Department Note ---
START Narrative - START START: I have personally performed a face to face evaluation on this patient. I have reviewed and agree with the care plan. History and Exam by me shows: 53-year-old female presents emergency room for multiple complaints. Patient is a very ill appearing frail female with a history of liver problems as well as renal failure. Patient had a history of hepatitis C and alcoholic cirrhosis. She did undergone treatment for her hepatitis C. The family states that that had been cleared up but she still had a history of cirrhosis. She is now having increasing problems with renal failure. The family and doctors taking care of her did not feel that she would do well with dialysis due to her multiple comorbidities. Currently weighs 38 kg and is unable to really eat or drink much at home. She lives at home with the family. They states that she is getting more and more weak and somnolent. In review of her labs she does have full renal failure. Some of this could be secondary to dehydration. She also has a purpuric type rash that is likely from her recent Levaquin use for recent pneumonia last week. She was admitted at an outside clinic/Hospital for pneumonia. They had her on Levaquin on day 2 she developed this purpuric rash. Her chest x-ray today shows a suspicious left sided mass versus infectious pattern. We will do a CT noncontrast of the chest. Patient will need to be admitted. Her blood pressures in the running in the 90s in which the family states is a chronic condition for her. She has a chronic indwelling Howard catheter. Her urinalysis shows evidence of a urinary tract infection. This is likely chronic secondary to her chronic indwelling Howard. Critical care time of 50 minutes thus far in medical workup of a multisystem illness as well as renal failure.
[2018-05-09 00:59] LABS: Albumin 2.5 g/dL (3.5-5.7); Albumin/Globulin Ratio 0.7 (1.1-2.2); Bilirubin,Direct 0.2 mg/dL (0.0-0.2); Bilirubin,Indirect 0.4 mg/dL (0.0-1.2); Bilirubin,Total 0.6 mg/dL (0.3-1.0); Globulin 3.6 g/dL (2.4-3.5); Total Protein 6.1 g/dL (6.4-8.9)
[2018-05-09] MEDS ORDERED: 0.9 % Sodium Chloride 1,000 ML ONE (02:51)
[2018-05-09] MEDS ORDERED: Hydrocortisone Sodium Succ 100 MG/2 ML VIAL IVP ONE (02:54)
[2018-05-09] MEDS ORDERED: 0.9 % Sodium Chloride 1,000 ML IVC SCH (03:00)
--- NOTE | 2018-05-09 03:15 | Internal Med History&Physical ---
Date of Encounter: 05/09/18 Time of Encounter: 03:08 Internal Medicine - H&P: HPI Chief complaint: Weakness Admitted From: Emergency Dept Plans for Post Hospital Care: Home History of present illness: Ms. De Paz is a 53 year old female with history of liver cirrhosis secondary to alcohol abuse/hep C with an indwelling tunneled catheter for paracentesis, end-stage renal disease now on dialysis, hypertension, depression, diabetes who presents had multiple admissions for different reasons including an admission to the ICU in March for HCAP, respiratory failure, failure to thrive, and toxic metabolic encephalopathy. At the time the patient refused dialysis and refused hospice. She comes in this time with shortness of breath. She was accompanied by her sister and [id number] who gave the history. Her sister, Alejandrina, mentions that the patient had been deteriorating for some time. She has had significant weakness and is not eating much. Since her last admission she was seen twice at [facility] and was put on a Z-Héctor 2 weeks ago then oral Levaquin last week for suspected pneumonia. The patient developed a purpuric rash and was switched to clindamycin 3 days ago. The patient continued to deteriorate and presented to the ED after overdosing noted hypoxia into the 80s. She has had a productive cough but no fevers. She was afebrile but was hypotensive with the lowest blood pressure of 82/43. Patient was not hypoxic. Labs showed leukocytosis with WBC count of 17.4, hemoglobin 10.5, platelets 154. Potassium was 6.1, bicarbonate of 11, creatinine of 6.85. Her last creatinine was 4.11. This was back on March 29. BUN is 130 today and was 100 on March 29. A chest x-ray was concerning for an overall-shaped area of opacity within the left midlung for which a CT chest was done and showed cavitary lesion in the right upper lobe that measured 1.4 x 1.2 cm. There is also left upper lobe cavitation that is 2.6 x 1.9 cm mucous with the left upper lobe. There was a mention of patchy groundglass opacities in tree-in-bud micronodular opacities in the right upper lobe, right middle lobe, lingula, left lower lobe. The patient was given 2 L of normal saline. I had a detailed discussion with the patient, her sister, and her [id number]. The patient continues to refuse hospice according to the sister because her mother is in denial of what is going on. I explained to them her failing kidneys and the patient continues to refuse dialysis. We will be admitting the patient to treat sepsis from healthcare associated pneumonia with cavitary lung lesions. Past Med Surg Social Fam HX - Past Medical History Medical history: cirrhosis, CHF, COPD, diabetes, hepatitis, hypertension, myocardial infarction, seizures Additional medical history: Hepatitis C Psychiatric history: anxiety, depression - Past Surgical History Surgical History: - Social History Smoking Status: Current every day smoker Smokeless Tobacco Status: No Alcohol use: none Drug use: none - Family History Father Living Status: Hx Family Cardiac Disorders: Yes Hx Family Respiratory Disorders: No Hx Family Cancer: Yes Hx Family GI Disorders: No Hx Family Endocrine Disorder: No Hx Family Neuromuscular Disorders: No Hx Family Neurologic Disorders: No Hx Family HEENT Disorders: No Hx Family Autoimmune Disorders: No Mother Living Status: Still Living Hx Family Respiratory Disorders: Yes Hx Family Endocrine Disorder: Yes (diabetes) Brother Hx Family Endocrine Disorder: Yes (diabetes) Internal Medicine - H&P: Meds Dronabinol [Marinol] 5 mg PO BID MDD 10 05/09/18 [History] Escitalopram [Lexapro] 20 mg PO DAILY 05/09/18 [History] Ferrous Gluconate 240 mg PO DAILY 05/09/18 [History] Nadolol 20 mg PO DAILY 05/09/18 [History] Omeprazole [PriLOSEC] 40 mg PO DAILY 05/09/18 [History] Oxycodone HCl [Oxaydo] 5 mg PO BID PRN MDD 10mg 05/09/18 [History] PredniSONE [Horace] 2 tab PO DAILY 05/09/18 [History] Tizanidine HCl 4 mg PO BID PRN MDD 8mg 05/09/18 [History] 3 Allergy/AdvReac Type Severity Reaction Status Date / Time clindamycin Allergy Rash Verified 05/09/18 01:21 levofloxacin [From Levaquin] Allergy Hives Verified 03/19/18 19:06 Penicillins Allergy Rash Verified 03/19/18 19:06 Sulfa (Sulfonamide Allergy Rash Verified 03/19/18 19:06 Antibiotics) All Systems PM: A 10-system review of systems was performed and is negative for pertinent findings except as documented above in the HPI. Review of systems: All systems reviewed are negative except for as mentioned above - Constitutional Vitals: Temp Pulse Resp BP Pulse Ox 98.4 F 50 16 82/43 96 05/08/18 22:45 05/09/18 02:59 05/09/18 02:59 05/09/18 02:59 05/09/18 02:59 Exam: GEN: NAD, patient is cachectic HEENT: AT, NC, No cyanosis, oral mucosa is moist, No JVD Lymphatics: No lymphadenoapthy Eyes: Extrocular muscles intact, anicteric CVS:RRR. S1, S2, No m/r/g RESP: Coarse breath sounds throughout ABD: Soft, NT, ND, +BS, Pleurx catheter noted EXT: No edema, purpuric rash noted in the upper extremities and lower extremities as well as the buttocks, 2+ DP NEURO: Nonfocal, CN II-XII intact, No focal motor or sensory deficits Internal Med - H&P Results - Labs CBC & Chem 7: 05/08/18 22:58 05/08/18 22:58 Labs: Short CBC 05/08/18 Range/Units 22:58 WBC 17.4 H (4.3-11.1) K/mcL Hgb 10.5 L (11.5-15.4) g/dL Hct 32.5 L (35.3-44.9) % Plt Count 154 (140-400) K/mcL Neutrophils # 15.4 H (1.6-8.9) K/mcL BMP 05/08/18 22:58 Sodium 136 Potassium 6.1 H Chloride 108 H Carbon Dioxide 11 L BUN 130 H Creatinine 6.85 H Glucose 115 H Calcium 8.6 Cardiac Enzymes 05/08/18 Range/Units 22:58 Troponin I 0.03 (< 0.04) ng/mL Liver Function 05/08/18 Range/Units 22:58 Total Bilirubin 0.6 (0.3-1.0) mg/dL Direct Bilirubin 0.2 (0.0-0.2) mg/dL AST 51 H (13-39) Units/L ALT 31 (7-52) Units/L Alkaline Phosphatase 236 H (34-104) Units/L Albumin 2.5 L (3.5-5.7) g/dL Urine 05/08/18 Range/Units 22:45 Urine Color Yellow (Yellow) Urine Clarity Turbid A (Clear) Urine pH 5.5 (5.0-8.0) pH Units Ur Specific [place] 1.016 (1.010-1.025) Urine Protein 100 H (Neg-Trace) mg/dL Urine Glucose (UA) Normal (Normal) mg/dL - Impressions ITS Impressions Chest X-Ray 05/08/18 22:46 IMPRESSION: There is a persistent oval-shaped area of opacity within the left midlung. Although that may represent scarring from previous pneumonia, its persistence does at least raise the possibility of underlying neoplasm. Consequently, chest CT is recommended, preferably with intravenous contrast is possible. D/ / Dg Schmitt MD / Dg Schmitt MD Interpreting Provider: Dg Schmitt MD Chest CT 05/09/18 00:54 IMPRESSION: Hyperinflation/COPD. Lower airways inflammatory disease. Thick walled cavitary lesion right upper lobe. Additional thick walled cavitary lesion which communicates with bronchus of the left upper lobe. RECOMMENDATIONS: Recommend pulmonary consultation. D/ / Chema Mayers MD / Chema Mayers MD Interpreting Provider: Chema Mayers MD - Assessment and plan (1) Goals of care, counseling/discussion Current Visit: No Status: Acute Assessment and plan: Had a detailed discussion with the sister and the patient's [id number]. The mother who is the POA was not here. From what it seems like, the mother and the patient are in denial. They have had palliative see them in the past on previous admissions and they have refused hospice. The patient continues to refuse hospice and dialysis. I think she is very appropriate for hospice. We are admitting the patient to treat healthcare associated pneumonia for now. Further discussions regarding goals of care need to be had prior to discharge. Palliative may need to be consulted again if they change their mind. (2) Healthcare-associated pneumonia Current Visit: No Status: Acute Assessment and plan: We will put patient on IV vancomycin and meropenem. Check sputum cultures. Check urine strep and Legionella. Follow-up on blood cultures. Nebs. Consult pulmonary. (3) Hyperkalemia Current Visit: Yes Status: Acute Assessment and plan: Given Insulin and dextrose in the ED. No EKG changes. Repeat labs in the morning. (4) Cavitary lesion of lung Current Visit: Yes Status: Acute Assessment and plan: Likely infectious. We will treat the patient for healthcare associated pneumonia. Although I suspect this to be mostly from staph aureus, due to her immunocompromised state with her chronic medical conditions, we need to rule out TB. Sputum AFB cultures ordered and quantiferon gold. We will consult pulmonary. Nothing by mouth (5) ESRD (end stage renal disease) Current Visit: Yes Status: Acute Assessment and plan: Patient's kidney function is worsening. She has had decreased urine output according to her sister. She documented 400 mL 2 days ago and 300 mL of urine yesterday. We will consult nephrology although the patient has refused dialysis. She continues to refuse dialysis and remains a DNR CCA. We will give her IV fluids with some bicarbonates. (6) Rash Current Visit: Yes Status: Acute Assessment and plan: Possibly a drug reaction from Levaquin based on what the family is describing. We will monitor. (7) Hepatic cirrhosis due to chronic hepatitis C infection Current Visit: Yes Status: Chronic Assessment and plan: Status post treatment for hepatitis C. Patient has abdominal drain for chronic ascites which the family has been managing by draining 1 L of ascites fluid every 2 days (8) Diabetes Current Visit: No Status: Chronic Assessment and plan: SSI. Accucheks Qualifiers: Diabetes mellitus type: type 2 Diabetes mellitus usp insulin use: without meat packager use Diabetes mellitus complication status: with kidney complications Diabetes mellitus complication detail: with chronic kidney disease Chronic kidney disease stage: unspecified stage Qualified Code(s): E11.22 - Type 2 diabetes mellitus with diabetic chronic kidney disease (9) Severe protein-calorie malnutrition Current Visit: Yes Status: Chronic Assessment and plan: Consult dietary (10) Failure to thrive in adult Current Visit: Yes Status: Acute Assessment and plan: Patient with significant cachexia for chronic medical conditions. Consult dietary (11) DVT prophylaxis Current Visit: No Status: Acute Assessment and plan: SCDs - Time Spent With Patient Total time spent is greater than 50% in coordination of care (as documented) at patient's floor/unit and/or counseling patient:
[2018-05-09] MEDS ORDERED: Insulin Human Regular 10 UNIT in 0.9 % Sodium Chloride 10 ML IV ONE (03:19)
[2018-05-09] MEDS ORDERED: *HR* Dextrose 50 % in Water (Syg) 50 ML SYRINGE IVP ONE (03:21)
[2018-05-09] MEDS ORDERED: D5% in Water 1,000 ML IVC PRN (03:50)
[2018-05-09] MEDS ORDERED: *HR* Dextrose 50 % in Water (Syg) 50 ML SYRINGE IVP PRN (03:50)
[2018-05-09] MEDS ORDERED: Dextrose Gel 15 GM/37.5 ML TUBE PO PRN ×2 (03:50)
[2018-05-09] MEDS ORDERED: Naloxone 0.4 MG/ML INJ IVP PRN (03:51)
[2018-05-09] MEDS ORDERED: Acetaminophen 325 MG TABLET PO PRN (03:51)
[2018-05-09] MEDS ORDERED: tiZANidine 4 MG TABLET PO PRN (03:56)
--- NOTE | 2018-05-09 06:46 | Pulmonology Consult Note ---
Date of Encounter: 05/09/18 Time of Encounter: 06:45 Assessment and Plan (1) Goals of care, counseling/discussion Current Visit: Yes Status: Acute In conclusion the patient is a chronically ill 53-year-old woman who suffers from multiple comorbidities in their terminal stages including cirrhosis kidney disease and chronic failure to thrive complicated by recurrent pneumonia. The patient is presenting with evidence of acute infection likely pneumonia with hypotension. I had a very chance conversation with the family I explained to them that regards to transfer to ICU she is a very poor candidate for critical care services and further aggressive care critical care would only prolong the inevitability of her demise while adding discomfort and pain. This is further reinforced by her refusal to undergo aggressive intervention such as dialysis in the past which would likely be necessary as part of comprehensive critical care treatment . Unfortunately with her chronic malnutrition and multiple comorbidities she is an extremely poor candidate for any type of care outside of comfort measures. I spoke frankly with her mother and her sister at the bedside along with her [id number] although the mother was concerned she deferred the final decision to her sister the sister elected to make the patient comfortable. I recommend formal palliative care consult. The patient has expressed desire to spend her remaining days at home in the past. The patient is unable or incompetent to participate in giving a history and/or making treatment decisions.because of encephalopathy secondary to cirrhosis and sepsis The discussion was necessary for determining treatment decision. This discussion took place in the on the general medial moon. The total meeting time was 20min. all questions were answered at bedside] (2) Cavitary lesion of lung Current Visit: Yes Status: Acute This is likely bacterial infectious process she is at risk for multiple infectious etiology. Cannot exclude the possibility of primary lung malignancy given her smoking history I do not see any recent CT scans of the chest and abdomen obtained since 2014 so is very possible that this in fact is represent primary lung malignancy. Given her multiple medical comorbidities she is a very poor candidate for bronchoscopy Consider palliative antibiotics as warranted (3) ESRD (end stage renal disease) Current Visit: Yes Status: Acute She has refused dialysis in the past the primary team has consuled nephrology has been consulted (4) Failure to thrive in adult Current Visit: Yes Status: Acute She is unable to take any significant oral intake for candidate for TPN and she is not a candidate for PEG tube because of her chronic ascites (5) Ascites due to alcoholic cirrhosis Current Visit: Yes Status: Chronic This is being managed by the primary service (6) Acute hepatic encephalopathy Current Visit: No Status: Acute She is not taking anything by mouth right now but could consider oral lactulose if able to tolerate versus conservative management (7) Acute respiratory failure with hypoxia Current Visit: No Status: Resolved Continue supplemental oxygen for palliation Pulmonary will sign off please call with any questions History of Present Illness Consult date: 05/09/18 Requesting physician: Juan Mckinney Reason for consult: pneumonia Chief complaint: Difficulty in Breathing History of present illness: Ivet De Paz is a 53-year-old woman with multiple medical comorbidities including cirrhosis with chronic ascites with indwelling peritoneal catheter for drainage. Chronic kidney disease with essentially end-stage renal disease but has been refusing dialysis and COPD and failure to thrive with chronic malnutrition with poor candidate for both TPN or PEG tube placement. She is well known pulmonary and critical care service from previous admissions to the intensive care unit. Most recently at the end of February early part of March for pneumonia and respiratory failure. She presents to the emergency department overnight with complaints of "pneumonia. She been admitted to the hospital . She was discharged from [place] in the early part of March at that time of the time of discharge she was refusing care in the hospital the 2 days prior to her discharge although she did not want to go home with hospice care she went to go home with health she has had been evaluated for pneumonia at [facility] twice within the last 2 weeks and sent home on antibiotics. She came back to the emergency room here for evaluation of pneumonia by her family members. Handout hypoxemia in the emergency department with radiographic imaging concerning for acute pneumonia blood pressures been on the labile side and generally hypotensive. She remains on supplemental oxygen but not in respiratory distress. The pulmonary critical care services consulted for further evaluation of the patient for radiographic abnormalities pneumonia and hypotension with the concern for shock. The patient was joined in the room by the bedside nurse her sister and her (the patien'ts [id number]) and I spoke on the phone with her power of patent prosecution attorney her mother Catie. The patient's medical decision-makers are her sister (Raisa) and mother (Catie). They noted that the patient was noted to have increasing weakness poor by mouth intake and further clinical decline including inability take medicine by mouth (antibiotics) Past Med Surg Social Fam HX - Past Medical History Medical history: cirrhosis, CHF, COPD, diabetes, hepatitis, hypertension, myocardial infarction, seizures Additional medical history: Hepatitis C Psychiatric history: anxiety, depression - Past Surgical History Surgical History: - Social History Smoking Status: Current every day smoker Smokeless Tobacco Status: No Alcohol use: none Drug use: none - Family History Father Living Status: Hx Family Cardiac Disorders: Yes Hx Family Respiratory Disorders: No Hx Family Cancer: Yes Hx Family GI Disorders: No Hx Family Endocrine Disorder: No Hx Family Neuromuscular Disorders: No Hx Family Neurologic Disorders: No Hx Family HEENT Disorders: No Hx Family Autoimmune Disorders: No Mother Living Status: Still Living Hx Family Respiratory Disorders: Yes Hx Family Endocrine Disorder: Yes (diabetes) Brother Hx Family Endocrine Disorder: Yes (diabetes) Medications and Allergies Dronabinol [Marinol] 5 mg PO BID MDD 10 05/09/18 [History] Escitalopram [Lexapro] 20 mg PO DAILY 05/09/18 [History] Ferrous Gluconate 240 mg PO DAILY 05/09/18 [History] Nadolol 20 mg PO DAILY 05/09/18 [History] Omeprazole [PriLOSEC] 40 mg PO DAILY 05/09/18 [History] Oxycodone HCl [Oxaydo] 5 mg PO BID PRN MDD 10mg 05/09/18 [History] PredniSONE [Horace] 4 mg PO DAILY 05/09/18 [History] Tizanidine HCl 4 mg PO BID PRN MDD 8mg 05/09/18 [History] 3 Allergy/AdvReac Type Severity Reaction Status Date / Time clindamycin Allergy Rash Verified 05/09/18 07:58 levofloxacin [From Levaquin] Allergy Hives Verified 05/09/18 07:58 Penicillins Allergy Rash Verified 05/09/18 07:58 Sulfa (Sulfonamide Allergy Rash Verified 05/09/18 07:58 Antibiotics) All Systems: The remainder of the systems were reviewed and are negative Physical Examination Vital Signs: Vital Signs, Last 4 Hours Temp Pulse Resp BP Pulse Ox 05/09/18 04:31 97.4 F L 58 16 87/57 97 05/09/18 04:01 59 18 84/50 976 The patient is lying in the bed she is emaciated very weak appearing and chronically ill-appearing. She is confused and only able to answer simple commands. She is unable to complete a full sentence with me or completely answer questions. There is oral thrush of the oropharynx noted. She has scattered evidence of petechiae. She has air entry bilaterally with no overt wheezing but breath sounds are diminished in both lung bran. Her abdomen is protuberant with a positive fluid wave form bowel sounds are hypoactive. She has pulses in her distal extremities. There is no gross deformities of her bones. She is noted to spontaneously move all extremities without focal area of weakness rated her pupils are equal round and reactive to light. Her heart sounds are present and regular. There is no cervical lymphadenopathy Results - Laboratory Findings CBC and BMP: 05/08/18 22:58 05/08/18 22:58 PT/INR, D-dimer PT 12.6 Seconds (9.4-12.1) H 05/08/18 22:58 Abnormal lab findings: Abnormal lab results WBC 17.4 K/mcL (4.3-11.1) H 05/08/18 22:58 RBC 3.78 M/mcL (3.82-4.97) L 05/08/18 22:58 Hgb 10.5 g/dL (11.5-15.4) L 05/08/18 22:58 Hct 32.5 % (35.3-44.9) L 05/08/18 22:58 MCH 27.8 pg (28.0-33.3) L 05/08/18 22:58 RDW 16.0 % (11.5-14.5) H 05/08/18 22:58 Neutrophils # 15.4 K/mcL (1.6-8.9) H 05/08/18 22:58 PT 12.6 Seconds (9.4-12.1) H 05/08/18 22:58 Potassium 6.1 mEq/L (3.5-5.1) H 05/08/18 22:58 Chloride 108 mEq/L (98-107) H 05/08/18 22:58 Carbon Dioxide 11 mEq/L (23-29) L 05/08/18 22:58 BUN 130 mg/dL (6-20) H 05/08/18 22:58 Creatinine 6.85 mg/dL (0.60-1.20) H 05/08/18 22:58 Est GFR ( Amer) 8 (> 60) L 05/08/18 22:58 Est GFR (Non-Af Amer) 6 (> 60) L 05/08/18 22:58 Glucose 115 mg/dL (70-105) H 05/08/18 22:58 Calculated Osmolality 325 (280-300) H 05/08/18 22:58 AST 51 Units/L (13-39) H 05/08/18 22:58 Alkaline Phosphatase 236 Units/L (34-104) H 05/08/18 22:58 Creatine Kinase 28 Units/L (30-223) L 05/08/18 22:58 Serum Total Protein 6.1 g/dL (6.4-8.9) L 05/08/18 22:58 Albumin 2.5 g/dL (3.5-5.7) L 05/08/18 22:58 Globulin 3.6 g/dL (2.4-3.5) H 05/08/18 22:58 Albumin/Globulin Ratio 0.7 (1.1-2.2) L 05/08/18 22:58 Urine Clarity Turbid (Clear) A 05/08/18 22:45 Urine Protein 100 mg/dL (Neg-Trace) H 05/08/18 22:45 Urine Blood Large (Negative) H 05/08/18 22:45 Ur Leukocyte Esterase Large (Negative) H 05/08/18 22:45 Urine Microscopic RBC 5-15 per hpf (0-3) H 05/08/18 22:45 Urine Microscopic WBC TNTC per hpf (0-3) H 05/08/18 22:45 Ur Squamous Epith Cells Many per lpf (None-Few) H 05/08/18 22:45 Urine Yeast Many per hpf (None Seen) H 05/08/18 22:45 Ur Culture Indicated? NO. (NO) A 05/08/18 22:45 - Diagnostic Findings Chest x-ray: report reviewed, image reviewed CT scan - chest: report reviewed, image reviewed - Clinical Findings Intake & Output: Intake & Output 05/08/18 05/08/18 05/09/18 15:59 23:59 07:59 Intake Total 08.26.1 Balance 08.26. Weight 38.9 kg Consult Discharge Plan - Plan Referrals: Stephani Garcia MD [Primary Care Provider] -
[2018-05-09] MEDS ORDERED: Meropenem 1,000 MG in Water for inj. (sterile) 20 ML 10 ML IVP SCH (08:00)
--- NOTE | 2018-05-09 08:23 | Nephrology Consult Note ---
Date of Encounter: 05/09/18 Time of Encounter: 08:20 Assessment and Plan (1) ESRD (end stage renal disease) Current Visit: Yes Status: Acute Scr 6.85, BUN 130 Not a candidate for HD with hepatic cirrhosis along with b/p 62/42 Strongly recommend hospice; sister and [id number] understand and agree but mother still refuses (2) Hepatic cirrhosis due to chronic hepatitis C infection Current Visit: Yes Status: Chronic per primary care (3) Hyperkalemia Current Visit: No Status: Resolved Consider kayexulate however we anticipate patient will continue to deteriorate with her overall state of health Needs hospice care History of Present Illness - Reason for Consult Consult date: 05/09/18 - Chief Complaint Hepatic cirrbosis due to chronic hepatitis C, ESRD - History of Present Illness Ms De Paz is a 53 year old woman with a PMH of liver cirrhosis secondary to alcohol abuse, hepatitis C, diabetes, HTN, [place], seizures and renal failure. Patient was admitted for worsening kidney function and weakness. Patient and her mother continue to refuse hospice but she does have a home health nurse who comes in weekly and is a DNRCC. Sister and [id number] at bedside. Past Med Surg Social Fam HX - Past Medical History Medical history: cirrhosis, CHF, COPD, diabetes, hepatitis, hypertension, myocardial infarction, seizures Additional medical history: Hepatitis C Psychiatric history: anxiety, depression - Past Surgical History Surgical History: - Social History Smoking Status: Current every day smoker Smokeless Tobacco Status: No Alcohol use: none Drug use: none - Family History Father Living Status: Hx Family Cardiac Disorders: Yes Hx Family Respiratory Disorders: No Hx Family Cancer: Yes Hx Family GI Disorders: No Hx Family Endocrine Disorder: No Hx Family Neuromuscular Disorders: No Hx Family Neurologic Disorders: No Hx Family HEENT Disorders: No Hx Family Autoimmune Disorders: No Mother Living Status: Still Living Hx Family Respiratory Disorders: Yes Hx Family Endocrine Disorder: Yes (diabetes) Brother Hx Family Endocrine Disorder: Yes (diabetes) Medications and Allergies Dronabinol [Marinol] 5 mg PO BID MDD 10 05/09/18 [History] Escitalopram [Lexapro] 20 mg PO DAILY 05/09/18 [History] Ferrous Gluconate 240 mg PO DAILY 05/09/18 [History] Nadolol 20 mg PO DAILY 05/09/18 [History] Omeprazole [PriLOSEC] 40 mg PO DAILY 05/09/18 [History] Oxycodone HCl [Oxaydo] 5 mg PO BID PRN MDD 10mg 05/09/18 [History] PredniSONE [Horace] 4 mg PO DAILY 05/09/18 [History] Tizanidine HCl 4 mg PO BID PRN MDD 8mg 05/09/18 [History] 3 Allergy/AdvReac Type Severity Reaction Status Date / Time clindamycin Allergy Rash Verified 05/09/18 07:58 levofloxacin [From Levaquin] Allergy Hives Verified 05/09/18 07:58 Penicillins Allergy Rash Verified 05/09/18 07:58 Sulfa (Sulfonamide Allergy Rash Verified 05/09/18 07:58 Antibiotics) Review of Systems All Systems: reviewed and no additional remarkable complaints except as stated Constitutional: fatigue, malaise, weakness, weight loss Cardiovascular: no chest pain, no edema Respiratory: dyspnea, no cough Gastrointestinal: bloating, other (abdomen very large from ) Musculoskeletal: atrophy Neurological: confusion Exam - Vital Signs Vital signs: Initial Vital Signs Temp Pulse Resp BP Pulse Ox 98.4 F 59 22 90/56 97 05/08/18 22:11 05/08/18 22:11 05/08/18 22:11 05/08/18 22:11 05/08/18 22:11 Vital Signs - Last 8 Hours Temp Pulse Resp BP Pulse Ox 05/09/18 07:20 97.4 F L 51 18 62/42 94 Intake and Output 05/08/18 05/09/18 05/09/18 23:59 07:59 15:59 Other: Blood Glucose* 61 - General Appearance General appearance: cachectic, chronically ill, frail EENT: ATNC, hearing intact, vision intact Respiratory: clear (decreased) Cardiology: no edema Gastrointestinal: hepatomegaly, distended Integumentary: warm and dry Psychiatric: cooperative Results - Lab Results 05/08/18 22:58 05/08/18 22:58 Most recent lab results Calcium 8.6 mg/dL (8.6-10.3) 05/08/18 22:58 Consult Discharge Plan - Plan Referrals: Stephani Garcia MD [Primary Care Provider] -
[2018-05-09] MEDS ORDERED: *HR* OxyCODONE Immed Rel 5 MG TABLET PO PRN (09:00)
[2018-05-09] MEDS ORDERED: Vancomycin 1 EACH in 0.9 % Sodium Chloride 250 ML IVPB SCH (09:00)
[2018-05-09] MEDS: Insulin LISPRO 300 UNITS/3 ML VIAL SQ SCH ×3 (10:43→17:36)
[2018-05-09] MEDS: Albumin 25% 25gram/100mL 25 GM/100 ML IV.SOLN IVPB SCH ×2 (10:45→17:36)
[2018-05-09] MEDS ORDERED: Vancomycin 1 EACH in 0.9 % Sodium Chloride 250 ML IVPB PRN (11:00)
[2018-05-09] MEDS: Cefepime HCl 1,000 MG in Water for inj. (sterile) 20 ML 10 ML IVP SCH (11:28)
[2018-05-09] MEDS: *HR* Morphine Soln 10 MG/5 ML UDC PO PRN (11:38)
[2018-05-09] MEDS: *HR* LORazepam Oral Conc 2 MG/ML SL PRN (15:09)
--- NOTE | 2018-05-09 15:28 | Palliative - Consult Note ---
Date of Encounter: 05/09/18 Time of Encounter: 15:15 - Assessment and Plan (1) Sacral decubitus ulcer Current Visit: Yes Status: Acute Assessment and plan: This has caused pt great deal of discomfort. D/W Billie Breaux. Will order Lidocaine gel BID to area. Spoke with primary nurse re: dressing - pad with ABD - cut hole where ulcer is and pad with larger Allevyn. Qualifiers: Pressure ulcer stage: unstageable Qualified Code(s): L89.150 - Pressure ulcer of sacral region, unstageable (2) Generalized pain Current Visit: Yes Status: Acute Assessment and plan: Continue Roxanol as ordered and monitor. Has only utilized x1 today. Instructed primary nurse to notify me if ineffective or if dosing interval needs increased. (3) Restlessness and agitation Current Visit: Yes Status: Acute Assessment and plan: Mother states has utilized Clonazepam and Trazadone, but unable to take po at this time. Will trial Lorazepam oral concentrate and monitor (4) Goals of care, counseling/discussion Current Visit: Yes Status: Acute Assessment and plan: Long discussion including myself and Osmar Prieto regarding goals of care. Patient not able to participate in conversation. Multiple physician have spoken with them today regarding poor prognosis and deteriorating condition. Mother, brother, sister present for conversation. Brother and sister agreeable and believe that hospice would be in her best interest at this time. 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 Mother attempted to call home health nurse and was unable to reach. Pt brother spoke up and stated "we will find out that agency and call you with that information". Discussed with them, if they get us that information, we can make referral and get her home tomorrow. Complex family situation, will f/u tomorrow. (5) Acute hepatic encephalopathy Current Visit: No Status: Acute Assessment and plan: Remains confused (6) Ascites Current Visit: No Status: Acute Assessment and plan: Pleurx cath in place - continue to intermittently drain PRN for comfort Qualifiers: Ascites type: other type Qualified Code(s): R18.8 - Other ascites (7) Nutritional deficiency Current Visit: No Status: Acute Assessment and plan: Speech consult noted - honey thickened liquids and pureed recommended. Mother states appetite has been poor for the last few weeks. She has been on Marinol for appetite stimulant (8) ESRD (end stage renal disease) Current Visit: Yes Status: Acute Assessment and plan: Nephrology familiar with patient. She has declined dialysis Palliative-CN HPI - Data of Consult Requesting Physician: Wnedy Brush MD Primary Care Provider: Stephani Garcia, - Consult Narrative History of present illness: Ms. De Paz is a 53 year old female well known to the palliative care team from multiple visits has a history of end stage liver disease r/t ETOH abuse and Hepatitis C and renal failure, who was admitted with complaints of shortness of breath. She was seen at [facility] recently and has been on antibiotics for pneumonia. She developed a purpuric rash and antibiotics were changed. She developed hypoxia and was brought t ER. She remains hypotensive after fluid resuscitation. CT chest with cavitary lesion and CODY cavitation. Her blood pressure has continued to decline today prompting a consult to ICU butter grader for eval for transfer to ICU. Pulmonolgist had chance discussion with family regarding poor prognosis, and decision was made not to transfer to ICU and pursue primarily comfort measures. Patient has pertinent medical history of cirrhosis, CHF, COPD, diabetes, hepatitis, hypertension, myocardial infarction, seizures. . Upon my visit, she appears confused and restless. Multiple family members at bedside. Can follow few simple commands. Denies pain at present. Multiple areas of petechiae and ecchymosis on all extremities. Cachexic. Pleurx cath in place. She lives with mother and has home health care. Code status currently is DNRCC. CC: Wendy Brush MD Past Med Surg Social Fam HX - Past Medical History Medical history: cirrhosis, CHF, COPD, diabetes, hepatitis, hypertension, myocardial infarction, seizures Additional medical history: Hepatitis C Psychiatric history: anxiety, depression - Past Surgical History Surgical History: - Social History Smoking Status: Current every day smoker Smokeless Tobacco Status: No Alcohol use: none Drug use: none - Family History Father Living Status: Hx Family Cardiac Disorders: Yes Hx Family Respiratory Disorders: No Hx Family Cancer: Yes Hx Family GI Disorders: No Hx Family Endocrine Disorder: No Hx Family Neuromuscular Disorders: No Hx Family Neurologic Disorders: No Hx Family HEENT Disorders: No Hx Family Autoimmune Disorders: No Mother Living Status: Still Living Hx Family Respiratory Disorders: Yes Hx Family Endocrine Disorder: Yes (diabetes) Brother Hx Family Endocrine Disorder: Yes (diabetes) Medications and Allergies Dronabinol [Marinol] 5 mg PO BID MDD 10 05/09/18 [History] Escitalopram [Lexapro] 20 mg PO DAILY 05/09/18 [History] Ferrous Gluconate 240 mg PO DAILY 05/09/18 [History] Nadolol 20 mg PO DAILY 05/09/18 [History] Omeprazole [PriLOSEC] 40 mg PO DAILY 05/09/18 [History] Oxycodone HCl [Oxaydo] 5 mg PO BID PRN MDD 10mg 05/09/18 [History] PredniSONE [Horace] 4 mg PO DAILY 05/09/18 [History] Tizanidine HCl 4 mg PO BID PRN MDD 8mg 05/09/18 [History] 3 Allergy/AdvReac Type Severity Reaction Status Date / Time clindamycin Allergy Rash Verified 05/09/18 07:58 levofloxacin [From Levaquin] Allergy Hives Verified 05/09/18 07:58 Penicillins Allergy Rash Verified 05/09/18 07:58 Sulfa (Sulfonamide Allergy Rash Verified 05/09/18 07:58 Antibiotics) Palliative Care-Exam - Constitutional Vitals: Temp Pulse Resp BP Pulse Ox 97.6 F 51 16 87/50 95 05/09/18 11:30 05/09/18 07:20 05/09/18 11:30 05/09/18 11:30 05/09/18 11:30 Internal Medicine - CN: Reslt - Labs CBC & Chem 7: 05/08/18 22:58 05/08/18 22:58 - ABG Interpretation ABG results: PT/INR, D-dimer PT 12.6 Seconds (9.4-12.1) H 05/08/18 22:58 Consult Discharge Plan - Plan Referrals: Stephani Garcia MD [Primary Care Provider] - (please call upon discharge) Palliative Quality Palliative Quality: Screen for Code Status: Yes, Screen for Goals of Care: Yes, Screen for Pain: Yes, If Pain Regimen Started, Initiate Bowel Regimen: NA, Screen for Nausea/Vomitting: Yes
--- NOTE | 2018-05-09 16:14 | Event Note ---
Date of Encounter: 05/09/18 Time of Encounter: 08:30 Patient was evaluated early this morning due to hypotension. Patient has extensive medical history, currently she is critically ill. Previous medical records reviewed. Patient is a 53-year-old female with history of end-stage cirrhosis secondary to alcoholism and hepatitis C, end-stage renal disease who has been refusing hemodialysis, failure to thrive with severe protein calorie malnutrition, who was brought in by family with shortness of breath, dark purplish rash on both her hands, which the family thinks is an allergic reaction to recently used Levaquin. Patient was recently admitted in a critically ill condition, was in the ICU and treated for respiratory failure and pneumonia along with worsening renal failure , following which patient and family continue to refuse hospice care and initiation of hemodialysis, chose to be discharged home with home health services. Patient has been evaluated by nephrology today, deemed not a candidate for initiation of hemodialysis at this time. Case discussed with pulmonology, not a candidate for aggressive care, which has been explained to the family and they prefer comfort care at this time. Palliative care has been consulted. Possible health care associated pneumonia Right upper lobe and left upper lobe cavitary lesion End-stage renal disease, not on hemodialysis Advanced cirrhosis with persistent ascites, on chronic tunneled peritoneal catheter Diabetes mellitus COPD Failure to thrive Patient is a candidate for hospice/palliative care at this time. Pursuing aggressive/heroic treatment measures at this time is medically futile. Continue supportive palliative care.
[2018-05-10] MEDS: Insulin LISPRO 300 UNITS/3 ML VIAL SQ SCH ×4 (01:44→17:04)
[2018-05-10] MEDS ORDERED: 0.9 % Sodium Chloride 250 ML ONE (02:18)
[2018-05-10] MEDS ORDERED: 0.9 % Sodium Chloride 250 ML IVC ONE (02:21)
[2018-05-10] MEDS: Albumin 25% 25gram/100mL 25 GM/100 ML IV.SOLN IVPB SCH (05:29)
[2018-05-10 05:58] LABS: Basophils % 0.1 %; Hematocrit 30.1 % (35.3-44.9); Hemoglobin 9.7 g/dL (11.5-15.4); Lymphocytes % 15.6 %; Mean Corpuscular HGB Conc 32.2 g/dL (31.6-35.5)
[2018-05-10 06:00] LABS: Immature Platelets 3.5 % (1.1-6.1); Lymphocytes # 2.2 K/mcL (0.6-4.6); Mean Corpuscular Hemoglobin 27.5 pg (28.0-33.3); Mean Corpuscular Volume 85.3 fL (83.0-100.0); Mean Platelet Volume 11.5 fL (9.4-12.4); Monocytes % 3.1 %; Neutrophils # 11.5 K/mcL (1.6-8.9); Red Blood Count 3.53 M/mcL (3.82-4.97); Red Cell Distribution Width 16.1 % (11.5-14.5); Segmented Neutrophils % 80.2 %
[2018-05-10 06:09] LABS: Monocytes # 0.4 K/mcL (0.0-1.3); Platelet Count 94 K/mcL (140-400)
[2018-05-10 06:13] LABS: Calcium 8.1 mg/dL (8.6-10.3); Magnesium 1.6 mg/dL (1.6-2.6); Potassium 3.5 mEq/L (3.5-5.1)
[2018-05-10] MEDS: *HR* Morphine Soln 10 MG/5 ML UDC PO PRN ×4 (08:15→21:47)
[2018-05-10] MEDS ORDERED: Vancomycin 500 MG in 0.9 % Sodium Chloride Mini Bag 100 ML IVPB ONE (09:12)
[2018-05-10] MEDS ORDERED: 0.9 % Sodium Chloride Mini Bag 100 ML ONE (12:45)
[2018-05-10] MEDS: Cefepime HCl 1,000 MG in Water for inj. (sterile) 20 ML 10 ML IVP SCH (12:50)
[2018-05-10] MEDS: Magic Mouthwash 10 ML UD Cup PO SCH ×2 (12:51→17:04)
--- NOTE | 2018-05-10 13:50 | Event Note ---
Date of Encounter: 05/10/18 Time of Encounter: 12:00 Interim events noted and in summary 53 y o female with PMH of liver cirrhosis due to EtOH, Hep C, DM and ESRD refusing HD with pulmonary issues but with grave prognosis now awaiting family decision of end of life care. Labs noted very poor with BUN 120 and SCr at 6.01, GFR 7 with UOP documneted alhough per nurse, pt is making "some urine" but not much. Vitals noted and stable Gen: chronic ill appearing Ext: No LE edema bilat Neuro: non interactive Will sign off, please reconsult prn if therei s chnage in status. Thank you!
--- NOTE | 2018-05-10 14:06 | Palliative Progress Note ---
Date of Encounter: 05/10/18 Time of Encounter: 13:30 - Assessment and plan (1) Sacral decubitus ulcer Current Visit: Yes Status: Acute Assessment and plan: Began Lidocaine jelly and padded dressing for comfort. Qualifiers: Pressure ulcer stage: unstageable Qualified Code(s): L89.150 - Pressure ulcer of sacral region, unstageable (2) Generalized pain Current Visit: Yes Status: Acute Assessment and plan: Continue Roxanol 5mg Q 4 hours and titrate PRN. Told family to let nursing know if this does not seem to make her comfortable. (3) Restlessness and agitation Current Visit: Yes Status: Acute Assessment and plan: Continue Lorazepam and titrate as needed. (4) Goals of care, counseling/discussion Current Visit: Yes Status: Acute Assessment and plan: D/W Osmar Prieto and Dr. Brush. 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 Mother stated to palliative team that they will be meeting with hospice team "tomorrow or Sunday so she will be here until then". Mother does state however, that she is "pretty sure we will enroll with their hospice". I will do scripts for comfort meds and leave in patient chart if she is discharged over the weekend. If not, will f/u on Sunday. (5) Acute hepatic encephalopathy Current Visit: No Status: Acute (6) Ascites Current Visit: No Status: Acute Qualifiers: Ascites type: other type Qualified Code(s): R18.8 - Other ascites (7) Nutritional deficiency Current Visit: No Status: Acute (8) ESRD (end stage renal disease) Current Visit: Yes Status: Acute - Time Spent With Patient Total time spent is greater than 50% in coordination of care (as documented) at patient's floor/unit and/or counseling patient: - Subjective Interval history: Patient lethargic, eyes rolled back in head at this time. Family states she was up on side of bed eariler and ate few bites. They signed dysphagia waiver and feeding her regular foods. States pain has increased - I increased interval of pain medication this am. Mother states Lorazepam was helpful in making her rest. - Constitutional Vitals: Abnormal lab results WBC 14.3 K/mcL (4.3-11.1) H 05/10/18 05:35 RBC 3.53 M/mcL (3.82-4.97) L 05/10/18 05:35 Hgb 9.7 g/dL (11.5-15.4) L 05/10/18 05:35 Hct 30.1 % (35.3-44.9) L 05/10/18 05:35 MCH 27.5 pg (28.0-33.3) L 05/10/18 05:35 RDW 16.1 % (11.5-14.5) H 05/10/18 05:35 Plt Count 94 K/mcL (140-400) L 05/10/18 05:35 Neutrophils # 11.5 K/mcL (1.6-8.9) H 05/10/18 05:35 PT 12.6 Seconds (9.4-12.1) H 05/08/18 22:58 Chloride 117 mEq/L (98-107) H 05/10/18 05:35 Carbon Dioxide 11 mEq/L (23-29) L 05/10/18 05:35 BUN 120 mg/dL (6-20) H 05/10/18 05:35 Creatinine 6.01 mg/dL (0.60-1.20) H 05/10/18 05:35 Est GFR ( Amer) 9 (> 60) L 05/10/18 05:35 Est GFR (Non-Af Amer) 7 (> 60) L 05/10/18 05:35 Calculated Osmolality 336 (280-300) H 05/10/18 05:35 Calcium 8.1 mg/dL (8.6-10.3) L 05/10/18 05:35 AST 51 Units/L (13-39) H 05/08/18 22:58 Alkaline Phosphatase 236 Units/L (34-104) H 05/08/18 22:58 Creatine Kinase 28 Units/L (30-223) L 05/08/18 22:58 Serum Total Protein 6.1 g/dL (6.4-8.9) L 05/08/18 22:58 Albumin 2.5 g/dL (3.5-5.7) L 05/08/18 22:58 Globulin 3.6 g/dL (2.4-3.5) H 05/08/18 22:58 Albumin/Globulin Ratio 0.7 (1.1-2.2) L 05/08/18 22:58 Urine Clarity Turbid (Clear) A 05/08/18 22:45 Urine Protein 100 mg/dL (Neg-Trace) H 05/08/18 22:45 Urine Blood Large (Negative) H 05/08/18 22:45 Ur Leukocyte Esterase Large (Negative) H 05/08/18 22:45 Urine Microscopic RBC 5-15 per hpf (0-3) H 05/08/18 22:45 Urine Microscopic WBC TNTC per hpf (0-3) H 05/08/18 22:45 Ur Squamous Epith Cells Many per lpf (None-Few) H 05/08/18 22:45 Urine Yeast Many per hpf (None Seen) H 05/08/18 22:45 Ur Culture Indicated? NO. (NO) A 05/08/18 22:45 General appearance: Present: no acute distress - Respiratory Respiratory exam: Present: decreased breath sounds, CTAB - Cardiovascular Cardiovascular exam: Present: tachycardia - GI/Abdominal GI/Abdominal exam: Present: diminished bowel sounds, distended Additional comments: Pleux cath to abd - Extremities Exam Additional comments: purpura and ecchymosis areas to all extremities. - Neurological Exam Additional comments: Lethargic, does not follow commands at this time. NO verbal response for me - Skin Skin exam: Present: dry, pallor, warm Palliative Quality Palliative Quality: Screen for Code Status: Yes, Screen for Goals of Care: Yes, Screen for Pain: Yes, If Pain Regimen Started, Initiate Bowel Regimen: NA, Screen for Nausea/Vomitting: Yes - Labs CBC & Chem 7: 05/10/18 05:35 05/10/18 05:35 Labs: Laboratory Results - last 24 hr 05/09/18 05/10/18 05/10/18 13:55 05:35 05:35 WBC 14.3 H RBC 3.53 L Hgb 9.7 L Hct 30.1 L MCV 85.3 MCH 27.5 L MCHC 32.2 RDW 16.1 H Plt Count 94 L MPV 11.5 Immature Gran % 1.0 Seg Neutrophils % 80.2 Lymphocytes % 15.6 Monocytes % 3.1 Eosinophils % 0.0 Basophils % 0.1 Neutrophils # 11.5 H Lymphocytes # 2.2 Monocytes # 0.4 Eosinophils # 0.0 Basophils # 0.0 Immature Plt Fraction 3.5 Sodium 144 Potassium 3.5 Chloride 117 H Carbon Dioxide 11 L BUN 120 H Creatinine 6.01 H Est GFR ( Amer) 9 L Est GFR (Non-Af Amer) 7 L BUN/Creatinine Ratio 20 Glucose 84 POC Glucose 124 H Calculated Osmolality 336 H Calcium 8.1 L Magnesium 1.6 Random Vancomycin 13 05/10/18 05/10/18 06:01 11:57 WBC RBC Hgb Hct MCV MCH MCHC RDW Plt Count MPV Immature Gran % Seg Neutrophils % Lymphocytes % Monocytes % Eosinophils % Basophils % Neutrophils # Lymphocytes # Monocytes # Eosinophils # Basophils # Immature Plt Fraction Sodium Potassium Chloride Carbon Dioxide BUN Creatinine Est GFR ( Amer) Est GFR (Non-Af Amer) BUN/Creatinine Ratio Glucose POC Glucose 81 77 Calculated Osmolality Calcium Magnesium Random Vancomycin - ABG Interpretation ABG results: PT/INR, D-dimer PT 12.6 Seconds (9.4-12.1) H 05/08/18 22:58 Consult Discharge Plan - Plan Referrals: Stephani Garcia MD [Primary Care Provider] - (please call upon discharge)
[2018-05-10] MEDS ORDERED: *HR* Morphine Soln 10 MG/5 ML UDC PO SCH (16:00)
--- NOTE | 2018-05-10 16:02 | Internal Med Progress Note ---
Date of Encounter: 05/10/18 Time of Encounter: 10:20 - Assessment and plan (1) Cavitary lesion of lung Current Visit: Yes Status: Acute (2) Failure to thrive in adult Current Visit: Yes Status: Acute Assessment and plan: Patient's functional status has been declining with poor oral intake, delirium, malnutrition, worsening renal failure and end-stage cirrhosis. Aggressive management medically futile. Pulmonology and nephrology signed off. Multiple extensive family meetings have been held by palliative care with patient's family members/power of mold sheet cleaner; ultimate discharge disposition is home with home hospice, which may not be possible until after the weekend due to the hospice nurse that the patient's mother desires, being currently on vacation. Continue supportive care with when necessary oral morphine and Ativan solutions , Magic mouthwash. Poor prognosis with terminal medical conditions. DNR comfort care. Will not repeat labs. 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: without blister packaging machine operator use Diabetes mellitus complication status: with kidney complications Diabetes mellitus complication detail: with chronic kidney disease Chronic kidney disease stage: unspecified stage Qualified Code(s): E11.22 - Type 2 diabetes mellitus with diabetic chronic kidney disease (5) Severe protein-calorie malnutrition Current Visit: Yes Status: Chronic (6) Goals of care, counseling/discussion Current Visit: Yes Status: Acute (7) Healthcare-associated pneumonia Current Visit: Yes Status: Acute (8) Hyperkalemia Current Visit: Yes Status: Acute (9) ESRD (end stage renal disease) Current Visit: Yes Status: Chronic (10) Rash Current Visit: Yes Status: Acute - Time Spent With Patient Total time spent is greater than 50% in coordination of care (as documented) at patient's floor/unit and/or counseling patient: - Subjective Interval history: Patient continues to be delirious, cannot answer appropriately. Refuses oral medications and diet. Continues to deteriorate. - Constitutional Vitals: Temp Pulse Resp BP Pulse Ox 97.6 F 49 16 77/47 94 05/10/18 11:53 05/10/18 11:53 05/10/18 11:53 05/10/18 11:53 05/10/18 11:53 General appearance: Present: A&O X 0. Absent: answers questions appropriately - Respiratory Respiratory exam: Present: CTAB. Absent: accessory muscle use, rales, rhonchi, wheezes - Cardiovascular Cardiovascular exam: Present: RRR, +S1, +S2. Absent: diastolic murmur, gallop, rubs, systolic murmur Internal Medicine: Result - Labs CBC & Chem 7: 05/10/18 05:35 05/10/18 05:35 Labs: Short CBC 05/10/18 Range/Units 05:35 WBC 14.3 H (4.3-11.1) K/mcL Hgb 9.7 L (11.5-15.4) g/dL Hct 30.1 L (35.3-44.9) % Plt Count 94 L (140-400) K/mcL Neutrophils # 11.5 H (1.6-8.9) K/mcL BMP 05/10/18 05:35 Sodium 144 Potassium 3.5 Chloride 117 H Carbon Dioxide 11 L BUN 120 H Creatinine 6.01 H Glucose 84 Calcium 8.1 L - ABG Interpretation ABG results: PT/INR, D-dimer PT 12.6 Seconds (9.4-12.1) H 05/08/18 22:58 Consult Discharge Plan - Plan Referrals: Stephani Garcia MD [Primary Care Provider] - (please call upon discharge) Prescriptions: Lidocaine Jelly 2% 1 appl MM BID #1 jel..ml. LORazepam Oral Conc [Ativan Oral Conc] 0.5 - 1 mg PO Q4H PRN 7 Days #30 mls PRN Reason: anxiety/restlessness MORPHINE SUL Oral CONC [Roxanol Oral Conc] 5 - 10 mg PO Q4H PRN 7 Days #30 oral.syg PRN Reason: pain/dyspnea
[2018-05-10] MEDS: *HR* LORazepam Oral Conc 2 MG/ML SL PRN (18:37)
[2018-05-11] MEDS: Insulin LISPRO 300 UNITS/3 ML VIAL SQ SCH ×3 (01:27→13:22)
[2018-05-11] MEDS: *HR* LORazepam Oral Conc 2 MG/ML SL PRN ×2 (01:32→07:28)
[2018-05-11] MEDS: *HR* Morphine Soln 10 MG/5 ML UDC PO PRN (06:28)
[2018-05-11] MEDS: Magic Mouthwash 10 ML UD Cup PO SCH ×2 (07:33→13:22)
[2018-05-11 07:42] VITALS: BP 92/56
[2018-05-11] MEDS ORDERED: Atropine Sulfate 1% 40 DROP/2 ML BOTTLE SL PRN (13:28)
[2018-05-11] MEDS ORDERED: Scopolamine Patch 1.5 MG PATCH.TD72 TD SCH (13:30)
[2018-05-11] MEDS ORDERED: Aminoglycoside Consult 1 EACH MC ONE (14:14)
--- NOTE | 2018-05-11 16:52 | Death Note ---
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 She was started on broad-spectrum IV antibiotics along with supportive care. Nephrology and pulmonology was consulted, patient was deemed a poor candidate for aggressive intervention, hospice care was recommended. Palliative care was consulted, after multiple family discussions, family was agreeable to palliative /comfort care. Patient was awaiting discharge with home hospice intake. She was pronounced at 1415 on 05/11/2018. - Additional Data Confirmation of as documented by pronouncing clinician: no pulse, no heart sounds Family: at bedside Attending/PCP notified?: Yes Attending physician: Wendy Brush MD Was code activated?: No (Hospice) Autopsy requested?: No hand cloth examiner notified?: No Organ bank notified?: Yes Advance directives: Yes Hospice patient?: Yes Discharge Sum: Diag - PCOD Probable Cause of : Cardiorespiratory arrest Discharge Sum: Prov - Provider Primary care physician: Stephani Garcia, Consults: 05/09/18 07:28 Consult to Speech Therapy [CONS] Routine Comment: Evaluate, develop and implement POC Reason for Consult: family describes difficulty swallowing Time Notified: 07:29 Call Completed: Yes 05/09/18 07:30 Consult to Wound Care [CONS] Routine Reason for Consult: breakdown Time Notified: 07:30 Call Completed: Yes 05/09/18 08:58 Consult to Palliative Care [CONS] Routine Comment: Consulting Provider: Palliative Care Ledy Reason for Consult: ftt Time Notified: 08:58 Call Completed: No Pronouncing clinician: Wendy Brush
[2018-05-12 17:55] LABS: QuantiFERON Mitogen minus NIL 0.43 IU/mL; QuantiFERON-TB minus NIL 0.01 IU/mL (0.00-0.34)
--- NOTE | 2018-05-12 20:53 | Electrocardiograph Report ---
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
[2018-05-13 09:46] LABS: QuantiFERON NIL 0.01 IU/mL; QuantiFERON-TB Gold In-Tube INDETERMINATE (Negative)
== END 2018-05-11 14:15 | disposition expired | DRG 720 ==
LOC: 2ANU 22:10 → EMEROO 22:10 → 2ANU 05-09 04:06 → SUATTDRO 05-09 06:49 → 2ANU 05-10 22:05
PROVIDERS: ADMIT Internal Medicine; ATTEND Internal Medicine